=== PATIENT | female | born 1945 | race Caucasian/White ===

== ENCOUNTER 2019-05-14 15:07 | Emergency (ER) | payer MEDICARE ==
[~2019-05-14] VITALS: Ht 163 cm; Wt 80.0 kg
[~2019-05-14 15:07] MED LIST: AC325T PO; ALB0.5V INH; BENZ100C18 PO; FLUT1DIS26 IH; HYOS0.1217 PO; PHEN200T27 PO; PRD10T PO; TIOT18CA IH; TRAM50TA2 PO
[2019-05-14] MEDS ORDERED: methylPREDNISolone 125 MG (Solu-MEDROL) VIAL IV STA (15:12)
[2019-05-14] MEDS ORDERED: RT-ALBUTEROL/IPRATROPIUM 3 ML (DUONEB) VIAL INH ONE (15:15)
--- NOTE | 2019-05-14 15:19 | ED Dyspnea ---
General Stated Complaint: SOA Source of Information: Patient, Family Exam Limitations: No Limitations History of Present Illness Date Seen by Provider: May 14, 2019 Time Seen by Provider: 15:10 Initial Comments 74-year-old female presents with some shortness of breath and wheezing. Patient has a history of COPD and is on 4 L home oxygen. Patient presented to her primary care physician and when they checked her pulse oximeter was around 68 and 70%. Patient presented here today due to increasing shortness of breath. The patient initially came in her pulse ox was 68-70 but was a poor waveform. After adjusting the pulse ox, her reading was in the mid 90s. Patient denies any chest pain, fever or chills. She does have some increased coughing change in her sputum. She has what she describes as a "fullness" on her left side. Patient reports that she has been short of breath for at least 2 weeks. Allergies and Home Medications Allergies Coded Allergies: Codeine (Verified Allergy, Unknown, 12/04/05) Home Medications Acetaminophen 325 Mg Tablet, 650 MG PO Q4H PRN, (Reported) Albuterol 2.5 Mg/0.5 Ml Nebu, 2.5 MG INH Q6H, (Reported) Benzonatate 100 Mg Capsule, 200 MG PO TID, (Reported) Fluticasone/Salmeterol 1 Disk Inhp, 1 PUFF IH BID, (Reported) 1 PUFF Hyoscyamine Sulfate 0.125 Mg/Tab Tab.rapdis, 1 EACH PO Q4H PRN, (Reported) Phenazopyridine Hcl 200 Mg Tablet, 1 EACH PO TID, (Reported) Prednisone 10 Mg Tab, 10 MG PO DAILY, (Reported) Tiotropium [place] 1 Inh Aerp, 0 IH DAILY, (Reported) 1 INHALATION Tramadol Hcl 50 Mg Tablet, 50 MG PO Q6H, (Reported) Patient Home Medication List Home Medication List Reviewed: Yes Review of Systems Review of Systems Constitutional: No chills, No fever Respiratory: cough, short of breath Cardiovascular: No chest pain, No palpitations Gastrointestinal: No abdominal pain, No nausea, No vomiting Skin: no symptoms reported Psychiatric/Neurological: No Symptoms Reported Past Xemexcz-Nbguqi-Hrhonp Hx Past Med/Social Hx: Reviewed Nursing Past Med/Soc Hx Past Medical History Reproductive Disorders: No Physical Exam Vital Signs Vital Signs - First Documented 05/14/19 05/14/19 15:10 15:18 Temp 35.0 Pulse 78 Resp 22 B/P (MAP) 142/85 (104) Pulse Ox 97 O2 Delivery Nasal Cannula O2 Flow Rate 4.00 Capillary Refill : Height, Weight, BMI Height: '" Weight: lbs. oz. kg; BMI Method: General Appearance: No Apparent Distress, WD/WN HEENT: PERRL/EOMI Respiratory: No Accessory Muscle Use, Wheezing (diffuse) Cardiovascular: Regular Rate, Rhythm, No Edema Extremity: Normal Capillary Refill, Normal Inspection Neurologic/Psychiatric: Oriented x3, No Motor/Sensory Deficits, Normal Mood/Affect, liability claims adjuster II-XII Norm as Tested Progress/Results/Core Measures Results/Orders Lab Results Laboratory Tests Test 05/14/19 15:15 Range/Units White Blood Count 7.7 4.3-11.0 10^3/uL Red Blood Count 3.70 L 4.35-5.85 10^6/uL Hemoglobin 11.0 L 11.5-16.0 G/DL Hematocrit 38 35-52 % Mean Corpuscular Volume 103 H 80-99 FL Mean Corpuscular Hemoglobin 30 25-34 PG Mean Corpuscular Hemoglobin Concent 29 L 32-36 G/DL Red Cell Distribution Width 12.9 10.0-14.5 % Platelet Count 184 130-400 10^3/uL Mean Platelet Volume 10.2 7.4-10.4 FL Neutrophils (%) (Auto) 74 42-75 % Lymphocytes (%) (Auto) 17 12-44 % Monocytes (%) (Auto) 9 0-12 % Eosinophils (%) (Auto) 0 0-10 % Basophils (%) (Auto) 0 0-10 % Neutrophils # (Auto) 5.7 1.8-7.8 X 10^3 Lymphocytes # (Auto) 1.3 1.0-4.0 X 10^3 Monocytes # (Auto) 0.7 0.0-1.0 X 10^3 Eosinophils # (Auto) 0.0 0.0-0.3 10^3/uL Basophils # (Auto) 0.0 0.0-0.1 10^3/uL Sodium Level 141 135-145 MMOL/L Potassium Level 4.5 3.6-5.0 MMOL/L Chloride Level 85 L 98-107 MMOL/L Carbon Dioxide Level 44 H 21-32 MMOL/L Anion Gap 12 5-14 MMOL/L Blood Urea Nitrogen 11 7-18 MG/DL Creatinine 0.62 0.60-1.30 MG/DL Estimat Glomerular Filtration Rate > 60 BUN/Creatinine Ratio 18 Glucose Level 142 H 70-105 MG/DL Calcium Level 10.2 H 8.5-10.1 MG/DL Corrected Calcium 10.1 8.5-10.1 MG/DL Magnesium Level 1.9 1.6-2.4 MG/DL Total Bilirubin 0.3 0.1-1.0 MG/DL Aspartate Amino Transf (AST/SGOT) 38 H 5-34 U/L Alanine Aminotransferase (ALT/SGPT) 42 0-55 U/L Alkaline Phosphatase 172 H 40-136 U/L B-Type Natriuretic Peptide 12.8 <100.0 PG/ML Total Protein 7.5 6.4-8.2 GM/DL Albumin 4.1 3.2-4.5 GM/DL My Orders Orders - IRWIN,BELKIS L DO Cbc With Automated Diff (05/14/19 15:12) Comprehensive Metabolic Panel (05/14/19 15:12) BNP (05/14/19 15:12) Magnesium (05/14/19 15:12) Ekg Tracing (05/14/19 15:12) O2 (05/14/19 15:12) Ed Iv/Invasive Line Start (05/14/19 15:12) Monitor-Rhythm Ecg Trace Only (05/14/19 15:12) Albuterol/Ipra Inhalation Soln (Duoneb I (05/14/19 15:15) Methylprednisolone Sod Succ (Solu-Medrol (05/14/19 15:12) Svn Small Volume Nebulizer (05/14/19 15:12) Chest Pa/Lat (2 View) (05/14/19 15:12) Medications Given in ED Current Medications Medications Dose Ordered Sig/Ottoniel Route Start Time Stop Time Status Last Admin Dose Admin Albuterol/ Ipratropium 3 ml ONCE ONCE INH 05/14/19 15:15 05/14/19 15:16 DC 05/14/19 15:53 3 ML Vital Signs/I&O 05/14/19 05/14/19 15:10 15:18 Temp 35.0 Pulse 78 Resp 22 B/P (MAP) 142/85 (104) Pulse Ox 97 97 O2 Delivery Nasal Cannula Nasal Cannula O2 Flow Rate 4.00 Progress Progress Note : Time: 16:20 Progress Note Patient reports she feeling seemingly better following the breathing treatment. Her oxygen has been and the upper 90s throughout her stay. Patient likely with COPD exacerbation. We will start her on doxycycline and some prednisone. She should follow-up with her primary care physician in a couple days for continuation of care and recheck if symptoms Initial ECG Impression Date: May 14, 2019 Initial ECG Impression Time: 15:19 Initial ECG Rhythm: Normal Sinus Initial ECG Intervals: Normal Initial ECG Impression: Normal Departure Impression Primary Impression: COPD (chronic obstructive pulmonary disease) with acute bronchitis Disposition: 01 HOME, SELF-CARE Condition: Stable Departure-Patient Inst. Referrals: ADOLFO ORTIZ DO (PCP/Family) Primary Care Physician Patient Instructions: COPD Including Emphysema (DC), Exacerbation of COPD (DC) Scripts Prednisone (Prednisone) 20 Mg Tab 40 MG PO DAILY, #6 TAB 0 Refills Prov: BELKIS IRWIN DO 05/14/19 Doxycycline Hyclate (Doxycycline Hyclate) 100 Mg Tablet 100 MG PO BID, #20 TAB 0 Refills Prov: BELKIS IRWIN DO 05/14/19 BELKIS IRWIN DO May 14, 2019 15:19 POS
[2019-05-14 15:23] LABS: BASOPHILS % (AUTO) 0 % (0-10); EOSINOPHILS % (AUTO) 0 % (0-10); HEMATOCRIT 38 % (35-52); LYMPHOCYTES # (AUTO) 1.3 X 10^3 (1.0-4.0); LYMPHOCYTES % (AUTO) 17 % (12-44); MEAN CORPUSCULAR HEMOGLOBIN 30 PG (25-34); MEAN CORPUSCULAR HGB CONC 29 G/DL (32-36); MEAN CORPUSCULAR VOLUME 103 FL (80-99); MEAN PLATELET VOLUME 10.2 FL (7.4-10.4); MONOCYTES # (AUTO) 0.7 X 10^3 (0.0-1.0); MONOCYTES % (AUTO) 9 % (0-12); NEUTROPHILS # (AUTO) 5.7 X 10^3 (1.8-7.8); NEUTROPHILS % (AUTO) 74 % (42-75); PLATELET COUNT 184 10^3/uL (130-400); RED CELL DISTRIBUTION WIDTH 12.9 % (10.0-14.5); WHITE BLOOD COUNT 7.7 10^3/uL (4.3-11.0)
[2019-05-14 15:47] LABS: ALANINE AMINOTRANSFERASE 42 U/L (0-55); ALBUMIN 4.1 GM/DL (3.2-4.5); ALKALINE PHOSPHATASE 172 U/L (40-136); BILIRUBIN,TOTAL 0.3 MG/DL (0.1-1.0); BUN/CREATININE RATIO 18; CALCIUM 10.2 MG/DL (8.5-10.1); CARBON DIOXIDE 44 MMOL/L (21-32); CHLORIDE 85 MMOL/L (98-107); CREATININE SERUM 0.62 MG/DL (0.60-1.30); GFR ESTIMATED > 60; GLUCOSE 142 MG/DL (70-105); MAGNESIUM 1.9 MG/DL (1.6-2.4); POTASSIUM 4.5 MMOL/L (3.6-5.0); SODIUM 141 MMOL/L (135-145); TOTAL PROTEIN 7.5 GM/DL (6.4-8.2)
--- NOTE | 2019-05-14 16:04 | Diagnostic Imaging Report ---
PATIENT HISTORY: Shortness of breath for two weeks. TECHNIQUE: Two views of the chest COMPARISON: Chest radiograph on 11/06/2010. FINDINGS: Postsurgical changes are visualized in the right hilum with convex prominence of the right hilum. This is similar to prior exams. Volume loss in the right hemithorax is noted. Bibasilar opacities are seen. A small right pleural effusion is present. No large pneumothorax. Stable cardiac silhouette. No acute osseous abnormalities. IMPRESSION: 1. Bibasilar opacities with small right pleural effusion. This may represent infection or atelectasis. 2. Stable postoperative changes in the right hilum with stable convex prominence of the right hilum. Dictated by: Dictated on workstation # [id number]
[2019-05-14] MEDS ORDERED: DOXY100T2 PO (16:24)
[2019-05-14] MEDS ORDERED: PRD20T PO (16:24)
[2019-05-14 16:32] VITALS: BP 115/78
== END 2019-05-14 16:32 | disposition home or self-care (01) ==
LOC: EDUNIT# 15:07 → ER 15:09
DX: J44.0 Chronic obstructive pulmonary disease with (acute) lower respiratory infection (principal); J20.9 Acute bronchitis, unspecified; Z99.81 Dependence on supplemental oxygen; Z88.5 Allergy status to narcotic agent
CPT/HCPCS: 36415; 71046; 80053; 83735; 83880; 85025; 93005; 93041; 94640; 94760

== ENCOUNTER 2019-05-28 21:02 | Inpatient (IN) | payer MEDICARE ==
[~2019-05-28] VITALS: Ht 165 cm; Wt 85.5 kg
[~2019-05-28 21:02] MED LIST changes: +DOXY100T2 PO; +PRD20T PO
[2019-05-28] MEDS ORDERED: methylPREDNISolone 125 MG (Solu-MEDROL) VIAL IV STA (21:04)
[2019-05-28] MEDS ORDERED: RT-ALBUTEROL SULF 2.5 MG/3 ML PRE-MIX VIAL INH STA (21:04)
[2019-05-28] MEDS ORDERED: RT-ALBUTEROL/IPRATROPIUM 3 ML (DUONEB) VIAL ONE ×2 (21:06→21:08)
[2019-05-28] MEDS ORDERED: DEXAMETHASONE 4 MG/ML SDV (DECADRON) ONE (21:07)
[2019-05-28] MEDS ORDERED: RT-ALBUTEROL SULF 2.5 MG/3 ML PRE-MIX VIAL ONE (21:07)
[2019-05-28] MEDS ORDERED: DEXAMETHASONE 4 MG/ML SDV (DECADRON) IH ONE (21:15)
[2019-05-28] MEDS ORDERED: RT-ALBUTEROL/IPRATROPIUM 3 ML (DUONEB) VIAL INH ONE (21:15)
[2019-05-28 21:19] LABS: BILIRUBIN,URINE NEGATIVE (NEGATIVE); CLARITY,URINE CLOUDY; COLOR,URINE DARK YELLOW; GLUCOSE, URINE (UA) NEGATIVE (NEGATIVE); KETONES,URINE NEGATIVE (NEGATIVE); LEUKOCYTE ESTERASE ,URINE NEGATIVE (NEGATIVE); NITRITE,URINE NEGATIVE (NEGATIVE); PROTEIN,URINE 3+ (NEGATIVE)
[2019-05-28 21:22] LABS: BASOPHILS % (AUTO) 0 % (0-10); EOSINOPHILS % (AUTO) 1 % (0-10); HEMATOCRIT 37 % (35-52); HEMOGLOBIN 10.3 G/DL (11.5-16.0); LYMPHOCYTES # (AUTO) 0.8 X 10^3 (1.0-4.0); LYMPHOCYTES % (AUTO) 11 % (12-44); MEAN CORPUSCULAR HEMOGLOBIN 30 PG (25-34); MEAN CORPUSCULAR HGB CONC 28 G/DL (32-36); MEAN CORPUSCULAR VOLUME 109 FL (80-99); MEAN PLATELET VOLUME 10.1 FL (7.4-10.4); MONOCYTES # (AUTO) 0.7 X 10^3 (0.0-1.0); MONOCYTES % (AUTO) 10 % (0-12); NEUTROPHILS # (AUTO) 5.5 X 10^3 (1.8-7.8); NEUTROPHILS % (AUTO) 78 % (42-75); PLATELET COUNT 162 10^3/uL (130-400)
[2019-05-28 21:28] LABS: INR 0.9 (0.8-1.4); PROTHROMBIN TIME PATIENT 12.1 SEC (12.2-14.7)
[2019-05-28 21:39] LABS: ALANINE AMINOTRANSFERASE 41 U/L (0-55); ALBUMIN 3.7 GM/DL (3.2-4.5); ALKALINE PHOSPHATASE 147 U/L (40-136); BILIRUBIN,TOTAL 0.1 MG/DL (0.1-1.0); BUN/CREATININE RATIO 25; CALCIUM 10.5 MG/DL (8.5-10.1); CHLORIDE 87 MMOL/L (98-107); CREATINE KINASE 19 U/L (29-168); CREATININE SERUM 0.61 MG/DL (0.60-1.30); GFR ESTIMATED > 60; GLUCOSE 141 MG/DL (70-105); MAGNESIUM 2.1 MG/DL (1.6-2.4); POTASSIUM 4.8 MMOL/L (3.6-5.0); SODIUM 147 MMOL/L (135-145); TOTAL PROTEIN 6.9 GM/DL (6.4-8.2)
[2019-05-28 21:40] LABS: ABG OXYGEN SATURATION 99 % (94-100); ABG PO2 159 MMHG (79-93)
[2019-05-28 21:45] LABS: AMORPHOUS SEDIMENT,UR LARGE AMOR URATES /LPF; BACTERIA,URINE FEW /HPF; HYALINE CASTS, URINE 0-2 /LPF; RBC,URINE 25-50 /HPF; SQUAMOUS EPITHELIAL CELL,UR 0-2 /HPF
[2019-05-28 21:45] LABS: ABG PH 7.17 (7.37-7.43); ALLENS TEST POSITIVE; INSPIRED O2 3.5L; PATIENT TEMP 36.3; VENTILATOR NO
[2019-05-28 21:46] LABS: CREATINE KINASE MB 1.7 NG/ML (<6.6)
[2019-05-28 21:58] LABS: CARBON DIOXIDE 48 MMOL/L (21-32)
[2019-05-28] MEDS ORDERED: AZITHROMYCIN INJECTION 500 MG in NS (IVPB) 250 ML IV ONE (22:00)
[2019-05-28] MEDS ORDERED: cefTRIAXone FOR IV USE 1,000 MG in WATER (STERILE) FOR INJECTION 10 ML IV ONE (22:00)
[2019-05-28 22:24] VITALS: BP 148/75
--- NOTE | 2019-05-28 22:28 | Diagnostic Imaging Report ---
INDICATION: Shortness of breath, respiratory difficulty. TECHNIQUE: Single view chest 9:45 PM. CORRELATION STUDY: 05/14/2019 FINDINGS: Surgical changes at the area of fullness in the right hilum appears generally stable. There is what appears to be increasing effusion at the right lung base with some progressive right lung volume loss. Left lung relatively stable. Heart size unchanged. IMPRESSION: 1. Postsurgical changes of the right hilum with right lung volume loss. There appears to be increasing opacity at the right lung base and right pleural effusion with progressive right lung volume loss. Dictated by: Dictated on workstation # [id number]
[2019-05-28 23:38] LABS: ABG BASE EXCESS 23.9 MMOL/L (-2.5-2.5); ABG OXYGEN SATURATION 98 % (94-100); ABG PO2 79 MMHG (79-93); ABG TCO2 57.1 MMOL/L (21.0-31.0); ALLENS TEST POSITIVE; INSPIRED O2 50%
[2019-05-28 23:39] LABS: PATIENT TEMP 35; VENTILATOR NO
[2019-05-28 23:40] LABS: ABG PCO2 130 MMHG (35-45); ABG PH 7.22 (7.37-7.43)
[2019-05-29] VITALS (36 sets, daily range): BP systolic 90–146; BP diastolic 48–91
[2019-05-29] MEDS ORDERED: methylPREDNISolone 125 MG (Solu-MEDROL) VIAL IV SCH ×2 (00:55→06:00)
[2019-05-29] MEDS ORDERED: D5 1/2 NS W/KCL 20 MEQ/L 1,000 ML IV SCH (01:00)
[2019-05-29] MEDS ORDERED: CATHETER FLUSH 10 ML SYR IV PRN (01:00)
--- NOTE | 2019-05-29 01:46 | ED Respiratory ---
General Chief Complaint: Respiratory Problems Stated Complaint: ACUTE RESP FAILURE;PNEUMONIA;PLURAL EFFUSIA; Source: EMS, spouse Exam Limitations: clinical condition (PT VERY LETHARGIC, AND NOT REALLY TALKING/ANSWERING QUESTIONS--OCCASIONALLY NODS/SHAKES HEAD YES/NO. ) History of Present Illness Date Seen by Provider: May 28, 2019 Time Seen by Provider: 21:03 Initial Comments PT ARRIVES VIA [facility] FROM HOME CALLED EMS FOR SHORTNESS OF BREATH-CHRONIC PROBLEM, PROGRESSIVELY WORSE OVER THE LAST SEVERAL DAYS PT HAS COPD AND LAST USED ALBUTEROL NEBULIZER 4 HOURS AGO. EMS GAVE DUO NEB TREATMENT EN ROUTE. PT HAS ALSO HAD DECREASED MENTATION FOR SEVERAL DAYS. "WANTS TO SLEEP ALL THE TIME" PER . NO REPORTED FEVER NO SIGNIFICANT COUGH PT DENIES CHEST PAIN OR PAIN ANYWHERE. PT NORMALLY WEARS HOME O2 AT 4L/NC NO OTHER RELEVANT INFORMATION OBTAINABLE AT THIS TIME ABOUT CURRENT PROBLEM PT WAS HERE IN ER 05/14/19 FOR C/O ONGOING SHORTNESS OF BREATH FOR THE LAST 2 WEEKS. GIVEN DUO NEB TREATMENT AND HAD SOME IMPROVEMENT. PT WAS DISMISSED WITH RX'S FOR DOXYCYCLINE AND PREDNISONE. PT WAS ADMITTED IN 2010 FOR SIMILAR COMPLAINTS, AND EVENTUALLY REQUIRED INTUBATION STATES THAT PT HAS NEVER FOLLOWED UP WITH A [facility]ORM GROWER, BUT STATES THAT PT IS VERY NON-COMPLIANT ABOUT ANY KIND OF FOLLOW UP APPOINTMENTS. PCP: DR. ORTIZ Allergies and Home Medications Allergies Coded Allergies: codeine (Verified Allergy, Unknown, 12/04/05) Home Medications Acetaminophen 325 Mg Tablet, 650 MG PO Q4H PRN, (Reported) Albuterol 2.5 Mg/0.5 Ml Nebu, 2.5 MG INH Q6H, (Reported) Benzonatate 100 Mg Capsule, 200 MG PO TID, (Reported) Doxycycline Hyclate 100 Mg Tablet, 100 MG PO BID Prescribed by: BELKIS IRWIN on 05/14/19 1624 Fluticasone/Salmeterol 1 Disk Inhp, 1 PUFF IH BID, (Reported) 1 PUFF Hyoscyamine Sulfate 0.125 Mg/Tab Tab.rapdis, 1 EACH PO Q4H PRN, (Reported) Phenazopyridine Hcl 200 Mg Tablet, 1 EACH PO TID, (Reported) Prednisone 10 Mg Tab, 10 MG PO DAILY, (Reported) Prednisone 20 Mg Tab, 40 MG PO DAILY Prescribed by: BELKIS IRWIN on 05/14/19 1624 Tiotropium [place] 1 Inh Aerp, 0 IH DAILY, (Reported) 1 INHALATION Tramadol Hcl 50 Mg Tablet, 50 MG PO Q6H, (Reported) Patient Home Medication List Home Medication List Reviewed: Yes Review of Systems Review of Systems Constitutional: see HPI; No fever; malaise, weakness Respiratory: see HPI Psychiatric/Neurological: See HPI Past Wufytlp-Beggox-Iourbj Hx Patient Social History Alcohol Use: Denies Use Recreational Drug Use: No Smoking Status: Former Smoker (2 PPD --QUIT APPROXIMATELY 5 YEARS AGO, PER ) Type Used: Cigarettes Recent Foreign Travel: No Contact w/Someone Who Travel: No Recent Hopitalizations: No Seasonal Allergies Seasonal Allergies: Yes Past Medical History Surgeries: Yes (RT UPPER LOBECTOMY--FOR BENIGN MASS; "CYST REMOVED FROM ABDOME N" ) Abdominal, Breast, Gallbladder, Hysterectomy, Lobectomy Respiratory: Yes (O2 DEPENDENT AT 4L/NC; INTUBATED IN 2010) Asthma, COPD Cardiac: No Neurological: No Reproductive Disorders: No PR INTERN History: Hysterectomy, Menopausal Genitourinary: No Gastrointestinal: No Musculoskeletal: No Endocrine: Yes (OBESITY) Cancer: No Psychosocial: No Integumentary: No Blood Disorders: No Physical Exam Vital Signs - First Documented Capillary Refill : Height: '" Weight: lbs. oz. kg; 30.00 BMI Method: General Appearance: moderate distress, obese, other (VERY LETHARGIC, RESPIRATIONS MILDLY LABORED, BUT AUDIBLE WHEEZING FROM BEDSIDE) Respiratory: other (DIFFUSE WHEEZING AUDIBLE FROM BEDSIDE. RESPIRATIONS SLIGHTLY LABORED, PT IS HYPOVENTILATING. ) Cardiovascular: regular rate, rhythm, no edema, no JVD, no murmur Gastrointestinal: non tender, soft Extremities: normal inspection, no pedal edema, normal capillary refill Neurologic/Psychiatric: no motor/sensory deficits (GROSSLY INTACT), other (VERY LETHARGIC, NODS HEAD YES/SHAKES HEAD NO ON FEW QUESTIONS, NOT REALLY TALKING. MOVES ALL EXTREMITIES, BUT NOT FOLLOWING COMMANDS WELL) Skin: normal color, warm/dry Focused Exam Lactate Level 05/28/19 21:05: Lactic Acid Level 0.49L Lactic Acid Level Laboratory Tests Test 05/28/19 21:05 Lactic Acid Level 0.49 MMOL/L (0.50-2.00) L Progress/Results/Core Measures Suspected Sepsis SIRS Temperature: Pulse: 80 Respiratory Rate: 23 Laboratory Tests 05/28/19 21:05: White Blood Count 7.0 Blood Pressure 148 /75 Mean: 05/28/19 21:05: Lactic Acid Level 0.49L Laboratory Tests 05/28/19 21:05: Creatinine 0.61, INR Comment 0.9, Platelet Count 162, Total Bilirubin 0.1 Results/Orders Lab Results Laboratory Tests Test 05/28/19 21:05 05/28/19 21:15 05/28/19 21:23 Range/Units White Blood Count 7.0 4.3-11.0 10^3/uL Red Blood Count 3.43 L 4.35-5.85 10^6/uL Hemoglobin 10.3 L 11.5-16.0 G/DL Hematocrit 37 35-52 % Mean Corpuscular Volume 109 H 80-99 FL Mean Corpuscular Hemoglobin 30 25-34 PG Mean Corpuscular Hemoglobin Concent 28 L 32-36 G/DL Red Cell Distribution Width 13.0 10.0-14.5 % Platelet Count 162 130-400 10^3/uL Mean Platelet Volume 10.1 7.4-10.4 FL Neutrophils (%) (Auto) 78 H 42-75 % Lymphocytes (%) (Auto) 11 L 12-44 % Monocytes (%) (Auto) 10 0-12 % Eosinophils (%) (Auto) 1 0-10 % Basophils (%) (Auto) 0 0-10 % Neutrophils # (Auto) 5.5 1.8-7.8 X 10^3 Lymphocytes # (Auto) 0.8 L 1.0-4.0 X 10^3 Monocytes # (Auto) 0.7 0.0-1.0 X 10^3 Eosinophils # (Auto) 0.0 0.0-0.3 10^3/uL Basophils # (Auto) 0.0 0.0-0.1 10^3/uL Prothrombin Time 12.1 L 12.2-14.7 SEC INR Comment 0.9 0.8-1.4 Activated Partial Thromboplast Time 32 24-35 SEC Sodium Level 147 H 135-145 MMOL/L Potassium Level 4.8 3.6-5.0 MMOL/L Chloride Level 87 L 98-107 MMOL/L Carbon Dioxide Level 48 *H 21-32 MMOL/L Anion Gap 12 5-14 MMOL/L Blood Urea Nitrogen 15 7-18 MG/DL Creatinine 0.61 0.60-1.30 MG/DL Estimat Glomerular Filtration Rate > 60 BUN/Creatinine Ratio 25 Glucose Level 141 H 70-105 MG/DL Lactic Acid Level 0.49 L 0.50-2.00 MMOL/L Calcium Level 10.5 H 8.5-10.1 MG/DL Corrected Calcium 10.7 H 8.5-10.1 MG/DL Magnesium Level 2.1 1.6-2.4 MG/DL Total Bilirubin 0.1 0.1-1.0 MG/DL Aspartate Amino Transf (AST/SGOT) 24 5-34 U/L Alanine Aminotransferase (ALT/SGPT) 41 0-55 U/L Alkaline Phosphatase 147 H 40-136 U/L Total Creatine Kinase 19 L 29-168 U/L Creatine Kinase MB 1.7 <6.6 NG/ML Myoglobin 23.2 10.0-92.0 NG/ML Troponin I < 0.028 <0.028 NG/ML B-Type Natriuretic Peptide 39.8 <100.0 PG/ML Total Protein 6.9 6.4-8.2 GM/DL Albumin 3.7 3.2-4.5 GM/DL Urine Color DARK YELLOW Urine Clarity CLOUDY Urine pH 6.0 5-9 Urine Specific [place] >=1.030 1.016-1.022 Urine Protein 3+ H NEGATIVE Urine Glucose (UA) NEGATIVE NEGATIVE Urine Ketones NEGATIVE NEGATIVE Urine Nitrite NEGATIVE NEGATIVE Urine Bilirubin NEGATIVE NEGATIVE Urine Urobilinogen 0.2 < = 1.0 MG/DL Urine Leukocyte Esterase NEGATIVE NEGATIVE Urine RBC (Auto) 3+ H NEGATIVE Urine RBC 25-50 H /HPF Urine WBC NONE /HPF Urine Squamous Epithelial Cells 0-2 /HPF Urine Crystals PRESENT H /LPF Urine Amorphous Sediment LARGE JOSE URATES H /LPF Urine Bacteria FEW H /HPF Urine Casts PRESENT /LPF Urine Hyaline Casts 0-2 H /LPF Urine Mucus NEGATIVE /LPF Urine Culture Indicated NO Blood Gas Puncture Site RIGH RADIAL Blood Gas Patient Temperature 36.3 Arterial Blood pH 7.17 *L 7.37-7.43 Arterial Blood Partial Pressure CO2 35-45 MMHG Arterial Blood Partial Pressure O2 159 H 79-93 MMHG Arterial Blood HCO3 23-27 MMOL/L Arterial Blood Total CO2 21.0-31.0 MMOL/L Arterial Blood Oxygen Saturation 99 94-100 % Arterial Blood Base Excess -2.5-2.5 MMOL/L Rik Test POSITIVE Blood Gas Ventilator Setting NO Blood Gas Inspired Oxygen 3.5L Micro Results Microbiology 05/28/19 Influenza Types A,B Antigen (NIK) - Final, Complete My Orders Orders - MILENA YOUNG DO Albuterol/Ipra Inhalation Soln (Duoneb I (05/28/19 21:06) Dexamethasone Injection (Decadron Inject (05/28/19 21:07) Albuterol Pre-Mix Nebs (Rt) (Proventil (05/28/19 21:07) Albuterol/Ipra Inhalation Soln (Duoneb I (05/28/19 21:08) Ed Iv/Invasive Line Start (05/28/19 21:04) Ekg Tracing (05/28/19 21:04) O2 (05/28/19 21:04) Monitor-Rhythm Ecg Trace Only (05/28/19 21:04) Chest 1 View, Ap/Pa Only (05/28/19 21:04) BNP (05/28/19 21:04) Cbc With Automated Diff (05/28/19 21:04) Comprehensive Metabolic Panel (05/28/19 21:04) Creatine Kinase (05/28/19 21:04) Creatine Kinase Mb (05/28/19 21:04) Lactic Acid Analyzer (05/28/19 21:04) Magnesium (05/28/19 21:04) Protime With Inr (05/28/19 21:04) Partial Thromboplastin Time (05/28/19 21:04) Ua Culture If Indicated (05/28/19 21:04) Blood Culture (05/28/19 21:04) Influenza A And B Antigens (05/28/19 21:04) Myoglobin Serum (05/28/19 21:04) Troponin I (05/28/19 21:04) Albuterol Pre-Mix Nebs (Rt) (Proventil (05/28/19 21:04) Albuterol/Ipra Inhalation Soln (Duoneb I (05/28/19 21:15) Dexamethasone Injection (Decadron Inject (05/28/19 21:15) Rt Request For Service (05/28/19 21:04) Methylprednisolone Sod Succ (Solu-Medrol (05/28/19 21:04) Svn Small Volume Nebulizer (05/28/19 21:04) Svn Small Volume Nebulizer (05/28/19 21:04) Catheter(Urinary) Insert & Ass 03,15 (05/28/19 21:04) Arterial Blood Gas (05/28/19 21:23) Medications Given in ED Current Medications Medications Dose Ordered Sig/Ottoniel Route Start Time Stop Time Status Last Admin Dose Admin Albuterol/ Ipratropium 3 ml ONCE ONCE INH 05/28/19 21:15 05/28/19 21:16 DC 05/28/19 21:16 3 ML Azithromycin 500 mg/Sodium Chloride 250 ml @ 250 mls/hr ONCE ONCE IV 05/28/19 22:00 05/28/19 22:59 DC 05/28/19 22:22 250 MLS/HR Ceftriaxone Sodium 1000 mg/ Sterile Water 10 ml @ 200 mls/hr ONCE ONCE IV 05/28/19 22:00 05/28/19 22:02 DC 05/28/19 22:22 200 MLS/HR Dexamethasone Sodium Phosphate 20 mg ONCE ONCE IH 05/28/19 21:15 05/28/19 21:16 DC 05/28/19 21:16 20 MG Vital Signs/I&O 05/28/19 05/28/19 05/28/19 21:02 21:02 22:00 Temp 36.8 36.8 Pulse 116 105 Resp 20 20 B/P (MAP) 151/90 (110) 164/69 Pulse Ox 99 O2 Delivery Nasal Cannula Nasal Cannula O2 Flow Rate 5.00 5.00 Capillary Refill : Progress Note : Progress Note O2 SATS IN UPPER 90'S ON ARRIVAL AT 3.5 L/NC INITIAL ABG'S REVEALED CO2 --"TOO HIGH TO READ" PER LAB STAFF PT PLACED ON BIPAP, WITH SOME IMPROVEMENT IN ABG'S, -PH IS UP, NOW HAS A "READABLE" PCO2, AND O2 SAT IN NORMAL RANGE. PT SLIGHTLY MORE ALERT. GIVEN HOUR LONG NEB TREATMENT WITH DECREASED WHEEZING AND INCREASED AERATION RESPIRATIONS EVEN AND UNLABORED. NO DETERIORATION IN PT'S CONDITION DURING ER STAY DISCUSSED WITH , AND PT, THAT IF HER SYMPTOMS DO NOT SIGNIFICANTLY IMPROVE ON BIPAP, SHE WOULD NEED TO BE ON VENTILATOR, AND IS AGREEABLE TO THIS. ECG Initial ECG Impression Date: May 28, 2019 Initial ECG Impression Time: 21:18 Initial ECG Rate: 87 Initial ECG Rhythm: Normal Sinus Diagnostic Imaging Comments CXR--INCREASED INFILTRATE AND PLEURAL EFFUSION IN RIGHT BASE, WITH DECREASED VOLUME --WORSENING FROM PREVIOUS CXR 05/14/19--PER RADIOLOGIST REPORT AT 2231 Reviewed: Reviewed by Me Departure Communication (Admissions) 2154--SPOKE WITH DR. ORTIZ, ACCEPTS PT FOR ADMIT. WILL CONSULT DR. WINKLER 2199--ATTEMPTING TO CONTACT DR. WINKLER,NO ANSWER. UNABLE TO LEAVE MESSAGE. WILL CONTINUE TO ATTEMPT TO CONTACT HIM AFTER PT IS TRANSFERRED TO ICU Impression Primary Impression: Acute on chronic respiratory failure Additional Impressions: CO2 narcosis Respiratory acidosis RLL pneumonia Pleural effusion on right Disposition: ADMITTED INPATIENT Condition: Improved Admissions Decision to Admit Reason: Admit from ER (General) Decision to Admit/Date: May 28, 2019 Time/Decision to Admit Time: 22:00 Departure-Patient Inst. Referrals: ADOLFO ORTIZ DO (PCP) Primary Care Physician MILENA YOUNG DO May 29, 2019 01:46 POS
[2019-05-29 01:48] LABS: ABG BASE EXCESS 25.2 MMOL/L (-2.5-2.5); ABG OXYGEN SATURATION 97 % (94-100); ABG PO2 85 MMHG (79-93); ABG TCO2 57.6 MMOL/L (21.0-31.0)
[2019-05-29 01:51] LABS: ABG PCO2 128 MMHG (35-45); ABG PH 7.24 (7.37-7.43); ALLENS TEST POSITIVE; INSPIRED O2 50%; PATIENT TEMP 36.2; VENTILATOR NO
[2019-05-29] MEDS ORDERED: RT-ALBUTEROL/IPRATROPIUM 3 ML (DUONEB) VIAL INH PRN (02:00)
[2019-05-29 02:50] LABS: ABG OXYGEN SATURATION 96 % (94-100); ABG PO2 79 MMHG (79-93); ABG TCO2 58.1 MMOL/L (21.0-31.0)
[2019-05-29] MEDS: RT-ALBUTEROL/IPRATROPIUM 3 ML (DUONEB) VIAL INH SCH ×6 (02:50→22:24)
[2019-05-29 02:57] LABS: ABG PCO2 124 MMHG (35-45); ABG PH 7.26 (7.37-7.43); PATIENT TEMP 36.2
[2019-05-29 02:58] LABS: ALLENS TEST positive; INSPIRED O2 50%; VENTILATOR NO
[2019-05-29 04:07] LABS: ABG BASE EXCESS 25.5 MMOL/L (-2.5-2.5); ABG OXYGEN SATURATION 98 % (94-100); ABG PO2 85 MMHG (79-93)
[2019-05-29 04:15] LABS: ALLENS TEST POSITIVE; INSPIRED O2 50% BIPAP; PATIENT TEMP 36.5; VENTILATOR NO
[2019-05-29 04:16] LABS: ABG PCO2 100 MMHG (35-45); ABG PH 7.34 (7.37-7.43)
[2019-05-29] MEDS ORDERED: PROPOFOL DRIP (ICU) 100 ML IV ONE (04:29)
[2019-05-29] MEDS ORDERED: LACTATED RINGERS 1,000 ML IV ONE ×2 (04:30→05:15)
--- NOTE | 2019-05-29 04:38 | Pulmonary Consultation ---
History of Present Illness History of Present Illness Time Seen by Provider: 04:32 Date of Admission History of Present Illness 74yo with hx of severe oxygen dependent COPD uses 4liters of oxygen at home presented to ED secondary to acute worsening SOB and lethargy. Pt is currently on BiPAP with IP of 25 and RR of 20 her Pc02 is still 100 with repeat ABG. Family at bedside will proceed with intubation. Pt is also hypotensive with SBP 80's will also place central line. Pt was recently in ED secondary to worsening SOB. Pt does have a hx of COPDAE requiring mechanical ventilation about 9yrs ago. Allergies and Home Medications Allergies Coded Allergies: codeine (Verified Allergy, Unknown, 12/04/05) Home Medications Acetaminophen 325 Mg Tablet, 650 MG PO Q4H PRN, (Reported) Albuterol 2.5 Mg/0.5 Ml Nebu, 2.5 MG INH Q6H, (Reported) Benzonatate 100 Mg Capsule, 200 MG PO TID, (Reported) Doxycycline Hyclate 100 Mg Tablet, 100 MG PO BID Prescribed by: EBLKIS IRWIN on 05/14/19 1624 Fluticasone/Salmeterol 1 Disk Inhp, 1 PUFF IH BID, (Reported) 1 PUFF Hyoscyamine Sulfate 0.125 Mg/Tab Tab.rapdis, 1 EACH PO Q4H PRN, (Reported) Phenazopyridine Hcl 200 Mg Tablet, 1 EACH PO TID, (Reported) Prednisone 10 Mg Tab, 10 MG PO DAILY, (Reported) Prednisone 20 Mg Tab, 40 MG PO DAILY Prescribed by: BELKIS IRWIN on 05/14/19 1624 Tiotropium [place] 1 Inh Aerp, 0 IH DAILY, (Reported) 1 INHALATION Tramadol Hcl 50 Mg Tablet, 50 MG PO Q6H, (Reported) Past Etfojpy-Urwzhc-Zmiqzc Hx Patient Social History Alcohol Use: Denies Use Recreational Drug Use: No Smoking Status: Former Smoker (2 PPD --QUIT APPROXIMATELY 5 YEARS AGO, PER ) Type Used: Cigarettes Recent Foreign Travel: No Contact w/Someone Who Travel: No Recent Infectious Disease Expo: No Recent Hopitalizations: No Physical Abuse: No Sexual Abuse: No Mistreated: No Fear: No Immunizations Up To Date Date of Pneumonia Vaccine: May 29, 2019 Date of Influenza Vaccine: May 20, 2019 Seasonal Allergies Seasonal Allergies: Yes Past Medical History Surgeries: Yes (RT UPPER LOBECTOMY--FOR BENIGN MASS; "CYST REMOVED FROM ABDOMEN" ) Abdominal, Breast, Gallbladder, Hysterectomy, Lobectomy Respiratory: Yes (O2 DEPENDENT AT 4L/NC; INTUBATED IN 2010) Asthma, COPD Cardiac: No Neurological: No Reproductive Disorders: No 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 oz. kg; 29.00 BMI Method: Exam Exam Vital Signs Date Time Temp Pulse Resp B/P (MAP) Pulse Ox O2 Delivery O2 Flow Rate FiO2 05/29/19 02:50 69 20 98 50.00 05/29/19 02:30 76 18 131/79 (96) 97 NIV Bilevel 50.00 05/29/19 02:15 70 20 134/87 (103) 96 NIV Bilevel 50.00 05/29/19 02:00 98 15 129/79 (96) 98 NIV Bilevel 50.00 05/29/19 01:46 80 98 05/29/19 01:45 69 25 127/71 (89) 97 NIV Bilevel 50.00 05/29/19 01:30 67 19 130/77 (94) 98 NIV Bilevel 50.00 05/29/19 01:15 71 28 111/73 (86) 97 NIV Bilevel 50.00 05/29/19 01:00 83 05/29/19 01:00 83 14 135/74 (94) 97 NIV Bilevel 50.00 05/29/19 00:50 80 133/87 (102) 95 NIV Bilevel 50.00 05/29/19 00:34 36.8 71 18 105/49 (100) 92 NIV Bilevel 05/28/19 22:24 80 23 97 50.00 05/28/19 22:00 36.8 105 20 164/69 05/28/19 21:02 Nasal Cannula 5.00 05/28/19 21:02 36.8 116 20 151/90 (110) 99 Nasal Cannula 5.00 I & O 05/29/19 07:00 Intake Total 260 ml Balance 260 ml Height & Weight Height: '" Weight: lbs. oz. kg; 29.00 BMI Method: General Appearance: Chronically ill, Moderate Distress, Obese HEENT: PERRL/EOMI, TMs Normal Neck: Normal Inspection, Non Tender, Supple Respiratory: Chest Non Tender, Accessory Muscle Use, Decreased Breath Sounds, Respiratory Distress Capillary Refill: Less Than 3 Seconds Gastrointestinal: non tender, soft Extremity: Normal Capillary Refill, Normal Inspection, No Pedal Edema Neurologic/Psychiatric: Alert, Oriented x3 Skin: Normal Color, Warm/Dry Lymphatic: No Adenopathy Results Lab Laboratory Tests 05/28/19 21:05 Assessment/Plan Assessment/Plan Acute on chronic respiratory failure -Will proceed with intubation -Currently on BiPAP Severe oxygen dependent COPD uses 4liers at home COPDAE -Solumedrol -SVNS -Oxygen Morbid obesity BYRON WINKLER DO May 29, 2019 04:37 POS
--- NOTE | 2019-05-29 05:04 | Pulmonary Procedures ---
Pulmonary Procedures Date of Procedure Date of Service: May 29, 2019 Reason for Intubation: Acute respiratory failure Time of Intubation: 05:02 Intubation Method: orotracheal Tube Size: 8 Medications: Propofol, Versed Positive End Tide CO2: Yes Breath Sounds after Intubation: bilateral-equal Intubation Complications: no complications Post Intubation Xray: Yes BYRON WINKLER DO May 29, 2019 05:04 POS
[2019-05-29] MEDS ORDERED: LACTATED RINGERS 1,000 ML IV SCH (05:15)
[2019-05-29] MEDS ORDERED: morphine INJ 4 MG/ML 1 ML (VIAL/SYRINGE) IVP PRN (05:15)
[2019-05-29] MEDS: PROPOFOL DRIP (ICU) 100 ML IV SCH ×4 (05:45→23:35)
[2019-05-29] MEDS: LACTATED RINGERS 1,000 ML IV SCH ×4 (06:04→19:55)
--- NOTE | 2019-05-29 06:36 | Pulmonary Procedures ---
Pulmonary Procedures Date of Procedure Date of Service: May 29, 2019 Lumen: triple Central Line Procedure: betadine prep, sterile drapes applied, sterile dressing applied Position: internal jugular (R) Anesthesia: Lidocaine Volume Anesthetic (ccs): 8 Complications: none Post Position: sutured, good blood return, position confirmed w/ CXR BYRON WINKLER DO May 29, 2019 06:36 POS
[2019-05-29] MEDS: CATHETER FLUSH 10 ML SYR IV SCH ×3 (06:49→22:20)
--- NOTE | 2019-05-29 07:04 | Diagnostic Imaging Report ---
INDICATION: Respiratory failure. Portable chest 2:54 AM. There are postoperative changes from partial right pneumonectomy. There is some blunting of the right costophrenic angle which is probably pleural scarring but effusion cannot be excluded. Left lung is clear. IMPRESSION: Postsurgical changes of the right hemithorax with some right pleural scarring and/or effusion. No change compared to the previous day. Dictated by: Dictated on workstation # [id number]
--- NOTE | 2019-05-29 07:05 | Diagnostic Imaging Report ---
INDICATION: Respiratory failure Portable chest 6:52 AM There is an ET tube projecting over the trachea. NG tube enters the stomach. Right IJ central line tip projects over the SVC. There is some blunting of the right costophrenic angle that appears to be due to scarring and/or effusion. Lungs are clear. IMPRESSION: Right costophrenic angle blunting could be due to effusion or pleural scarring. No change from prior study. Dictated by: Dictated on workstation # [id number]
[2019-05-29 07:51] LABS: ABG BASE EXCESS 22.6 MMOL/L (-2.5-2.5); ABG OXYGEN SATURATION 100 % (94-100); ABG PCO2 45 MMHG (35-45); ABG PO2 457 MMHG (79-93); ABG TCO2 48.7 MMOL/L (21.0-31.0)
--- NOTE | 2019-05-29 07:51 | History & Physical ---
History of Present Illness History of Present Illness Reason for visit/HPI history by since patient on ventilator. Patient came to the emergency room by ambulance. states I was getting weaker and weaker. is getting confused and incoherent improving talk. is having trouble walking. At hospital arterial blood gas showed PCO2 of 130 area Patient has history of COPD. Patient had surgery of her lung. And ovarian cyst. Date of Admission May 28, 2019 at 22:00 Time Seen by a Provider: 07:50 I consulted on this patient on 05/29/19 07:45 Attending Physician Dion Ortiz DO Admitting Physician Dion Ortiz DO Consult Allergies and Home Medications Allergies Coded Allergies: codeine (Verified Allergy, Unknown, 12/04/05) Home Medications Acetaminophen 325 Mg Tablet, 650 MG PO Q4H PRN, (Reported) Albuterol 2.5 Mg/0.5 Ml Nebu, 2.5 MG INH Q6H, (Reported) Benzonatate 100 Mg Capsule, 200 MG PO TID, (Reported) Doxycycline Hyclate 100 Mg Tablet, 100 MG PO BID Prescribed by: BELKIS IRWIN on 05/14/19 1624 Fluticasone/Salmeterol 1 Disk Inhp, 1 PUFF IH BID, (Reported) 1 PUFF Hyoscyamine Sulfate 0.125 Mg/Tab Tab.rapdis, 1 EACH PO Q4H PRN, (Reported) Phenazopyridine Hcl 200 Mg Tablet, 1 EACH PO TID, (Reported) Prednisone 10 Mg Tab, 10 MG PO DAILY, (Reported) Prednisone 20 Mg Tab, 40 MG PO DAILY Prescribed by: BELKIS IRWIN on 05/14/19 1624 Tiotropium [place] 1 Inh Aerp, 0 IH DAILY, (Reported) 1 INHALATION Tramadol Hcl 50 Mg Tablet, 50 MG PO Q6H, (Reported) Patient Home Medication List Home Medication List Reviewed: No Past Uqypkfo-Aqjmlc-Yhjvqk Hx Past Med/Social Hx: Reviewed Nursing Past Med/Soc Hx Patient Social History Marrital Status: Employed/Student: retired Alcohol Use: Denies Use Recreational Drug Use: No Smoking Status: Former Smoker (2 PPD --QUIT APPROXIMATELY 5 YEARS AGO, PER ) Type Used: Cigarettes Recent Foreign Travel: No Contact w/other who traveled: No Recent Hopitalizations: No Recent Infectious Disease Expo: No Immunizations Up To Date Date of Pneumonia Vaccine: May 29, 2019 Date of Influenza Vaccine: May 20, 2019 Seasonal Allergies Seasonal Allergies: Yes Past Medical History Surgeries: Abdominal, Breast, Gallbladder, Hysterectomy, Lobectomy Reproductive: No Hysterectomy, Menopausal History of Blood Disorders: No Family History Cardiovascular disease 19 MOTHER FH: COPD (chronic obstructive pulmonary disease) 19 FATHER Review of Systems Constitutional: malaise, weakness, other (Infusion) EENTM: no symptoms reported Respiratory: dyspnea on exertion, short of breath, other (COPD with acute exacerbation history) Cardiovascular: no symptoms reported Gastrointestinal: no symptoms reported Genitourinary: no symptoms reported : No Physical Exam Vital Signs Vital Signs - First Documented 05/29/19 05:30 FiO2 40 Capillary Refill : Less Than 3 Seconds Height, Weight, BMI Height: '" Weight: lbs. oz. kg; 29.00 BMI Method: General Appearance: No Apparent Distress, WD/WN, Other (Patient on ventilator) HEENT: Normal ENT Inspection Respiratory: No Accessory Muscle Use, No Respiratory Distress, Decreased Breath Sounds Cardiovascular: Regular Rate, Rhythm, No Murmur Gastrointestinal: Non Tender, Soft Assessment/Plan Assessment and Plan Acute and chronic respiratory failure. COPD with acute exacerbation. CO2 narcosis. Confusion. Right lower lobe pneumonia. Left pleural effusion Admission Diagnosis Admission Status: Inpatient Order (span 2 midnights) Reason for Inpatient Admission: CO2 narcosis. On ventilator. COPD with acute exacerbation Clinical Quality Measures DVT/VTE Risk/Contraindication: Risk Factor Score Per Nursin RFS Level Per Nursing on Admit: 4+=Very High DION ORTIZ DO May 29, 2019 07:50 POS
[2019-05-29 07:57] LABS: ABG PH 7.62 (7.37-7.43); ALLENS TEST POSITIVE
[2019-05-29 07:58] LABS: INSPIRED O2 24; PATIENT TEMP 36.2; VENTILATOR YES
[2019-05-29] MEDS ORDERED: SUCCINYLCHOLINE INJ 100 MG/5 ML SYR INJ ONE (08:02)
[2019-05-29] MEDS ORDERED: ROCURONIUM 10 MG/ML 5 ML SYRINGE IV ONE (08:02)
[2019-05-29] MEDS ORDERED: MIDAZOLAM 5 MG/5 ML (VERSED) VIAL IJ ONE (08:02)
[2019-05-29] MEDS ORDERED: fentaNYL INJECTION 100 MCG/2 ML AMP INJ ONE (08:02)
--- NOTE | 2019-05-29 08:53 | NUR ---
0434 LR BOLUS STARTED AT 999ML/HR 0443 VERSED 4MG 0448 PROPOFOL 5[address] O[address] - 24@LIP, COLOR CHANGE PRESENT, BILATERAL CHEST RISE, BREATH SOUNDS BILATERALLY 0545 50 MCG FENTANYL 0610 50MCG FENTANYL 0635 50MCG FENTANYL PROPOFOL DRIP STARTED AT 0545
[2019-05-29] MEDS ORDERED: ACET-168 PO (08:58)
[2019-05-29] MEDS ORDERED: ALBU18HF2 INH (08:59)
[2019-05-29] MEDS ORDERED: TRAM50TA2 PO (08:59)
[2019-05-29] MEDS ORDERED: ALBU2.5V4 NEB (08:59)
[2019-05-29] MEDS ORDERED: UMEC1BLS INH (08:59)
--- NOTE | 2019-05-29 09:00 | NUR ---
SPOKE WITH THE PATIENTS ABOUT MEDICATIONS. HE HAD A LIST AND WE WENT OVER THE EXT MED HX. SHE FILLED PREDNISONE 20MG #6 FOR 3 DAY SUPPLY AND DOXYCYCLINE HYCLATE 100MG #20 FOR 10 DAYS 05-14-19 - HE STATES SHE FINISHED THESE THERAPIES. SHE ALSO FILLED LIPITOR 10MG #90 05-05-19 BUT HE STATES IT CAUSED HER GREAT LEG PAIN SO SHE DISCONTINUED TAKING IT. SHE HAS TRAMADOL ON HAND AT HOME NEEDED BUT RARELY TAKES IT. SHE DOES TAKE TYLENOL OTC NEEDED.
--- NOTE | 2019-05-29 09:37 | History & Physical ---
History of Present Illness History of Present Illness Reason for visit/HPI CC: Confusion HPI: History received from . 74 yo female presented to the ER with increasing confusion and difficulty walking that has progressively gotten worse for 1 week. Patient was not in any pain. Symptoms did get better with breathing treatments and nothing seem to make it worse. Patient did not complain of any headache, nausea, or vomiting. stated that patient did experience similar symptoms 8 years ago. Date of Admission May 28, 2019 at 22:00 Date Seen by a Provider: May 29, 2019 Time Seen by a Provider: 08:35 I consulted on this patient on 05/29/19 09:30 Attending Physician Dion Pool DO Admitting Physician Dion Pool DO Consult Allergies and Home Medications Allergies Coded Allergies: codeine (Verified Allergy, Unknown, 12/04/05) Home Medications Acetaminophen 500 Mg Tablet, 500-1,000 MG PO Q6H PRN for PAIN-MILD (1-4), (Reported) Albuterol Sulfate 2.5 Mg/3 Ml Vial.neb, 2.5 MG NEB QID, (Reported) Albuterol Sulfate 18 Gm Hfa.aer.ad, 2 PUFF INH Q4H PRN for SHORTNESS OF BREATH, (Reported) Tramadol HCl 50 Mg Tablet, 50 MG PO DAILY PRN for PAIN-MODERATE (5-7), (Reported) Umeclidinium Brm/Vilanterol Tr 1 Each Blst.w.dev, 1 PUFF INH DAILY, (Reported) Patient Home Medication List Home Medication List Reviewed: Yes Past Rapliyb-Fjjjzs-Apjugq Hx Patient Social History Marrital Status: Employed/Student: retired Alcohol Use: Denies Use Recreational Drug Use: No Smoking Status: Former Smoker (2 PPD --QUIT APPROXIMATELY 5 YEARS AGO, PER ) Type Used: Cigarettes Recent Foreign Travel: No Contact w/other who traveled: No Recent Hopitalizations: No Recent Infectious Disease Expo: No Immunizations Up To Date Date of Pneumonia Vaccine: May 29, 2019 Date of Influenza Vaccine: May 20, 2019 Seasonal Allergies Seasonal Allergies: Yes Surgeries Yes (RT UPPER LOBECTOMY--FOR BENIGN MASS; "CYST REMOVED FROM ABDOMEN" ) Abdominal, Breast, Gallbladder, Hysterectomy, Lobectomy Respiratory Yes (O2 DEPENDENT AT 4L/NC; INTUBATED IN 2010) COPD Cardiovascular No Neurological No Reproductive System : No Hx Reproductive Disorders: No 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, Menopausal Genitourinary No Gastrointestinal No Musculoskeletal No Endocrine History of Endocrine Disorders: Yes (OBESITY) Cancer No Psychosocial History of Psychiatric Problem: No Integumentary History of Skin or Integumenta: No Blood Transfusions History of Blood Disorders: No Family Medical History Significant Family History: Cancer (MOther Breast cancer) Family Hx: Cardiovascular disease 19 MOTHER FH: COPD (chronic obstructive pulmonary disease) 19 FATHER Review of Systems Constitutional: see HPI; No chills, No fever EENTM: No blurred vision, No double vision Respiratory: cough (chronic), short of breath Cardiovascular: No chest pain, No palpitations Gastrointestinal: No abdominal pain, No nausea, No vomiting Genitourinary: no symptoms reported Musculoskeletal: no symptoms reported Psychiatric/Neurological: Denies Headache Physical Exam Vital Signs Vital Signs - First Documented 05/29/19 04:00 FiO2 90 Capillary Refill : Less Than 3 Seconds Height, Weight, BMI Height: '" Weight: lbs. oz. kg; 29.00 BMI Method: General Appearance: WD/WN, Other (Patient on Ventilator. ) Respiratory: No Accessory Muscle Use, Other (Patient on ventilatory) Cardiovascular: Normal Peripheral Pulses (radial 2/4 bilaterally), Tachycardia (Regular rhythm), Other (1+ LE edema) Assessment/Plan Assessment and Plan CO2 narcosis acute respiratory failure pneumonia COPD Confusion Mechanical ventilation Antibiotics for CAP Admission Diagnosis Admission Status: Inpatient Order (span 2 midnights) Reason for Inpatient Admission: CO2 narcosis Acute respiratory failure Pneumonia Clinical Quality Measures DVT/VTE Risk/Contraindication: Risk Factor Score Per Nursin RFS Level Per Nursing on Admit: 4+=Very High Supervisory-Addendum Brief Verification & Attestation Participated in pt care: other (VIJAY Jacobsen with Dr. Pool) Personally performed: other (VIJAY Jacobsen with Dr. Pool) Care discussed with: other (VIJAY Jacobsen with Dr. Pool) Procedures: n/a VIJAY Jacobsen with ROYCE Lundy [facility] May 29, 2019 09:37 POS
[2019-05-29] MEDS: ENOXAPARIN 40 MG/0.4 ML (LOVENOX) SYR SC SCH (09:39)
[2019-05-29 10:10] LABS: BASOPHILS % (AUTO) 0 % (0-10); EOSINOPHILS % (AUTO) 0 % (0-10); HEMATOCRIT 32 % (35-52); LYMPHOCYTES # (AUTO) 0.3 X 10^3 (1.0-4.0); LYMPHOCYTES % (AUTO) 5 % (12-44); MEAN CORPUSCULAR HEMOGLOBIN 30 PG (25-34); MEAN CORPUSCULAR HGB CONC 28 G/DL (32-36); MEAN CORPUSCULAR VOLUME 107 FL (80-99); MEAN PLATELET VOLUME 10.6 FL (7.4-10.4); MONOCYTES # (AUTO) 0.3 X 10^3 (0.0-1.0); MONOCYTES % (AUTO) 5 % (0-12); NEUTROPHILS # (AUTO) 5.5 X 10^3 (1.8-7.8); NEUTROPHILS % (AUTO) 90 % (42-75); PLATELET COUNT 162 10^3/uL (130-400); RED CELL DISTRIBUTION WIDTH 12.6 % (10.0-14.5); WHITE BLOOD COUNT 6.1 10^3/uL (4.3-11.0)
[2019-05-29] MEDS ORDERED: DEXMEDETOMIDINE INJECTION 1,000 MCG in NS (IVPB) 250 ML IV PRN (10:15)
[2019-05-29] MEDS ORDERED: PROPOFOL DRIP (ICU) 100 ML IV SCH (10:15)
[2019-05-29] MEDS ORDERED: HALOPERIDOL 5 MG/ML (HALDOL) AMP IV PRN (10:15)
[2019-05-29 10:34] LABS: ALANINE AMINOTRANSFERASE 38 U/L (0-55); ALBUMIN 3.3 GM/DL (3.2-4.5); ALKALINE PHOSPHATASE 127 U/L (40-136); BILIRUBIN,TOTAL 0.3 MG/DL (0.1-1.0); BUN/CREATININE RATIO 34; CARBON DIOXIDE 44 MMOL/L (21-32); CHLORIDE 88 MMOL/L (98-107); CREATININE SERUM 0.64 MG/DL (0.60-1.30); GFR ESTIMATED > 60; GLUCOSE 228 MG/DL (70-105); SODIUM 140 MMOL/L (135-145)
[2019-05-29 10:41] LABS: BAND NEUTROPHILS 1 %; BASOPHILS % (MANUAL) 0 %; EOSINOPHILS % (MANUAL) 0 %; LYMPHOCYTES % (MANUAL) 5 %; MONOCYTES % (MANUAL) 5 %; NEUTROPHILS % (MANUAL) 89 %
--- NOTE | 2019-05-29 10:52 | Physical Therapy Progress Note ---
Therapy Progress Note Patient is currently sedated and on mechanical ventilator. PT will continue to monitor patient status and assess when medically stable and able to actively participate with skilled therapy. MORIS LAO PT May 29, 2019 10:52 POS
--- NOTE | 2019-05-29 11:26 | Anesthesia-Procedure Note ---
Procedures/Interventions Procedure Start/Stop/Diagnosis Date of Procedure: May 29, 2019 Start Time: 11:00 Referring Physician: Lianne Preprocedural Diagnosis: Resp Failure, Pneumonia Brief History Called for anesthesia consult for A-line placement on recently intubated pt for Dr. Abdalla. SRNA attempted x2 without success. SILVER BRAZER x1 Left radial under sterile technique. Good blood flow and waveform on monitor. Secured with sterile opsite and tape. report to RN, restraints re-applied. ASA 4. Stop Time: 11:15 Postprocedural Diagnosis: Resp Failure, Pneumonia Arterial Line Arterial Line Catheter: 20G Type: Radial Procedure: prepped, draped in sterile fashion, good wave-form was obtained, patient tolerated procedure well, no immediate complications, post procedure area cleaned, post procedure dressing applied ROYCE DODGE CRNA May 29, 2019 11:25 POS
--- NOTE | 2019-05-29 11:30 | NUR ---
Pastoral care visit, had prayer at bedside with pts son and pts cousin.
[2019-05-29] MEDS: methylPREDNISolone 40 MG/ML (Solu-MEDROL) VIAL IV SCH ×3 (13:32→23:40)
--- NOTE | 2019-05-29 14:02 | NUR ---
Received dietary consult regarding pt's vent status. Spoke with RN about plan of care for pt's vent status. RN stated it would be Saturday before they attempted to wean pt off vent. Would recommend the following TF: Jevity 1.5 at goal rate of 45 ml/hr. Begin at 10 ml/hr and increase by 10 ml q6h as tolerated. At goal rate, provides 1620 kcal (20 kcal/kg); 69 g Pro (0.8 g Pro/kg); and 820 ml free water Flush with 125 ml H2O q4h. With flushes, provides 1570 ml free water. Will continue to follow and reassess as pt needs and status change. Blank Arnold MS, RD, LD [phone]
[2019-05-29] MEDS: inSUlin ASPART (NovoLOG) 1 UNIT/0.01 ML (CHARGE PER UNIT) SC SCH ×2 (17:03→22:22)
[2019-05-29] MEDS: cefTRIAXone 1,000 MG/SWFI 10 ML IV PUSH IV SCH ×2 (20:12)
[2019-05-29] MEDS: AZITHROMYCIN 250 MG TAB (ZITHROMAX) PO SCH (20:13)
[2019-05-30] VITALS (29 sets, daily range): BP systolic 92–172; BP diastolic 50–89
[2019-05-30] MEDS: RT-ALBUTEROL/IPRATROPIUM 3 ML (DUONEB) VIAL INH SCH ×6 (02:29→21:32)
[2019-05-30] MEDS: LACTATED RINGERS 1,000 ML IV SCH ×4 (02:35→21:59)
--- NOTE | 2019-05-30 02:38 | NUR ---
patient's O2 was decreased from 30% to 21%; both RN and facility technician was notified of this change
[2019-05-30 03:24] LABS: ABG BASE EXCESS 18.1 MMOL/L (-2.5-2.5); ABG OXYGEN SATURATION 95 % (94-100); ABG PCO2 56 MMHG (35-45); ABG PO2 59 MMHG (79-93); ABG TCO2 44.8 MMOL/L (21.0-31.0)
[2019-05-30 03:26] LABS: ALLENS TEST POSITIVE; INSPIRED O2 30%; VENTILATOR YES
[2019-05-30 03:41] LABS: MAGNESIUM 1.7 MG/DL (1.6-2.4); PHOSPHORUS 2.1 MG/DL (2.3-4.7)
--- NOTE | 2019-05-30 04:42 | Pulmonary Progress Note ---
Subjective Time Seen by a Provider: 04:39 Subjective/Events-last exam Pt is sedated on vent. Sepsis Event Evaluation Height, Weight, BMI Height: '" Weight: lbs. oz. kg; 29.00 BMI Method: Focused Exam Lactate Level 05/28/19 21:05: Lactic Acid Level 0.49L Exam Exam Vital Signs Date Time Temp Pulse Resp B/P (MAP) Pulse Ox O2 Delivery O2 Flow Rate FiO2 05/30/19 04:00 94 18 109/55 (73) 96 Mechanical Ventilator 30.00 05/30/19 04:00 97 Mechanical Ventilator 30 05/30/19 03:07 Mechanical Ventilator 30.00 05/30/19 03:00 90 15 105/50 (68) 91 Mechanical Ventilator 21.00 05/30/19 02:41 Mechanical Ventilator 21.00 05/30/19 02:29 86 16 96 30 05/30/19 02:00 87 16 105/54 (71) 95 Mechanical Ventilator 30.00 05/30/19 01:00 106 26 103/55 (71) 95 Mechanical Ventilator 30.00 05/30/19 01:00 106 05/30/19 00:22 109 12 92/50 (64) 94 Mechanical Ventilator 30.00 05/30/19 00:00 97 Mechanical Ventilator 30 05/29/19 23:59 37.2 05/29/19 23:35 [id number] 105/50 05/29/19 23:00 108 15 90/48 (62) 95 Mechanical Ventilator 30.00 05/29/19 22:25 100 16 97 30 05/29/19 22:00 107 12 105/54 (71) 96 Mechanical Ventilator 30.00 05/29/19 21:00 110 16 112/55 (74) 95 Mechanical Ventilator 30.00 05/29/19 20:00 37.7 05/29/19 20:00 115 15 101/53 (69) 94 Mechanical Ventilator 30.00 05/29/19 20:00 97 Mechanical Ventilator 30 05/29/19 19:00 110 05/29/19 19:00 115 17 114/58 (76) 93 Mechanical Ventilator 30.00 05/29/19 18:39 106 16 97 30 05/29/19 18:00 111 114/58 (76) 97 Mechanical Ventilator 30.00 05/29/19 17:00 108 116/57 (76) 97 Mechanical Ventilator 30.00 11/22/19 16:00 97 Mechanical Ventilator 30 05/29/19 16:00 100 121/57 (78) 97 Mechanical Ventilator 30.00 05/29/19 16:00 37.7 05/29/19 15:17 37.01941 109 16 134/60 Mechanical Ventilator 30.00 05/29/19 15:00 109 142/61 (88) 97 Mechanical Ventilator 30.00 05/29/19 14:23 Mechanical Ventilator 30.00 05/29/19 14:18 105 16 99 40 05/29/19 14:00 105 16 121/61 (81) 99 Mechanical Ventilator 40.00 05/29/19 13:00 104 16 119/58 (78) 98 Mechanical Ventilator 40.00 05/29/19 12:44 109 05/29/19 12:00 109 31 93/50 (64) 97 Mechanical Ventilator 40.00 05/29/19 12:00 98 Mechanical Ventilator 40 05/29/19 11:11 108 32 117/79 (92) 99 Mechanical Ventilator 40.00 05/29/19 10:56 Mechanical Ventilator 40.00 05/29/19 10:46 108 16 100 50 05/29/19 10:03 110 145/91 05/29/19 10:00 107 46 145/91 (109) 100 Mechanical Ventilator 100.00 05/29/19 09:00 102 14 109/90 (96) 100 Mechanical Ventilator 100.00 05/29/19 08:00 101 24 119/84 (96) 100 Mechanical Ventilator 100.00 05/29/19 08:00 100 Mechanical Ventilator 90 05/29/19 07:48 101 24 100 75 05/29/19 07:00 105 23 105/76 (86) 100 Mechanical Ventilator 100.00 05/29/19 07:00 105 05/29/19 06:00 120 23 115/82 (93) 97 Mechanical Ventilator 100.00 05/29/19 05:45 36.79409 112 23 Mechanical Ventilator 05/29/19 05:33 105 24 113/83 (93) 100 Mechanical Ventilator 100.00 05/29/19 05:30 98 24 100 40 05/29/19 04:45 92 14 115/78 (90) 100 Mechanical Ventilator 100.00 I & O 05/30/19 07:00 Intake Total 2100 ml Output Total 1575 ml Balance 525 ml Height & Weight Height: '" Weight: lbs. oz. kg; 29.00 BMI Method: General Appearance: WD/WN, Other (Patient on Ventilator. ) HEENT: Normal ENT Inspection Neck: Normal Inspection, Non Tender, Supple Respiratory: No Accessory Muscle Use, Other (Patient on ventilatory) Cardiovascular: Normal Peripheral Pulses (radial 2/4 bilaterally), Tachycardia (Regular rhythm), Other (1+ LE edema) Capillary Refill: Less Than 3 Seconds Gastrointestinal: non tender, soft Extremity: Normal Capillary Refill, Normal Inspection, No Pedal Edema Neurologic/Psychiatric: Alert, Oriented x3 Skin: Normal Color, Warm/Dry Lymphatic: No Adenopathy Results Lab Laboratory Tests 05/28/19 21:05 05/29/19 09:45 Assessment/Plan Assessment/Plan Acute on chronic respiratory failure -Continue MV -Labs and CXR are pending -Currently on BiPAP -Check CT of chest today Severe oxygen dependent COPD uses 4liers at home COPDAE -Solumedrol -SVNS -Oxygen Hx of lobectomy elevated right diaphram Morbid obesity BYRON WINKLER DO May 30, 2019 04:42 POS
[2019-05-30 05:00] LABS: BUN/CREATININE RATIO 38; CALCIUM 9.5 MG/DL (8.5-10.1); CARBON DIOXIDE 39 MMOL/L (21-32); CHLORIDE 93 MMOL/L (98-107); GFR ESTIMATED > 60; GLUCOSE 159 MG/DL (70-105); POTASSIUM 3.6 MMOL/L (3.6-5.0); SODIUM 142 MMOL/L (135-145)
[2019-05-30 05:16] LABS: BASOPHILS % (AUTO) 0 % (0-10); EOSINOPHILS % (AUTO) 0 % (0-10); HEMATOCRIT 30 % (35-52); HEMOGLOBIN 8.8 G/DL (11.5-16.0); LYMPHOCYTES # (AUTO) 0.4 X 10^3 (1.0-4.0); LYMPHOCYTES % (AUTO) 5 % (12-44); MEAN CORPUSCULAR HEMOGLOBIN 30 PG (25-34); MEAN CORPUSCULAR HGB CONC 30 G/DL (32-36); MEAN CORPUSCULAR VOLUME 102 FL (80-99); MEAN PLATELET VOLUME 10.5 FL (7.4-10.4); MONOCYTES # (AUTO) 0.5 X 10^3 (0.0-1.0); MONOCYTES % (AUTO) 7 % (0-12); NEUTROPHILS # (AUTO) 6.4 X 10^3 (1.8-7.8); NEUTROPHILS % (AUTO) 88 % (42-75); PLATELET COUNT 157 10^3/uL (130-400); RED CELL DISTRIBUTION WIDTH 13.1 % (10.0-14.5); WHITE BLOOD COUNT 7.3 10^3/uL (4.3-11.0)
[2019-05-30] MEDS: inSUlin ASPART (NovoLOG) 1 UNIT/0.01 ML (CHARGE PER UNIT) SC SCH ×4 (05:16→22:48)
[2019-05-30] MEDS: methylPREDNISolone 40 MG/ML (Solu-MEDROL) VIAL IV SCH ×4 (05:29→23:44)
[2019-05-30] MEDS: CATHETER FLUSH 10 ML SYR IV SCH ×3 (05:29→21:36)
[2019-05-30 06:29] LABS: ABG OXYGEN SATURATION 92 % (94-100); ABG PCO2 59 MMHG (35-45); ABG PH 7.46 (7.37-7.43); ABG PO2 57 MMHG (79-93); ABG TCO2 43.9 MMOL/L (21.0-31.0)
[2019-05-30 06:30] LABS: ALLENS TEST POSITIVE
[2019-05-30 06:31] LABS: INSPIRED O2 30%; PATIENT TEMP 37.1; VENTILATOR YES
[2019-05-30] MEDS: PROPOFOL DRIP (ICU) 100 ML IV SCH ×3 (07:03→20:33)
[2019-05-30] MEDS: PANTOPRAZOLE 40 MG (PROTONIX) VIAL IV SCH (08:22)
[2019-05-30] MEDS: ENOXAPARIN 40 MG/0.4 ML (LOVENOX) SYR SC SCH (08:22)
--- NOTE | 2019-05-30 08:24 | Progress Note - Hospitalist ---
Subjective HPI/CC On Admission Date Seen by Provider: May 30, 2019 Time Seen by Provider: 08:20 Subjective/Events-last exam Pt is sedated and intubated. Family at bedside. No ROS possible. Family reports they were told attempt to wean tomorrow. Focused Exam Lactate Level 05/28/19 21:05: Lactic Acid Level 0.49L Objective Exam Vital Signs Vital Signs Date Time Temp Pulse Resp B/P (MAP) Pulse Ox O2 Delivery O2 Flow Rate FiO2 05/30/19 07:03 116/56 05/30/19 06:26 92 19 92 25 05/30/19 06:00 Mechanical Ventilator 30.00 05/29/19 23:59 37.2 Capillary Refill : Less Than 3 Seconds General Appearance: Chronically ill, Other (intubated and sedated) Respiratory: Rhonci, Other (on vent) Cardiovascular: Regular Rate, Rhythm, No Murmur Gastrointestinal: Normal Bowel Sounds, Non Tender, Soft Genital/Rectal: Other (pastrana in place) Extremity: No Pedal Edema Neurologic/Psychiatric: Other (sedated, appears comfortable) Results/Procedures Lab Laboratory Tests 05/29/19 09:45 05/30/19 03:00 05/30/19 04:45 Patient resulted labs reviewed. Assessment/Plan Assessment and Plan Assess & Plan/Chief Complaint Acute on chronic Respiratory Failure COPD with acute exacerbation and lower respiratory tract infection Pneumonia On vent Management per primary Continue CAP coverage with Rocephin and Azithro SoluMedrol Await cultures Macrocytic anemia Relatively Stable this admission given dilution Down significantly over the course of a few years Trend Hyperglycemia Not on DM meds at home Likely stress response and iatrogenic SSI Clinical Quality Measures DVT/VTE Risk/Contraindication: Risk Factor Score Per Nursin RFS Level Per Nursing on Admit: 4+=Very High ALICJA HARPER MD May 30, 2019 08:24 POS
--- NOTE | 2019-05-30 08:40 | Diagnostic Imaging Report ---
INDICATION: Respiratory failure COMPARISON: 05/29 FINDINGS: ET tube mid trachea. Right IJ at the SVC. OG catheter extends into the upper stomach. There is elevated right diaphragm with some pleural thickening or small amount of pleural fluid. Blunting the right costophrenic angle unchanged. Cardiomegaly and vascular congestion redemonstrated. There is postoperative changes and parenchymal distortion at the right pulmonary hilum unchanged. No new abnormality. IMPRESSION: No interval change. Dictated by: Dictated on workstation # [id number]
--- NOTE | 2019-05-30 09:09 | Occ Therapy Progress Note ---
Therapy Progress Note OT orders received. Pt sedated and on vent. Will follow and assess when able to participate. IRVIN MARSHALL OT May 30, 2019 09:09 POS
[2019-05-30] MEDS: DEXMEDETOMIDINE INJECTION 1,000 MCG in NS (IVPB) 240 ML IV PRN (11:34)
[2019-05-30] MEDS ORDERED: IOHEXOL 350 MG/ML 100 ML (OMNIPAQUE 350) VIAL IV ONE (14:00)
[2019-05-30] MEDS ORDERED: HOLD METFORMIN - RECEIVED CONTRAST 20 ML VIAL IV SCH (14:00)
[2019-05-30] MEDS ORDERED: NS 100 ML (IVPB) BAG IV ONE (14:00)
--- NOTE | 2019-05-30 15:15 | Diagnostic Imaging Report ---
PROCEDURE: CT chest with contrast only. TECHNIQUE: Multiple contiguous axial images were obtained through the chest after administration of intravenous contrast. Auto Exposure Controls were utilized during the CT exam to meet ALARA standards for radiation dose reduction. INDICATION: Respiratory failure, right lobectomy. COMPARISON: Comparison limited to images obtained during metabolic PET/CT performed in 2009. FINDINGS: ET tube terminates just above the ambar with an OG catheter extending into the stomach. There is a small right pleural effusion nonloculated and a minute amount of left pleural fluid. There is a small pericardial effusion predominantly at the superior pericardial recess. Heart size is upper limits. There are postoperative changes of lobectomy on the right. There is background centrilobular emphysema showing progression from the prior. Some mild subcentimeter subpleural airspace like density in the left lower lobe likely atelectatic or inflammatory. No suspicious soft tissue density or lung mass. No hilar, mediastinal or axillary lymph nodes. No destructive or suspicious bony abnormality. The aorta is patent. The visualized upper abdomen reveals small amount of perihepatic free fluid in the right upper quadrant. IMPRESSION: Surgical changes of a right-sided lobectomy. Small nonloculated right pleural effusion. Progressive COPD with no suspicious mass or adenopathy. Nonspecific free fluid partially visualized in the perihepatic right upper quadrant. Mild zones of atelectasis. No findings felt suggestive of lamin pneumonia. Dictated by: Dictated on workstation # [id number]
[2019-05-30] MEDS: AZITHROMYCIN 250 MG TAB (ZITHROMAX) PO SCH (20:28)
[2019-05-30] MEDS: cefTRIAXone 1,000 MG/SWFI 10 ML IV PUSH IV SCH ×2 (20:29)
[2019-05-31] VITALS (33 sets, daily range): BP systolic 120–165; BP diastolic 53–94
[2019-05-31] MEDS: RT-ALBUTEROL/IPRATROPIUM 3 ML (DUONEB) VIAL INH SCH ×6 (01:36→22:50)
[2019-05-31] MEDS: PROPOFOL DRIP (ICU) 100 ML IV SCH ×3 (03:42→17:31)
[2019-05-31 03:55] LABS: BASOPHILS % (AUTO) 0 % (0-10); EOSINOPHILS % (AUTO) 0 % (0-10); HEMATOCRIT 29 % (35-52); HEMOGLOBIN 9.1 G/DL (11.5-16.0); LYMPHOCYTES # (AUTO) 0.3 X 10^3 (1.0-4.0); LYMPHOCYTES % (AUTO) 3 % (12-44); MEAN CORPUSCULAR HEMOGLOBIN 30 PG (25-34); MEAN CORPUSCULAR HGB CONC 31 G/DL (32-36); MEAN CORPUSCULAR VOLUME 96 FL (80-99); MEAN PLATELET VOLUME 10.2 FL (7.4-10.4); MONOCYTES # (AUTO) 0.4 X 10^3 (0.0-1.0); MONOCYTES % (AUTO) 5 % (0-12); NEUTROPHILS # (AUTO) 7.6 X 10^3 (1.8-7.8); NEUTROPHILS % (AUTO) 92 % (42-75); PLATELET COUNT 178 10^3/uL (130-400); WHITE BLOOD COUNT 8.3 10^3/uL (4.3-11.0)
[2019-05-31 03:57] LABS: ABG BASE EXCESS 14.2 MMOL/L (-2.5-2.5); ABG OXYGEN SATURATION 93 % (94-100); ABG PCO2 60 MMHG (35-45); ABG PH 7.44 (7.37-7.43); ABG PO2 64 MMHG (79-93); ABG TCO2 41.1 MMOL/L (21.0-31.0)
[2019-05-31 03:58] LABS: ALLENS TEST POSITIVE; INSPIRED O2 30%; PATIENT TEMP 37.1; VENTILATOR YES
[2019-05-31 04:13] LABS: BUN/CREATININE RATIO 38; CALCIUM 9.1 MG/DL (8.5-10.1); CARBON DIOXIDE 35 MMOL/L (21-32); CHLORIDE 97 MMOL/L (98-107); GFR ESTIMATED > 60; GLUCOSE 145 MG/DL (70-105); MAGNESIUM 1.6 MG/DL (1.6-2.4); POTASSIUM 3.7 MMOL/L (3.6-5.0); SODIUM 141 MMOL/L (135-145)
[2019-05-31] MEDS: DEXMEDETOMIDINE INJECTION 1,000 MCG in NS (IVPB) 240 ML IV PRN ×3 (04:38→21:36)
--- NOTE | 2019-05-31 04:47 | Pulmonary Progress Note ---
Subjective Time Seen by a Provider: 05:03 Subjective/Events-last exam Sedated on vent Sepsis Event Evaluation Height, Weight, BMI Height: '" Weight: lbs. oz. kg; 29.00 BMI Method: Focused Exam Lactate Level 05/28/19 21:05: Lactic Acid Level 0.49L Exam Exam Vital Signs Date Time Temp Pulse Resp B/P (MAP) Pulse Ox O2 Delivery O2 Flow Rate FiO2 05/31/19 04:00 78 15 139/60 (86) 95 Mechanical Ventilator 30.00 05/31/19 03:42 142/68 05/31/19 03:00 85 21 136/58 (84) 95 Mechanical Ventilator 30.00 05/31/19 01:36 99 16 96 30 05/31/19 01:00 79 05/31/19 00:00 84 16 137/59 (85) 96 Mechanical Ventilator 30.00 05/31/19 00:00 97 Mechanical Ventilator 30 05/30/19 23:59 37.1 98 05/30/19 23:00 82 18 139/57 (84) 95 Mechanical Ventilator 30.00 05/30/19 22:00 88 17 131/56 (81) 94 Mechanical Ventilator 30.00 05/30/19 21:32 80 15 92 30 05/30/19 21:00 78 16 157/71 (99) 97 Mechanical Ventilator 30.00 05/30/19 20:33 159/80 05/30/19 20:00 97 Mechanical Ventilator 30 05/30/19 20:00 81 17 160/71 (100) 97 Mechanical Ventilator 30.00 05/30/19 20:00 37.0 05/30/19 19:00 83 16 159/70 (99) 96 Mechanical Ventilator 30.00 05/30/19 19:00 83 05/30/19 18:16 75 16 97 30 05/30/19 18:00 79 17 164/74 (104) 97 Mechanical Ventilator 30.00 05/30/19 17:00 81 16 166/74 (104) 95 Mechanical Ventilator 30.00 05/30/19 16:15 97 Mechanical Ventilator 30 05/30/19 16:00 90 17 168/80 (109) 97 Mechanical Ventilator 30.00 05/30/19 16:00 36.8 05/30/19 15:00 84 15 170/82 (111) 96 Mechanical Ventilator 30.00 05/30/19 15:00 83 15 96 30 05/30/19 14:12 37.51339 80 17 138/70 98 Mechanical Ventilator 5.00 05/30/19 14:00 85 28 158/73 (101) 97 Mechanical Ventilator 30.00 05/30/19 13:00 101 15 149/71 (97) 97 Mechanical Ventilator 30.00 05/30/19 13:00 80 05/30/19 12:20 98 Mechanical Ventilator 30 05/30/19 12:00 85 16 142/66 (91) 97 Mechanical Ventilator 30.00 05/30/19 12:00 37.4 05/30/19 11:00 90 17 138/70 (92) 98 Mechanical Ventilator 30.00 05/30/19 10:00 93 18 128/62 (84) 93 Mechanical Ventilator 30.00 05/30/19 09:05 105 17 92 25 05/30/19 09:00 87 19 122/58 (79) 91 Mechanical Ventilator 30.00 05/30/19 08:35 97 Mechanical Ventilator 30 05/30/19 08:00 86 17 126/58 (80) 92 Mechanical Ventilator 30.00 05/30/19 07:03 116/56 05/30/19 07:00 90 05/30/19 07:00 90 17 114/56 (75) 94 Mechanical Ventilator 30.00 05/30/19 06:26 92 19 92 25 05/30/19 06:00 89 17 108/55 (72) 93 Mechanical Ventilator 30.00 05/30/19 05:00 88 26 125/60 (81) 91 Mechanical Ventilator 30.00 I & O 05/31/19 07:00 Intake Total 2340 ml Output Total 1475 ml Balance 865 ml Height & Weight Height: '" Weight: lbs. oz. kg; 29.00 BMI Method: General Appearance: Chronically ill, Other (intubated and sedated) HEENT: Normal ENT Inspection Neck: Normal Inspection, Non Tender, Supple Respiratory: Rhonci, Other (on vent) Cardiovascular: Regular Rate, Rhythm, No Murmur Capillary Refill: Less Than 3 Seconds Gastrointestinal: non tender, soft Extremity: No Pedal Edema Neurologic/Psychiatric: Other (sedated, appears comfortable) Skin: Normal Color, Warm/Dry Lymphatic: No Adenopathy Results Lab Laboratory Tests 05/29/19 09:45 05/30/19 03:00 05/30/19 04:45 05/31/19 03:30 Assessment/Plan Assessment/Plan Acute on chronic respiratory failure -Continue MV -Will start weaning vent -Labs and CXR are pending -Currently on BiPAP -CT of chest reviewed Severe oxygen dependent COPD uses 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
[2019-05-31] MEDS ORDERED: FUROSEMIDE 40 MG/4 ML INJ (LASIX) IVP ONE (05:00)
[2019-05-31] MEDS: methylPREDNISolone 40 MG/ML (Solu-MEDROL) VIAL IV SCH ×4 (05:32→23:52)
[2019-05-31] MEDS: CATHETER FLUSH 10 ML SYR IV SCH ×3 (05:33→20:32)
[2019-05-31] MEDS: inSUlin ASPART (NovoLOG) 1 UNIT/0.01 ML (CHARGE PER UNIT) SC SCH ×4 (05:35→22:38)
[2019-05-31] MEDS ORDERED: FUROSEMIDE 40 MG/4 ML INJ (LASIX) ONE (05:50)
[2019-05-31] MEDS ORDERED: POTASSIUM CL 10MEQ/50ML IVPB 50 ML IV ONE (05:51)
[2019-05-31] MEDS: POTASSIUM CL 10MEQ/50ML IVPB 50 ML IV SCH ×4 (05:56→09:44)
[2019-05-31 06:42] LABS: ABG BASE EXCESS 15.4 MMOL/L (-2.5-2.5); ABG OXYGEN SATURATION 89 % (94-100); ABG PH 7.36 (7.37-7.43); ABG PO2 61 MMHG (79-93); ABG TCO2 43.9 MMOL/L (21.0-31.0); ALLENS TEST POSITIVE; INSPIRED O2 30y; PATIENT TEMP 37.1; VENTILATOR YES
[2019-05-31 06:43] LABS: ABG PCO2 76 MMHG (35-45)
[2019-05-31] MEDS: ENOXAPARIN 40 MG/0.4 ML (LOVENOX) SYR SC SCH (07:44)
[2019-05-31] MEDS: PANTOPRAZOLE 40 MG (PROTONIX) VIAL IV SCH (07:46)
--- NOTE | 2019-05-31 09:16 | NUR ---
0845 BED BATH COMPLETED, PT AWAKENS AND OPENS EYES TO VERBAL STIMULI, PT ABLE TO SQUEEZE FINGERS AND NOD HEAD APPROPRIATELY WHEN ASKED QUESTIONS. AT BEDSIDE. IV SEDATION CONTINUES AT DOCUMENTED RATES. NO NEEDS NOTED AT THIS TIME, WILL CONTINUE TO MONITOR.
--- NOTE | 2019-05-31 10:20 | Progress Note - Hospitalist ---
Subjective HPI/CC On Admission Date Seen by Provider: May 31, 2019 Time Seen by Provider: 10:18 Subjective/Events-last exam Pt remains intubated and sedated. Family at bed side. Failed weaning trial this AM. Focused Exam Lactate Level 05/28/19 21:05: Lactic Acid Level 0.49L Objective Exam Vital Signs Vital Signs Date Time Temp Pulse Resp B/P (MAP) Pulse Ox O2 Delivery O2 Flow Rate FiO2 05/31/19 10:00 87 27 122/53 (76) 95 Mechanical Ventilator 30.00 05/31/19 08:07 36.24036 05/31/19 07:55 30 Capillary Refill : Less Than 3 Seconds General Appearance: Chronically ill, Obese, Other (on vent) Respiratory: Wheezing, Other (on vent) Cardiovascular: Regular Rate, Rhythm, No Murmur Gastrointestinal: Normal Bowel Sounds, Soft Genital/Rectal: Other (pastrana in place) Extremity: Pedal Edema (trace) Neurologic/Psychiatric: Other (sedated, appears comfortable) Results/Procedures Lab Laboratory Tests 05/31/19 03:30 Patient resulted labs reviewed. Assessment/Plan Assessment and Plan Assess & Plan/Chief Complaint Acute on chronic Respiratory Failure COPD with acute exacerbation and lower respiratory tract infection Pneumonia On vent Management per primary- failed weaninh trial this AM Continue CAP coverage with Rocephin and Azithro SoluMedrol Sputum growing H Flu Macrocytic anemia Down significantly over the course of a few years- will need outpatient workup if not already done Trend, stable Hyperglycemia Not on DM meds at home Likely stress response and iatrogenic SSI- within goal Clinical Quality Measures DVT/VTE Risk/Contraindication: Risk Factor Score Per Nursin RFS Level Per Nursing on Admit: 4+=Very High ALICJA HARPER MD May 31, 2019 10:20 POS
--- NOTE | 2019-05-31 10:47 | Diagnostic Imaging Report ---
INDICATION: Respiratory failure COMPARISON: 05/30/2019 FINDINGS: Single view of the chest demonstrates stable support lines. There is continued opacification in the right lung base with volume loss. Postoperative changes are seen in the right hilum. The left lung is clear. The heart is prominent without overt pulmonary edema. There is no pneumothorax. IMPRESSION: Unchanged aeration of the lungs. Dictated by: Dictated on workstation # [id number]
[2019-05-31 19:39] LABS: ABG BASE EXCESS 14.8 MMOL/L (-2.5-2.5); ABG OXYGEN SATURATION 89 % (94-100); ABG PCO2 67 MMHG (35-45); ABG PO2 63 MMHG (79-93); ABG TCO2 42.5 MMOL/L (21.0-31.0)
[2019-05-31 19:41] LABS: ALLENS TEST ARTLINE; INSPIRED O2 30%; PATIENT TEMP 37.1; VENTILATOR YES
--- NOTE | 2019-05-31 19:58 | NUR ---
[address] Abdalla. Order to continue SIMV mode at this time. RT Kelly notified.
[2019-05-31] MEDS: AZITHROMYCIN 250 MG TAB (ZITHROMAX) PO SCH (20:32)
[2019-05-31] MEDS: cefTRIAXone 1,000 MG/SWFI 10 ML IV PUSH IV SCH ×2 (20:32)
[2019-05-31] MEDS: LACTATED RINGERS 1,000 ML IV SCH (20:41)
--- NOTE | 2019-05-31 22:51 | NUR ---
Patient restless at this time. Communicating that she wants to sleep. Will decrease the Precedex and increase Propofol at this time. (see IV spreadsheet) Family agrees with treatment. Will begin titration with Propofol in the am for weaning.
[2019-06-01] VITALS (27 sets, daily range): BP systolic 107–207; BP diastolic 57–195
[2019-06-01] MEDS: PROPOFOL DRIP (ICU) 100 ML IV SCH (00:49)
[2019-06-01] MEDS: RT-ALBUTEROL/IPRATROPIUM 3 ML (DUONEB) VIAL INH SCH ×6 (02:24→21:15)
[2019-06-01 03:40] LABS: ABG OXYGEN SATURATION 92 % (94-100); ABG PCO2 64 MMHG (35-45); ABG PH 7.42 (7.37-7.43); ABG PO2 68 MMHG (79-93); ABG TCO2 42.5 MMOL/L (21.0-31.0)
[2019-06-01 03:42] LABS: BASOPHILS % (AUTO) 0 % (0-10); EOSINOPHILS % (AUTO) 0 % (0-10); HEMATOCRIT 31 % (35-52); HEMOGLOBIN 9.6 G/DL (11.5-16.0); LYMPHOCYTES # (AUTO) 0.3 X 10^3 (1.0-4.0); LYMPHOCYTES % (AUTO) 3 % (12-44); MEAN CORPUSCULAR HEMOGLOBIN 30 PG (25-34); MEAN CORPUSCULAR HGB CONC 31 G/DL (32-36); MEAN CORPUSCULAR VOLUME 96 FL (80-99); MEAN PLATELET VOLUME 9.9 FL (7.4-10.4); MONOCYTES # (AUTO) 0.6 X 10^3 (0.0-1.0); MONOCYTES % (AUTO) 7 % (0-12); NEUTROPHILS # (AUTO) 8.8 X 10^3 (1.8-7.8); NEUTROPHILS % (AUTO) 91 % (42-75); PLATELET COUNT 182 10^3/uL (130-400); WHITE BLOOD COUNT 9.6 10^3/uL (4.3-11.0)
[2019-06-01 03:43] LABS: ALLENS TEST ARTLINE; INSPIRED O2 30%; PATIENT TEMP 36.8; VENTILATOR YES
[2019-06-01 04:03] LABS: BUN/CREATININE RATIO 51; CALCIUM 8.9 MG/DL (8.5-10.1); CARBON DIOXIDE 36 MMOL/L (21-32); CHLORIDE 97 MMOL/L (98-107); CREATININE SERUM 0.55 MG/DL (0.60-1.30); GFR ESTIMATED > 60; GLUCOSE 127 MG/DL (70-105); MAGNESIUM 1.7 MG/DL (1.6-2.4); POTASSIUM 3.9 MMOL/L (3.6-5.0); SODIUM 142 MMOL/L (135-145)
[2019-06-01] MEDS: inSUlin ASPART (NovoLOG) 1 UNIT/0.01 ML (CHARGE PER UNIT) SC SCH ×4 (04:08→20:28)
[2019-06-01] MEDS: MAGNESIUM 1 GM/100 ML IVPB 100 ML IV SCH ×2 (04:08→04:19)
[2019-06-01] MEDS: KCL 20 MEQ TAB (K-DUR) PO SCH (04:08)
[2019-06-01] MEDS: POTASSIUM CL 10MEQ/50ML IVPB 50 ML IV SCH (04:08)
--- NOTE | 2019-06-01 04:32 | Pulmonary Progress Note ---
Subjective Time Seen by a Provider: 04:29 Subjective/Events-last exam Pt failed weaning yesterday. Repeat weaning today. Sepsis Event Evaluation Height, Weight, BMI Height: '" Weight: lbs. oz. kg; 29.00 BMI Method: Exam Exam Vital Signs Date Time Temp Pulse Resp B/P (MAP) Pulse Ox O2 Delivery O2 Flow Rate FiO2 06/01/19 03:45 95 Mechanical Ventilator 30 06/01/19 03:25 36.8 Mechanical Ventilator 30.00 06/01/19 02:24 74 19 96 30 06/01/19 01:00 78 13 140/67 (91) 96 Mechanical Ventilator 30.00 06/01/19 01:00 80 06/01/19 00:49 81 14 151/63 94 Mechanical Ventilator 30.00 06/01/19 00:00 76 17 143/60 (87) 94 Mechanical Ventilator 30.00 05/31/19 23:10 94 Mechanical Ventilator 30 05/31/19 23:00 78 22 145/64 (91) 95 Mechanical Ventilator 30.00 05/31/19 23:00 37.4 Mechanical Ventilator 30.00 05/31/19 22:50 87 23 94 30 05/31/19 22:00 81 27 165/75 (105) 95 Mechanical Ventilator 30.00 05/31/19 21:00 80 27 148/62 (90) 95 Mechanical Ventilator 30.00 05/31/19 20:00 37.0 05/31/19 20:00 86 26 142/63 (89) 93 Mechanical Ventilator 30.00 05/31/19 20:00 Mechanical Ventilator 30 05/31/19 19:35 37.1 83 23 143/63 (89) 93 Mechanical Ventilator 30.00 05/31/19 19:00 90 05/31/19 19:00 90 22 147/65 (92) 92 Mechanical Ventilator 30.00 05/31/19 18:19 79 15 96 30 05/31/19 18:00 71 18 156/67 (96) 96 Mechanical Ventilator 30.00 05/31/19 17:31 36.28488 72 23 157/68 96 Mechanical Ventilator 30.00 05/31/19 17:00 72 23 157/68 (97) 96 Mechanical Ventilator 30.00 05/31/19 16:34 97 Mechanical Ventilator 30 05/31/19 16:00 36.8 05/31/19 16:00 75 17 156/68 (97) 96 Mechanical Ventilator 30.00 05/31/19 15:00 72 18 158/69 (98) 96 Mechanical Ventilator 30.00 05/31/19 14:48 72 14 97 30 05/31/19 14:00 73 17 156/68 (97) 97 Mechanical Ventilator 30.00 05/31/19 13:00 80 19 138/62 (87) 95 Mechanical Ventilator 30.00 05/31/19 13:00 81 05/31/19 12:24 97 Mechanical Ventilator 30 05/31/19 12:00 37.0 05/31/19 12:00 80 19 140/61 (87) 96 Mechanical Ventilator 30.00 05/31/19 11:17 36.84613 93 30 133/58 96 Mechanical Ventilator 30.00 05/31/19 11:00 86 20 135/59 (84) 96 Mechanical Ventilator 30.00 05/31/19 10:20 93 30 96 30 05/31/19 10:00 87 27 122/53 (76) 95 Mechanical Ventilator 30.00 05/31/19 09:00 96 37 121/57 (78) 94 Mechanical Ventilator 30.00 05/31/19 08:07 36.04113 94 34 157/68 97 Mechanical Ventilator 30.00 05/31/19 08:00 27 139/66 (90) 95 Mechanical Ventilator 30.00 05/31/19 08:00 36.9 05/31/19 07:55 97 Mechanical Ventilator 30 05/31/19 07:00 33 148/59 (88) 97 Mechanical Ventilator 30.00 05/31/19 06:52 94 34 96 30 05/31/19 06:15 94 34 92 30 05/31/19 06:00 92 21 147/63 (91) 94 Mechanical Ventilator 30.00 05/31/19 05:47 86 32 92 30 05/31/19 05:00 83 19 143/60 (87) 95 Mechanical Ventilator 30.00 I & O 06/01/19 07:00 Intake Total 629 ml Output Total 2265 ml Balance -1636 ml Height & Weight Height: '" Weight: lbs. oz. kg; 29.00 BMI Method: General Appearance: Chronically ill, Obese, Other (on vent) HEENT: Normal ENT Inspection Neck: Normal Inspection, Non Tender, Supple Respiratory: Wheezing, Other (on vent) Cardiovascular: Regular Rate, Rhythm, No Murmur Capillary Refill: Less Than 3 Seconds Gastrointestinal: non tender, soft Extremity: Pedal Edema (trace) Neurologic/Psychiatric: Other (sedated, appears comfortable) Skin: Normal Color, Warm/Dry Lymphatic: No Adenopathy Results Lab Laboratory Tests 05/30/19 04:45 05/31/19 03:30 06/01/19 03:29 Assessment/Plan Assessment/Plan Acute on chronic respiratory failure -Continue MV -Failed weaning yesterday. -Repeat weaning today. -Labs and CXR are pending -Currently on BiPAP -CT of chest reviewed Severe oxygen dependent COPD uses 4liers at home COPDAE -Solumedrol -SVNS -Oxygen Hx of lobectomy elevated right diaphram Morbid obesity BYRON WINKLER DO Jun 01, 2019 04:32 POS
[2019-06-01 05:52] LABS: ABG BASE EXCESS 14.6 MMOL/L (-2.5-2.5); ABG OXYGEN SATURATION 94 % (94-100); ABG PCO2 64 MMHG (35-45); ABG PH 7.41 (7.37-7.43); ABG PO2 72 MMHG (79-93); ABG TCO2 42.1 MMOL/L (21.0-31.0)
[2019-06-01 05:54] LABS: ALLENS TEST ARLTINE; INSPIRED O2 30%; PATIENT TEMP 36.8; VENTILATOR YES
[2019-06-01] MEDS: CATHETER FLUSH 10 ML SYR IV SCH ×3 (06:09→20:17)
[2019-06-01] MEDS: methylPREDNISolone 40 MG/ML (Solu-MEDROL) VIAL IV SCH ×4 (06:09→23:55)
--- NOTE | 2019-06-01 06:10 | NUR ---
Dr Abdalla notified of ABG results. Order to extubate and use Vapotherm @ 40% and titrate oxygen to maintain oxygen sat 90-92%. Call placed to RT Buckner to update.
--- NOTE | 2019-06-01 06:25 | NUR ---
Patient extubated at this time. Patient tolerated without difficulty. Patient tolerating Vapotherm at this time.
--- NOTE | 2019-06-01 07:39 | Progress Note ---
Subjective Time Seen by a Provider: 07:34 Subjective/Events-last exam Patient extubated this morning. Patient breathing okay. To members of family at bedside Objective Exam Vital Signs Date Time Temp Pulse Resp B/P (MAP) Pulse Ox O2 Delivery O2 Flow Rate FiO2 06/01/19 06:50 98 Vapotherm 25.00 35 06/01/19 06:25 Vapotherm 35.00 40.00 06/01/19 06:00 75 18 145/65 (91) 95 Mechanical Ventilator 30.00 06/01/19 05:17 81 21 94 30 06/01/19 05:00 75 17 138/63 (88) 96 Mechanical Ventilator 30.00 06/01/19 04:00 72 15 131/57 (81) 96 Mechanical Ventilator 30.00 06/01/19 03:45 95 Mechanical Ventilator 30 06/01/19 03:25 36.8 Mechanical Ventilator 30.00 06/01/19 03:00 75 17 131/57 (81) 96 Mechanical Ventilator 30.00 06/01/19 02:24 74 19 96 30 06/01/19 02:00 77 14 156/67 (96) 96 Mechanical Ventilator 30.00 06/01/19 01:00 78 13 140/67 (91) 96 Mechanical Ventilator 30.00 06/01/19 01:00 80 06/01/19 00:49 81 14 151/63 94 Mechanical Ventilator 30.00 06/01/19 00:00 76 17 143/60 (87) 94 Mechanical Ventilator 30.00 05/31/19 23:10 94 Mechanical Ventilator 30 05/31/19 23:00 78 22 145/64 (91) 95 Mechanical Ventilator 30.00 05/31/19 23:00 37.4 Mechanical Ventilator 30.00 05/31/19 22:50 87 23 94 30 05/31/19 22:00 81 27 165/75 (105) 95 Mechanical Ventilator 30.00 05/31/19 21:00 80 27 148/62 (90) 95 Mechanical Ventilator 30.00 05/31/19 20:00 37.0 05/31/19 20:00 86 26 142/63 (89) 93 Mechanical Ventilator 30.00 05/31/19 20:00 Mechanical Ventilator 30 05/31/19 19:35 37.1 83 23 143/63 (89) 93 Mechanical Ventilator 30.00 05/31/19 19:00 90 1124/19 19:00 90 22 147/65 (92) 92 Mechanical Ventilator 30.00 05/31/19 18:19 79 15 96 30 05/31/19 18:00 71 18 156/67 (96) 96 Mechanical Ventilator 30.00 05/31/19 17:31 36.59603 72 23 157/68 96 Mechanical Ventilator 30.00 05/31/19 17:00 72 23 157/68 (97) 96 Mechanical Ventilator 30.00 05/31/19 16:34 97 Mechanical Ventilator 30 05/31/19 16:00 36.8 05/31/19 16:00 75 17 156/68 (97) 96 Mechanical Ventilator 30.00 05/31/19 15:00 72 18 158/69 (98) 96 Mechanical Ventilator 30.00 05/31/19 14:48 72 14 97 30 05/31/19 14:00 73 17 156/68 (97) 97 Mechanical Ventilator 30.00 05/31/19 13:00 80 19 138/62 (87) 95 Mechanical Ventilator 30.00 05/31/19 13:00 81 05/31/19 12:24 97 Mechanical Ventilator 30 05/31/19 12:00 37.0 05/31/19 12:00 80 19 140/61 (87) 96 Mechanical Ventilator 30.00 05/31/19 11:17 36.20025 93 30 133/58 96 Mechanical Ventilator 30.00 05/31/19 11:00 86 20 135/59 (84) 96 Mechanical Ventilator 30.00 05/31/19 10:20 93 30 96 30 05/31/19 10:00 87 27 122/53 (76) 95 Mechanical Ventilator 30.00 05/31/19 09:00 96 37 121/57 (78) 94 Mechanical Ventilator 30.00 05/31/19 08:07 36.78805 94 34 157/68 97 Mechanical Ventilator 30.00 05/31/19 08:00 27 139/66 (90) 95 Mechanical Ventilator 30.00 05/31/19 08:00 36.9 05/31/19 07:55 97 Mechanical Ventilator 30 I & O 06/01/19 07:00 Intake Total 629 ml Output Total 2465 ml Balance -1836 ml Capillary Refill : Less Than 3 Seconds General Appearance: No Apparent Distress, WD/WN HEENT: Normal ENT Inspection Neck: Full Range of Motion Respiratory: No Accessory Muscle Use, No Respiratory Distress, Decreased Breath Sounds Cardiovascular: Regular Rate, Rhythm, No Murmur Gastrointestinal: non tender, soft Results Lab Laboratory Tests 06/01/19 03:29 Laboratory Tests 05/31/19 09:30: Triglycerides Level 104 05/31/19 11:07: Glucometer 144H 05/31/19 17:30: Glucometer 131H 05/31/19 19:36: Blood Gas Puncture Site LEFT ARTLINE, Blood Gas Patient Temperature 37.1, Arterial Blood pH 7.40, Arterial Blood Partial Pressure CO2 67H, Arterial Blood Partial Pressure O2 63L, Arterial Blood HCO3 40H, Arterial Blood Total CO2 42.5H , Arterial Blood Oxygen Saturation 89L, Arterial Blood Base Excess 14.8H, Rik Test ARTLINE, Blood Gas Ventilator Setting YES, Blood Gas Inspired Oxygen 30% 05/31/19 22:36: Glucometer 146H 06/01/19 03:29: White Blood Count 9.6, Red Blood Count 3.21L, Hemoglobin 9.6L, Hematocrit 31L, Mean Corpuscular Volume 96, Mean Corpuscular Hemoglobin 30, Mean Corpuscular Hemoglobin Concent 31L, Red Cell Distribution Width 14.0, Platelet Count 182, Mean Platelet Volume 9.9, Neutrophils (%) (Auto) 91H, Lymphocytes (%) (Auto) 3L, Monocytes (%) (Auto) 7, Eosinophils (%) (Auto) 0, Basophils (%) (Auto) 0, Neutrophils # (Auto) 8.8H, Lymphocytes # (Auto) 0.3L, Monocytes # (Auto) 0.6, Eosinophils # (Auto) 0.0, Basophils # (Auto) 0.0, Blood Gas Puncture Site LEFT RADIAL ARTLINE, Blood Gas Patient Temperature 36.8, Arterial Blood pH 7.42, Arterial Blood Partial Pressure CO2 64H, Arterial Blood Partial Pressure O2 68L, Arterial Blood HCO3 41*H, Arterial Blood Total CO2 42.5H, Arterial Blood Oxygen Saturation 92L, Arterial Blood Base Excess 15.0H, Rik Test ARTLINE, Blood Gas Ventilator Setting YES, Blood Gas Inspired Oxygen 30%, Sodium Level 142, Potassium Level 3.9, Chloride Level 97L, Carbon Dioxide Level 36H, Anion Gap 9, Blood Urea Nitrogen 28H, Creatinine 0.55L, Estimat Glomerular Filtration Rate > 60, BUN/Creatinine Ratio 51, Glucose Level 127H, Calcium Level 8.9, Phosphorus Level 4.0, Magnesium Level 1.7 06/01/19 05:45: Blood Gas Puncture Site LEFT RADIAL ARTLINE, Blood Gas Patient Temperature 36.8, Arterial Blood pH 7.41, Arterial Blood Partial Pressure CO2 64H, Arterial Blood Partial Pressure O2 72L, Arterial Blood HCO3 40H, Arterial Blood Total CO2 42.1H , Arterial Blood Oxygen Saturation 94, Arterial Blood Base Excess 14.6H, Rik Test ARLTINE, Blood Gas Ventilator Setting YES, Blood Gas Inspired Oxygen 30% Microbiology 05/28/19 Blood Culture - Preliminary, Resulted No growth 05/29/19 Gram Stain - Final, Complete 05/29/19 Sputum Culture - Final, Complete Usual upper respiratory shanta Haemophilus influenza See Comments Assessment/Plan Assessment/Plan Assess & Plan/Chief Complaint Acute and chronic respiratory failure. COPD. COPD with acute exacerbation. Ami. Patient extubated within an hour ago Clinical Quality Measures Admission Status Admission Dx Acute and chronic respiratory failure. COPD with acute exacerbation. CO2 narcosis. Confusion. Right lower lobe pneumonia. Left pleural effusion DVT/VTE Risk/Contraindication: Risk Factor Score Per Nursin RFS Level Per Nursing on Admit: 4+=Very High ADOLFO ORTIZ DO Jun 01, 2019 07:39 POS
--- NOTE | 2019-06-01 07:44 | Diagnostic Imaging Report ---
CHEST 1 VIEW, AP/PA ONLY INDICATION: Acute respiratory failure. COMPARISON: 05/31/2019. FINDINGS: Stable ET and enteric tubes. The tip of the ET tube is near the GE junction and could be advanced. Stable asymmetric elevation of the right hemidiaphragm. Right basilar pleural thickening and/or effusion is unchanged. No new airspace opacities. Stable cardiomediastinal silhouette. IMPRESSION: 1. Stable support devices. Please note, the tip of the enteric tube is at the GE junction and could be advanced. 2. No adverse development. Dictated by: Dictated on workstation # [id number]
[2019-06-01] MEDS: PANTOPRAZOLE 40 MG (PROTONIX) VIAL IV SCH (07:53)
[2019-06-01] MEDS: ENOXAPARIN 40 MG/0.4 ML (LOVENOX) SYR SC SCH (07:54)
--- NOTE | 2019-06-01 08:29 | ST Dysphagia Evaluation ---
Speech Evaluation-General Medical Diagnosis COPD acute respiratory with exacerbation Onset Date: Jun 01, 2019 Therapy Diagnosis Therapy Diagnosis: Oropharyngeal Dysphagia Precautions Precautions: Aspiration Referral Referring Physician: Dr. Abdalla Reason for Referral: Evaluation/Treatment Medical History Pertinent Medical History: COPD Reviewed History: Yes Social History Current Living Status: Spouse Speech PLF/Current-Dysphagia Prior Level of Function Patient lived at home with her where she was independent for most of her daily needs. Subjective Patient was pleasant and cooperative with the Bedside Dysphagia Evaluation. Cognitive Status Patient Orientation: Person, Place, Eyes Open, Situation Minimal speech output due to being extubated this morning. Oral Motor Skills Denture Type: Full- Upper & Lower Ability to Follow Directions: Good Patient was NPO pending BDE. Oral Expression Ability: Mild Impairment Minimal speech output due to being extubated this morning. Voice Voice Phonatory-Based Quality: Breathy, Weak Voice Pitch: Normal Voice Loudness: Moderately Soft/Quiet Face Facial Symmetry: Symmetrical Oral-Facial Assessment Oral-Facial Dentition: Normal Labial Seal Description: Normal Smile: Normal Puff Cheeks: Reduced Strength Lingual Protrusion: Normal Lingual ROM: Normal Lingual Strength: Normal Pharynx Velopharyngeal Move.: Normal Volitional Dry Swallow: Yes Voluntary Cough: Yes Can Clear Throat Volitionally: Yes Productive Cough: No Productive Throat Clear: No Dysphagia Evaluation Consistencies Presented: Regular, Thin Liquid, Mechanical Soft, Pureed Oral phase within normal limits for all consistencies. Pharyngeal phase within normal limits for all consistencies. Dietary Recommendations: Regular Liquid Recommendations: Thin Swallowing Precautions: Alternate Liquids/Solids, Decreased Bolus 1/2 Tsp, Liquids from Straw, Small Bites and Sips, Sitting Upright 90 Degrees, Sitting 90 Degrees 30 Post Intake Dysphagia Evaluation Summary Patient is a 74 year old female who was admitted to ICU via ED due to respiratory failure. Patient was intubated with onset and extubated this morning. Bedside Dysphagia Evaluation was completed at bedside with thin liquids at 1/2 tsp x2 and small sips via straw x2, all without difficulty. Patient was presented 1/2 tsp of puree, mechanical soft and regular without difficulty no khoi. Patient did not exhibit any s/s of aspiration. Diet recommendations of regular with thin liquids. Patient's nurse notified and diet level written on the white board in patient's room. Family educated as to safety of oral intake as well as diet level with voiced understanding. Barriers to Learning Patient was confused upon admission, however today during the BDE she did not exhibit confusion. Speech-Plan Patient/Family Goals Patient/Family Goals: Patient plans on returning home upon hospital discharge. Treatment Plan Speech Therapy Treatment Plan: Discontinue ST Patient does not require further ST services at this time. Treatment Duration: Jun 01, 2019 Frequency: 1 time per week Estimated Hrs Per Day: .25 hour per day Rehab Potential: Good Barriers to Learning: Patient was confused upon admission, however today during the BDE she did not exhibit confusion. Safety Risks/Education Teaching Recipient: Patient, Family, Significant Other Teaching Methods: Demonstration, Discussion Response to Teaching: Verbalize Understanding, Return Demonstration Education Topics Provided: Safety of oral intake and diet level. Time Speech Therapy Time In: 08:00 Speech Therapy Time Out: 08:15 Total Billed Time: 15 Billed Treatment Time 1, KALEB Dyson Jun 01, 2019 08:29 POS
--- NOTE | 2019-06-01 08:44 | Occupational Therapy Eval ---
OT Evaluation-General/PLF Medical Diagnosis Admission Date May 28, 2019 at 22:00 Medical Diagnosis: COPD acute respiratory with exacerbation Onset Date: Jun 01, 2019 Therapy Diagnosis Therapy Diagnosis: impaired ADLs and functional mobility Precautions Precautions/Isolations: Standard Precautions Safety Interventions: Reorient-PRN Referral Physician: Lianne Galvin Reason: Activity Tolerance, Self Care, Evaluation/Treatment, Strengthening/ROM Medical History Pertinent Medical History: COPD Current History Per H&P: Pt admitted 05/28/19 with confusion and difficulty walking, pt intubated upon admission. Pt extubated 06/01/19. Reviewed History: Yes Social History Current Living Status: Spouse Pt's family indicated pt lived at home with her . Pt unable to verbalize info about home set up due to difficulty speaking after being extubated. ADL-Prior Level of Function SCALE: Activities may be completed with or without assistive devices. 7-Nihgjutkvh-erypbke completes the activity by him/herself with no assistance from a helper. 5-Set-up or Clean-up Assistance-helper sets up or cleans up; patient completes activity. [place] assists only prior to or following the activity. 4-Supervision or Touching Assistance-helper provides verbal cues and/or touching/steadying and/or contact guard assistance as patient completes activity. Assistance may be provided throughout the activity or intermittently. 3-Partial/Moderate Assistance-helper does LESS THAN HALF the effort. [place] lifts, holds or supports trunk or limbs, but provides less than half the effort. 2-Substantial/Maximal Assistance-helper does MORE THAN HALF the effort. [place] lifts or holds trunk or limbs and provides more than half the effort. 5-Vlsnzqbzo-rtaggl does ALL the effort. Patient does none of the effort to complete the activity. Or, the assistance of 2 or more helpers is required for the patient to complete the activity. If activity was not attempted, code reason: 7-Patient Refused. 9-Not Applicable-not attempted and the patient did not perform the activity before the current illness, exacerbation or injury. 10-Not Attempted due to Environmental Limitations-(lack of equipment, weather restraints, etc.). 88-Not Attempted due to Medical Conditions or Safety Concerns. ADL PLOF Comments Per family reprot: Pt needed assistance with all aspects of ADLs prior to hospitalization. She was taking sponge baths due to difficulty walking to the bathroom to shower. She can only walk ~15 feet before having to take a break and brace herself against the wall or refrigerator. Pt was able to assist with parts of dressing, but over the last couple of weeks she required increased help. She has home oxygen, on 4L(per pulmonary consult). Self Care: Needed Some Help Functional Cognition: Needed Some Help DME/Equipment Comments none OT Current Status Subjective Nursing stated OK for OT to see pt. Pt laying in bed, daughter and present throughout session. Pt had difficulty speaking due to being extubated this AM, communicated by nodding/shaking head and she attempted to speak but unable to produce much sound. Pt's family assisted pt with communication. Mental Status/Objective Patient Orientation: Person, Place, Time, Situation Attachments: IV, Oxygen Current Glasses/Contacts: Yes Hearing Aids: No Dentures/Partials: Yes Hand Dominance: Right Upper Extremity ROM BUE shoulder flexion to ~90 degrees Upper Extremity Coordination no deficits noted on this date, Upper Extremity Sensation pt did not report any changes in sensation Upper Extremity Strength grossly 3/5 MMT BUE ADL-Treatment Eating (QC): 3 (Based on clinical judgement, pt would require partial assistance with feeding due to UE fatigue with task, and decreased UE strength.) Oral Hygiene (QC): 7 Shower/Bathe Self (QC): 7 Upper Body Dressing (QC): 7 Lower Body Dressing (QC): 7 On/Off Footwear (QC): 7 Toileting Hygiene (QC): 7 Toilet Transfer (QC): 7 Other Treatments Pt laying in bed throughout session, pt and family provided information about PLOF. Pt denied washing her face and hands stating "I have already done it". Pt agreeable to brushing her hair. She was able to brush the right side of her hair with her right hand, unable to reach the left side and the back of her hair. Pt able to lift head off of pillow for OT to complete hair brushing that pt unable to reach. Post OT session, pt laying in bed, call light in reach, all needs met and family present. Education OT Patient Education: Correct positioning, Energy conservation, Modified ADL techniques, Progress toward Goal/Update tx plan, Purpose of tx/functional activities Teaching Recipient: Patient, Family Teaching Methods: Discussion Response to Teaching: Verbalize Understanding OT Auto Cleaner Goals Auto Cleaner Goals Time Frame: Jun 12, 2019 Eating (QC): 6 Oral Hygiene (QC): 6 Toileting Hygiene (QC): 3 Shower/Bathe Self (QC): 3 Upper Body Dressing (QC): 3 Lower Body Dressing (QC): 4 On/Off Footwear (QC): 4 Additional Goals: 1-Demonstrate ADL Tasks, 2-Verbalize Understanding, 3- ImproveStrength/Brianne 1=Demonstrate adherence to instructed precautions during ADL tasks. 2=Patient will verbalize/demonstrate understanding of assistive devices/modifications for ADL. 3=Patient will improve strength/tolerance for activity to enable patient to perform ADL's. OT Education/Plan Problem List/Assessment Assessment: Decreased Activ Tolerance, Decreased UE Strength, Dependent Transfers, Impaired Funct Balance, Impaired I ADL's, Impaired Self-Care Skills, Restricted Funct UE ROM Discharge Recommendations Plan/Recommendations: Continue POC Treatment Plan/Plan of Care Treatment,Training & Education: Yes Patient would benefit from OT for education, treatment and training to promote independence in ADL's, mobility, safety and/or upper extremity function for ADL's. Plan of Care: ADL Retraining, Caregiver Training, Functional Mobility, UE Funct Exercise/Act Treatment Duration: Jun 12, 2019 Frequency: 5 times per week Estimated Hrs Per Day: .25 hour per day Agreement: Yes Rehab Potential: Fair Time/GCodes Start Time: 08:25 Stop Time: 08:35 Total Time Billed (hr/min): 10 Billed Treatment Time 1, JG LEWIS OT Jun 01, 2019 08:44 POS
--- NOTE | 2019-06-01 10:03 | Physical Therapy Evaluation ---
PT Evaluation-General Medical Diagnosis Admission Date May 28, 2019 at 22:00 Medical Diagnosis: COPD acute respiratory with exacerbation Onset Date: Jun 01, 2019 Therapy Diagnosis Therapy Diagnosis: debility, weakness Precautions Precautions/Isolations: Standard Precautions Referral Physician: Lianne Reason for Referral: Evaluation/Treatment Medical History Pertinent Medical History: COPD Current History EMS from home secondary to SOB Reviewed History: Yes Social History Home: Single Level Current Living Status: Spouse Entry Into Home: Stairs With Railing PT Steps Into Home: 1 PT Steps Inside Home: 1 Prior Prior Level of Function SCALE: Activities may be completed with or without assistive devices. 5-Nifjgtlwbo-lowvakm completes the activity by him/herself with no assistance from a helper. 5-Set-up or Clean-up Assistance-helper sets up or cleans up; patient completes activity. [place] assists only prior to or following the activity. 4-Supervision or Touching Assistance-helper provides verbal cues and/or touching/steadying and/or contact guard assistance as patient completes activity. Assistance may be provided throughout the activity or intermittently. 3-Partial/Moderate Assistance-helper does LESS THAN HALF the effort. [place] lifts, holds or supports trunk or limbs, but provides less than half the effort. 2-Substantial/Maximal Assistance-helper does MORE THAN HALF the effort. [place] lifts or holds trunk or limbs and provides more than half the effort. 5-Ztbyxrqxx-bxwiqb does ALL the effort. Patient does none of the effort to complete the activity. Or, the assistance of 2 or more helpers is required for the patient to complete the activity. If activity was not attempted, code reason: 7-Patient Refused. 9-Not Applicable-not attempted and the patient did not perform the activity before the current illness, exacerbation or injury. 10-Not Attempted due to Environmental Limitations-(lack of equipment, weather restraints, etc.). 88-Not Attempted due to Medical Conditions or Safety Concerns. Bed Mobility: 6 Transfers (B,C,W/C): 6 Gait: 6 Stairs: 6 Indoor Mobility (Ambulation): Independent Stairs: Independent Prior Devices Use: None PT Evaluation-Current Subjective Patient and family agree to PT at this time. Nursing states patient should remain in bed during tx today d/t recurrent oxygen desaturation with activity. Patient reports generalized body aches. Objective Patient Orientation: Normal For Age Attachments: Oxygen, Johnson Catheter, IV ROM/Strength ROM Lower Extremities WFL Strength Lower Extremities Grossly 3-/5; assess w/ supine ex Integumentary/Posture Integumentary See nursing notes Bladder Incontinence: Johnson Cath Posture Unable to assess Neuromuscular (Tone, Coordination, Reflexes) Grossly intact Sensory Vision: Functional Hearing: Functional Hand Dominance: Right Transfers Roll Left to Right (QC): 88 Sit to Lying (QC): 88 Lying to Sitting/Side of Bed(Q: 88 Sit to Stand (QC): 88 Chair/Tph-zi-Rkahn Xfer(QC): 88 Car Transfer (QC): 88 Gait Walk 10 feet (QC): 88 Walk 50 ft with 2 Turns(QC): 88 Walk 150 ft (QC): 88 Walking 10ft/uneven surface-QC: 88 Wheelchair Training Does the Pt Use a Wheelchair?: No Wheel 50 ft with 2 turns (QC): 9 Wheel 150 ft (QC): 9 Type of Wheelchair: Manual Stairs 1 Step (curb) (QC): 88 4 Steps (QC): 9 12 Steps (QC): 9 Balance Picking up an Object (QC): 88 Assessment/Needs Patient limited to only supine bed level exercises during evaluation d/t nursing concern about recurrent oxygen desaturation. During exercise, O2 sats fell to 87% and patient given rest period to increase back to at least 90%. Patient performed all supine exercises well with minimal assistance and some general body aches, demonstrating fair strength at this time. PT unable to fully assess patient strength, mobility, balance, and posture d/t limitations at this time. Patient instructed to perform exercises and bed mobility as tolerated throughout the day. Rehab Potential: Fair PT Cutter Helper Goals Intermediate Goals PT Intermediate Goals Time Frame: Jun 27, 2019 Roll Left & Right (QC): 6 Sit to Lying (QC): 6 Lying-Sitting on Side/Bed(QC): 6 Sit to Stand (QC): 6 Chair/Quo-oj-Fockf Xfer(QC): 6 Toilet Transfer (QC): 6 Car Transfer (QC): 6 Does the Patient Walk: Yes Walk 10 feet (QC): 6 Walk 50ft with 2 Turns (QC): 6 Walk 150 ft (QC): 6 Walking 10ft on Uneven Surface: 6 1 Step (curb) (QC): 6 4 Steps (QC): 9 12 Steps (QC): 9 Picking up an Object (QC): 6 Does the Pt use WC or Scooter?: No Type: N/A Type: N/A PT Plan Problem List Problem List: Activity Tolerance, Functional Strength, Safety, Balance, Gait, Transfer, Bed Mobility Treatment/Plan Treatment Plan: Continue Plan of Care Treatment Plan: Bed Mobility, Education, Functional Activity Brianne, Functional Strength, Gait, Safety, Therapeutic Exercise, Transfers Treatment Duration: Jun 27, 2019 Frequency: 6 times per week Estimated Hrs Per Day: .25 hour per day Patient and/or Family Agrees t: Yes Time/GCodes Time In: 931 Time Out: 940 Total Billed Treatment Time: 9 Total Billed Treatment 1 visit EVLowC 9min MORIS LAO PT Jun 01, 2019 10:03 POS
[2019-06-01] MEDS: ACETAMINOPHEN 325 MG TABLET PO PRN ×2 (10:25→17:38)
[2019-06-01] MEDS ORDERED: SIMETHICONE 80 MG (MYLICON) CHEW ONE (14:30)
[2019-06-01] MEDS ORDERED: SIMETHICONE 80 MG (MYLICON) CHEW PO PRN (14:30)
[2019-06-01] MEDS: LACTATED RINGERS 1,000 ML IV SCH (17:29)
[2019-06-01] MEDS ORDERED: meTOprolol TARTRATE 25 MG (LOPRESSOR) TABLET ONE (19:22)
[2019-06-01] MEDS ORDERED: hydrALAZINE (APESOLINE) 20 MG/ML VIAL IV PRN (19:30)
[2019-06-01] MEDS: meTOprolol TARTRATE 25 MG (LOPRESSOR) TABLET PO SCH (20:16)
[2019-06-01] MEDS: cefTRIAXone 1,000 MG/SWFI 10 ML IV PUSH IV SCH ×2 (20:16)
[2019-06-01] MEDS: AZITHROMYCIN 250 MG TAB (ZITHROMAX) PO SCH (20:16)
[2019-06-02] VITALS (27 sets, daily range): BP systolic 126–177; BP diastolic 70–97
[2019-06-02] MEDS: RT-ALBUTEROL/IPRATROPIUM 3 ML (DUONEB) VIAL INH SCH ×6 (01:32→21:49)
[2019-06-02 02:51] LABS: BASOPHILS % (AUTO) 0 % (0-10); EOSINOPHILS % (AUTO) 0 % (0-10); HEMATOCRIT 35 % (35-52); HEMOGLOBIN 10.7 G/DL (11.5-16.0); LYMPHOCYTES # (AUTO) 0.3 X 10^3 (1.0-4.0); LYMPHOCYTES % (AUTO) 2 % (12-44); MEAN CORPUSCULAR HEMOGLOBIN 30 PG (25-34); MEAN CORPUSCULAR HGB CONC 30 G/DL (32-36); MEAN CORPUSCULAR VOLUME 98 FL (80-99); MEAN PLATELET VOLUME 9.8 FL (7.4-10.4); MONOCYTES # (AUTO) 0.8 X 10^3 (0.0-1.0); MONOCYTES % (AUTO) 6 % (0-12); NEUTROPHILS # (AUTO) 12.6 X 10^3 (1.8-7.8); NEUTROPHILS % (AUTO) 92 % (42-75); PLATELET COUNT 221 10^3/uL (130-400); RED CELL DISTRIBUTION WIDTH 14.4 % (10.0-14.5); WHITE BLOOD COUNT 13.7 10^3/uL (4.3-11.0)
[2019-06-02 03:11] LABS: BUN/CREATININE RATIO 41; CALCIUM 9.1 MG/DL (8.5-10.1); CARBON DIOXIDE 37 MMOL/L (21-32); CHLORIDE 99 MMOL/L (98-107); CREATININE SERUM 0.58 MG/DL (0.60-1.30); GFR ESTIMATED > 60; GLUCOSE 132 MG/DL (70-105); PHOSPHORUS 3.3 MG/DL (2.3-4.7); POTASSIUM 3.9 MMOL/L (3.6-5.0); SODIUM 145 MMOL/L (135-145)
[2019-06-02] MEDS: POTASSIUM CL 10MEQ/50ML IVPB 50 ML IV SCH (04:46)
[2019-06-02] MEDS: inSUlin ASPART (NovoLOG) 1 UNIT/0.01 ML (CHARGE PER UNIT) SC SCH ×4 (04:46→21:23)
[2019-06-02] MEDS: MAGNESIUM 1 GM/100 ML IVPB 100 ML IV SCH (04:46)
[2019-06-02] MEDS: KCL 20 MEQ TAB (K-DUR) PO SCH (04:46)
--- NOTE | 2019-06-02 05:12 | Pulmonary Progress Note ---
Sepsis Event Evaluation Height, Weight, BMI Height: '" Weight: lbs. oz. kg; 29.00 BMI Method: Exam Exam Vital Signs Date Time Temp Pulse Resp B/P (MAP) Pulse Ox O2 Delivery O2 Flow Rate FiO2 06/02/19 04:00 37.1 06/02/19 03:20 99 NIV Bilevel 50 06/02/19 02:00 94 26 154/81 (105) 100 NIV Bilevel 50.00 06/02/19 01:49 74 25 100 60.00 06/02/19 01:46 NIV Bilevel 50.00 06/02/19 01:32 93 Vapotherm 25.00 40 06/02/19 01:00 87 06/02/19 01:00 87 24 177/92 (120) 97 Vapotherm 25.00 40.00 06/02/19 00:00 81 24 168/86 (113) 98 Vapotherm 25.00 40.00 06/01/19 23:15 37.3 Vapotherm 25.00 40.00 06/01/19 23:10 96 Vapotherm 25.00 40 06/01/19 23:00 87 149/78 (101) 97 Vapotherm 25.00 40.00 06/01/19 22:04 90 26 159/79 (105) 97 Vapotherm 25.00 40.00 06/01/19 21:15 98 Vapotherm 25.00 40 06/01/19 21:00 106 24 132/74 (93) Vapotherm 25.00 40.00 06/01/19 20:00 80 27 154/94 (114) 96 Vapotherm 25.00 40.00 06/01/19 19:25 37.4 06/01/19 19:11 87 27 163/87 (112) 97 Vapotherm 25.00 40.00 06/01/19 19:10 97 Vapotherm 25.00 40 06/01/19 19:00 Vapotherm 25.00 40.00 06/01/19 19:00 98 06/01/19 19:00 98 16 174/91 (118) 92 Vapotherm 25.00 40.00 06/01/19 18:33 95 Vapotherm 25.00 40 06/01/19 18:00 92 19 160/86 (110) 96 Vapotherm 40.00 25.00 06/01/19 17:00 97 22 142/73 (96) 94 Vapotherm 40.00 25.00 06/01/19 16:00 94 Mechanical Ventilator 40 06/01/19 16:00 108 29 132/117 (122) 95 Vapotherm 40.00 25.00 06/01/19 15:36 38.0 06/01/19 15:00 85 30 143/107 (119) 96 Vapotherm 40.00 25.00 06/01/19 14:29 94 Vapotherm 25.00 40 06/01/19 14:00 106 32 148/84 (105) 97 Vapotherm 40.00 25.00 06/01/19 13:30 Vapotherm 40.00 25.00 06/01/19 13:00 103 34 134/104 (114) 93 Vapotherm 25.00 35.00 06/01/19 13:00 106 06/01/19 12:29 95 Mechanical Ventilator 30 06/01/19 12:00 101 30 153/83 (106) 93 Vapotherm 25.00 35.00 06/01/19 11:23 37.6 06/01/19 11:00 102 35 148/77 (100) 95 Vapotherm 25.00 35.00 06/01/19 10:55 Vapotherm 25.00 35.00 06/01/19 10:46 Vapotherm 22.00 30.00 06/01/19 10:28 Vapotherm 20.00 30.00 06/01/19 10:23 96 Vapotherm 25.00 35 06/01/19 10:00 106 27 126/107 (113) 93 Vapotherm 35.00 40.00 06/01/19 09:00 42 207/195 (199) 95 Vapotherm 35.00 40.00 06/01/19 08:39 37.0 06/01/19 08:00 95 Mechanical Ventilator 30 06/01/19 08:00 80 31 107/97 (100) 94 Vapotherm 35.00 40.00 06/01/19 07:00 37.0 06/01/19 07:00 78 23 144/66 (92) 97 Vapotherm 35.00 40.00 06/01/19 07:00 92 06/01/19 06:50 98 Vapotherm 25.00 35 06/01/19 06:25 Vapotherm 35.00 40.00 06/01/19 06:00 75 18 145/65 (91) 95 Mechanical Ventilator 30.00 06/01/19 05:17 81 21 94 30 I & O 06/02/19 07:00 Intake Total 1860 ml Output Total 2400 ml Balance -540 ml Height & Weight Height: '" Weight: lbs. oz. kg; 29.00 BMI Method: General Appearance: Chronically ill, Obese, Other (on vent) HEENT: Normal ENT Inspection Neck: Normal Inspection, Non Tender, Supple Respiratory: Wheezing, Other (on vent) Cardiovascular: Regular Rate, Rhythm, No Murmur Capillary Refill: Less Than 3 Seconds Gastrointestinal: non tender, soft Extremity: Pedal Edema (trace) Neurologic/Psychiatric: Other (sedated, appears comfortable) Skin: Normal Color, Warm/Dry Lymphatic: No Adenopathy Results Lab Laboratory Tests 06/01/19 03:29 06/02/19 02:45 Assessment/Plan Assessment/Plan Acute on chronic respiratory failure -D -Labs and CXR are pending -Currently on BiPAP -CT of chest reviewed Severe oxygen dependent COPD uses 4liers at home COPDAE -Solumedrol -SVNS -Oxygen Hx of lobectomy elevated right diaphram Morbid obesity BYRON WINKLER DO Jun 02, 2019 05:12 POS
[2019-06-02] MEDS: CATHETER FLUSH 10 ML SYR IV SCH ×3 (06:21→22:19)
[2019-06-02] MEDS: methylPREDNISolone 40 MG/ML (Solu-MEDROL) VIAL IV SCH ×3 (06:21→17:28)
[2019-06-02] MEDS ORDERED: BUMETANIDE 1 MG/4 ML (BUMEX) VIAL IV ONE (06:45)
[2019-06-02] MEDS ORDERED: KCL 20 MEQ TAB (K-DUR) PO ONE (06:45)
[2019-06-02] MEDS ORDERED: BUMETANIDE 1 MG/4 ML (BUMEX) VIAL ONE (06:47)
--- NOTE | 2019-06-02 06:47 | Pulmonary Progress Note ---
Subjective Time Seen by a Provider: 06:54 Sepsis Event Evaluation Height, Weight, BMI Height: '" Weight: lbs. oz. kg; 29.00 BMI Method: Exam Exam Vital Signs Date Time Temp Pulse Resp B/P (MAP) Pulse Ox O2 Delivery O2 Flow Rate FiO2 06/02/19 06:36 96 Vapotherm 25.00 40 06/02/19 06:05 Vapotherm 25.00 40.00 06/02/19 06:00 90 17 132/76 (94) 100 NIV Bilevel 50.00 06/02/19 05:00 81 19 131/72 (91) 100 NIV Bilevel 50.00 06/02/19 04:00 37.1 06/02/19 04:00 89 22 138/77 (97) 100 NIV Bilevel 50.00 06/02/19 03:20 99 NIV Bilevel 50 06/02/19 03:00 83 20 142/78 (99) 100 NIV Bilevel 50.00 06/02/19 02:00 94 26 154/81 (105) 100 NIV Bilevel 50.00 06/02/19 01:49 74 25 100 60.00 06/02/19 01:46 NIV Bilevel 50.00 06/02/19 01:32 93 Vapotherm 25.00 40 06/02/19 01:00 87 06/02/19 01:00 87 24 177/92 (120) 97 Vapotherm 25.00 40.00 06/02/19 00:00 81 24 168/86 (113) 98 Vapotherm 25.00 40.00 06/01/19 23:15 37.3 Vapotherm 25.00 40.00 06/01/19 23:10 96 Vapotherm 25.00 40 06/01/19 23:00 87 149/78 (101) 97 Vapotherm 25.00 40.00 06/01/19 22:04 90 26 159/79 (105) 97 Vapotherm 25.00 40.00 06/01/19 21:15 98 Vapotherm 25.00 40 06/01/19 21:00 106 24 132/74 (93) Vapotherm 25.00 40.00 06/01/19 20:00 80 27 154/94 (114) 96 Vapotherm 25.00 40.00 06/01/19 19:25 37.4 06/01/19 19:11 87 27 163/87 (112) 97 Vapotherm 25.00 40.00 06/01/19 19:10 97 Vapotherm 25.00 40 06/01/19 19:00 Vapotherm 25.00 40.00 06/01/19 19:00 98 06/01/19 19:00 98 16 174/91 (118) 92 Vapotherm 25.00 40.00 06/01/19 18:33 95 Vapotherm 25.00 40 06/01/19 18:00 92 19 160/86 (110) 96 Vapotherm 40.00 25.00 06/01/19 17:00 97 22 142/73 (96) 94 Vapotherm 40.00 25.00 06/01/19 16:00 94 Mechanical Ventilator 40 06/01/19 16:00 108 29 132/117 (122) 95 Vapotherm 40.00 25.00 06/01/19 15:36 38.0 06/01/19 15:00 85 30 143/107 (119) 96 Vapotherm 40.00 25.00 06/01/19 14:29 94 Vapotherm 25.00 40 06/01/19 14:00 106 32 148/84 (105) 97 Vapotherm 40.00 25.00 06/01/19 13:30 Vapotherm 40.00 25.00 06/01/19 13:00 103 34 134/104 (114) 93 Vapotherm 25.00 35.00 06/01/19 13:00 106 06/01/19 12:29 95 Mechanical Ventilator 30 06/01/19 12:00 101 30 153/83 (106) 93 Vapotherm 25.00 35.00 06/01/19 11:23 37.6 06/01/19 11:00 102 35 148/77 (100) 95 Vapotherm 25.00 35.00 06/01/19 10:55 Vapotherm 25.00 35.00 06/01/19 10:46 Vapotherm 22.00 30.00 06/01/19 10:28 Vapotherm 20.00 30.00 06/01/19 10:23 96 Vapotherm 25.00 35 06/01/19 10:00 106 27 126/107 (113) 93 Vapotherm 35.00 40.00 06/01/19 09:00 42 207/195 (199) 95 Vapotherm 35.00 40.00 06/01/19 08:39 37.0 06/01/19 08:00 95 Mechanical Ventilator 30 06/01/19 08:00 80 31 107/97 (100) 94 Vapotherm 35.00 40.00 06/01/19 07:00 37.0 06/01/19 07:00 78 23 144/66 (92) 97 Vapotherm 35.00 40.00 06/01/19 07:00 92 06/01/19 06:50 98 Vapotherm 25.00 35 I & O 06/02/19 07:00 Intake Total 2010 ml Output Total 2750 ml Balance -740 ml Height & Weight Height: '" Weight: lbs. oz. kg; 29.00 BMI Method: General Appearance: No Apparent Distress, Anxious, Chronically ill, Obese HEENT: Normal ENT Inspection Neck: Normal Inspection, Non Tender, Supple Respiratory: Wheezing Cardiovascular: Regular Rate, Rhythm, No Murmur Capillary Refill: Less Than 3 Seconds Gastrointestinal: non tender, soft Extremity: Pedal Edema (trace) Neurologic/Psychiatric: Other (sedated, appears comfortable) Skin: Normal Color, Warm/Dry Lymphatic: No Adenopathy Results Lab Laboratory Tests 06/01/19 03:29 06/02/19 02:45 Assessment/Plan Assessment/Plan Acute on chronic respiratory failure -Currently on Vapotherm -Titrate to regular NC -CT of chest reviewed Right pleural effusion -SL IVF -Give 2mg of IV Bumex Severe oxygen dependent COPD uses 4liers at home COPDAE -Solumedrol -SVNS -Oxygen Debility -PT/OT -Up to chair BID Hx of lobectomy elevated right diaphram Morbid obesity BYRON WINKLER DO Jun 02, 2019 06:47 POS
--- NOTE | 2019-06-02 07:36 | Progress Note ---
Subjective Time Seen by a Provider: 07:31 Subjective/Events-last exam Patient doing better. Patient on Vapotherm. Patient talking today. Swallow study yesterday good. Patient work in progress Objective Exam Vital Signs Date Time Temp Pulse Resp B/P (MAP) Pulse Ox O2 Delivery O2 Flow Rate FiO2 06/02/19 06:50 20.00 35.00 06/02/19 06:50 Vapotherm 20.00 37.00 06/02/19 06:47 Vapotherm 20.00 25.00 06/02/19 06:36 96 Vapotherm 25.00 40 06/02/19 06:05 Vapotherm 25.00 40.00 06/02/19 06:00 90 17 132/76 (94) 100 NIV Bilevel 50.00 06/02/19 05:00 81 19 131/72 (91) 100 NIV Bilevel 50.00 06/02/19 04:00 37.1 06/02/19 04:00 89 22 138/77 (97) 100 NIV Bilevel 50.00 06/02/19 03:20 99 NIV Bilevel 50 06/02/19 03:00 83 20 142/78 (99) 100 NIV Bilevel 50.00 06/02/19 02:00 94 26 154/81 (105) 100 NIV Bilevel 50.00 06/02/19 01:49 74 25 100 60.00 06/02/19 01:46 NIV Bilevel 50.00 06/02/19 01:32 93 Vapotherm 25.00 40 06/02/19 01:00 87 06/02/19 01:00 87 24 177/92 (120) 97 Vapotherm 25.00 40.00 06/02/19 00:00 81 24 168/86 (113) 98 Vapotherm 25.00 40.00 06/01/19 23:15 37.3 Vapotherm 25.00 40.00 06/01/19 23:10 96 Vapotherm 25.00 40 06/01/19 23:00 87 149/78 (101) 97 Vapotherm 25.00 40.00 06/01/19 22:04 90 26 159/79 (105) 97 Vapotherm 25.00 40.00 06/01/19 21:15 98 Vapotherm 25.00 40 06/01/19 21:00 106 24 132/74 (93) Vapotherm 25.00 40.00 06/01/19 20:00 80 27 154/94 (114) 96 Vapotherm 25.00 40.00 06/01/19 19:25 37.4 06/01/19 19:11 87 27 163/87 (112) 97 Vapotherm 25.00 40.00 06/01/19 19:10 97 Vapotherm 25.00 40 06/01/19 19:00 Vapotherm 25.00 40.00 06/01/19 19:00 98 06/01/19 19:00 98 16 174/91 (118) 92 Vapotherm 25.00 40.00 06/01/19 18:33 95 Vapotherm 25.00 40 06/01/19 18:00 92 19 160/86 (110) 96 Vapotherm 40.00 25.00 06/01/19 17:00 97 22 142/73 (96) 94 Vapotherm 40.00 25.00 06/01/19 16:00 94 Mechanical Ventilator 40 06/01/19 16:00 108 29 132/117 (122) 95 Vapotherm 40.00 25.00 06/01/19 15:36 38.0 06/01/19 15:00 85 30 143/107 (119) 96 Vapotherm 40.00 25.00 06/01/19 14:29 94 Vapotherm 25.00 40 06/01/19 14:00 106 32 148/84 (105) 97 Vapotherm 40.00 25.00 06/01/19 13:30 Vapotherm 40.00 25.00 06/01/19 13:00 103 34 134/104 (114) 93 Vapotherm 25.00 35.00 06/01/19 13:00 106 06/01/19 12:29 95 Mechanical Ventilator 30 06/01/19 12:00 101 30 153/83 (106) 93 Vapotherm 25.00 35.00 06/01/19 11:23 37.6 06/01/19 11:00 102 35 148/77 (100) 95 Vapotherm 25.00 35.00 06/01/19 10:55 Vapotherm 25.00 35.00 06/01/19 10:46 Vapotherm 22.00 30.00 06/01/19 10:28 Vapotherm 20.00 30.00 06/01/19 10:23 96 Vapotherm 25.00 35 06/01/19 10:00 106 27 126/107 (113) 93 Vapotherm 35.00 40.00 06/01/19 09:00 42 207/195 (199) 95 Vapotherm 35.00 40.00 06/01/19 08:39 37.0 06/01/19 08:00 95 Mechanical Ventilator 30 06/01/19 08:00 80 31 107/97 (100) 94 Vapotherm 35.00 40.00 I & O 06/02/19 07:00 Intake Total 2020 ml Output Total 2750 ml Balance -730 ml Capillary Refill : Less Than 3 Seconds General Appearance: No Apparent Distress, WD/WN HEENT: Normal ENT Inspection Neck: Full Range of Motion, Normal Inspection Respiratory: No Accessory Muscle Use, No Respiratory Distress, Decreased Breath Sounds Cardiovascular: Regular Rate, Rhythm, No Murmur Gastrointestinal: non tender, soft Results Lab Laboratory Tests 06/02/19 02:45 Laboratory Tests 06/01/19 11:27: Glucometer 103 06/01/19 16:41: Glucometer 127H 06/01/19 20:22: Glucometer 113H 06/02/19 02:45: White Blood Count 13.7H, Red Blood Count 3.58L, Hemoglobin 10.7L, Hematocrit 35, Mean Corpuscular Volume 98, Mean Corpuscular Hemoglobin 30, Mean Corpuscular Hemoglobin Concent 30L, Red Cell Distribution Width 14.4, Platelet Count 221, Mean Platelet Volume 9.8, Neutrophils (%) (Auto) 92H, Lymphocytes (%) (Auto) 2L, Monocytes (%) (Auto) 6, Eosinophils (%) (Auto) 0, Basophils (%) (Auto) 0, Neutrophils # (Auto) 12.6H, Lymphocytes # (Auto) 0.3L, Monocytes # (Auto) 0.8, Eosinophils # (Auto) 0.0, Basophils # (Auto) 0.0, Sodium Level 145, Potassium Level 3.9, Chloride Level 99, Carbon Dioxide Level 37H, Anion Gap 9, Blood Urea Nitrogen 24H, Creatinine 0.58L, Estimat Glomerular Filtration Rate > 60, BUN/Creatinine Ratio 41, Glucose Level 132H, Calcium Level 9.1, Phosphorus Level 3.3, Magnesium Level 2.0, Triglycerides Level 113 Microbiology 05/28/19 Blood Culture - Preliminary, Resulted No growth 05/29/19 Gram Stain - Final, Complete 05/29/19 Sputum Culture - Final, Complete Usual upper respiratory shanta Haemophilus influenza See Comments Radiology Laboratory Tests 06/02/19 02:45 Assessment/Plan Assessment/Plan Assess & Plan/Chief Complaint Acute and chronic respiratory failure. COPD. COPD with acute exacerbation. Ami. Patient extubated within an hour ago. . 06/02/19. Acute and chronic respiratory failure. COPD with acute exacerbation. COPD. Patient doing better this morning Clinical Quality Measures Admission Status Admission Dx Acute and chronic respiratory failure. COPD with acute exacerbation. CO2 narcosis. Confusion. Right lower lobe pneumonia. Left pleural effusion DVT/VTE Risk/Contraindication: Risk Factor Score Per Nursin RFS Level Per Nursing on Admit: 4+=Very High ADOLFO ORTIZ DO Jun 02, 2019 07:36 POS
--- NOTE | 2019-06-02 07:52 | NUR ---
9018 DR ORTIZ IN ROOM TO SEE PT NEW VERBAL ORDERS RECEIVED FOR OBTAIN A BNP. ORDERS ENTERED.
[2019-06-02] MEDS: PANTOPRAZOLE 40 MG (PROTONIX) VIAL IV SCH (08:13)
[2019-06-02] MEDS: ENOXAPARIN 40 MG/0.4 ML (LOVENOX) SYR SC SCH (08:14)
[2019-06-02] MEDS: meTOprolol TARTRATE 25 MG (LOPRESSOR) TABLET PO SCH ×2 (08:14→21:16)
--- NOTE | 2019-06-02 08:43 | Occupational Ther Daily Note ---
OT Current Status-Daily Note Subjective Nursing told OT pt OK to be seen this AM. Pt laying in bed with granddaughters present, granddaughters left the room during bathing. Pt agreeable to OT tx with focus on sponge bath. Pt able to communicate verbally this tx, stating she was glad her voice was coming back. Pain Numeric Pain Scale: 0-No Pain Mental Status/Objective Attachments: IV, Oxygen, Telemetry ADL-Treatment Therapy Code Descriptions/Definitions Functional [place] Measure: 0=Not Assessed/NA 4=Minimal Assistance 1=Total Assistance 5=Supervision or Setup 2=Maximal Assistance 6=Modified [place] 3=Moderate Assistance 7=Complete IndependenceSCALE: Activities may be completed with or without assistive devices. 6-Cmjavqdstj-bajklef completes the activity by him/herself with no assistance from a helper. 5-Set-up or Clean-up Assistance-helper sets up or cleans up; patient completes activity. [place] assists only prior to or following the activity. 4-Supervision or Touching Assistance-helper provides verbal cues and/or touchi ng/steadying and/or contact guard assistance as patient completes activity. Assistance may be provided throughout the activity or intermittently. 3-Partial/Moderate Assistance-helper does LESS THAN HALF the effort. [place] lifts, holds or supports trunk or limbs, but provides less than half the effort. 2-Substantial/Maximal Assistance-helper does MORE THAN HALF the effort. [place] lifts or holds trunk or limbs and provides more than half the effort. 4-Vukbqgbgl-dabnlr does ALL the effort. Patient does none of the effort to complete the activity. Or, the assistance of 2 or more helpers is required for the patient to complete the activity. If activity was not attempted, code reason: 7-Patient Refused. 9-Not Applicable-not attempted and the patient did not perform the activity before the current illness, exacerbation or injury. 10-Not Attempted due to Environmental Limitations-(lack of equipment, weather restraints, etc.). 88-Not Attempted due to Medical Conditions or Safety Concerns. Bathing Location: L Arm, R Arm, R Upper Leg Shower/Bathe Self (QC): 2 (SPONGE BATH: Pt able to wash BUEs, and right upper leg. Pt fatigued with task, OT assisted with other parts of sponge bath. ) FOOTWEAR 1 (Dependent for doffing/donning BLE Socks) Other Treatment Pt laying in bed throughout session. Nursing present to give pt meds as OT set up for ADL session. Pt then participated in sponge bath, denied need to brush hair stating she has already completed task earlier this morning. Post OT session, pt laying in bed, call light in reach and all needs met. Education OT Patient Education: Correct positioning, Energy conservation, Modified ADL techniques, Progress toward Goal/Update tx plan, Purpose of tx/functional activities Teaching Recipient: Patient Teaching Methods: Discussion Response to Teaching: Verbalize Understanding OT Animal Control Specialist Goals Animal Control Specialist Goals Time Frame: Jun 12, 2019 Eating (QC): 6 Oral Hygiene (QC): 6 Toileting Hygiene (QC): 3 Shower/Bathe Self (QC): 3 Upper Body Dressing (QC): 3 Lower Body Dressing (QC): 4 On/Off Footwear (QC): 4 Additional Goals: 1-Demonstrate ADL Tasks, 2-Verbalize Understanding, 3- ImproveStrength/Brianne 1=Demonstrate adherence to instructed precautions during ADL tasks. 2=Patient will verbalize/demonstrate understanding of assistive d evices/modifications for ADL. 3=Patient will improve strength/tolerance for activity to enable patient to perform ADL's. OT Education/Plan Problem List/Assessment Assessment: Decreased Activ Tolerance, Decreased UE Strength, Impaired Bed Mobility, Impaired Funct Balance, Impaired I ADL's, Impaired Self-Care Skills Discharge Recommendations Plan/Recommendations: Continue POC Treatment Plan/Plan of Care Treatment,Training & Education: Yes Patient would benefit from OT for education, treatment and training to promote independence in ADL's, mobility, safety and/or upper extremity function for ADL's. Plan of Care: ADL Retraining, Caregiver Training, Functional Mobility, UE Funct Exercise/Act Treatment Duration: Jun 12, 2019 Frequency: 5 times per week Estimated Hrs Per Day: .25 hour per day Agreement: Yes Rehab Potential: Fair Time/GCodes Start Time: 08:10 Stop Time: 08:30 Total Time Billed (hr/min): 20 Billed Treatment Time 1, ADL JG IGLESIAS OT Jun 02, 2019 08:43 POS
--- NOTE | 2019-06-02 09:36 | Diagnostic Imaging Report ---
Portable erect AP chest at 3:26. INDICATION: Respiratory distress. In the interval since the prior exam of 06/01/2019, the patient has been extubated and the NG line has been removed. Central venous catheter on the right seen previously is essentially no different. As on the prior exam there is atelectasis/infiltrate and fluid involving the right lung base. The right upper lung is generally clear as is the left lung. The heart is stable. The mediastinum is somewhat prominent but not abnormally widened. The osseous structures are intact. IMPRESSION: Stable postextubation chest. A followup exam would be recommended for continued evaluation. Dictated by: Dictated on workstation # [id number]
--- NOTE | 2019-06-02 12:44 | NUR ---
"RD ASSESSMENT PMHx: COPD PT INTERACTION: Pt was awake and pleasant during nutrition assessment. Note family present at bedside. Pt states current appetite is poor and has been for the past 2 weeks. Note pt avg PO intake is 42% x1d, per chart review. Pt states following a regular diet at home, and currently has no issues chewing/swallowing food. Pt states no recent issues with n/v/c/d at this time. Note no BM has been recorded, and pt not currently on bowel regimen per chart review. Pt states some recent wt loss, but could not give an amount or timeframe. Note unable to determine recent wt hx, per chart review. ABNORMAL NUTRITION-RELATED LAB VALUES LOW: cr 0.58 HIGH: BUN 24; glu 132 Est. kcal needs: 5004-6645 kcal | 15-20 kcal/kg Est. Pro needs: 74-93 g Pro | 0.8-1.0 g Pro/kg PES STATEMENT: Inadequate oral intake (NI-2.1) related to loss of appetite as evidenced by pt interview INTERVENTION: Continue with current diet order of Regular diet. Pt may benefit from nutrition supplementation if PO intake declines. Will continue to follow and reassess as pt needs and status change. MONITOR/EVALUATE: PO Intake; Plan of Care; Hydration Status; Weight Status; Lab Values Blank Arnold, MS, RD, LD"
--- NOTE | 2019-06-02 13:54 | Physical Therapy Daily Note ---
PT Daily Note-Current Subjective Patient and daughters agree to PT. Nursing states patient has been up in chair previously today and has recently gone back to bed. Agree to bed level exercises at this time. Pain Numeric Pain Scale: 0-No Pain Location: No Pain Reported Mental Status Patient Orientation: Normal For Age Attachments: SCD's, Oxygen, Johnson Catheter, IV Transfers SCALE: Activities may be completed with or without assistive devices. 3-Ugcccqxlnf-othwxpp completes the activity by him/herself with no assistance from a helper. 5-Set-up or Clean-up Assistance-helper sets up or cleans up; patient completes activity. [place] assists only prior to or following the activity. 4-Supervision or Touching Assistance-helper provides verbal cues and/or touching/steadying and/or contact guard assistance as patient completes activity. Assistance may be provided throughout the activity or intermittently. 3-Partial/Moderate Assistance-helper does LESS THAN HALF the effort. [place] lifts, holds or supports trunk or limbs, but provides less than half the effort. 2-Substantial/Maximal Assistance-helper does MORE THAN HALF the effort. [place] lifts or holds trunk or limbs and provides more than half the effort. 0-Lvvspvure-ivundl does ALL the effort. Patient does none of the effort to complete the activity. Or, the assistance of 2 or more helpers is required for the patient to complete the activity. If activity was not attempted, code reason: 7-Patient Refused. 9-Not Applicable-not attempted and the patient did not perform the activity before the current illness, exacerbation or injury. 10-Not Attempted due to Environmental Limitations-(lack of equipment, weather restraints, etc.). 88-Not Attempted due to Medical Conditions or Safety Concerns. Exercises Supine Ex: Ankle pumps, Quad Set, Glut sets, Heel Slides, Straight leg raise, Hip abd/add Supine Reps: 15 Assessment Patient able to demonstrate fair LE strength in supine exercises. Required assistance with heel slides to complete emerson knee flexion ROM d/t stiffness. Some assistance required for hip abd/add and SLR to initiate movement but able to perform tasks primarily independently. Patient repositioned in bed at conclusion of treatment. PT Food Service Employee Goals Food Service Employee Goals PT Care Home Goals Time Frame: Jun 27, 2019 Roll Left & Right (QC): 6 Sit to Lying (QC): 6 Lying-Sitting on Side/Bed(QC): 6 Sit to Stand (QC): 6 Chair/Nte-rs-Vcimn Xfer(QC): 6 Toilet Transfer (QC): 6 Car Transfer (QC): 6 Does the Patient Walk: Yes Walk 10 feet (QC): 6 Walk 50ft with 2 Turns (QC): 6 Walk 150 ft (QC): 6 Walking 10ft on Uneven Surface: 6 1 Step (curb) (QC): 6 4 Steps (QC): 9 12 Steps (QC): 9 Picking up an Object (QC): 6 Does the Pt use WC or Scooter?: No Type: N/A Type: N/A PT Plan Treatment/Plan Treatment Plan: Continue Plan of Care Treatment Plan: Bed Mobility, Education, Functional Activity Brianne, Functional Strength, Gait, Safety, Therapeutic Exercise, Transfers Treatment Duration: Jun 27, 2019 Frequency: 6 times per week Estimated Hrs Per Day: .25 hour per day Patient and/or Family Agrees t: Yes Time/GCodes Time In: 1305 Time Out: 1318 Total Billed Treatment Time: 13 Total Billed Treatment 1 visit EX 13min MORIS LAO PT Jun 02, 2019 13:54 POS
[2019-06-02] MEDS: ACETAMINOPHEN 325 MG TABLET PO PRN ×2 (15:12→21:16)
--- NOTE | 2019-06-02 15:20 | NUR ---
DISCHARGE PLANNING: Spoke to patient, and daughter about discharge POC and need for strength building. They are agreeable to being evaluated by IRF. I spoke with Dr. Pool and to Dr. Abdalla and they both are ok with an IRF evaluation being placed. Patient is currently on her home level of O2 by PA.
--- NOTE | 2019-06-02 15:53 | NUR ---
IRF Evaluation Order received to evaluate patient for the ARU. Chart review complete and it does appear patient meets criteria, in regards to diagnosis. Will continue to follow patient's progress as it relates to assessment for admission to ARU. Thank you for this referral.
[2019-06-02] MEDS: cefTRIAXone 1,000 MG/SWFI 10 ML IV PUSH IV SCH ×2 (21:20)
[2019-06-03] VITALS (12 sets, daily range): BP systolic 120–162; BP diastolic 67–91
[2019-06-03] MEDS: methylPREDNISolone 40 MG/ML (Solu-MEDROL) VIAL IV SCH (00:31)
[2019-06-03] MEDS: RT-ALBUTEROL/IPRATROPIUM 3 ML (DUONEB) VIAL INH SCH ×6 (01:45→22:15)
[2019-06-03 03:11] LABS: BASOPHILS % (AUTO) 0 % (0-10); EOSINOPHILS % (AUTO) 0 % (0-10); HEMATOCRIT 35 % (35-52); HEMOGLOBIN 10.3 G/DL (11.5-16.0); LYMPHOCYTES # (AUTO) 0.4 X 10^3 (1.0-4.0); LYMPHOCYTES % (AUTO) 4 % (12-44); MEAN CORPUSCULAR HEMOGLOBIN 30 PG (25-34); MEAN CORPUSCULAR HGB CONC 30 G/DL (32-36); MEAN CORPUSCULAR VOLUME 101 FL (80-99); MEAN PLATELET VOLUME 10.1 FL (7.4-10.4); MONOCYTES # (AUTO) 0.8 X 10^3 (0.0-1.0); MONOCYTES % (AUTO) 9 % (0-12); NEUTROPHILS # (AUTO) 7.6 X 10^3 (1.8-7.8); NEUTROPHILS % (AUTO) 87 % (42-75); PLATELET COUNT 222 10^3/uL (130-400); RED CELL DISTRIBUTION WIDTH 13.9 % (10.0-14.5); WHITE BLOOD COUNT 8.7 10^3/uL (4.3-11.0)
[2019-06-03 03:35] LABS: BUN/CREATININE RATIO 45; CALCIUM 9.1 MG/DL (8.5-10.1); CARBON DIOXIDE 42 MMOL/L (21-32); CHLORIDE 93 MMOL/L (98-107); CREATININE SERUM 0.55 MG/DL (0.60-1.30); GFR ESTIMATED > 60; GLUCOSE 125 MG/DL (70-105); MAGNESIUM 1.9 MG/DL (1.6-2.4); PHOSPHORUS 2.9 MG/DL (2.3-4.7); POTASSIUM 4.4 MMOL/L (3.6-5.0); SODIUM 144 MMOL/L (135-145)
--- NOTE | 2019-06-03 04:25 | Pulmonary Progress Note ---
Sepsis Event Evaluation Height, Weight, BMI Height: '" Weight: lbs. oz. kg; 29.00 BMI Method: Exam Exam Vital Signs Date Time Temp Pulse Resp B/P (MAP) Pulse Ox O2 Delivery O2 Flow Rate FiO2 06/03/19 04:00 97 Nasal Cannula 3.00 06/03/19 01:45 97 Nasal Cannula 3.00 06/03/19 01:00 80 06/03/19 00:00 73 25 122/67 (85) 96 Nasal Cannula 3.00 06/03/19 00:00 99 Nasal Cannula 3.00 06/02/19 23:00 67 14 134/73 (93) 95 Nasal Cannula 3.00 06/02/19 22:00 75 23 134/83 (100) 95 Nasal Cannula 3.00 06/02/19 21:49 94 Nasal Cannula 3.00 06/02/19 21:00 95 25 156/88 (110) 95 Nasal Cannula 3.00 06/02/19 20:00 88 18 151/80 (103) 93 Nasal Cannula 3.00 06/02/19 20:00 99 Nasal Cannula 3.00 06/02/19 19:30 36.8 06/02/19 19:00 86 06/02/19 19:00 86 35 141/85 (103) 97 Nasal Cannula 3.00 06/02/19 18:10 97 Nasal Cannula 3.00 06/02/19 18:00 93 22 143/76 (98) 97 Nasal Cannula 3.00 06/02/19 17:00 94 25 144/80 (101) 96 Nasal Cannula 3.00 06/02/19 16:15 100 Nasal Cannula 3.00 06/02/19 16:00 90 17 145/78 (100) 98 Nasal Cannula 4.00 06/02/19 15:42 37.6 06/02/19 15:00 89 27 126/79 (95) 100 Nasal Cannula 4.00 06/02/19 14:00 87 134/70 (91) 99 Nasal Cannula 4.00 06/02/19 13:52 Nasal Cannula 4.00 06/02/19 13:46 100 Nasal Cannula 6.00 06/02/19 13:00 125 33 136/72 (93) 98 High Flow N/C 6.00 06/02/19 12:35 100 Nasal Cannula 6.00 06/02/19 12:19 107 06/02/19 12:00 126 22 136/82 (100) 96 High Flow N/C 6.00 06/02/19 11:38 36.5 06/02/19 11:00 86 10 155/86 (109) 100 High Flow N/C 6.00 06/02/19 10:59 High Flow N/C 6.00 06/02/19 10:56 100 High Flow N/C 8.00 06/02/19 10:54 100 High Flow N/C 10.00 06/02/19 10:21 37.1 90 97 40 06/02/19 10:00 89 20 155/89 (111) 97 Vapotherm 15.00 40.00 06/02/19 09:31 95 Vapotherm 15.00 40 06/02/19 09:00 91 21 149/88 (108) 98 Vapotherm 15.00 40.00 06/02/19 08:11 Vapotherm 15.00 40.00 06/02/19 08:10 Vapotherm 15.00 40 06/02/19 08:00 95 20 160/97 (118) 94 Vapotherm 20.00 37.00 06/02/19 08:00 94 Vapotherm 15.00 40 06/02/19 07:00 91 20 156/78 (104) 93 Vapotherm 20.00 37.00 06/02/19 07:00 96 06/02/19 06:50 20.00 35.00 06/02/19 06:50 Vapotherm 20.00 37.00 06/02/19 06:47 Vapotherm 20.00 25.00 06/02/19 06:36 96 Vapotherm 25.00 40 06/02/19 06:36 Vapotherm 20.00 40.00 06/02/19 06:05 Vapotherm 25.00 40.00 06/02/19 06:00 90 17 132/76 (94) 100 NIV Bilevel 50.00 06/02/19 05:00 81 19 131/72 (91) 100 NIV Bilevel 50.00 I & O 06/03/19 07:00 Intake Total 1160 ml Output Total 3250 ml Balance -2090 ml Height & Weight Height: '" Weight: lbs. oz. kg; 29.00 BMI Method: General Appearance: No Apparent Distress, WD/WN HEENT: Normal ENT Inspection Neck: Full Range of Motion, Normal Inspection Respiratory: No Accessory Muscle Use, No Respiratory Distress, Decreased Breath Sounds Cardiovascular: Regular Rate, Rhythm, No Murmur Capillary Refill: Less Than 3 Seconds Gastrointestinal: non tender, soft Extremity: Pedal Edema (trace) Neurologic/Psychiatric: Other (sedated, appears comfortable) Skin: Normal Color, Warm/Dry Lymphatic: No Adenopathy Results Lab Laboratory Tests 06/02/19 02:45 06/03/19 03:00 Assessment/Plan Assessment/Plan Acute on chronic respiratory failure -Currently on Vapotherm -Titrate to regular NC -CT of chest reviewed Right pleural effusion -Monitor -Daily lasix Severe oxygen dependent COPD uses 4liers at home COPDAE -Solumedrol -SVNS -Oxygen Debility -PT/OT -Up to chair BID Hx of lobectomy elevated right diaphram Morbid obesity BYRON WINKLER DO Jun 03, 2019 04:25 POS
[2019-06-03] MEDS: POTASSIUM CL 10MEQ/50ML IVPB 50 ML IV SCH (04:27)
[2019-06-03] MEDS: MAGNESIUM 1 GM/100 ML IVPB 100 ML IV SCH (04:28)
[2019-06-03] MEDS: KCL 20 MEQ TAB (K-DUR) PO SCH (04:28)
[2019-06-03] MEDS: inSUlin ASPART (NovoLOG) 1 UNIT/0.01 ML (CHARGE PER UNIT) SC SCH (04:28)
[2019-06-03] MEDS: CATHETER FLUSH 10 ML SYR IV SCH ×3 (04:28→22:05)
--- NOTE | 2019-06-03 07:00 | Diagnostic Imaging Report ---
Clinical indication: Patient with acute respiratory failure, pneumonia, right pleural effusion. CO2 narcosis. Exam: Portable chest x-ray upright view. Comparisons: Portable chest x-ray dated 06/02/2019 at 0326 hours. Findings: There is stable consolidation involving the right lung base. Stable mild atelectasis versus infiltrate in the left lung base. Right pleural effusion is suspected and appears stable. There is no pneumothorax. There is slight rotated position of the chest with mediastinal structures shifted toward the right. Cardiomegaly is seen. Pulmonary vasculature is within normal limits. There is dextroscoliosis of the lumbar spine. Again seen right IJ central line. There are surgical clips overlying the right hemithorax region. Impression: 1: Stable chest x-ray exam with right lung base consolidation and right pleural effusion. 2: Stable cardiomegaly with no significant pulmonary vascular congestion. 3: Stable mild left lung base atelectasis versus infiltrate. Dictated by: Dictated on workstation # [id number]
--- NOTE | 2019-06-03 07:39 | Progress Note ---
Subjective Time Seen by a Provider: 07:37 Subjective/Events-last exam doing better today. Patient to go to medical floor today. Patient on nasal oxygen. Patient being evaluated for rehabilitation Patient not sleeping at night probably due to Solu-Medrol Objective Exam Vital Signs Date Time Temp Pulse Resp B/P (MAP) Pulse Ox O2 Delivery O2 Flow Rate FiO2 06/03/19 06:39 97 Nasal Cannula 3.00 06/03/19 06:00 79 29 144/75 (98) 97 Nasal Cannula 3.00 06/03/19 05:00 100 18 144/78 (100) 96 Nasal Cannula 3.00 06/03/19 04:00 97 Nasal Cannula 3.00 06/03/19 04:00 84 16 155/87 (109) 98 Nasal Cannula 3.00 06/03/19 03:00 82 16 149/90 (109) 97 Nasal Cannula 3.00 06/03/19 02:00 87 26 147/78 (101) 94 Nasal Cannula 3.00 06/03/19 01:45 97 Nasal Cannula 3.00 06/03/19 01:00 75 25 156/77 (103) 96 Nasal Cannula 3.00 06/03/19 01:00 80 06/03/19 00:00 73 25 122/67 (85) 96 Nasal Cannula 3.00 06/03/19 00:00 99 Nasal Cannula 3.00 06/02/19 23:00 67 14 134/73 (93) 95 Nasal Cannula 3.00 06/02/19 22:00 75 23 134/83 (100) 95 Nasal Cannula 3.00 06/02/19 21:49 94 Nasal Cannula 3.00 06/02/19 21:00 95 25 156/88 (110) 95 Nasal Cannula 3.00 06/02/19 20:00 88 18 151/80 (103) 93 Nasal Cannula 3.00 06/02/19 20:00 99 Nasal Cannula 3.00 06/02/19 19:30 36.8 06/02/19 19:00 86 06/02/19 19:00 86 35 141/85 (103) 97 Nasal Cannula 3.00 06/02/19 18:10 97 Nasal Cannula 3.00 06/02/19 18:00 93 22 143/76 (98) 97 Nasal Cannula 3.00 06/02/19 17:00 94 25 144/80 (101) 96 Nasal Cannula 3.00 06/02/19 16:15 100 Nasal Cannula 3.00 06/02/19 16:00 90 17 145/78 (100) 98 Nasal Cannula 4.00 06/02/19 15:42 37.6 06/02/19 15:00 89 27 126/79 (95) 100 Nasal Cannula 4.00 06/02/19 14:00 87 134/70 (91) 99 Nasal Cannula 4.00 06/02/19 13:52 Nasal Cannula 4.00 06/02/19 13:46 100 Nasal Cannula 6.00 06/02/19 13:00 125 33 136/72 (93) 98 High Flow N/C 6.00 06/02/19 12:35 100 Nasal Cannula 6.00 06/02/19 12:19 107 06/02/19 12:00 126 22 136/82 (100) 96 High Flow N/C 6.00 06/02/19 11:38 36.5 06/02/19 11:00 86 10 155/86 (109) 100 High Flow N/C 6.00 06/02/19 10:59 High Flow N/C 6.00 06/02/19 10:56 100 High Flow N/C 8.00 06/02/19 10:54 100 High Flow N/C 10.00 06/02/19 10:21 37.1 90 97 40 06/02/19 10:00 89 20 155/89 (111) 97 Vapotherm 15.00 40.00 06/02/19 09:31 95 Vapotherm 15.00 40 06/02/19 09:00 91 21 149/88 (108) 98 Vapotherm 15.00 40.00 06/02/19 08:11 Vapotherm 15.00 40.00 06/02/19 08:10 Vapotherm 15.00 40 06/02/19 08:00 95 20 160/97 (118) 94 Vapotherm 20.00 37.00 06/02/19 08:00 94 Vapotherm 15.00 40 I & O 06/03/19 07:00 Intake Total 1160 ml Output Total 3250 ml Balance -2090 ml Capillary Refill : Less Than 3 Seconds General Appearance: No Apparent Distress, WD/WN HEENT: Normal ENT Inspection Neck: Full Range of Motion, Normal Inspection Respiratory: No Accessory Muscle Use, No Respiratory Distress, Decreased Breath Sounds Cardiovascular: Regular Rate, Rhythm, No Murmur Gastrointestinal: non tender, soft Results Lab Laboratory Tests 06/03/19 03:00 Laboratory Tests 06/02/19 11:39: Glucometer 164H 06/02/19 16:44: Glucometer 108 06/02/19 21:15: Glucometer 149H 06/03/19 03:00: White Blood Count 8.7, Red Blood Count 3.45L, Hemoglobin 10.3L, Hematocrit 35, Mean Corpuscular Volume 101H, Mean Corpuscular Hemoglobin 30, Mean Corpuscular Hemoglobin Concent 30L, Red Cell Distribution Width 13.9, Platelet Count 222, Mean Platelet Volume 10.1, Neutrophils (%) (Auto) 87H, Lymphocytes (%) (Auto) 4L , Monocytes (%) (Auto) 9, Eosinophils (%) (Auto) 0, Basophils (%) (Auto) 0, Neutrophils # (Auto) 7.6, Lymphocytes # (Auto) 0.4L, Monocytes # (Auto) 0.8, Eosinophils # (Auto) 0.0, Basophils # (Auto) 0.0, Sodium Level 144, Potassium Level 4.4, Chloride Level 93L, Carbon Dioxide Level 42H, Anion Gap 9, Blood Urea Nitrogen 25H, Creatinine 0.55L, Estimat Glomerular Filtration Rate > 60, BUN/Creatinine Ratio 45, Glucose Level 125H, Calcium Level 9.1, Phosphorus Level 2.9, Magnesium Level 1.9 Microbiology 05/28/19 Blood Culture - Preliminary, Resulted No growth 05/29/19 Gram Stain - Final, Complete 05/29/19 Sputum Culture - Final, Complete Usual upper respiratory shanta Haemophilus influenza See Comments Assessment/Plan Assessment/Plan Assess & Plan/Chief Complaint Acute and chronic respiratory failure. COPD. COPD with acute exacerbation. Ami. Patient extubated within an hour ago. . 06/02/19. Acute and chronic respiratory failure. COPD with acute exacerbation. COPD. Patient doing better this morning. . 06/03/19. Acute and chronic respiratory failure. COPD with acute exacerbation. Patient transferred to medical floor today Clinical Quality Measures Admission Status Admission Dx Acute and chronic respiratory failure. COPD with acute exacerbation. CO2 narcosis. Confusion. Right lower lobe pneumonia. Left pleural effusion DVT/VTE Risk/Contraindication: Risk Factor Score Per Nursin RFS Level Per Nursing on Admit: 4+=Very High ADOLFO ORTIZ DO Jun 03, 2019 07:39 POS
[2019-06-03] MEDS: PANTOPRAZOLE 40 MG (PROTONIX) VIAL IV SCH (08:10)
[2019-06-03] MEDS: ENOXAPARIN 40 MG/0.4 ML (LOVENOX) SYR SC SCH (08:10)
[2019-06-03] MEDS: predniSONE 10 MG TAB PO SCH (08:11)
[2019-06-03] MEDS: meTOprolol TARTRATE 25 MG (LOPRESSOR) TABLET PO SCH ×2 (08:11→21:05)
--- NOTE | 2019-06-03 08:34 | Occupational Ther Daily Note ---
OT Current Status-Daily Note Subjective Nurse stated pt OK to be seen this AM. Pt seated EOB at start of session about to eat breakfast at start of session. Pt agreeable to OT tx, her present throughout session. Mental Status/Objective Patient Orientation: Person, Place, Time, Situation Attachments: Central Line, IV, Oxygen ADL-Treatment Therapy Code Descriptions/Definitions Functional [place] Measure: 0=Not Assessed/NA 4=Minimal Assistance 1=Total Assistance 5=Supervision or Setup 2=Maximal Assistance 6=Modified [place] 3=Moderate Assistance 7=Complete IndependenceSCALE: Activities may be completed with or without assistive devices. 8-Exfawobrrt-glzyegl completes the activity by him/herself with no assistance from a helper. 5-Set-up or Clean-up Assistance-helper sets up or cleans up; patient completes activity. [place] assists only prior to or following the activity. 4-Supervision or Touching Assistance-helper provides verbal cues and/or touching/steadying and/or contact guard assistance as patient completes activity. Assistance may be provided throughout the activity or intermittently. 3-Partial/Moderate Assistance-helper does LESS THAN HALF the effort. [place] lifts, holds or supports trunk or limbs, but provides less than half the effort. 2-Substantial/Maximal Assistance-helper does MORE THAN HALF the effort. [place] lifts or holds trunk or limbs and provides more than half the effort. 6-Eytyzghca-toarmj does ALL the effort. Patient does none of the effort to complete the activity. Or, the assistance of 2 or more helpers is required for the patient to complete the activity. If activity was not attempted, code reason: 7-Patient Refused. 9-Not Applicable-not attempted and the patient did not perform the activity before the current illness, exacerbation or injury. 10-Not Attempted due to Environmental Limitations-(lack of equipment, weather restraints, etc.). 88-Not Attempted due to Medical Conditions or Safety Concerns. Eating (QC): 3 (Pt required assistance opening containers, spreading butter, and cutting food. Pt was able to get food onto fork and bring fork to her mouth without assistance. Pt able to bring glass of juice to her mouth and take a drink, noted slight tremors in left hand with task. When taking her meds, pt required assistance bringing glass to mouth to take a drink.) Other Treatment Pt ate breakfast sitting EOB (see eating QC above). Pt then attempted to brush her hair at EOB but required assistance due to fatigue. No LOB noted while seated EOB. Pt then transferred sit to supine, requiring assistance bringing BLE into the bed, and assist scooting shoulder to the left towards a more midline position. Post OT session, pt laying in bed, call light in reach and all needs met with her present. Education OT Patient Education: Correct positioning, Energy conservation, Modified ADL techniques, Progress toward Goal/Update tx plan, Purpose of tx/functional activities, Transfer techniques Teaching Recipient: Patient, Family Teaching Methods: Demonstration, Discussion Response to Teaching: Verbalize Understanding, Return Demonstration OT Mason Apprentice Goals Mason Apprentice Goals Time Frame: Jun 12, 2019 Eating (QC): 6 Oral Hygiene (QC): 6 Toileting Hygiene (QC): 3 Shower/Bathe Self (QC): 3 Upper Body Dressing (QC): 3 Lower Body Dressing (QC): 4 On/Off Footwear (QC): 4 Additional Goals: 1-Demonstrate ADL Tasks, 2-Verbalize Understanding, 3- ImproveStrength/Brianne 1=Demonstrate adherence to instructed precautions during ADL tasks. 2=Patient will verbalize/demonstrate understanding of assistive devices/modifications for ADL. 3=Patient will improve strength/tolerance for activity to enable patient to perform ADL's. OT Education/Plan Problem List/Assessment Assessment: Decreased Activ Tolerance, Decreased UE Strength, Impaired Bed Mobility, Impaired I ADL's, Impaired Self-Care Skills Discharge Recommendations Plan/Recommendations: Continue POC Treatment Plan/Plan of Care Treatment,Training & Education: Yes Patient would benefit from OT for education, treatment and training to promote independence in ADL's, mobility, safety and/or upper extremity function for ADL's. Plan of Care: ADL Retraining, Caregiver Training, Functional Mobility, UE Funct Exercise/Act Treatment Duration: Jun 12, 2019 Frequency: 5 times per week Estimated Hrs Per Day: .25 hour per day Agreement: Yes Rehab Potential: Fair Time/GCodes Start Time: 08:05 Stop Time: 08:28 Total Time Billed (hr/min): 23 Billed Treatment Time 1, ADL 2 JG IGLESIAS OT Jun 03, 2019 08:34 POS
[2019-06-03] MEDS ORDERED: FUROSEMIDE 40 MG/4 ML INJ (LASIX) IVP SCH (09:00)
--- NOTE | 2019-06-03 09:15 | Physical Therapy Daily Note ---
PT Daily Note-Current Subjective Patient on bedside commode pre tx, agrees to PT, has no complaints of pain at rest. Appearance Patient in recliner post tx with nurse call, phone, tray, in room. Mental Status Patient Orientation: Person, Place, Situation Attachments: Oxygen, Johnson Catheter, IV Transfers SCALE: Activities may be completed with or without assistive devices. 2-Fecjybziqs-trcpxzl completes the activity by him/herself with no assistance from a helper. 5-Set-up or Clean-up Assistance-helper sets up or cleans up; patient completes activity. [place] assists only prior to or following the activity. 4-Supervision or Touching Assistance-helper provides verbal cues and/or touching/steadying and/or contact guard assistance as patient completes activity. Assistance may be provided throughout the activity or intermittently. 3-Partial/Moderate Assistance-helper does LESS THAN HALF the effort. [place] lifts, holds or supports trunk or limbs, but provides less than half the effort. 2-Substantial/Maximal Assistance-helper does MORE THAN HALF the effort. [place] lifts or holds trunk or limbs and provides more than half the effort. 1-Eltibejjl-iigccd does ALL the effort. Patient does none of the effort to complete the activity. Or, the assistance of 2 or more helpers is required for the patient to complete the activity. If activity was not attempted, code reason: 7-Patient Refused. 9-Not Applicable-not attempted and the patient did not perform the activity before the current illness, exacerbation or injury. 10-Not Attempted due to Environmental Limitations-(lack of equipment, weather restraints, etc.). 88-Not Attempted due to Medical Conditions or Safety Concerns. Sit to Stand (QC): 2 Mod assist for sit to stand, nurse is in room and cleans patient after standing, patient attempts to take sidesteps to get the the chair but she is not able to lift her feet from the floor, nurse has to move commode and place chair behind patient and she sits with cues for hand placement. Exercises Seated Therapy Exercises: Ankle pumps, Long arc quads Seated Reps: 15 Treatments standing, transfer, LE exercise Assessment Current Status: Fair Progress Patient able to stand but not take any steps at this time. PT Church Communications Administrator Goals Church Communications Administrator Goals PT Church Communications Administrator Goals Time Frame: Jun 27, 2019 Roll Left & Right (QC): 6 Sit to Lying (QC): 6 Lying-Sitting on Side/Bed(QC): 6 Sit to Stand (QC): 6 Chair/Mei-ql-Lrqun Xfer(QC): 6 Toilet Transfer (QC): 6 Car Transfer (QC): 6 Does the Patient Walk: Yes Walk 10 feet (QC): 6 Walk 50ft with 2 Turns (QC): 6 Walk 150 ft (QC): 6 Walking 10ft on Uneven Surface: 6 1 Step (curb) (QC): 6 4 Steps (QC): 9 12 Steps (QC): 9 Picking up an Object (QC): 6 Does the Pt use WC or Scooter?: No Type: N/A Type: N/A PT Plan Problem List Problem List: Activity Tolerance, Functional Strength, Safety, Balance, Gait, Transfer, Bed Mobility, ROM Treatment/Plan Treatment Plan: Continue Plan of Care Treatment Plan: Bed Mobility, Education, Functional Activity Brianne, Functional Strength, Gait, Safety, Therapeutic Exercise, Transfers Treatment Duration: Jun 27, 2019 Frequency: 6 times per week Estimated Hrs Per Day: .25 hour per day Patient and/or Family Agrees t: Yes Safety Risks/Education Patient Education: Gait Training, Transfer Techniques, Correct Positioning, Safety Issues Teaching Recipient: Patient Teaching Methods: Demonstration, Discussion Response to Teaching: Reinforcement Needed Time/GCodes Time In: 900 Time Out: 911 Total Billed Treatment Time: 11 Total Billed Treatment 1 visit FA ROSA VIRK PT Jun 03, 2019 09:15 POS
--- NOTE | 2019-06-03 09:45 | NUR ---
PT WAS PLACED IN ROOM 417 AT 0945. REPORT GIVEN BY [facility] VOLUNTEER SPECIALIST. I HAVE REASSESSED PT AND [facility].
[2019-06-03] MEDS: ACETAMINOPHEN 325 MG TABLET PO PRN (10:25)
--- NOTE | 2019-06-03 11:00 | NUR ---
0949 PT TRANSFERRED TO ROOM 417 VIA W/C ACCOMPANIED BY THIS RN, PT ON 3 LITERS NC, REPORT GIVEN PRIOR TO TRANSFER TO IRVIN MENDES. ALL PERSONAL BELONGINGS SENT DOWN WITH PT.
--- NOTE | 2019-06-03 14:45 | NUR ---
ASSUMED CARE OF PT AT THIS TIME. REPORT RECEIVED FROM VAUGHN BRYAN
--- NOTE | 2019-06-03 14:57 | NUR ---
REPORT GIVEN TO PALAK MENDES
[2019-06-03] MEDS ORDERED: CALCIUM CARBONATE 500 MG (TUMS) TAB.CHEW PO PRN (16:00)
--- NOTE | 2019-06-03 16:31 | NUR ---
Inpatient rehab evaluation Medical records reviewed and case discussed with therapy team and Dr. Bettencourt. Patient appears to be appropriate for admission to the inpatient rehab unit for continued medical management and intensive therapies in order to safely discharge home. Patient has been accepted for admission to the inpatient rehab unit on 06/05/19. Thank you for the referral.
[2019-06-03] MEDS ORDERED: WATER (STERILE) FOR INJECTION 10 ML ONE (20:37)
[2019-06-03] MEDS ORDERED: cefTRIAXone 1,000 MG IV (ROCEPHIN) VIAL ONE (20:37)
[2019-06-03] MEDS: cefTRIAXone 1,000 MG/SWFI 10 ML IV PUSH IV SCH ×2 (21:09)
[2019-06-04] VITALS (9 sets, daily range): BP systolic 94–129; BP diastolic 51–83
--- NOTE | 2019-06-04 02:30 | NUR ---
0156 - received call from ICU that pt has been running sinus tachycardia up to 170 0200 - took patient vital signs BP = 125/80; HR = 76; 02 Sat = 93%; Temperature = 36.4 0205 - Ordered EKG per protocol. Reason: Abnormal Rhythm change 222 - EKG Done. Atrial Fibrillation with Rapid V-Rate 227 - Notified Dr. Pool. Received order to consult Cardiology.
[2019-06-04] MEDS: RT-ALBUTEROL/IPRATROPIUM 3 ML (DUONEB) VIAL INH SCH ×6 (02:43→21:40)
[2019-06-04] MEDS ORDERED: DILTIAZEM 300 MG (CARDIZEM CD) CAP PO SCH (02:50)
[2019-06-04] MEDS ORDERED: APIXABAN 5 MG (ELIQUIS) TABLET PO ONE (02:55)
--- NOTE | 2019-06-04 03:00 | NUR ---
0236 - Called Dr. Cody and informed him of the situation. Received the following orders: - Cardizem CD 300 mg once now - Cardizem CD 240 mg daily at 1200 - Eliquis 5mg once now - Eliquis 5mg BID starting at 1000 - Discontinue Lovenox - Monitor patient and call him in 2 hours if HR is greater than 130 Will input orders and monitor patient
[2019-06-04] MEDS ORDERED: APIXABAN 5 MG (ELIQUIS) TABLET ONE (03:02)
[2019-06-04] MEDS ORDERED: DILTIAZEM 300 MG (CARDIZEM CD) CAP PO ONE (03:04)
--- NOTE | 2019-06-04 04:27 | Pulmonary Progress Note ---
Sepsis Event Evaluation Height, Weight, BMI Height: '" Weight: lbs. oz. kg; 29.00 BMI Method: Exam Exam Vital Signs Date Time Temp Pulse Resp B/P (MAP) Pulse Ox O2 Delivery O2 Flow Rate FiO2 06/04/19 02:44 90 Nasal Cannula 3.00 06/04/19 01:00 80 06/04/19 00:00 36.6 77 20 117/67 (84) 95 High Flow N/C 3.00 06/03/19 22:15 95 Nasal Cannula 3.00 06/03/19 21:00 Nasal Cannula 3.00 06/03/19 19:51 36.8 101 20 120/74 (89) 96 High Flow N/C 3.00 06/03/19 19:00 87 06/03/19 18:22 97 Nasal Cannula 3.00 06/03/19 16:51 36.8 83 20 162/88 (112) 96 High Flow N/C 3.00 06/03/19 16:50 148/83 (104) 06/03/19 14:27 95 Nasal Cannula 3.00 06/03/19 13:00 83 06/03/19 12:00 37.0 82 20 159/91 (113) 97 Nasal Cannula 2.00 06/03/19 08:00 97 Nasal Cannula 3.00 06/03/19 08:00 37.1 06/03/19 07:00 82 06/03/19 07:00 144 19 144/82 (102) 97 Nasal Cannula 3.00 06/03/19 06:39 97 Nasal Cannula 3.00 06/03/19 06:00 79 29 144/75 (98) 97 Nasal Cannula 3.00 06/03/19 05:00 100 18 144/78 (100) 96 Nasal Cannula 3.00 I & O 06/04/19 07:00 Intake Total 1492 ml Output Total 1625 ml Balance -133 ml Height & Weight Height: '" Weight: lbs. oz. kg; 29.00 BMI Method: General Appearance: No Apparent Distress, WD/WN HEENT: Normal ENT Inspection Neck: Full Range of Motion, Normal Inspection Respiratory: No Accessory Muscle Use, No Respiratory Distress, Decreased Breath Sounds Cardiovascular: Regular Rate, Rhythm, No Murmur Capillary Refill: Less Than 3 Seconds Gastrointestinal: non tender, soft Extremity: Pedal Edema (trace) Neurologic/Psychiatric: Other (sedated, appears comfortable) Skin: Normal Color, Warm/Dry Lymphatic: No Adenopathy Results Lab Laboratory Tests 06/03/19 03:00 Assessment/Plan Assessment/Plan Acute on chronic respiratory failure -Currently on Vapotherm -Titrate to regular NC -CT of chest reviewed Right pleural effusion -Monitor -Daily lasix Severe oxygen dependent COPD uses 4liers at home COPDAE -Solumedrol -SVNS -Oxygen Debility -PT/OT -Up to chair BID Hx of lobectomy elevated right diaphram Morbid obesity BYRON WINKLER DO Jun 04, 2019 04:27 POS
[2019-06-04 05:04] LABS: BASOPHILS % (AUTO) 0 % (0-10); EOSINOPHILS # (AUTO) 0.1 10^3/uL (0.0-0.3); EOSINOPHILS % (AUTO) 1 % (0-10); HEMATOCRIT 37 % (35-52); LYMPHOCYTES # (AUTO) 0.9 X 10^3 (1.0-4.0); LYMPHOCYTES % (AUTO) 9 % (12-44); MEAN CORPUSCULAR HEMOGLOBIN 30 PG (25-34); MEAN CORPUSCULAR HGB CONC 30 G/DL (32-36); MEAN CORPUSCULAR VOLUME 103 FL (80-99); MEAN PLATELET VOLUME 9.6 FL (7.4-10.4); MONOCYTES % (AUTO) 11 % (0-12); NEUTROPHILS # (AUTO) 7.9 X 10^3 (1.8-7.8); NEUTROPHILS % (AUTO) 80 % (42-75); PLATELET COUNT 244 10^3/uL (130-400); RED CELL DISTRIBUTION WIDTH 13.5 % (10.0-14.5); WHITE BLOOD COUNT 9.9 10^3/uL (4.3-11.0)
[2019-06-04 06:07] LABS: BUN/CREATININE RATIO 39; CALCIUM 9.3 MG/DL (8.5-10.1); CHLORIDE 87 MMOL/L (98-107); CREATININE SERUM 0.54 MG/DL (0.60-1.30); GFR ESTIMATED > 60; GLUCOSE 104 MG/DL (70-105); MAGNESIUM 1.8 MG/DL (1.6-2.4); PHOSPHORUS 2.8 MG/DL (2.3-4.7); POTASSIUM 3.4 MMOL/L (3.6-5.0); SODIUM 145 MMOL/L (135-145)
[2019-06-04 06:15] LABS: CARBON DIOXIDE 49 MMOL/L (21-32)
[2019-06-04] MEDS: predniSONE 10 MG TAB PO SCH (06:28)
[2019-06-04] MEDS: CATHETER FLUSH 10 ML SYR IV SCH ×3 (06:28→22:00)
[2019-06-04 06:55] LABS: ABG BASE EXCESS 26.5 MMOL/L (-2.5-2.5); ABG OXYGEN SATURATION 89 % (94-100); ABG PH 7.37 (7.37-7.43); ABG PO2 56 MMHG (79-93); ABG TCO2 56.6 MMOL/L (21.0-31.0)
[2019-06-04 06:59] LABS: ABG PCO2 94 MMHG (35-45)
[2019-06-04 07:00] LABS: ALLENS TEST YES-POS; INSPIRED O2 3L; PATIENT TEMP 36.6; VENTILATOR NO
[2019-06-04] MEDS ORDERED: KCL 20 MEQ TAB (K-DUR) PO NR (07:00)
--- NOTE | 2019-06-04 07:30 | NUR ---
0615 - Received critical value notification from Lab. Carbon Dioxide = 49 0620 - Notified Dr. Pool. Received orders for ABG and notify Dr. Abdalla for results. 0659 - Received critical value for ABG result: PCO2 = 94; HCO3 = 54. 0704 - Notified Dr. Abdalla. No new orders given. 0711 - Dr. Pool called. Gave him ABG results and informed him that Dr. Abdalla has been notified.
--- NOTE | 2019-06-04 07:40 | Diagnostic Imaging Report ---
EXAM: CHEST 1 VIEW, AP/PA ONLY INDICATION: Respiratory failure. Pneumonia. Pleural effusion. COMPARISON: 06/03/2019. FINDINGS: Persistent consolidation in the right lung base and right pleural effusion. Right perihilar consolidation has progressed since the prior exam. Heart size is obscured. Right IJ CVC tip upper SVC. No pneumothorax. IMPRESSION: Persistent right basilar consolidation with increasing right perihilar consolidation. Stable right pleural effusion. Dictated by: Dictated on workstation # [id number]
[2019-06-04] MEDS: PANTOPRAZOLE 40 MG (PROTONIX) VIAL IV SCH (08:32)
[2019-06-04] MEDS: meTOprolol TARTRATE 25 MG (LOPRESSOR) TABLET PO SCH ×2 (08:32→21:30)
[2019-06-04] MEDS: APIXABAN 5 MG (ELIQUIS) TABLET PO SCH ×2 (08:33→21:26)
--- NOTE | 2019-06-04 09:05 | Physical Therapy Daily Note ---
PT Daily Note-Current Subjective Patient reluctantly agrees to PT. Spouse present. Mental Status Patient Orientation: Normal For Age Attachments: Oxygen, Johnson Catheter Transfers SCALE: Activities may be completed with or without assistive devices. 9-Vuseshfnhi-mtjovdt completes the activity by him/herself with no assistance from a helper. 5-Set-up or Clean-up Assistance-helper sets up or cleans up; patient completes activity. [place] assists only prior to or following the activity. 4-Supervision or Touching Assistance-helper provides verbal cues and/or touching/steadying and/or contact guard assistance as patient completes activit y. Assistance may be provided throughout the activity or intermittently. 3-Partial/Moderate Assistance-helper does LESS THAN HALF the effort. [place] lifts, holds or supports trunk or limbs, but provides less than half the effort. 2-Substantial/Maximal Assistance-helper does MORE THAN HALF the effort. [place] lifts or holds trunk or limbs and provides more than half the effort. 3-Ebitdwqbr-pqltkl does ALL the effort. Patient does none of the effort to complete the activity. Or, the assistance of 2 or more helpers is required for the patient to complete the activity. If activity was not attempted, code reason: 7-Patient Refused. 9-Not Applicable-not attempted and the patient did not perform the activity before the current illness, exacerbation or injury. 10-Not Attempted due to Environmental Limitations-(lack of equipment, weather restraints, etc.). 88-Not Attempted due to Medical Conditions or Safety Concerns. Roll Left & Right (QC): 2 Sit to Lying (QC): 2 Lying to Sitting/Side of Bed(Q: 2 Sit to Stand (QC): 2 Chair/Axm-id-Nztse Xfer(QC): 2 Patient requires time to complete all functional tasks and recovery with pulmonary function Exercises Supine Ex: Ankle pumps, Heel Slides Supine Reps: 10 (AAROM ) Seated Therapy Exercises: Long arc quads Seated Reps: 10 Assessment Patient is up in recliner with breakfast in situ. Patient progressing slowly with gross motor skills. PT [facility] Goals Fci Goals PT [facility] Goals Time Frame: Jun 27, 2019 Roll Left & Right (QC): 6 Sit to Lying (QC): 6 Lying-Sitting on Side/Bed(QC): 6 Sit to Stand (QC): 6 Chair/Nfg-nl-Lhcsa Xfer(QC): 6 Toilet Transfer (QC): 6 Car Transfer (QC): 6 Does the Patient Walk: Yes Walk 10 feet (QC): 6 Walk 50ft with 2 Turns (QC): 6 Walk 150 ft (QC): 6 Walking 10ft on Uneven Surface: 6 1 Step (curb) (QC): 6 4 Steps (QC): 9 12 Steps (QC): 9 Picking up an Object (QC): 6 Does the Pt use WC or Scooter?: No Type: N/A Type: N/A PT Plan Treatment/Plan Treatment Plan: Continue Plan of Care Treatment Plan: Bed Mobility, Education, Functional Activity Brianne, Functional Strength, Gait, Safety, Therapeutic Exercise, Transfers Treatment Duration: Jun 27, 2019 Frequency: 6 times per week Estimated Hrs Per Day: .25 hour per day Patient and/or Family Agrees t: Yes Time/GCodes Time In: 811 Time Out: 823 Total Billed Treatment Time: 12 Total Billed Treatment 1 visit FA 12 min MORIS LAO PT Jun 04, 2019 09:05 POS
--- NOTE | 2019-06-04 10:05 | Occupational Ther Daily Note ---
OT Current Status-Daily Note Subjective Pt seen in room, up in recliner, agreeable to OT. No pain mentioned. Appearance Alert, cooperative ADL-Treatment Therapy Code Descriptions/Definitions Functional [place] Measure: 0=Not Assessed/NA 4=Minimal Assistance 1=Total Assistance 5=Supervision or Setup 2=Maximal Assistance 6=Modified [place] 3=Moderate Assistance 7=Complete IndependenceSCALE: Activities may be completed with or without assistive devices. 0-Okkvukyrdq-bfoptdt completes the activity by him/herself with no assistance from a helper. 5-Set-up or Clean-up Assistance-helper sets up or cleans up; patient completes activity. [place] assists only prior to or following the activity. 4-Supervision or Touching Assistance-helper provides verbal cues and/or touching/steadying and/or contact guard assistance as patient completes acti vity. Assistance may be provided throughout the activity or intermittently. 3-Partial/Moderate Assistance-helper does LESS THAN HALF the effort. [place] lifts, holds or supports trunk or limbs, but provides less than half the effort. 2-Substantial/Maximal Assistance-helper does MORE THAN HALF the effort. [place] lifts or holds trunk or limbs and provides more than half the effort. 8-Evitesqav-kkepos does ALL the effort. Patient does none of the effort to complete the activity. Or, the assistance of 2 or more helpers is required for the patient to complete the activity. If activity was not attempted, code reason: 7-Patient Refused. 9-Not Applicable-not attempted and the patient did not perform the activity before the current illness, exacerbation or injury. 10-Not Attempted due to Environmental Limitations-(lack of equipment, weather restraints, etc.). 88-Not Attempted due to Medical Conditions or Safety Concerns. Other Treatment Pt declined ADLs. Pt completed 5-10 reps several different bilat UE exercise with yellow theraband (gentle resistance), taking recovery breaks between exercises. Pt education on different exercises and energy conservation/pacing herself while doing exercises and other activities. Exercises to strengthen arms to help with ADLs and help increase activity tolerance. Pt left up in recliner, all needs met, family in room. Education OT Patient Education: Energy conservation, Exercise program, Purpose of tx/functional activities Teaching Recipient: Patient Teaching Methods: Demonstration, Discussion Response to Teaching: Verbalize Understanding, Return Demonstration, Reinforcement Needed OT Dry Color Tester Goals Group Home Goals Time Frame: Jun 12, 2019 Eating (QC): 6 Oral Hygiene (QC): 6 Toileting Hygiene (QC): 3 Shower/Bathe Self (QC): 3 Upper Body Dressing (QC): 3 Lower Body Dressing (QC): 4 On/Off Footwear (QC): 4 Additional Goals: 1-Demonstrate ADL Tasks, 2-Verbalize Understanding, 3-ImproveStrength/Brianne 1=Demonstrate adherence to instructed precautions during ADL tasks. 2=Patient will verbalize/demonstrate understanding of assistive devices/modifications for ADL. 3=Patient will improve strength/tolerance for activity to enable patient to perform ADL's. OT Education/Plan Discharge Recommendations Plan/Recommendations: Continue POC Treatment Plan/Plan of Care Patient would benefit from OT for education, treatment and training to promote independence in ADL's, mobility, safety and/or upper extremity function for ADL's. Plan of Care: ADL Retraining, Caregiver Training, Functional Mobility, UE Funct Exercise/Act Treatment Duration: Jun 12, 2019 Frequency: 5 times per week Estimated Hrs Per Day: .25 hour per day Agreement: Yes Rehab Potential: Fair Time/GCodes Start Time: 09:25 Stop Time: 09:38 Total Time Billed (hr/min): 13 Billed Treatment Time visit, 13 minutes exercise IRVIN MARSHALL OT Jun 04, 2019 10:05 POS
--- NOTE | 2019-06-04 10:46 | Progress Note - Hospitalist ---
Subjective HPI/CC On Admission Date Seen by Provider: Jun 04, 2019 Time Seen by Provider: 09:40 confusion and weakness Subjective/Events-last exam She did not sleep well last night. She feels tired this morning. She is awake, alert, and oriented. She denies dyspnea. She denies fevers and chills. She denies chest pain, abdominal pain, nausea, and vomiting. Objective Exam Vital Signs Vital Signs Date Time Temp Pulse Resp B/P (MAP) Pulse Ox O2 Delivery O2 Flow Rate FiO2 06/04/19 09:00 Nasal Cannula 3.00 06/04/19 08:51 36.4 77 20 111/71 (84) 90 06/02/19 10:21 40 Capillary Refill : Less Than 3 Seconds General Appearance: No Apparent Distress, Obese HEENT: PERRL/EOMI, Pharynx Normal Neck: Normal Inspection, Supple Respiratory: Lungs Clear, Normal Breath Sounds, No Respiratory Distress, Other (wearing nasal cannula) Cardiovascular: Regular Rate, Rhythm, No Murmur Gastrointestinal: Normal Bowel Sounds, Non Tender, Soft Extremity: Normal Inspection, Non Tender, Pedal Edema Neurologic/Psychiatric: Alert, Oriented x3, No Motor/Sensory Deficits, Normal Mood/Affect Skin: Normal Color, Warm/Dry Lymphatic: No Adenopathy Results/Procedures Lab Laboratory Tests 06/04/19 04:50 Patient resulted labs reviewed. Assessment/Plan Assessment and Plan Assess & Plan/Chief Complaint Acute respiratory failure with hypoxia and hypercapnia Pleural effusion COPD with acute exacerbation -Required intubation this admission -Significantly elevated CO2 on arrival -Pulmonology following -Receiving prednisone taper -Bicarb trending upward on BMP -Consider repeat ABG tomorrow morning Paroxysmal atrial fibrillation -Continue diltiazem and Eliquis Debility -IRF evaluated -Possible transition to IRF tomorrow morning DVT Prophylaxis: already receiving therapeutic anticoagulation Diagnosis/Problems Diagnosis/Problems (1) Acute respiratory failure with hypoxia and hypercapnia Status: Acute (2) COPD with acute exacerbation Status: Acute (3) Paroxysmal A-fib Status: Chronic (4) Pleural effusion Status: Acute Clinical Quality Measures DVT/VTE Risk/Contraindication: Risk Factor Score Per Nursin RFS Level Per Nursing on Admit: 4+=Very High AMAURY LAURENT MD Jun 04, 2019 10:46 POS
[2019-06-04] MEDS: DILTIAZEM 240 MG (CARDIZEM CD) CAP PO SCH (12:01)
--- NOTE | 2019-06-04 15:27 | Consultation-Cardiology ---
HPI-Cardiology Cardiology Consultation: Date of Consultation 06/04/19 Time Seen by a Provider: 14:30 Date of Admission Attending Physician Dion Pool DO Admitting Physician Dion Pool DO Consulting Physician NATHEN OSUNA MD, MA, FACP, FACC, FSCAI, CCDS HPI: Chief Complaint: Reason for consultation: PAF with RVR HPI 74 yo woman admitted to Dr Pool several days ago with shortness of breath a nd ac resp failure. She developed A Fib with RVR last night. Was treated with oral dilt and apixaban. Denies palp or syncope or shortness of breath or leg swelling Review of Systems-Cardiology Review of Systems Constitutional: malaise, tiredness; No weight loss, No weight gain Eyes: No vision change Ears/Nose/Throat: No ear discharge, No nasal drainage, No recent hearing loss Respiratory: As described under HPI Cardiovascular: As described under HPI Gastrointestinal: No constipation, No diarrhea, No nausea, No vomiting Genitourinary: No dysuria, No hematuria, No urine frequency changes : No Musculoskeletal: back pain (chronic); No joint pain Skin: No rash, No ulcerations Psychiatric/Neurological: No seizure, No focal weakness, No syncope Hematologic: No bleeding abnormalities ONI-Amzhgb-Uasrtu Hx Patient Social History Marrital Status: Employed/Student: retired Alcohol Use: Denies Use Recreational Drug Use: No Smoking Status: Former Smoker (2 PPD --QUIT APPROXIMATELY 5 YEARS AGO, PER ) Type Used: Cigarettes Recent Foreign Travel: No Recent Infectious Disease Expo: No Hospitalization with Isolation: Denies Immunizations Up To Date Date of Pneumonia Vaccine: May 29, 2019 Date of Influenza Vaccine: May 20, 2019 Past Medical History PMH As described under Assessment. Family Medical History Family History: Cardiovascular disease 19 MOTHER FH: COPD (chronic obstructive pulmonary disease) 19 FATHER Allergies and Home Medications Allergies Coded Allergies: codeine (Verified Allergy, Unknown, 12/04/05) Home Medications Acetaminophen 500 Mg Tablet, 500-1,000 MG PO Q6H PRN for PAIN-MILD (1-4), (Reported) Albuterol Sulfate 2.5 Mg/3 Ml Vial.neb, 2.5 MG NEB QID, (Reported) Albuterol Sulfate 18 Gm Hfa.aer.ad, 2 PUFF INH Q4H PRN for SHORTNESS OF BREATH, (Reported) Tramadol HCl 50 Mg Tablet, 50 MG PO DAILY PRN for PAIN-MODERATE (5-7), (Repor khoi) Umeclidinium Brm/Vilanterol Tr 1 Each Blst.w.dev, 1 PUFF INH DAILY, (Reported) Patient Home Medication List Home Medication List Reviewed: Yes Physical Exam-Cardiology Physical Exam Vital Signs/I&O 06/04/19 06/04/19 06/04/19 06/04/19 04:00 06:46 07:02 08:51 Temp 36.6 36.4 Pulse 101 157 77 Resp 20 20 B/P (MAP) 111/73 (86) 111/71 (84) Pulse Ox 92 90 90 O2 Delivery High Flow N/C Nasal Cannula High Flow N/C O2 Flow Rate 3.00 3.00 3.50 06/04/19 06/04/19 06/04/19 06/04/19 09:00 10:44 12:00 12:42 Temp 36.8 Pulse 81 93 Resp 20 B/P (MAP) 129/83 (98) Pulse Ox 94 92 O2 Delivery Nasal Cannula Nasal Cannula High Flow N/C O2 Flow Rate 3.00 4.00 3.50 06/04/19 14:56 Pulse Ox 90 O2 Delivery Nasal Cannula O2 Flow Rate 4.00 06/04/19 00:00 Intake Total 1492 ml Output Total 1625 ml Balance -133 ml Capillary Refill : Less Than 3 Seconds Constitutional: AAO x 3, well-developed, well-nourished HEENT: EOMI, oral hygience is good; No xanthelasmas are seen Neck: carotid pulses are 2 + bilaterally, with good upstrokes Respiratory: No accessory muscle use; other (generally diminshed air entry and prolonged exp over all lung blue) Cardiovascular: regular rate-rhythm, S1 and S2, systolic murmur (2/6 HERMILA at card base) Gastrointestinal: No tender; soft; No guarding, No rebound, No audible bowel sounds Extremities: No clubbing, No cyanosis, No significant edema Neurologic/Psychiatric: oriented x 3, other (moves all limbs equally) Skin: No rash, No ulcerations Data Review Labs Laboratory Tests 06/03/19 16:11: Glucometer 167H 06/03/19 20:38: Glucometer 121H 06/04/19 04:50: White Blood Count 9.9, Red Blood Count 3.63L, Hemoglobin 11.0L, Hematocrit 37, Mean Corpuscular Volume 103H, Mean Corpuscular Hemoglobin 30, Mean Corpuscular Hemoglobin Concent 30L, Red Cell Distribution Width 13.5, Platelet Count 244, Mean Platelet Volume 9.6, Neutrophils (%) (Auto) 80H, Lymphocytes (%) (Auto) 9L, Monocytes (%) (Auto) 11, Eosinophils (%) (Auto) 1, Basophils (%) (Auto) 0, Neutrophils # (Auto) 7.9H, Lymphocytes # (Auto) 0.9L, Monocytes # (Auto) 1.0, Eosinophils # (Auto) 0.1, Basophils # (Auto) 0.0, Sodium Level 145, Potassium Level 3.4L, Chloride Level 87L, Carbon Dioxide Level 49*H, Anion Gap 9, Blood Urea Nitrogen 21H, Creatinine 0.54L, Estimat Glomerular Filtration Rate > 60, BUN/Creatinine Ratio 39, Glucose Level 104, Calcium Level 9.3, Phosphorus Level 2.8, Magnesium Level 1.8 06/04/19 06:40: Blood Gas Puncture Site LR, Blood Gas Patient Temperature 36.6, Arterial Blood pH 7.37, Arterial Blood Partial Pressure CO2 94*H, Arterial Blood Partial Pressure O2 56L, Arterial Blood HCO3 54*H, Arterial Blood Total CO2 56.6H, Art erial Blood Oxygen Saturation 89L, Arterial Blood Base Excess 26.5H, Rik Test YES-POS, Blood Gas Ventilator Setting NO, Blood Gas Inspired Oxygen 3L 06/04/19 11:06: Glucometer 178H Microbiology 05/28/19 Blood Culture - Final, Complete No growth 05/29/19 Gram Stain - Final, Complete 05/29/19 Sputum Culture - Final, Complete Usual upper respiratory shanta Haemophilus influenza See Comments Laboratory Tests 06/03/19 03:00 06/04/19 04:50 A/P-Cardiology Assessment/Admission Diagnosis PAF with RVR Ac resp failure due to ac exac of severe COPD due to pneumonia 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 I answered questions in detail. Clinical Quality Measures DVT/VTE Risk/Contraindication: Risk Factor Score Per Nursin RFS Level Per Nursing on Admit: 4+=Very High NATHEN OSUNA MD FACP FAC CCDS Jun 04, 2019 15:27 POS
--- NOTE | 2019-06-04 20:06 | NUR ---
PT DROWSY, HARD TO AROUSE. PT DAUGHTER REPORTS PT HAS BECOME INCREASINGLY DROWSY. PCT FOR PT ALSO STATES THE SAME. DR WINKLER CALLED AT 1999, DID NOT ANSWER, A MESSAGE WAS LEFT. DR. ORTIZ CALLED AT 2005, ORDERED TO OBTAIN ABGS.
[2019-06-04 20:39] LABS: ABG OXYGEN SATURATION 97 % (94-100); ABG PO2 90 MMHG (79-93); ABG TCO2 54.7 MMOL/L (21.0-31.0)
[2019-06-04 20:43] LABS: ABG PH 7.32 (7.37-7.43)
[2019-06-04 20:44] LABS: ABG PCO2 103 MMHG (35-45); ALLENS TEST YES-POS; INSPIRED O2 4L; VENTILATOR NO
[2019-06-04 20:45] LABS: PATIENT TEMP 36.5
--- NOTE | 2019-06-04 20:55 | NUR ---
CRITICAL ABG PH 7.32, PCO2 103, PHCO3 52. DR LAURENT CALLED. THIS NURSE ALSO NOTIFIED DR STEVENS DROWSINESS. DR ORDERED PT TO WEAR BIPAP AT NIGHT. RT CALLED REGARDING BIPAP SETUP
--- NOTE | 2019-06-04 21:30 | NUR ---
PT LOPRESSOR HELD AT THIS TIME DUE TO DECREASED B/P PF Addendum: 06/04/19 at 2347 by JOSLYN VARGAS RN
[2019-06-04 23:08] LABS: ABG BASE EXCESS 24.9 MMOL/L (-2.5-2.5); ABG OXYGEN SATURATION 94 % (94-100); ABG PH 7.37 (7.37-7.43); ABG PO2 67 MMHG (79-93)
[2019-06-04 23:10] LABS: ABG PCO2 92 MMHG (35-45)
[2019-06-04 23:11] LABS: ALLENS TEST YES-POS; INSPIRED O2 45%; PATIENT TEMP 36.1; VENTILATOR NO
--- NOTE | 2019-06-04 23:30 | NUR ---
CRITICAL ABG PCO2 92, PHCO3 52. RT NOTIFIED DR LAURENT. PT B/P DECREASED FROM 102/51 AT 2130 TO 94/[address] NOTIFIED AT THIS TIME. NO NEW ORDERS
[2019-06-05] MEDS: RT-ALBUTEROL/IPRATROPIUM 3 ML (DUONEB) VIAL INH SCH ×6 (03:33→22:39)
[2019-06-05 04:10] VITALS: BP 118/74
[2019-06-05 05:28] LABS: BASOPHILS % (AUTO) 0 % (0-10); EOSINOPHILS # (AUTO) 0.2 10^3/uL (0.0-0.3); EOSINOPHILS % (AUTO) 2 % (0-10); HEMATOCRIT 34 % (35-52); HEMOGLOBIN 9.8 G/DL (11.5-16.0); LYMPHOCYTES # (AUTO) 0.7 X 10^3 (1.0-4.0); LYMPHOCYTES % (AUTO) 9 % (12-44); MEAN CORPUSCULAR HEMOGLOBIN 30 PG (25-34); MEAN CORPUSCULAR HGB CONC 29 G/DL (32-36); MEAN CORPUSCULAR VOLUME 103 FL (80-99); MEAN PLATELET VOLUME 10.4 FL (7.4-10.4); MONOCYTES # (AUTO) 0.8 X 10^3 (0.0-1.0); MONOCYTES % (AUTO) 10 % (0-12); NEUTROPHILS % (AUTO) 79 % (42-75); PLATELET COUNT 243 10^3/uL (130-400); RED CELL DISTRIBUTION WIDTH 13.3 % (10.0-14.5); WHITE BLOOD COUNT 7.6 10^3/uL (4.3-11.0)
[2019-06-05 05:49] LABS: BUN/CREATININE RATIO 47; CALCIUM 8.9 MG/DL (8.5-10.1); CARBON DIOXIDE 45 MMOL/L (21-32); CHLORIDE 89 MMOL/L (98-107); CREATININE SERUM 0.49 MG/DL (0.60-1.30); GFR ESTIMATED > 60; GLUCOSE 107 MG/DL (70-105); MAGNESIUM 1.9 MG/DL (1.6-2.4); PHOSPHORUS 2.4 MG/DL (2.3-4.7); POTASSIUM 3.9 MMOL/L (3.6-5.0); SODIUM 143 MMOL/L (135-145)
[2019-06-05] MEDS: CATHETER FLUSH 10 ML SYR IV SCH ×3 (06:11→22:00)
--- NOTE | 2019-06-05 06:37 | Pulmonary Progress Note ---
Subjective Time Seen by a Provider: 06:34 Subjective/Events-last exam PT had worsening respiratory failure last night. Currently on BiPAP. Sepsis Event Evaluation Height, Weight, BMI Height: '" Weight: lbs. oz. kg; 29.00 BMI Method: Exam Exam Vital Signs Date Time Temp Pulse Resp B/P (MAP) Pulse Ox O2 Delivery O2 Flow Rate FiO2 06/05/19 06:22 76 20 90 45.00 06/05/19 04:10 36.6 74 20 118/74 (89) 96 NIV Bilevel 06/05/19 03:26 74 24 100 45.00 06/05/19 01:00 85 06/04/19 23:40 36.6 80 20 110/55 (73) 94 NIV Bilevel 06/04/19 23:00 76 94/52 (66) 06/04/19 22:24 82 20 100 45.00 06/04/19 21:40 82 26 100 45.00 06/04/19 21:23 77 102/51 (68) 06/04/19 20:20 Nasal Cannula 3.00 06/04/19 20:00 36.6 75 20 120/58 (78) 98 High Flow N/C 4.00 06/04/19 19:38 91 Nasal Cannula 4.00 06/04/19 19:00 76 06/04/19 16:00 36.7 80 22 110/55 (73) 92 High Flow N/C 4.00 06/04/19 14:56 90 Nasal Cannula 4.00 06/04/19 12:42 93 06/04/19 12:00 36.8 81 20 129/83 (98) 92 High Flow N/C 3.50 06/04/19 10:44 94 Nasal Cannula 4.00 06/04/19 09:00 Nasal Cannula 3.00 06/04/19 08:51 36.4 77 20 111/71 (84) 90 High Flow N/C 3.50 06/04/19 07:02 90 Nasal Cannula 3.00 06/04/19 06:46 157 I & O 06/05/19 07:00 Intake Total 1300 ml Output Total 850 ml Balance 450 ml Height & Weight Height: '" Weight: lbs. oz. kg; 29.00 BMI Method: General Appearance: Chronically ill, Mild Distress, Obese HEENT: PERRL/EOMI, Pharynx Normal Neck: Normal Inspection, Supple Respiratory: Lungs Clear, Normal Breath Sounds, No Respiratory Distress, Other (wearing nasal cannula) Cardiovascular: Regular Rate, Rhythm, No Murmur Capillary Refill: Less Than 3 Seconds Gastrointestinal: non tender, soft Extremity: Normal Inspection, Non Tender, Pedal Edema Neurologic/Psychiatric: Alert, Oriented x3, No Motor/Sensory Deficits, Normal Mood/Affect Skin: Normal Color, Warm/Dry Lymphatic: No Adenopathy Results Lab Laboratory Tests 06/04/19 04:50 06/05/19 05:01 06/05/19 05:05 Assessment/Plan Assessment/Plan Acute on chronic respiratory failure -Pt developed worsening C02 narcosis last night and is now on Vent to mask -PT needs home vent to mask -Keep Fi02 titrated down for Sp02 90-92% -Currently on Vapotherm -Titrate to regular NC -CT of chest reviewed Right pleural effusion -Monitor -Daily lasix Severe oxygen dependent COPD uses 4liers at home COPDAE -Solumedrol -SVNS -Oxygen Debility -PT/OT -Up to chair BID Hx of lobectomy elevated right diaphram Morbid obesity BYRON WINKLER DO Jun 05, 2019 06:37 POS
[2019-06-05] MEDS: predniSONE 10 MG TAB PO SCH (06:47)
--- NOTE | 2019-06-05 07:08 | Diagnostic Imaging Report ---
REASON FOR EXAMINATION: Respiratory failure. Frontal view of the chest was obtained and compared to yesterday. FINDINGS: Heart size is stable. Right IJ central line is stable. Postop changes in the right hilum with volume loss to the right lung. Patchy infiltrates in the right lower lobe are not significantly changed. Left lung remains clear. No effusion or cavitation. IMPRESSION: 1. Right lung and right perihilar postop changes with volume loss to the right lung and hemithorax. Patchy infiltrate in the right hilum and lower lobe are about the same. No significant changes. Dictated by: Dictated on workstation # [id number]
[2019-06-05 07:58] VITALS: BP 126/67
[2019-06-05] MEDS: meTOprolol TARTRATE 25 MG (LOPRESSOR) TABLET PO SCH ×2 (09:11→20:56)
[2019-06-05] MEDS: PANTOPRAZOLE 40 MG (PROTONIX) VIAL IV SCH (09:11)
[2019-06-05] MEDS: DILTIAZEM 240 MG (CARDIZEM CD) CAP PO SCH (09:11)
[2019-06-05] MEDS: APIXABAN 5 MG (ELIQUIS) TABLET PO SCH ×2 (09:11→20:56)
--- NOTE | 2019-06-05 10:02 | Occupational Ther Daily Note ---
OT Current Status-Daily Note Subjective Pt laying in bed stating she is pretty tired today, agreeable to OT tx with focus on ADLs. Pt did not report any pain during tx. Mental Status/Objective Patient Orientation: Person, Place, Time, Situation Attachments: IV, Oxygen, SCD's, Telemetry ADL-Treatment Therapy Code Descriptions/Definitions Functional [place] Measure: 0=Not Assessed/NA 4=Minimal Assistance 1=Total Assistance 5=Supervision or Setup 2=Maximal Assistance 6=Modified [place] 3=Moderate Assistance 7=Complete IndependenceSCALE: Activities may be completed with or without assistive devices. 4-Avshreebit-dyxdyai completes the activity by him/herself with no assistance from a helper. 5-Set-up or Clean-up Assistance-helper sets up or cleans up; patient completes activity. [place] assists only prior to or following the activity. 4-Supervision or Touching Assistance-helper provides verbal cues and/or touching/steadying and/or contact guard assistance as patient completes activity. Assistance may be provided throughout the activity or intermittently. 3-Partial/Moderate Assistance-helper does LESS THAN HALF the effort. [place] lifts, holds or supports trunk or limbs, but provides less than half the effort. 2-Substantial/Maximal Assistance-helper does MORE THAN HALF the effort. [place] lifts or holds trunk or limbs and provides more than half the effort. 2-Aaqyvhtyz-tzfuqq does ALL the effort. Patient does none of the effort to complete the activity. Or, the assistance of 2 or more helpers is required for the patient to complete the activity. If activity was not attempted, code reason: 7-Patient Refused. 9-Not Applicable-not attempted and the patient did not perform the activity before the current illness, exacerbation or injury. 10-Not Attempted due to Environmental Limitations-(lack of equipment, weather restraints, etc.). 88-Not Attempted due to Medical Conditions or Safety Concerns. Shower/Bathe Self (QC): 2 (Pt attempted to assist with sponge bath, she was able to wash her face and neck and part of her hands but required assist with all other parts due to fatigue.) Other Treatment Pt completed sponge bath at bed level (see note above). OT assisted pt with washing hair using shower cap, requiring total assist with task. OT assisted pt with brushing her hair, pt attempted task but required assist completing task. Post OT session, pt laying in bed, call light in reach and all needs met with respiratory therapist present. Education OT Patient Education: Correct positioning, Energy conservation, Modified ADL techniques, Progress toward Goal/Update tx plan, Purpose of tx/functional activities Teaching Recipient: Patient Teaching Methods: Demonstration, Discussion Response to Teaching: Verbalize Understanding, Return Demonstration OT Penitentiary Goals Penitentiary Goals Time Frame: Jun 12, 2019 Eating (QC): 6 Oral Hygiene (QC): 6 Toileting Hygiene (QC): 3 Shower/Bathe Self (QC): 3 Upper Body Dressing (QC): 3 Lower Body Dressing (QC): 4 On/Off Footwear (QC): 4 Additional Goals: 1-Demonstrate ADL Tasks, 2-Verbalize Understanding, 3- ImproveStrength/Brianne 1=Demonstrate adherence to instructed precautions during ADL tasks. 2=Patient will verbalize/demonstrate understanding of assistive devices/modifications for ADL. 3=Patient will improve strength/tolerance for activity to enable patient to perform ADL's. OT Education/Plan Problem List/Assessment Assessment: Decreased Activ Tolerance, Decreased UE Strength, Impaired I ADL's, Impaired Self-Care Skills Discharge Recommendations Plan/Recommendations: Continue POC Treatment Plan/Plan of Care Treatment,Training & Education: Yes Patient would benefit from OT for education, treatment and training to promote independence in ADL's, mobility, safety and/or upper extremity function for ADL's. Plan of Care: ADL Retraining, Caregiver Training, Functional Mobility, UE Funct Exercise/Act Treatment Duration: Jun 12, 2019 Frequency: 5 times per week Estimated Hrs Per Day: .25 hour per day Agreement: Yes Rehab Potential: Fair Time/GCodes Start Time: 09:25 Stop Time: 09:40 Total Time Billed (hr/min): 15 Billed Treatment Time 1, ADL JG IGLESIAS OT Jun 05, 2019 10:02 POS
[2019-06-05 11:56] VITALS: BP 125/67
--- NOTE | 2019-06-05 12:31 | Physical Therapy Daily Note ---
PT Daily Note-Current Subjective Pt is up in the chair and agreeable to treatment. Mental Status Patient Orientation: Person, Place, Time, Situation Attachments: Oxygen Transfers SCALE: Activities may be completed with or without assistive devices. 7-Hxsfzmqnit-lmicoub completes the activity by him/herself with no assistance from a helper. 5-Set-up or Clean-up Assistance-helper sets up or cleans up; patient completes activity. [place] assists only prior to or following the activity. 4-Supervision or Touching Assistance-helper provides verbal cues and/or touching/steadying and/or contact guard assistance as patient completes activity . Assistance may be provided throughout the activity or intermittently. 3-Partial/Moderate Assistance-helper does LESS THAN HALF the effort. [place] lifts, holds or supports trunk or limbs, but provides less than half the effort. 2-Substantial/Maximal Assistance-helper does MORE THAN HALF the effort. [place] lifts or holds trunk or limbs and provides more than half the effort. 3-Ljxqgshuh-radgln does ALL the effort. Patient does none of the effort to complete the activity. Or, the assistance of 2 or more helpers is required for the patient to complete the activity. If activity was not attempted, code reason: 7-Patient Refused. 9-Not Applicable-not attempted and the patient did not perform the activity before the current illness, exacerbation or injury. 10-Not Attempted due to Environmental Limitations-(lack of equipment, weather restraints, etc.). 88-Not Attempted due to Medical Conditions or Safety Concerns. Gait Training Does the Patient Walk?: Yes Distance: 0ft Gait Assistive Device: FWW Exercises Seated Therapy Exercises: LE Protocol Seated Reps: 20 Treatments Performed standing march and static standing with the FWW. Pt was able to stand for 5 minutes, took a seated rest and stood again for 3min. Assessment Current Status: Good Progress Pt was able to stand and perform standing tasks with good stability and no issues with dyspnea. PT Substation Engineer Goals Custodial Goals PT Custodial Goals Time Frame: Jun 27, 2019 Roll Left & Right (QC): 6 Sit to Lying (QC): 6 Lying-Sitting on Side/Bed(QC): 6 Sit to Stand (QC): 6 Chair/Xjq-lr-Dxnwx Xfer(QC): 6 Toilet Transfer (QC): 6 Car Transfer (QC): 6 Does the Patient Walk: Yes Walk 10 feet (QC): 6 Walk 50ft with 2 Turns (QC): 6 Walk 150 ft (QC): 6 Walking 10ft on Uneven Surface: 6 1 Step (curb) (QC): 6 4 Steps (QC): 9 12 Steps (QC): 9 Picking up an Object (QC): 6 Does the Pt use WC or Scooter?: No Type: N/A Type: N/A PT Plan Treatment/Plan Treatment Plan: Continue Plan of Care Treatment Plan: Bed Mobility, Education, Functional Activity Brianne, Functional Strength, Gait, Safety, Therapeutic Exercise, Transfers Treatment Duration: Jun 27, 2019 Frequency: 6 times per week Estimated Hrs Per Day: .25 hour per day Patient and/or Family Agrees t: Yes Time/GCodes Time In: 1157 Time Out: 1222 Total Billed Treatment Time: 25 Total Billed Treatment 1, fa 15, ex 10 GIDEON DUQUE PT Jun 05, 2019 12:31 POS
--- NOTE | 2019-06-05 14:00 | Progress Note - Hospitalist ---
Subjective HPI/CC On Admission Date Seen by Provider: Jun 05, 2019 Time Seen by Provider: 09:50 confusion and weakness Subjective/Events-last exam She developed worsening confusion and lethargy last night. Her symptoms have resolved this morning after wearing BiPAP overnight. She denies fevers, chills, chest pain, dyspnea, abdominal pain, nausea, vomiting, diarrhea, and constipation. Objective Exam Vital Signs Vital Signs Date Time Temp Pulse Resp B/P (MAP) Pulse Ox O2 Delivery O2 Flow Rate FiO2 06/05/19 13:46 89 Nasal Cannula 3.00 06/05/19 12:29 104 06/05/19 11:56 37.0 20 125/67 (86) 06/02/19 10:21 40 Capillary Refill : Less Than 3 SecondsLess Than 3 Seconds General Appearance: No Apparent Distress, Obese HEENT: PERRL/EOMI, Pharynx Normal Neck: Normal Inspection, Supple Respiratory: Lungs Clear, Normal Breath Sounds, No Respiratory Distress Cardiovascular: Regular Rate, Rhythm, No Edema, No Murmur Gastrointestinal: Normal Bowel Sounds, Non Tender, Soft Extremity: Normal Inspection, Non Tender, No Pedal Edema Neurologic/Psychiatric: Alert, Oriented x3, No Motor/Sensory Deficits, Normal Mood/Affect Skin: Normal Color, Warm/Dry Lymphatic: No Adenopathy Results/Procedures Lab Laboratory Tests 06/05/19 05:01 06/05/19 05:05 Patient resulted labs reviewed. Assessment/Plan Assessment and Plan Assess & Plan/Chief Complaint Acute respiratory failure with hypoxia and hypercapnia Pleural effusion COPD with acute exacerbation -Required intubation this admission -Significantly elevated CO2 on arrival -Pulmonology following -Receiving prednisone taper -Worsening lethargy last night -Repeat ABG with acute hypercapnia -Restarted on BiPAP overnight, will require long-term Paroxysmal atrial fibrillation -Continue diltiazem and Eliquis Debility -IRF evaluated -Possible transition to IRF tomorrow morning DVT Prophylaxis: already receiving therapeutic anticoagulation Diagnosis/Problems Diagnosis/Problems (1) Acute respiratory failure with hypoxia and hypercapnia Status: Acute (2) COPD with acute exacerbation Status: Acute (3) Paroxysmal A-fib Status: Chronic (4) Pleural effusion Status: Acute Clinical Quality Measures DVT/VTE Risk/Contraindication: Risk Factor Score Per Nursin RFS Level Per Nursing on Admit: 4+=Very High AMAURY LAURENT MD Jun 05, 2019 14:00 POS
[2019-06-05] MEDS: ACETAMINOPHEN 325 MG TABLET PO PRN ×2 (14:26→22:26)
--- NOTE | 2019-06-05 14:44 | NUR ---
Dr. Ross gave orders for to dc urinary catheter. pt would like to keep it till she is stronger. Dr. Ross ok with that till tomorrow
[2019-06-05 16:07] VITALS: BP 105/59
--- NOTE | 2019-06-05 17:29 | Progress Note - Cardiology ---
Cardiology SOAP Progress Note Subjective: Notes gen weakness and malaise. Finds it hard to walk to the bathroom because of that No cp or palp or syncope or shortness of breath at rest No new leg swelling Objective: I&O/Vital Signs 06/05/19 06/05/19 06/05/19 06/05/19 06:22 07:00 07:58 09:00 Temp 36.6 Pulse 76 84 87 Resp 20 18 B/P (MAP) 126/67 (86) Pulse Ox 90 90 89 O2 Delivery High Flow N/C Nasal Cannula O2 Flow Rate 45.00 3.50 3.00 06/05/19 06/05/19 06/05/19 06/05/19 09:39 11:56 12:29 13:46 Temp 37.0 Pulse 87 104 Resp 20 B/P (MAP) 125/67 (86) Pulse Ox 89 90 89 O2 Delivery Nasal Cannula High Flow N/C Nasal Cannula O2 Flow Rate 3.00 3.00 3.00 06/05/19 06/05/19 15:15 16:07 Temp 37.0 Pulse 90 88 Resp 20 18 B/P (MAP) 105/59 (74) Pulse Ox 89 93 O2 Delivery High Flow N/C O2 Flow Rate 45.00 3.00 06/05/19 00:00 Intake Total 900 ml Output Total 725 ml Balance 175 ml Constitutional: AAO x 3, well-developed, well-nourished Respiratory: No accessory muscle use; other (generally diminshed air entry and prolonged exp over all lung blue) Cardiovascular: regular rate-rhythm, S1 and S2, systolic murmur (2/6 HERMILA at card base) Gastrointestional: No tender; soft; No guarding, No rebound, No audible bowel sounds Extremities: No clubbing, No cyanosis, No significant edema Neurologic/Psychiatric: oriented x 3, other (moves all limbs equally) Skin: No rash, No ulcerations Results/Procedures: Labs Laboratory Tests 06/04/19 19:51: Glucometer 103 06/04/19 20:30: Blood Gas Puncture Site RIGHT RADIAL, Blood Gas Patient Temperature 36.5, Arterial Blood pH 7.32*L, Arterial Blood Partial Pressure CO2 103*H, Arterial Blood Partial Pressure O2 90, Arterial Blood HCO3 52*H, Arterial Blood Total CO2 54.7H, Arterial Blood Oxygen Saturation 97, Arterial Blood Base Excess 24.0H, Rik Test YES-POS, Blood Gas Ventilator Setting NO, Blood Gas Inspired Oxygen 4L 06/04/19 22:56: Blood Gas Puncture Site LEFT RADIAL, Blood Gas Patient Temperature 36.1, Arterial Blood pH 7.37, Arterial Blood Partial Pressure CO2 92*H, Arterial Blood Partial Pressure O2 67L, Arterial Blood HCO3 52*H, Arterial Blood Total CO2 55.0H, Arterial Blood Oxygen Saturation 94, Arterial Blood Base Excess 24.9H, Rik Test YES-POS, Blood Gas Ventilator Setting NO, Blood Gas Inspired Oxygen 45% 06/05/19 05:01: Sodium Level 143, Potassium Level 3.9, Chloride Level 89L, Carbon Dioxide Level 45H, Anion Gap 9, Blood Urea Nitrogen 23H, Creatinine 0.49L, Estimat Glomerular Filtration Rate > 60, BUN/Creatinine Ratio 47, Glucose Level 107H, Calcium Level 8.9, Phosphorus Level 2.4, Magnesium Level 1.9 06/05/19 05:05: White Blood Count 7.6, Red Blood Count 3.29L, Hemoglobin 9.8L, Hematocrit 34L, Mean Corpuscular Volume 103H, Mean Corpuscular Hemoglobin 30, Mean Corpuscular Hemoglobin Concent 29L, Red Cell Distribution Width 13.3, Platelet Count 243, M aleta Platelet Volume 10.4, Neutrophils (%) (Auto) 79H, Lymphocytes (%) (Auto) 9L, Monocytes (%) (Auto) 10, Eosinophils (%) (Auto) 2, Basophils (%) (Auto) 0, Neutrophils # (Auto) 6.0, Lymphocytes # (Auto) 0.7L, Monocytes # (Auto) 0.8, Eosinophils # (Auto) 0.2, Basophils # (Auto) 0.0 06/05/19 11:31: Glucometer 171H 06/05/19 15:44: Glucometer 172H Microbiology 05/28/19 Blood Culture - Final, Complete No growth 05/29/19 Gram Stain - Final, Complete 05/29/19 Sputum Culture - Final, Complete Usual upper respiratory shanta Haemophilus influenza See Comments A/P: Assessment: PAF with RVR Ac resp failure due to ac exac of severe COPD due to pneumonia Echo of 06/05/19: LVEF 55-60%, mild LA enlargement, grade 1 diastolic dysfunction, RVSP 18 mmHg 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 Will reduce NATHEN Daily MD [facility] CCDS Jun 05, 2019 17:29 POS
[2019-06-05 20:02] VITALS: BP 118/63
[2019-06-06 00:02] VITALS: BP 120/73
[2019-06-06] MEDS: RT-ALBUTEROL/IPRATROPIUM 3 ML (DUONEB) VIAL INH SCH ×6 (02:17→23:02)
[2019-06-06 04:00] VITALS: BP 114/71
[2019-06-06 05:38] LABS: BASOPHILS % (AUTO) 0 % (0-10); EOSINOPHILS # (AUTO) 0.2 10^3/uL (0.0-0.3); EOSINOPHILS % (AUTO) 3 % (0-10); HEMATOCRIT 33 % (35-52); HEMOGLOBIN 9.7 G/DL (11.5-16.0); LYMPHOCYTES # (AUTO) 0.7 X 10^3 (1.0-4.0); LYMPHOCYTES % (AUTO) 11 % (12-44); MEAN CORPUSCULAR HEMOGLOBIN 30 PG (25-34); MEAN CORPUSCULAR HGB CONC 29 G/DL (32-36); MEAN CORPUSCULAR VOLUME 102 FL (80-99); MEAN PLATELET VOLUME 9.6 FL (7.4-10.4); MONOCYTES # (AUTO) 0.7 X 10^3 (0.0-1.0); MONOCYTES % (AUTO) 11 % (0-12); NEUTROPHILS # (AUTO) 4.9 X 10^3 (1.8-7.8); NEUTROPHILS % (AUTO) 76 % (42-75); PLATELET COUNT 240 10^3/uL (130-400); RED CELL DISTRIBUTION WIDTH 13.6 % (10.0-14.5); WHITE BLOOD COUNT 6.5 10^3/uL (4.3-11.0)
[2019-06-06 06:01] LABS: BUN/CREATININE RATIO 34; CALCIUM 8.7 MG/DL (8.5-10.1); CARBON DIOXIDE 43 MMOL/L (21-32); CHLORIDE 92 MMOL/L (98-107); CREATININE SERUM 0.53 MG/DL (0.60-1.30); GFR ESTIMATED > 60; GLUCOSE 111 MG/DL (70-105); MAGNESIUM 1.9 MG/DL (1.6-2.4); PHOSPHORUS 2.7 MG/DL (2.3-4.7); POTASSIUM 3.7 MMOL/L (3.6-5.0); SODIUM 142 MMOL/L (135-145)
[2019-06-06] MEDS: predniSONE 10 MG TAB PO SCH (06:51)
[2019-06-06] MEDS: CATHETER FLUSH 10 ML SYR IV SCH ×3 (06:59→20:59)
--- NOTE | 2019-06-06 07:21 | Pulmonary Progress Note ---
Sepsis Event Evaluation Height, Weight, BMI Height: '" Weight: lbs. oz. kg; 29.00 BMI Method: Exam Exam Vital Signs Date Time Temp Pulse Resp B/P (MAP) Pulse Ox O2 Delivery O2 Flow Rate FiO2 06/06/19 06:42 84 27 94 45.00 06/06/19 04:00 36.7 76 24 114/71 (85) 98 NIV Bilevel 06/06/19 02:18 64 23 89 45.00 06/06/19 00:35 82 06/06/19 00:02 36.8 79 20 120/73 (89) 93 NIV Bilevel 06/05/19 22:37 90 20 89 45.00 06/05/19 20:50 Nasal Cannula 3.00 06/05/19 20:02 37.2 91 20 118/63 (81) 90 High Flow N/C 3.00 06/05/19 19:13 89 Nasal Cannula 3.00 06/05/19 18:45 86 06/05/19 16:07 37.0 88 18 105/59 (74) 93 High Flow N/C 3.00 06/05/19 15:15 90 20 89 45.00 06/05/19 13:46 89 Nasal Cannula 3.00 06/05/19 12:29 104 06/05/19 11:56 37.0 87 20 125/67 (86) 90 High Flow N/C 3.00 06/05/19 09:39 89 Nasal Cannula 3.00 06/05/19 09:00 89 Nasal Cannula 3.00 06/05/19 07:58 36.6 87 18 126/67 (86) 90 High Flow N/C 3.50 I & O 06/06/19 07:00 Intake Total 1960 ml Output Total 1800 ml Balance 160 ml Height & Weight Height: '" Weight: lbs. oz. kg; 29.00 BMI Method: General Appearance: No Apparent Distress, Obese HEENT: PERRL/EOMI, Pharynx Normal Neck: Normal Inspection, Supple Respiratory: Lungs Clear, Normal Breath Sounds, No Respiratory Distress Cardiovascular: Regular Rate, Rhythm, No Edema, No Murmur Capillary Refill: Less Than 3 Seconds Gastrointestinal: non tender, soft Extremity: Normal Inspection, Non Tender, No Pedal Edema Neurologic/Psychiatric: Alert, Oriented x3, No Motor/Sensory Deficits, Normal Mood/Affect Skin: Normal Color, Warm/Dry Lymphatic: No Adenopathy Results Lab Laboratory Tests 06/05/19 05:01 06/05/19 05:05 06/06/19 05:20 Assessment/Plan Assessment/Plan Acute on chronic respiratory failure -Vent to mask QHS and PRN -PT needs home vent to mask -Keep Fi02 titrated down for Sp02 90-92% -Currently on Vapotherm -Titrate to regular NC -CT of chest reviewed Right pleural effusion -Monitor -Daily lasix Severe oxygen dependent COPD uses 4liers at home COPDAE -Solumedrol -SVNS -Oxygen Debility -PT/OT -Up to chair BID Hx of lobectomy elevated right diaphram Morbid obesity BYRON WINKLER DO Jun 06, 2019 07:21 POS
[2019-06-06] MEDS: PANTOPRAZOLE 40 MG (PROTONIX) VIAL IV SCH (07:25)
[2019-06-06] MEDS: meTOprolol TARTRATE 25 MG (LOPRESSOR) TABLET PO SCH ×2 (07:26→19:55)
[2019-06-06] MEDS: DILTIAZEM 240 MG (CARDIZEM CD) CAP PO SCH ×2 (07:26→10:03)
--- NOTE | 2019-06-06 07:35 | Diagnostic Imaging Report ---
Indication: Pneumonia. Comparison: 06/05/2019 Findings: Single view the chest demonstrates continued low lung volume on the right. There is a stable opacification of the right hilum with postoperative changes. There is dependent atelectasis with likely effusion in the right base. Central vascular congestion is seen. The left lung remains well-expanded. The heart is prominent. There is no pneumothorax. A right IJ catheter is stable. Impression: Unchanged aeration of lungs. Dictated by: Dictated on workstation # [id number]
[2019-06-06 08:00] VITALS: BP 109/74
--- NOTE | 2019-06-06 08:36 | Discharge Summary ---
Discharge Summary Hospital Course Was the Problem List Reviewed?: Yes Problems/Dx: (1) Acute respiratory failure with hypoxia and hypercapnia Status: Acute (2) COPD with acute exacerbation Status: Acute (3) Paroxysmal A-fib Status: Chronic (4) Pleural effusion Status: Acute Hospital Course Date of Admission: May 28, 2019 at 22:00 Admission Diagnosis : Acute respiratory failure with hypoxia and hypercapnia Family Physician/Provider: Adolfo Ortiz DO Date of Discharge: 06/06/19 Discharge Diagnosis: Acute respiratory failure with hypoxia and hypercapnia Hospital Course: Tiffany Bond is a 74yoF with COPD who was admitted with acute hypoxic and hypercapnic respiratory failure. She was intubated and admitted to the ICU due to severe hypercapnia. She was treated for a COPD exacerbation with steroids. She received a course of antibiotics for pneumonia. She developed worsening hypercapnia following extubation and was started on nocturnal BiPAP which will n eed to be continued on discharge. She should follow up with Dr. Abdalla for her COPD. She should follow up with her primary care physician, Dr. Ortiz. She was discharged to the inpatient rehabilitation facility. Labs and Pending Lab Test: Laboratory Tests 06/05/19 11:31: Glucometer 171H 06/05/19 15:44: Glucometer 172H 06/05/19 20:20: Glucometer 107 06/06/19 05:20: White Blood Count 6.5, Red Blood Count 3.27L, Hemoglobin 9.7L, Hematocrit 33L, Mean Corpuscular Volume 102H, Mean Corpuscular Hemoglobin 30, Mean Corpuscular Hemoglobin Concent 29L, Red Cell Distribution Width 13.6, Platelet Count 240, Mean Platelet Volume 9.6, Neutrophils (%) (Auto) 76H, Lymphocytes (%) (Auto) 11L , Monocytes (%) (Auto) 11, Eosinophils (%) (Auto) 3, Basophils (%) (Auto) 0, Neutrophils # (Auto) 4.9, Lymphocytes # (Auto) 0.7L, Monocytes # (Auto) 0.7, Eosinophils # (Auto) 0.2, Basophils # (Auto) 0.0, Sodium Level 142, Potassium Level 3.7, Chloride Level 92L, Carbon Dioxide Level 43H, Anion Gap 7, Blood Urea Nitrogen 18, Creatinine 0.53L, Estimat Glomerular Filtration Rate > 60, BUN/Creatinine Ratio 34, Glucose Level 111H, Calcium Level 8.7, Phosphorus Level 2.7, Magnesium Level 1.9 Microbiology 05/28/19 Blood Culture - Final, Complete No growth 05/29/19 Gram Stain - Final, Complete 05/29/19 Sputum Culture - Final, Complete Usual upper respiratory shanta Haemophilus influenza See Comments Home Meds Active Reported Tramadol HCl 50 Mg Tablet 50 Mg PO DAILY PRN Anoro Ellipta 62.5-25 Mcg INH (Umeclidinium Brm/Vilanterol Tr) 1 Each Blst.w.dev 1 Puff INH DAILY Ventolin Hfa (Albuterol Sulfate) 18 Gm Hfa.aer.ad 2 Puff INH Q4H PRN Albuterol Sulfate 2.5 Mg/3 Ml Vial.neb 2.5 Mg NEB QID Acetaminophen Extra Strength (Acetaminophen) 500 Mg Tablet 500-1,000 Mg PO Q6H PRN Assessment/Pt Instructions Participate in rehab. Wear BiPAP at night. Follow up with Dr. Abdalla for COPD. Follow up with Dr. Ortiz. Discharge Planning: <30 minutes discharge planning Discharge Instructions Discharge Diet: No Restrictions Activity as Tolerated: Yes Discharge Physical Examination Vital Signs Vital Signs Date Time Temp Pulse Resp B/P (MAP) Pulse Ox O2 Delivery O2 Flow Rate FiO2 06/06/19 07:00 81 06/06/19 06:42 27 94 45.00 06/06/19 04:00 36.7 114/71 (85) NIV Bilevel 06/02/19 10:21 40 General Appearance: No Apparent Distress, Obese HEENT: PERRL/EOMI, Pharynx Normal Respiratory: Lungs Clear, Normal Breath Sounds, No Respiratory Distress, Other (wearing nasal cannula) Cardiovascular: Regular Rate, Rhythm, No Edema, No Murmur Gastrointestinal: Normal Bowel Sounds, Non Tender, Soft Extremity: Normal Inspection, Non Tender, No Pedal Edema Skin: Normal Color, Warm/Dry Neurologic/Psychiatric: Alert, Oriented x3, No Motor/Sensory Deficits, Normal Mood/Affect Allergies: Coded Allergies: codeine (Verified Allergy, Unknown, 12/04/05) Copy Copies To 1: ADOLFO ORTIZ DO Discharge Summary Date of Admission May 28, 2019 at 22:00 Date of Discharge Discharge Date: Jun 06, 2019 Discharge Time: 08:26 Admission Diagnosis Acute respiratory failure with hypoxia and hypercapnia Consults/Procedures Consulations Pulmonology, Cardiology Discharge Diagnosis Acute respiratory failure with hypoxia and hypercapnia (1) Acute respiratory failure with hypoxia and hypercapnia Status: Acute (2) COPD with acute exacerbation Status: Acute (3) Paroxysmal A-fib Status: Chronic (4) Pleural effusion Status: Acute Clinical Quality Measures DVT/VTE Risk/Contraindication: Risk Factor Score Per Nursin RFS Level Per Nursing on Admit: 4+=Very High AMAURY LAURENT MD Jun 06, 2019 08:35 POS
[2019-06-06] MEDS: APIXABAN 5 MG (ELIQUIS) TABLET PO SCH ×2 (10:07→20:59)
--- NOTE | 2019-06-06 10:24 | Progress Note - Hospitalist ---
Subjective HPI/CC On Admission Date Seen by Provider: Jun 06, 2019 Time Seen by Provider: 08:00 confusion and weakness Subjective/Events-last exam She feels well. She has no complaints. She denies fevers, chills, chest pain, dyspnea, abdominal pain, nausea, vomiting, diarrhea. Objective Exam Vital Signs Vital Signs Date Time Temp Pulse Resp B/P (MAP) Pulse Ox O2 Delivery O2 Flow Rate FiO2 06/06/19 09:00 95 NIV Bilevel 3.00 06/06/19 08:00 36.0 85 22 109/74 (86) 06/02/19 10:21 40 Capillary Refill : Less Than 3 SecondsLess Than 3 Seconds General Appearance: No Apparent Distress, Obese Respiratory: Lungs Clear, Normal Breath Sounds, No Respiratory Distress Cardiovascular: Regular Rate, Rhythm, No Edema, No Murmur Gastrointestinal: Normal Bowel Sounds, Non Tender, Soft Extremity: Normal Inspection, Non Tender Neurologic/Psychiatric: Alert, Oriented x3, No Motor/Sensory Deficits, Normal Mood/Affect Skin: Normal Color, Warm/Dry Results/Procedures Lab Laboratory Tests 06/06/19 05:20 Patient resulted labs reviewed. Assessment/Plan Assessment and Plan Assess & Plan/Chief Complaint Acute respiratory failure with hypoxia and hypercapnia Pleural effusion COPD with acute exacerbation -Required intubation this admission -Significantly elevated CO2 on arrival -Pulmonology following -Receiving prednisone taper -Continue nocturnal BiPAP Paroxysmal atrial fibrillation -Continue diltiazem and Eliquis Debility -Planning for IRF -Awaiting availability for transfer DVT Prophylaxis: already receiving therapeutic anticoagulation Diagnosis/Problems Diagnosis/Problems (1) Acute respiratory failure with hypoxia and hypercapnia Status: Acute (2) COPD with acute exacerbation Status: Acute (3) Paroxysmal A-fib Status: Chronic (4) Pleural effusion Status: Acute Clinical Quality Measures DVT/VTE Risk/Contraindication: Risk Factor Score Per Nursin RFS Level Per Nursing on Admit: 4+=Very High AMAURY LAURENT MD Jun 06, 2019 10:24 POS
[2019-06-06] MEDS: ACETAMINOPHEN 325 MG TABLET PO PRN (10:44)
--- NOTE | 2019-06-06 11:30 | Physical Therapy Daily Note ---
PT Daily Note-Current Subjective Pt is alert and ready to get up. Pt denies pain. Mental Status Patient Orientation: Person, Place, Time, Situation Attachments: Oxygen, Johnson Catheter Transfers SCALE: Activities may be completed with or without assistive devices. 1-Mxujzmrpda-iunwrhy completes the activity by him/herself with no assistance from a helper. 5-Set-up or Clean-up Assistance-helper sets up or cleans up; patient completes activity. [place] assists only prior to or following the activity. 4-Supervision or Touching Assistance-helper provides verbal cues and/or touching/steadying and/or contact guard assistance as patient completes activity. Assistance may be provided throughout the activity or intermittently. 3-Partial/Moderate Assistance-helper does LESS THAN HALF the effort. [place] lifts, holds or supports trunk or limbs, but provides less than half the effort. 2-Substantial/Maximal Assistance-helper does MORE THAN HALF the effort. [place] lifts or holds trunk or limbs and provides more than half the effort. 1-Ptyvuaakx-daxdwt does ALL the effort. Patient does none of the effort to complete the activity. Or, the assistance of 2 or more helpers is required for the patient to complete the activity. If activity was not attempted, code reason: 7-Patient Refused. 9-Not Applicable-not attempted and the patient did not perform the activity before the current illness, exacerbation or injury. 10-Not Attempted due to Environmental Limitations-(lack of equipment, weather restraints, etc.). 88-Not Attempted due to Medical Conditions or Safety Concerns. Roll Left & Right (QC): 4 Sit to Lying (QC): 4 Lying to Sitting/Side of Bed(Q: 4 Sit to Stand (QC): 4 Chair/Bpo-cf-Minov Xfer(QC): 4 Gait Training Does the Patient Walk?: Yes Distance: 10ft Walk 10 feet (QC): 3 Gait Persons Needed: 1 Gait Assistive Device: FWW Wheelchair Training Does the Pt Use a Wheelchair?: No Exercises Supine Ex: LE Protocol Supine Reps: 20 Assessment Pt showed better stability during standing and ambulation. 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 Pastry Chef Goals Time Frame: Jun 27, 2019 Roll Left & Right (QC): 6 Sit to Lying (QC): 6 Lying-Sitting on Side/Bed(QC): 6 Sit to Stand (QC): 6 Chair/Xmz-ra-Cgefq Xfer(QC): 6 Toilet Transfer (QC): 6 Car Transfer (QC): 6 Does the Patient Walk: Yes Walk 10 feet (QC): 6 Walk 50ft with 2 Turns (QC): 6 Walk 150 ft (QC): 6 Walking 10ft on Uneven Surface: 6 1 Step (curb) (QC): 6 4 Steps (QC): 9 12 Steps (QC): 9 Picking up an Object (QC): 6 Does the Pt use WC or Scooter?: No Type: N/A Type: N/A PT Plan Treatment/Plan Treatment Plan: Continue Plan of Care Treatment Plan: Bed Mobility, Education, Functional Activity Brianne, Functional Strength, Gait, Safety, Therapeutic Exercise, Transfers Treatment Duration: Jun 27, 2019 Frequency: 6 times per week Estimated Hrs Per Day: .25 hour per day Patient and/or Family Agrees t: Yes Time/GCodes Time In: 1101 Time Out: 1128 Total Billed Treatment Time: 27 Total Billed Treatment 1, gt 10, ex 17 GIDEON DUQUE PT Jun 06, 2019 11:30 POS
[2019-06-06 12:00] VITALS: BP 118/72
--- NOTE | 2019-06-06 13:46 | Progress Note - Cardiology ---
Cardiology SOAP Progress Note Subjective: Reports improving appetite No cp or palp or syncope No shortness of breath at rest Gen weakness still present Objective: I&O/Vital Signs 06/06/19 06/06/19 06/06/19 06/06/19 02:18 04:00 06:42 07:00 Temp 36.7 Pulse 64 76 84 81 Resp 23 24 27 B/P (MAP) 114/71 (85) Pulse Ox 89 98 94 O2 Delivery NIV Bilevel O2 Flow Rate 45.00 45.00 06/06/19 06/06/19 06/06/19 06/06/19 08:00 09:00 10:51 12:00 Temp 36.0 36.0 Pulse 85 88 Resp 22 20 B/P (MAP) 109/74 (86) 118/72 (87) Pulse Ox 95 95 88 93 O2 Delivery NIV Bilevel NIV Bilevel Nasal Cannula High Flow N/C O2 Flow Rate 3.00 3.00 3.00 06/06/19 00:00 Intake Total 1660 ml Output Total 1350 ml Balance 310 ml Constitutional: AAO x 3, well-developed, well-nourished Respiratory: No accessory muscle use; other (generally diminshed air entry and prolonged exp over all lung blue) Cardiovascular: regular rate-rhythm, S1 and S2, systolic murmur (2/6 HERMILA at card base) Gastrointestional: No tender; soft; No guarding, No rebound, No audible bowel sounds Extremities: No clubbing, No cyanosis, No significant edema Neurologic/Psychiatric: oriented x 3, other (moves all limbs equally) Skin: No rash, No ulcerations Results/Procedures: Labs Laboratory Tests 06/05/19 15:44: Glucometer 172H 06/05/19 20:20: Glucometer 107 06/06/19 05:20: White Blood Count 6.5, Red Blood Count 3.27L, Hemoglobin 9.7L, Hematocrit 33L, Mean Corpuscular Volume 102H, Mean Corpuscular Hemoglobin 30, Mean Corpuscular Hemoglobin Concent 29L, Red Cell Distribution Width 13.6, Platelet Count 240, Mean Platelet Volume 9.6, Neutrophils (%) (Auto) 76H, Lymphocytes (%) (Auto) 11L , Monocytes (%) (Auto) 11, Eosinophils (%) (Auto) 3, Basophils (%) (Auto) 0, Neutrophils # (Auto) 4.9, Lymphocytes # (Auto) 0.7L, Monocytes # (Auto) 0.7, Eosinophils # (Auto) 0.2, Basophils # (Auto) 0.0, Sodium Level 142, Potassium Level 3.7, Chloride Level 92L, Carbon Dioxide Level 43H, Anion Gap 7, Blood Urea Nitrogen 18, Creatinine 0.53L, Estimat Glomerular Filtration Rate > 60, BUN/Creatinine Ratio 34, Glucose Level 111H, Calcium Level 8.7, Phosphorus Level 2.7, Magnesium Level 1.9 Microbiology 05/28/19 Blood Culture - Final, Complete No growth 05/29/19 Gram Stain - Final, Complete 05/29/19 Sputum Culture - Final, Complete Usual upper respiratory shanta Haemophilus influenza See Comments Laboratory Tests 06/05/19 05:01 06/05/19 05:05 06/06/19 05:20 A/P: Assessment: PAF with RVR, currently NSR Ac resp failure due to ac exac of severe COPD due to pneumonia Echo of 06/05/19: LVEF 55-60%, mild LA enlargement, grade 1 diastolic dysfunction, RVSP 18 mmHg 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 BP normal now * Monitor labs * I spoke with her and her and answered CV-related questions NATHEN OSUNA [facility] CCDS Jun 06, 2019 13:46 POS
[2019-06-06 16:00] VITALS: BP 125/73
[2019-06-06 19:51] VITALS: BP 118/72
[2019-06-07] VITALS: BP 104/65
[2019-06-07] MEDS: RT-ALBUTEROL/IPRATROPIUM 3 ML (DUONEB) VIAL INH SCH ×3 (01:44→11:23)
[2019-06-07 04:00] VITALS: BP 121/72
[2019-06-07] MEDS: predniSONE 10 MG TAB PO SCH (06:02)
[2019-06-07] MEDS: CATHETER FLUSH 10 ML SYR IV SCH (06:02)
[2019-06-07 06:19] LABS: BASOPHILS % (AUTO) 0 % (0-10); EOSINOPHILS # (AUTO) 0.1 10^3/uL (0.0-0.3); EOSINOPHILS % (AUTO) 3 % (0-10); HEMATOCRIT 33 % (35-52); HEMOGLOBIN 9.5 G/DL (11.5-16.0); LYMPHOCYTES # (AUTO) 0.8 X 10^3 (1.0-4.0); LYMPHOCYTES % (AUTO) 15 % (12-44); MEAN CORPUSCULAR HEMOGLOBIN 30 PG (25-34); MEAN CORPUSCULAR HGB CONC 29 G/DL (32-36); MEAN CORPUSCULAR VOLUME 103 FL (80-99); MEAN PLATELET VOLUME 9.8 FL (7.4-10.4); MONOCYTES # (AUTO) 0.7 X 10^3 (0.0-1.0); MONOCYTES % (AUTO) 13 % (0-12); NEUTROPHILS # (AUTO) 3.6 X 10^3 (1.8-7.8); NEUTROPHILS % (AUTO) 69 % (42-75); PLATELET COUNT 251 10^3/uL (130-400); RED CELL DISTRIBUTION WIDTH 13.6 % (10.0-14.5); WHITE BLOOD COUNT 5.3 10^3/uL (4.3-11.0)
[2019-06-07 06:49] LABS: BUN/CREATININE RATIO 40; CALCIUM 8.8 MG/DL (8.5-10.1); CARBON DIOXIDE 42 MMOL/L (21-32); CHLORIDE 94 MMOL/L (98-107); CREATININE SERUM 0.48 MG/DL (0.60-1.30); GFR ESTIMATED > 60; GLUCOSE 103 MG/DL (70-105); MAGNESIUM 1.8 MG/DL (1.6-2.4); PHOSPHORUS 3.2 MG/DL (2.3-4.7); POTASSIUM 3.7 MMOL/L (3.6-5.0); SODIUM 144 MMOL/L (135-145)
[2019-06-07 08:00] VITALS: BP 119/74
--- NOTE | 2019-06-07 09:02 | Pulmonary Progress Note ---
Sepsis Event Evaluation Height, Weight, BMI Height: '" Weight: lbs. oz. kg; 29.00 BMI Method: Exam Exam Vital Signs Date Time Temp Pulse Resp B/P (MAP) Pulse Ox O2 Delivery O2 Flow Rate FiO2 06/07/19 08:00 36.8 86 20 119/74 (89) 94 NIV Bilevel 06/07/19 07:41 94 High Flow N/C 3.00 06/07/19 07:00 87 06/07/19 04:00 36.0 75 20 121/72 (88) 97 NIV Bilevel 06/07/19 01:44 62 28 95 45.00 06/07/19 00:43 65 06/07/19 00:00 36.8 67 22 104/65 (78) 96 NIV Bilevel 06/06/19 23:02 73 29 92 45.00 06/06/19 20:00 Nasal Cannula 3.00 06/06/19 19:51 37.0 86 20 118/72 (87) 94 High Flow N/C 3.00 06/06/19 18:45 90 06/06/19 16:18 94 Nasal Cannula 3.00 06/06/19 16:00 37.0 89 20 125/73 (90) 94 High Flow N/C 3.00 06/06/19 13:00 91 06/06/19 12:00 36.0 88 20 118/72 (87) 93 High Flow N/C 3.00 06/06/19 10:51 88 Nasal Cannula 3.00 I & O 06/07/19 07:00 Intake Total 1410 ml Output Total 1875 ml Balance -465 ml Height & Weight Height: '" Weight: lbs. oz. kg; 29.00 BMI Method: General Appearance: No Apparent Distress, Obese HEENT: PERRL/EOMI, Pharynx Normal Neck: Normal Inspection, Supple Respiratory: Lungs Clear, Normal Breath Sounds, No Respiratory Distress Cardiovascular: Regular Rate, Rhythm, No Edema, No Murmur Capillary Refill: Less Than 3 Seconds Gastrointestinal: non tender, soft Extremity: Normal Inspection, Non Tender Neurologic/Psychiatric: Alert, Oriented x3, No Motor/Sensory Deficits, Normal Mood/Affect Skin: Normal Color, Warm/Dry Lymphatic: No Adenopathy Results Lab Laboratory Tests 06/06/19 05:20 06/07/19 06:00 Assessment/Plan Assessment/Plan Acute on chronic respiratory failure -Vent to mask QHS and PRN -PT needs home vent to mask -Keep Fi02 titrated down for Sp02 90-92% -Plan is for inpt rehab -Currently on Vapotherm -Titrate to regular NC -CT of chest reviewed Right pleural effusion -Monitor -Daily lasix Severe oxygen dependent COPD uses 4liers at home COPDAE -Solumedrol -SVNS -Oxygen Debility -PT/OT -Up to chair BID Hx of lobectomy elevated right diaphram Morbid obesity BYRON WINKLER DO Jun 07, 2019 09:02 POS
[2019-06-07] MEDS: meTOprolol TARTRATE 25 MG (LOPRESSOR) TABLET PO SCH (09:57)
[2019-06-07] MEDS: PANTOPRAZOLE 40 MG (PROTONIX) VIAL IV SCH (09:57)
[2019-06-07] MEDS: APIXABAN 5 MG (ELIQUIS) TABLET PO SCH (09:57)
--- NOTE | 2019-06-07 11:23 | Progress Note - Hospitalist ---
Subjective HPI/CC On Admission Date Seen by Provider: Jun 07, 2019 Time Seen by Provider: 11:20 confusion and weakness Subjective/Events-last exam Pt reports doing well. Ready for DC to IRU. Concerned about discontinuation of pastrana but other reaves no issues. Objective Exam Vital Signs Vital Signs Date Time Temp Pulse Resp B/P (MAP) Pulse Ox O2 Delivery O2 Flow Rate FiO2 06/07/19 09:00 94 NIV Bilevel 3.00 06/07/19 08:00 36.8 86 20 119/74 (89) 06/02/19 10:21 40 Capillary Refill : Less Than 3 SecondsLess Than 3 Seconds General Appearance: No Apparent Distress, WD/WN Respiratory: Lungs Clear, No Respiratory Distress, Other (on 4lpm) Cardiovascular: Regular Rate, Rhythm, No Murmur Gastrointestinal: Normal Bowel Sounds, Non Tender, Soft Results/Procedures Lab Laboratory Tests 06/07/19 06:00 Patient resulted labs reviewed. Assessment/Plan Assessment and Plan Assess & Plan/Chief Complaint Acute respiratory failure with hypoxia and hypercapnia Pleural effusion COPD with acute exacerbation -s/p intubation this admission -Pulmonology following -Continue nocturnal BiPAP - Prednisone taper Paroxysmal atrial fibrillation -Continue diltiazem and Eliquis - Cardiology consulted, appreciate recs Debility -Unable to DC yesterday due to staffing so DC today to IRU DVT Prophylaxis: already receiving therapeutic anticoagulation Clinical Quality Measures DVT/VTE Risk/Contraindication: Risk Factor Score Per Nursin RFS Level Per Nursing on Admit: 4+=Very High ALICJA HARPER MD Jun 07, 2019 11:23 POS
--- NOTE | 2019-06-07 14:46 | Progress Note - Cardiology ---
Cardiology SOAP Progress Note Subjective: No cp or palp or syncope Shortness of breath with mild exertion Marked gen weakness Objective: I&O/Vital Signs 06/07/19 06/07/19 06/07/19 06/07/19 04:00 07:00 07:41 08:00 Temp 36.0 36.8 Pulse 75 87 86 Resp 20 20 B/P (MAP) 121/72 (88) 119/74 (89) Pulse Ox 97 94 94 O2 Delivery NIV Bilevel High Flow N/C NIV Bilevel O2 Flow Rate 3.00 06/07/19 06/07/19 06/07/19 06/07/19 09:00 11:24 12:06 13:32 Pulse 89 B/P (MAP) Pulse Ox 94 93 O2 Delivery NIV Bilevel High Flow N/C O2 Flow Rate 3.00 3.00 06/07/19 00:00 Intake Total 1260 ml Output Total 1725 ml Balance -465 ml Constitutional: AAO x 3, well-developed, well-nourished Respiratory: No accessory muscle use; other (generally diminshed air entry and prolonged exp over all lung blue) Cardiovascular: regular rate-rhythm, S1 and S2, systolic murmur (2/6 HERMILA at card base) Gastrointestional: No tender; soft; No guarding, No rebound, No audible bowel sounds Extremities: No clubbing, No cyanosis, No significant edema Neurologic/Psychiatric: oriented x 3, other (moves all limbs equally) Skin: No rash, No ulcerations Results/Procedures: Labs Laboratory Tests 06/07/19 06:00: White Blood Count 5.3, Red Blood Count 3.18L, Hemoglobin 9.5L, Hematocrit 33L, Mean Corpuscular Volume 103H, Mean Corpuscular Hemoglobin 30, Mean Corpuscular Hemoglobin Concent 29L, Red Cell Distribution Width 13.6, Platelet Count 251, Mean Platelet Volume 9.8, Neutrophils (%) (Auto) 69, Lymphocytes (%) (Auto) 15, Monocytes (%) (Auto) 13H, Eosinophils (%) (Auto) 3, Basophils (%) (Auto) 0, Neutrophils # (Auto) 3.6, Lymphocytes # (Auto) 0.8L, Monocytes # (Auto) 0.7, Eosinophils # (Auto) 0.1, Basophils # (Auto) 0.0, Sodium Level 144, Potassium Level 3.7, Chloride Level 94L, Carbon Dioxide Level 42H, Anion Gap 8, Blood Urea Nitrogen 19H, Creatinine 0.48L, Estimat Glomerular Filtration Rate > 60, BUN/Creatinine Ratio 40, Glucose Level 103, Calcium Level 8.8, Phosphorus Level 3.2, Magnesium Level 1.8 06/07/19 11:29: Glucometer 133H Microbiology 05/28/19 Blood Culture - Final, Complete No growth 05/29/19 Gram Stain - Final, Complete 05/29/19 Sputum Culture - Final, Complete Usual upper respiratory shanta Haemophilus influenza See Comments Laboratory Tests 06/06/19 05:20 06/07/19 06:00 A/P: Assessment: PAF with RVR, currently NSR Ac resp failure due to ac exac of severe COPD due to pneumonia Echo of 06/05/19: LVEF 55-60%, mild LA enlargement, grade 1 diastolic dysfunction, RVSP 18 mmHg 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 I spoke with her and her and answered CV-related questions NATHEN OSUNA MD FACP [facility] CCDS Jun 07, 2019 14:46 POS
== END 2019-06-07 14:21 | DRG 208 ==
LOC: EDUNIT# 21:02 → ER 21:03 → ICU 22:00 → 4TH 06-03 10:21
PROVIDERS: ADMIT Family Medicine; ATTEND Family Medicine
PROC: 5A1945Z Respiratory Ventilation, 24-96 Consecutive Hours (ICD-10-PCS; principal; 2019-05-29)
PROC: 0BH17EZ Insertion of Endotracheal Airway into Trachea, Via Natural or Artificial Opening (ICD-10-PCS; 2019-05-29)
DX: J96.22 Acute and chronic respiratory failure with hypercapnia (principal); J96.21 Acute and chronic respiratory failure with hypoxia; J18.1 Lobar pneumonia, unspecified organism; J44.0 Chronic obstructive pulmonary disease with (acute) lower respiratory infection; J44.1 Chronic obstructive pulmonary disease with (acute) exacerbation; E87.2 Acidosis; J90 Pleural effusion, not elsewhere classified; I48.0 Paroxysmal atrial fibrillation; R41.0 Disorientation, unspecified; I95.9 Hypotension, unspecified; E66.01 Morbid (severe) obesity due to excess calories; Z68.34 Body mass index [BMI] 34.0-34.9, adult; Z87.891 Personal history of nicotine dependence; Z99.81 Dependence on supplemental oxygen; Z90.2 Acquired absence of lung [part of]; R73.9 Hyperglycemia, unspecified
CPT/HCPCS: 36415; 36600; 51702; 71045; 71260; 80048; 80053; 81000; 82550; 82553; 82805; 82962; 83605; 83735; 83874; 83880; 84100; 84145; 84478; 84484; 85007; 85025; 85027; 85610; 85730; 87040; 87070; 87077; 87081; 87185; 87205; 87804; 93005; 93041; 93306; 94002; 94003; 94640; 94660; 94664; 94760; 94799; 96365; 96375

== ENCOUNTER 2019-06-06 16:15 | Inpatient (IN) | payer MEDICARE ==
[~2019-06-06] VITALS: Ht 162.6 cm; Wt 83.8 kg
[~2019-06-06 16:15] MED LIST changes: +ACET-168 PO; +ACETAMINOPHEN 500 MG TAB (TYLENOL) PO PRN; +ALBU18HF2 INH; +ALBU2.5V4 NEB; +ALPRAZolam 0.25 MG (XANAX) TAB PO PRN; +BISACODYL 10 MG SUPP (DULCOLAX) PR PRN; +CALCIUM CARBONATE 500 MG (TUMS) TAB.CHEW PO PRN; +DOCUSATE SODIUM 100 MG (COLACE) CAP PO PRN; +ENOXAPARIN 40 MG/0.4 ML (LOVENOX) SYR SC SCH; +FLEET ENEMA ADULT 1 EA BTL PR PRN; +HYDROcodone/APAP 5 MG/325 MG (LORTAB) TAB PO PRN; +LACTULOSE SYRUP 10GM/15ML (ENULOSE) 30ML UDC PO PRN; +LOPERAMIDE 2 MG (IMODIUM) TABLET PO PRN; +ONDANSETRON 4 MG (ZOFRAN) ORAL DISSOLVE TAB PO PRN; +TRM50T PO; +UMEC1BLS INH; +diphenhydrAMINE 25 MG TAB (BENADRYL) PO PRN; +guaiFENesin/CODEINE (ROBITUSSIN AC) 10ML UDC PO PRN
--- NOTE | 2019-06-07 14:21 | NUR ---
SHIVAM MORRIS admitted to room 229, with an admitting diagnosis of COPD MYOPATHY, on 06/07/19 from [facility] via WHEELCHAIR, accompanied by STAFF AND SPOUSE. SHIVAM MORRIS introduced to surroundings, call light, bed controls, phone, TV, temperature control, lights, meal times, smoking policy, visitor policy, side rail policy, bathrooms and showers. Patient Rights given to patient in the handbook. SHIVAM MORRIS verbalizes understanding that [facility] is not responsible for the loss or damage to any personal effects or valuables that are kept in the patient's possession during their hospitalization. The following Patient Care Plans were discussed with the PATIENT: Discharge Planning, IMPAIRED GAS EXCHANGE, INEFFECTIVE BREATHING PATTERN, INEFFECTIVE AIRWAY CLEARANCE, RISK FOR INFECTION, ACTIVITY INTOLERANCE, ANXIETY, and KNOWLEDGE DEFICIT: COPD. SHIVAM MORRIS verbalizes understanding of Interdisciplinary Patient Education. Patient received Patient Rights Booklet, which includes Privacy Act Statement and Data Collection Information Summary.
[2019-06-07 14:45] VITALS: BP 123/74
[2019-06-07 15:06] VITALS: BP 123/74
--- NOTE | 2019-06-07 15:40 | NUR ---
DC TELEMETRY PER DR. STALLWORTH.
[2019-06-07] MEDS ORDERED: CALCIUM CARBONATE 500 MG (TUMS) TAB.CHEW PO PRN (15:45)
[2019-06-07] MEDS ORDERED: SIMETHICONE 80 MG (MYLICON) CHEW PO PRN (15:45)
--- NOTE | 2019-06-07 15:47 | PM&R Post Admission Assessment ---
PM&R HP Date of Visit: Jun 07, 2019 Time of Visit: 15:00 History of Present Illness CC: COPD myopathy HPI: per DR Ross hospital course: Tiffany Bond is a 74yoF with COPD who was admitted with acute hypoxic and hypercapnic respiratory failure on 05/28/19. She was intubated and admitted to the ICU due to severe hypercapnia. She was treated for a COPD exacerbation with steroids. She received a course of antibiotics for pneumonia. She developed worsening hypercapnia following extubation and was started on nocturnal BiPAP which will need to be continued on discharge. She should follow up with Dr. Abdalla for her COPD. She should follow up with her primary care physician, Dr. Pool. She was discharged to the inpatient rehabilitation facility 06/07/19. This is a 74-year-old white female clinic patient of Dr. Pool who presents to inpatient rehab with severe global weakness in need of strengthening in order to return home with her to live independently. Apparently she was admitted in respiratory failure required intubation on 05/28/2019 she was ultimately extubated placed on BiPAP and still remained hypercapnic which will be treated with BiPAP. Her regular pump servicer helper is Dr. Cody and she will remain seeing Dr. Abdalla on a regular basis. Bowels are not moving as good as she would like she is very concerned about once the Johnson catheter is discontinued since she has a weak bladder and what she tells me is incontinence. I have check meds and labs and restarted all meds maintained on the MedSurg floor. Past Yhrgsbw-Mxpbjz-Odvpbk Hx Past Med/Social Hx: Reviewed Nursing Past Med/Soc Hx, Reviewed and Corrections made Patient Social History Marrital Status: Employed/Student: retired Smoking Status: Former Smoker Type Used: Cigarettes Recent Foreign Travel: No Contact w/other who traveled: Yes (DAUGHTER) Recent Hopitalizations: Yes Recent Infectious Disease Expo: No Immunizations Up To Date Date of Pneumonia Vaccine: May 29, 2019 Date of Influenza Vaccine: May 20, 2019 Seasonal Allergies Seasonal Allergies: Yes Past Medical History Surgeries: Abdominal, Breast, Gallbladder, Hysterectomy, Lobectomy Respiratory: COPD Cardiac: Atrial Fibrillation, High Cholesterol, Hypertension Reproductive: No Hysterectomy, Menopausal incontinence Gastrointestinal: Chronic Constipation Musculoskeletal: Arthritis Psychosocial: Anxiety, Depression History of Blood Disorders: No Family History Cardiovascular disease 19 MOTHER FH: COPD (chronic obstructive pulmonary disease) 19 FATHER Cancer PM&R Allergy/Meds/Data Review Allergies Coded Allergies: codeine (Verified Allergy, Unknown, 12/04/05) Home Medications Scheduled Albuterol Sulfate (Albuterol Sulfate), 2.5 MG NEB QID, (Reported) Umeclidinium Brm/Vilanterol Tr (Anoro Ellipta 62.5-25 Mcg INH), 1 PUFF INH DAILY, (Reported) Scheduled PRN Acetaminophen (Acetaminophen Extra Strength), 500-1,000 MG PO Q6H PRN for PAIN- MILD (1-4), (Reported) Albuterol Sulfate (Ventolin Hfa), 2 PUFF INH Q4H PRN for SHORTNESS OF BREATH, (Reported) Tramadol HCl (Tramadol HCl), 50 MG PO DAILY PRN for PAIN-MODERATE (5-7), (Reported) Current Medications Current Medications Reviewed Review of Systems Constitutional: see HPI, malaise, weakness EENTM: no symptoms reported Respiratory: dyspnea on exertion, short of breath Cardiovascular: no symptoms reported Gastrointestinal: constipation Genitourinary: incontinence Skin: no symptoms reported Psychiatric/Neurological: Depressed All Other Systems Reviewed Negative Unless Noted: Yes Physical Exam Physical Exam Vital Signs Vital Signs - First Documented 06/07/19 14:45 Temp 37.2 Pulse 83 Resp 20 B/P (MAP) 123/74 (90) Pulse Ox 95 O2 Delivery Nasal Cannula O2 Flow Rate 3.00 Capillary Refill : Height, Weight, BMI Height: '" Weight: lbs. oz. kg; 31.96 BMI Method: General Appearance: No Apparent Distress, WD/WN, Chronically ill, Obese Eyes: Bilateral Eye Normal Inspection, Bilateral Eye PERRL HEENT: PERRL/EOMI, Normal ENT Inspection, Pharynx Normal Neck: Full Range of Motion, Normal Inspection, Non Tender, Supple, Carotid Bruit Respiratory: Chest Non Tender, Lungs Clear, Normal Breath Sounds, No Accessory Muscle Use, No Respiratory Distress Cardiovascular: Regular Rate, Rhythm, No Edema, No Gallop, No JVD, No Murmur, Normal Peripheral Pulses Gastrointestinal: Normal Bowel Sounds, No Organomegaly, No Pulsatile Mass, Non Tender, Soft Back: Normal Inspection, No CVA Tenderness, No Vertebral Tenderness Extremity: Normal Capillary Refill, Normal Inspection, Normal Range of Motion (severe weakness 3/5 all extremities), Non Tender, No Calf Tenderness, No Pedal Edema Neurologic/Psychiatric: Alert, Oriented x3, No Motor/Sensory Deficits, Normal Mood/Affect, 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 Norm as Tested Skin: Normal Color, Warm/Dry Lymphatic: No Adenopathy PM&R Medical Assessment & Plan REHAB/MEDICAL ASSESSMENT AND PLAN: REHAB IMPAIRMENT GROUP: COPD myopathy ETIOLOGIC DIAGNOSIS: Severe respiratory insufficiency The comorbidities that impact the patients function and/or functional outcome by: AF w/recent RVR, COPD O2 dependence, Hypercapnia REHAB PLAN: The patient is being admitted to our comprehensive inpatient rehabilitation facility and can tolerate the intensity of service consisting of at least: 180 minutes of therapy a day, 5 out of 7 days a week Rehab treatment will consist of: PT will focus on slowly regaining strength, OT will focus on regaining ADL independence The patient/family has a good understanding of our discharge process and will benefit from an interdisciplinary inpatient rehabilitation program. The patient has potential to make improvement and is in need of at least two of the following multidisciplinary therapies including but not limited to physical, occupational, speech, and prosthetics and orthotics. Additionally the patient will need services from respiratory, nutritional services, wound care, psychology, etc. (Customize this to each patient). Given the patients complex condition and risk of further medical complications, rehabilitation services cannot be safely or effectively provided at a lower level of care such as a alf facility. BARRIERS TO DISCHARGE: severe weakness precludes DC until able to anbulate and navigate at home ESTIMATED LOS: 14 days DISPOSITION: Home with RELEVANT CHANGES SINCE PREADMISSION SCREENING: I have compared the patients medical and functional status at the time of the preadmission screening and there are: no changes PROGNOSIS: Good REHABILITATION GOALS: 1. Help ambulate with assistive devices along with fall prevention 2. OT will help toileting and showering in order to remain independent at home at DC All the above goals were reviewed with the patient and he/she is in agreement. By signing this document, I acknowledge that I have personally performed a full physical examination on this patient within 24 hours of admission to this inpatient rehabilitation facility and have determined the patient to be able to tolerate the above course of treatment at an intensive level for a reasonable period of time. I will be completing a detailed individualized Plan of Care for this patient by day #4 of the patients stay based upon the Preadmission Screen, the Post-Admission Evaluation, and the therapy evaluations. Admission Dx/Comorbidities: (1) Myopathy ICD Codes: G72.9 - Myopathy, unspecified (2) Acute respiratory failure with hypoxia and hypercapnia Status: Acute ICD Codes: J96.01 - Acute respiratory failure with hypoxia; J96.02 - Acute respiratory failure with hypercapnia (3) Paroxysmal A-fib Status: Chronic ICD Codes: I48.0 - Paroxysmal atrial fibrillation (4) COPD with acute exacerbation Status: Acute ICD Codes: J44.1 - Chronic obstructive pulmonary disease with (acute) exacerbation (5) Pleural effusion Status: Acute ICD Codes: J90 - Pleural effusion, not elsewhere classified (6) Respiratory acidosis Status: Acute ICD Codes: E87.2 - Acidosis (7) CO2 narcosis Status: Acute ICD Codes: R06.89 - Other abnormalities of breathing (8) Anemia ICD Codes: D64.9 - Anemia, unspecified EB STALLWORTH DO Jun 07, 2019 15:47 POS
[2019-06-07 16:13] VITALS: BP 123/74
[2019-06-07] MEDS: RT-ALBUTEROL/IPRATROPIUM 3 ML (DUONEB) VIAL INH PRN (16:13)
[2019-06-07 18:13] VITALS: BP 112/70
[2019-06-07] MEDS: ACETAMINOPHEN 325 MG TABLET PO PRN (20:46)
[2019-06-07] MEDS: meTOprolol TARTRATE 25 MG (LOPRESSOR) TABLET PO SCH (20:47)
[2019-06-07] MEDS: APIXABAN 5 MG (ELIQUIS) TABLET PO SCH (20:48)
[2019-06-07] MEDS: POLYETHYLENE GLYCOL 17 GM (MIRALAX) PACK PO SCH (21:12)
[2019-06-07] MEDS: DOCUSATE SODIUM 100 MG (COLACE) CAP PO SCH (21:12)
[2019-06-07] MEDS: SENNA W/DOCUSATE (SENOKOT S) TABLET PO SCH (21:13)
[2019-06-08] MEDS: RT-ALBUTEROL/IPRATROPIUM 3 ML (DUONEB) VIAL INH SCH ×5 (01:24→20:33)
[2019-06-08] MEDS: ACETAMINOPHEN 325 MG TABLET PO PRN ×2 (02:49→15:55)
[2019-06-08 05:09] VITALS: BP 123/70
[2019-06-08] MEDS: predniSONE 10 MG TAB PO SCH (06:41)
[2019-06-08 07:06] LABS: BASOPHILS % (AUTO) 0 % (0-10); EOSINOPHILS # (AUTO) 0.2 10^3/uL (0.0-0.3); EOSINOPHILS % (AUTO) 4 % (0-10); HEMATOCRIT 33 % (35-52); HEMOGLOBIN 9.5 G/DL (11.5-16.0); LYMPHOCYTES # (AUTO) 0.8 X 10^3 (1.0-4.0); LYMPHOCYTES % (AUTO) 18 % (12-44); MEAN CORPUSCULAR HEMOGLOBIN 30 PG (25-34); MEAN CORPUSCULAR HGB CONC 29 G/DL (32-36); MEAN CORPUSCULAR VOLUME 102 FL (80-99); MEAN PLATELET VOLUME 9.3 FL (7.4-10.4); MONOCYTES # (AUTO) 0.6 X 10^3 (0.0-1.0); MONOCYTES % (AUTO) 13 % (0-12); NEUTROPHILS # (AUTO) 2.8 X 10^3 (1.8-7.8); NEUTROPHILS % (AUTO) 65 % (42-75); PLATELET COUNT 280 10^3/uL (130-400); RED CELL DISTRIBUTION WIDTH 13.5 % (10.0-14.5); WHITE BLOOD COUNT 4.3 10^3/uL (4.3-11.0)
[2019-06-08 07:23] LABS: ALANINE AMINOTRANSFERASE 79 U/L (0-55); ALKALINE PHOSPHATASE 103 U/L (40-136); BILIRUBIN,TOTAL 0.3 MG/DL (0.1-1.0); BUN/CREATININE RATIO 33; CALCIUM 8.7 MG/DL (8.5-10.1); CARBON DIOXIDE 44 MMOL/L (21-32); CHLORIDE 94 MMOL/L (98-107); CREATININE SERUM 0.51 MG/DL (0.60-1.30); GFR ESTIMATED > 60; GLUCOSE 96 MG/DL (70-105); SODIUM 142 MMOL/L (135-145); TOTAL PROTEIN 5.2 GM/DL (6.4-8.2)
[2019-06-08] MEDS: DILTIAZEM 240 MG (CARDIZEM CD) CAP PO SCH (08:14)
[2019-06-08] MEDS: PANTOPRAZOLE 40 MG (PROTONIX) TAB PO SCH (08:14)
[2019-06-08] MEDS: SENNA W/DOCUSATE (SENOKOT S) TABLET PO SCH ×2 (08:14→20:25)
[2019-06-08] MEDS: DOCUSATE SODIUM 100 MG (COLACE) CAP PO SCH ×2 (08:14→20:25)
[2019-06-08] MEDS: APIXABAN 5 MG (ELIQUIS) TABLET PO SCH ×2 (08:14→20:27)
[2019-06-08] MEDS: meTOprolol TARTRATE 25 MG (LOPRESSOR) TABLET PO SCH ×2 (08:14→20:26)
[2019-06-08] MEDS: POLYETHYLENE GLYCOL 17 GM (MIRALAX) PACK PO SCH ×2 (08:16→20:25)
--- NOTE | 2019-06-08 08:41 | NUR ---
REVIEWED MED REC IT WAS REPORTED UPON ADMISSION TO ICU. NO CHANGES WERE MADE WHEN THE PATIENT DISCHARGED TO REHAB.
--- NOTE | 2019-06-08 08:42 | Progress Note ---
Subjective Time Seen by a Provider: 08:40 Subjective/Events-last exam COPD. Myopathy. History of tobaccoism. Patient feeling better and doing better and positive. Objective Exam Vital Signs Date Time Temp Pulse Resp B/P (MAP) Pulse Ox O2 Delivery O2 Flow Rate FiO2 06/08/19 05:09 36.6 71 18 123/70 (87) 98 Nasal Cannula 3.00 06/08/19 02:31 74 19 45.00 06/07/19 21:19 78 21 45.00 06/07/19 21:19 Nasal Cannula 3.00 06/07/19 20:30 Nasal Cannula 3.00 06/07/19 18:13 37.4 80 18 112/70 (84) 97 Nasal Cannula 3.00 06/07/19 16:13 95 Nasal Cannula 3.00 06/07/19 16:13 37.2 87 95 06/07/19 15:06 Nasal Cannula 3.00 06/07/19 15:06 37.2 83 20 123/74 95 Nasal Cannula 3.00 06/07/19 14:45 37.2 83 20 123/74 (90) 95 Nasal Cannula 3.00 I & O 06/08/19 07:00 Intake Total 150 ml Balance 150 ml Capillary Refill : General Appearance: No Apparent Distress, WD/WN HEENT: Normal ENT Inspection Neck: Full Range of Motion, Normal Inspection Results Lab Laboratory Tests 06/08/19 06:55 Laboratory Tests 06/08/19 06:55: White Blood Count 4.3, Red Blood Count 3.18L, Hemoglobin 9.5L, Hematocrit 33L, Mean Corpuscular Volume 102H, Mean Corpuscular Hemoglobin 30, Mean Corpuscular Hemoglobin Concent 29L, Red Cell Distribution Width 13.5, Platelet Count 280, Mean Platelet Volume 9.3, Neutrophils (%) (Auto) 65, Lymphocytes (%) (Auto) 18, Monocytes (%) (Auto) 13H, Eosinophils (%) (Auto) 4, Basophils (%) (Auto) 0, Neutrophils # (Auto) 2.8, Lymphocytes # (Auto) 0.8L, Monocytes # (Auto) 0.6, Eosinophils # (Auto) 0.2, Basophils # (Auto) 0.0, Sodium Level 142, Potassium Level 4.0, Chloride Level 94L, Carbon Dioxide Level 44H, Anion Gap 4L, Blood Urea Nitrogen 17, Creatinine 0.51L, Estimat Glomerular Filtration Rate > 60, BUN/Creatinine Ratio 33, Glucose Level 96, Calcium Level 8.7, Corrected Calcium 9.5, Total Bilirubin 0.3, Aspartate Amino Transf (AST/SGOT) 25, Alanine Aminotransferase (ALT/SGPT) 79H, Alkaline Phosphatase 103, Total Protein 5.2L, Albumin 3.0L Assessment/Plan Assessment/Plan Assess & Plan/Chief Complaint COPD. Myopathy. Patient and feeling that patient is doing better. Patient positive Clinical Quality Measures DVT/VTE Risk/Contraindication: Risk Factor Score Per Nursin RFS Level Per Nursing on Admit: 4+=Very High ADOLFO ORTIZ DO Jun 08, 2019 08:42 POS
--- NOTE | 2019-06-08 09:46 | Occupational Therapy Eval ---
OT Evaluation-General/PLF Medical Diagnosis Admission Date Jun 07, 2019 at 14:30 Medical Diagnosis: COPD Myopathy Onset Date: May 28, 2019 Therapy Diagnosis Therapy Diagnosis: impaired ADLs and functional mobility Precautions Precautions/Isolations: Fall Prevention, Standard Precautions Safety Interventions: None Referral Physician: Rut Referral Reason: Activity Tolerance, Self Care, Evaluation/Treatment, Strengthening/ROM Medical History Pertinent Medical History: Atrial Fib, Arthritis, COPD, HTN Additional Medical History high cholesterol, anxiety/depression Current History Per H&P: "HPI: per DR Ross hospital course: Tiffany Bond is a 74yoF with COPD who was admitted with acute hypoxic and hypercapnic respiratory failure on 05/28/19. She was intubated and admitted to the ICU due to severe hypercapnia. She was treated for a COPD exacerbation with steroids. She received a course of antibiotics for pneumonia. She developed worsening hypercapnia following extubation and was started on nocturnal BiPAP which will need to be continued on discharge. She should follow up with Dr. Abdalla for her COPD. She should follow up with her primary care physician, Dr. Pool. She was discharged to the in patient rehabilitation facility 06/07/19. This is a 74-year-old white female clinic patient of Dr. Pool who presents to inpatient rehab with severe global weakness in need of strengthening in order to return home with her to live independently. Apparently she was admitted in respiratory failure required intubation on 05/28/2019 she was ultimately extubated placed on BiPAP and still remained hypercapnic which will be treated with BiPAP. Her regular pharmacy consultant is Dr. Cody and she will remain seeing Dr. Abdalla on a regular basis. Bowels are not moving as good as she would like she is very concerned about once the Johnson catheter is discontinued since she has a weak bladder and what she tells me is incontinence. I have check meds and labs and restarted all meds maintained on the MedSurg floor." Social History Home: Single Level Current Living Status: Spouse Entry Into Home: Stairs With Railing (rails on 2 steps within the house), Stairs Without Railing (no rail on steps into home) Steps Into Home: 2 Steps Inside Home: 2 ADL-Prior Level of Function SCALE: Activities may be completed with or without assistive devices. 1-Bovwvpjyax-rieazfs completes the activity by him/herself with no assistance from a helper. 5-Set-up or Clean-up Assistance-helper sets up or cleans up; patient completes activity. [place] assists only prior to or following the activity. 4-Supervision or Touching Assistance-helper provides verbal cues and/or touching/steadying and/or contact guard assistance as patient completes activity. Assistance may be provided throughout the activity or intermittently. 3-Partial/Moderate Assistance-helper does LESS THAN HALF the effort. [place] lifts, holds or supports trunk or limbs, but provides less than half the effort. 2-Substantial/Maximal Assistance-helper does MORE THAN HALF the effort. [place] lifts or holds trunk or limbs and provides more than half the effort. 7-Wsorpuzwb-rkxjxz does ALL the effort. Patient does none of the effort to complete the activity. Or, the assistance of 2 or more helpers is required for the patient to complete the activity. If activity was not attempted, code reason: 7-Patient Refused. 9-Not Applicable-not attempted and the patient did not perform the activity before the current illness, exacerbation or injury. 10-Not Attempted due to Environmental Limitations-(lack of equipment, weather restraints, etc.). 88-Not Attempted due to Medical Conditions or Safety Concerns. ADL PLOF Comments Pt reports prior to hospitalization that she was independent with ADLs, her provides SBA while pt is in the shower, occasionally she would require assistance with the shower due to fatigue. Self Care: Needed Some Help Functional Cognition: Independent DME/Equipment: Grab Bars, Shower, Tub/Shower DME/Equipment Comments Pt denies use of AD prior to hospitalization Pt has both a walk in shower and a tub/shower, she primarily uses the tub/shower where grab bars are installed. She denies having a shower chair/bench at either location. Occupation: retired OT Current Status Subjective Pt laying in bed at start of session, agreeable to OT evaluation/tx with focus on ADLs. Pt did not report any pain during tx. Mental Status/Objective Patient Orientation: Person, Place, Time, Situation Attachments: Central Line, IV, Oxygen Current Glasses/Contacts: Yes Hearing Aids: No Dentures/Partials: Yes Hand Dominance: Right Upper Extremity ROM WFL, pt able to reach up to put shirt on and reach back of her head. Upper Extremity Coordination WFL Upper Extremity Sensation no changes in sensation reported Upper Extremity Strength MMT BUE 3+/5 ADL-Treatment Eating (QC): 5 (Per pt report, pt required set up assist for opening containers this AM) Oral Hygiene (QC): 5 (set up assist at EOB) Shower/Bathe Self (QC): 3 (SPONGE BATH: Pt required assistance with buttocks. Pt able to complete all other parts of sponge bath, with CGA during stand for washing periarea.) Upper Body Dressing (QC): 4 (Set up for task and 1 verbal cue duirng task for orientation of night gown.) Lower Body Dressing (QC): 3 (Pt able to don/doff briefs, but required Min A to stand from EOB and CGA during stand.) On/Off Footwear (QC): 2 (Pt able to doff socks, but required assistance donning BLE socks.) Toileting Hygiene (QC): 3 (Pt able to complete clothing management but required assistance for hygiene. ) Toilet Transfer (QC): 3 (Pt required min A to stand to/from EOB & BSC.) Other Treatments Pt laying in bed at start of session. Pt provided information on PLOF and home set up. Nursing then gave pt her meds and breathing tx as OT set up room for ADL session. Pt then transferred supine to sit with SBA, before transferring to BSC to complete toileting, then transferred back to EOB. Pt completed sponge bath, dressing, and oral hygiene at EOB. Pt transferred sit to supine with assistance aligning legs at midline after pt brought BLE into bed. Post OT session, pt laying in bed, call light in reach, and all needs met. Education OT Patient Education: Correct positioning, Energy conservation, Modified ADL techniques, Progress toward Goal/Update tx plan, Purpose of tx/functional activities, Transfer techniques Teaching Recipient: Patient Teaching Methods: Demonstration, Discussion Response to Teaching: Verbalize Understanding, Return Demonstration OT Short Term Goals Short Term Goals Time Frame: Jun 17, 2019 Toileting hygiene: 4 Shower/bathe self: 4 Upper body dressin Lower body dressin Putting on/taking off footwear: 3 OT Hacksaw Inspector Goals Intermediate Goals Time Frame: Jun 26, 2019 Eating (QC): 6 Oral Hygiene (QC): 6 Toileting Hygiene (QC): 6 Shower/Bathe Self (QC): 6 Upper Body Dressing (QC): 6 Lower Body Dressing (QC): 6 On/Off Footwear (QC): 6 Additional Goals: 1-Demonstrate ADL Tasks, 2-Verbalize Understanding, 3- ImproveStrength/Brianne 1=Demonstrate adherence to instructed precautions during ADL tasks. 2=Patient will verbalize/demonstrate understanding of assistive devices/modifications for ADL. 3=Patient will improve strength/tolerance for activity to enable patient to perform ADL's. OT Education/Plan Problem List/Assessment Assessment: Decreased Activ Tolerance, Decreased UE Strength, Impaired Funct Balance, Impaired I ADL's, Impaired Self-Care Skills Discharge Recommendations Plan/Recommendations: Continue POC Equpiment Recommendations-D/C: Extended Bath Bench Treatment Plan/Plan of Care Treatment,Training & Education: Yes Patient would benefit from OT for education, treatment and training to promote independence in ADL's, mobility, safety and/or upper extremity function for ADL's. Plan of Care: ADL Retraining, Caregiver Training, Functional Mobility, Group Exercise/Act as Ind, UE Funct Exercise/Act Treatment Duration: Jun 26, 2019 Frequency: At least 5 of 7 days/Wk (IRF) Estimated Hrs Per Day: 1.5 hours per day Agreement: Yes Rehab Potential: Good Time/GCodes Start Time: 08:00 Stop Time: 09:30 Total Time Billed (hr/min): 90 Billed Treatment Time 1, EVL (10mins), ADL 5 (80mins) JG IGLESIAS OT Jun 08, 2019 09:45 POS
--- NOTE | 2019-06-08 09:49 | PM&R Progress Note ---
Subjective HPI/CC On Admission Date Seen by Provider: Jun 08, 2019 Time Seen by Provider: 08:30 Subjective/Events-last exam Will DC central line in her right IJ Bowel movement was large this morning Hgb 9.5 Bicarb 44 for compensation of respiratory acidosis Johnson was discontinued and now she is having some incontinence She has a weak bladder she reported already Will DC accu checks since all have been within normal limits Checked meds and labs Reviewed therapy notes Conferred with cardiograph operator of Systems General: Fatigue Pulmonary: Dyspnea Gastrointestinal: Constipation Objective Exam Vital Signs Vital Signs Date Time Temp Pulse Resp B/P (MAP) Pulse Ox O2 Delivery O2 Flow Rate FiO2 06/08/19 21:19 70 25 45.00 06/08/19 21:00 Nasal Cannula 06/08/19 20:33 95 06/08/19 17:35 37.0 111/75 (87) Capillary Refill : General Appearance: No Apparent Distress, WD/WN, Chronically ill HEENT: PERRL/EOMI, Normal ENT Inspection, Pharynx Normal Neck: Full Range of Motion, Normal Inspection, Non Tender, Supple Respiratory: Chest Non Tender, Lungs Clear, No Accessory Muscle Use, No Respiratory Distress, Decreased Breath Sounds Cardiovascular: Regular Rate, Rhythm, No Edema, No Gallop, No JVD, No Murmur, Normal Peripheral Pulses Gastrointestinal: Normal Bowel Sounds, No Organomegaly, No Pulsatile Mass, Non Tender, Soft Back: Normal Inspection, No CVA Tenderness, No Vertebral Tenderness Extremity: Normal Capillary Refill, Normal Inspection, Normal Range of Motion ( severe weakness 3/5 all extremities), Non Tender, No Calf Tenderness, No Pedal Edema Neurologic/Psychiatric: Alert, Oriented x3, No Motor/Sensory Deficits, Normal Mood/Affect, director institution II-XII Norm as Tested Skin: Normal Color, Warm/Dry Lymphatic: No Adenopathy Results/Procedures Lab Laboratory Tests 06/08/19 06:55 Patient resulted labs reviewed. FIM Transfers Therapy Code Descriptions/Definitions Functional Angelina Measure: 0=Not Assessed/NA 4=Minimal Assistance 1=Total Assistance 5=Supervision or Setup 2=Maximal Assistance 6=Modified Angelina 3=Moderate Assistance 7=Complete IndependenceSCALE: Activities may be completed with or without assistive devices. 5-Jiljbvtypi-lvwqkxv completes the activity by him/herself with no assistance from a helper. 5-Set-up or Clean-up Assistance-helper sets up or cleans up; patient completes activity. [place] assists only prior to or following the activity. 4-Supervision or Touching Assistance-helper provides verbal cues and/or touching/steadying and/or contact guard assistance as patient completes activity. Assistance may be provided throughout the activity or intermittently. 3-Partial/Moderate Assistance-helper does LESS THAN HALF the effort. [place] lifts, holds or supports trunk or limbs, but provides less than half the effort. 2-Substantial/Maximal Assistance-helper does MORE THAN HALF the effort. [place] lifts or holds trunk or limbs and provides more than half the effort. 5-Bitqlqvma-jzrfju does ALL the effort. Patient does none of the effort to complete the activity. Or, the assistance of 2 or more helpers is required for the patient to complete the activity. If activity was not attempted, code reason: 7-Patient Refused. 9-Not Applicable-not attempted and the patient did not perform the activity before the current illness, exacerbation or injury. 10-Not Attempted due to Environmental Limitations-(lack of equipment, weather restraints, etc.). 88-Not Attempted due to Medical Conditions or Safety Concerns. Assessment/Plan Assessment and Plan Assess & Plan/Chief Complaint Assessment: Acute on chronic respiratory failure s/p extubation Severe debility Constipation s/p resolution today Metabolic alkalosis compensating for respiratory acidosis 44 Urinary incontinence Anemia Plan: IRF protocol Monitor closely BM regimen Incontinence care biPAP (1) Myopathy (2) Acute respiratory failure with hypoxia and hypercapnia Status: Acute (3) Paroxysmal A-fib Status: Chronic (4) COPD with acute exacerbation Status: Acute (5) Pleural effusion Status: Acute (6) Respiratory acidosis Status: Acute (7) CO2 narcosis Status: Acute (8) Anemia EB STALLWORTH DO Jun 08, 2019 09:49 POS
--- NOTE | 2019-06-08 11:09 | Physical Therapy Evaluation ---
PT Evaluation-General Medical Diagnosis Admission Date Jun 07, 2019 at 14:30 Medical Diagnosis: COPD Myopathy Onset Date: May 28, 2019 Therapy Diagnosis Therapy Diagnosis: impaired mobility, strength, endurance Precautions Precautions/Isolations: Fall Prevention, Standard Precautions Referral Physician: Rut Reason for Referral: Evaluation/Treatment Medical History Pertinent Medical History: Atrial Fib, Arthritis, COPD, HTN Social History Home: Single Level Current Living Status: Spouse Entry Into Home: Stairs With Railing (rails on 2 steps within the house), Stair s Without Railing (no rail on steps into home) PT Steps Into Home: 2 PT Steps Inside Home: 2 Prior Prior Level of Function SCALE: Activities may be completed with or without assistive devices. 3-Whqwvwreop-zoqkiww completes the activity by him/herself with no assistance from a helper. 5-Set-up or Clean-up Assistance-helper sets up or cleans up; patient completes activity. [place] assists only prior to or following the activity. 4-Supervision or Touching Assistance-helper provides verbal cues and/or touching/steadying and/or contact guard assistance as patient completes activity. Assistance may be provided throughout the activity or intermittently. 3-Partial/Moderate Assistance-helper does LESS THAN HALF the effort. [place] lifts, holds or supports trunk or limbs, but provides less than half the effort. 2-Substantial/Maximal Assistance-helper does MORE THAN HALF the effort. [place] lifts or holds trunk or limbs and provides more than half the effort. 7-Olleaxfvb-xaoftm does ALL the effort. Patient does none of the effort to complete the activity. Or, the assistance of 2 or more helpers is required for the patient to complete the activity. If activity was not attempted, code reason: 7-Patient Refused. 9-Not Applicable-not attempted and the patient did not perform the activity before the current illness, exacerbation or injury. 10-Not Attempted due to Environmental Limitations-(lack of equipment, weather restraints, etc.). 88-Not Attempted due to Medical Conditions or Safety Concerns. Bed Mobility: 6 Transfers (B,C,W/C): 6 Gait: 6 Stairs: 6 Indoor Mobility (Ambulation): Independent Stairs: Independent Patient states she needed no assist with steps before she started getting weak. PT Evaluation-Current Subjective Patient in bed pre tx, agrees to PT, has no complaints of pain at rest. Pt/Family Goals Patient states she wants to get stronger and be able to breathe better. Objective Patient Orientation: Person, Place, Situation Attachments: Oxygen ROM/Strength ROM Lower Extremities WNL Strength Lower Extremities LLE (hip flexion 3-/5, knee flexion 4/5, knee extension 4/5, dorsiflexion 3+/5), RLE (hip flexion 3-/5, knee flexion 4/5, knee extension 4/5, dorsiflexion 4/5) Sensory Hearing: Functional Hand Dominance: Right Sensation Right Lower Extremit: Intact Sensation Left Lower Extremity: Intact Transfers Roll Left to Right (QC): 6 Sit to Lying (QC): 3 Lying to Sitting/Side of Bed(Q: 4 Sit to Stand (QC): 3 Chair/Aew-vn-Tgsxt Xfer(QC): 4 Car Transfer (QC): 4 Patient performs bed mobility with SBA, supine to sit with SBA, sit to supine with mod assist, sit <-> stand with min assist, transfers with CGA, car transfer SBA. Patient needs cues for safety and hand placement and will often sit without turning completely. Gait Does the Patient Walk?: Yes Mode of Locomotion: Both Anticipated Mode of Locomotion: Walk Walk 10 feet (QC): 4 Walk 50 ft with 2 Turns(QC): 88 Walk 150 ft (QC): 88 Walking 10ft/uneven surface-QC: 4 Distance: 20', 10' Gait Assistive Device: FWW Comments/Gait Description Patient can ambulate 20' with a rolling walker with CGA (including 10' over an uneven surface). She ambulates slowly, needs occasional standing rest breaks with cues for purse lip breathing. Unsteady but no LOB. Wheelchair Training Does the Pt Use a Wheelchair?: Yes Distance: 50' Wheel 50 ft with 2 turns (QC): 4 Wheel 150 ft (QC): 88 Type of Wheelchair: Manual Stairs 1 Step (curb) (QC): 88 4 Steps (QC): 88 12 Steps (QC): 88 Attempted one step but patient could not step up safely without knee buckling. Balance Sitting Static: Normal Sitting Dynamic: Normal Standing Static: Fair Standing Dynamic: Fair Picking up an Object (QC): 88 Treatment Patient was dressed with max assist lowers, she was able to dress upper herself, patient was toileted with CGA. Assessment/Needs Patient has impaired mobility, strength, endurance. She has weakness in BLE and needs assist standing from low surfaces. Rehab Potential: Fair PT Short Term Goals Short Term Goals Time Frame: Jun 15, 2019 Roll Left & Right: 6 Sit to lyin Lying to sitting on side of be: 6 Sit to stand: 4 Chair/mxy-ix-incgz transfer: 4 Walk 10 feet: 4 Walk 50 feet with two turns: 4 PT Skilled Nursing Goals Skilled Nursing Goals PT Milling Machine Operator Goals Time Frame: Jun 29, 2019 Roll Left & Right (QC): 6 Sit to Lying (QC): 4 (SBA) Lying-Sitting on Side/Bed(QC): 6 Sit to Stand (QC): 4 (SBA) Chair/Vhp-bi-Rjlbv Xfer(QC): 4 (SBA) Toilet Transfer (QC): 4 (SBA) Car Transfer (QC): 4 (SBA) Does the Patient Walk: Yes Walk 10 feet (QC): 4 (SBA) Walk 50ft with 2 Turns (QC): 4 (SBA) Walk 150 ft (QC): 4 (SBA) Walking 10ft on Uneven Surface: 4 (SBA) 1 Step (curb) (QC): 4 (CGA) 4 Steps (QC): 4 (CGA) 12 Steps (QC): 88 Picking up an Object (QC): 88 Does the Pt use WC or Scooter?: No Type: N/A Type: N/A PT Plan Problem List Problem List: Activity Tolerance, Functional Strength, Safety, Balance, Gait, Transfer, Bed Mobility Treatment/Plan Treatment Plan: Continue Plan of Care Treatment Plan: Bed Mobility, Concurrent Therapy, Education, Functional Activity Brianne, Functional Strength, Group Therapy, Gait, Safety, Therapeutic Exercise, Transfers Treatment Duration: Jun 29, 2019 Frequency: At least 5 of 7 days/Wk (IRF) Estimated Hrs Per Day: 1.5 hours per day Patient and/or Family Agrees t: Yes Safety Risks/Education Patient Education: Gait Training, Transfer Techniques, Steps, Correct Positioning, W/C Management, Safety Issues Teaching Recipient: Patient Teaching Methods: Demonstration, Discussion Response to Teaching: Reinforcement Needed Discharge Recommendations Plan Patient will perform bed mobility and transfer training, balance and endurance training, functional strengthening, stair training, gait training, and education, to improve functional mobility and independence at home. Therapy Discharge Recommendati: Other, See Comments (home with family) Time/GCodes Time In: 1000 Time Out: 1100 Total Billed Treatment Time: 60 Total Billed Treatment 1 visit NOYM 30' FA 30' ROSA HUSTON PT Jun 08, 2019 11:09 POS
--- NOTE | 2019-06-08 12:46 | Progress Note - Cardiology ---
Cardiology SOAP Progress Note Subjective: Sitting up in the side of the bed. No c/o CP, palpitations, dyspnea, syncope or near syncope. Objective: I&O/Vital Signs 06/08/19 06/08/19 06/08/19 06/08/19 20:33 21:00 21:19 22:49 Pulse 70 70 Resp 25 18 Pulse Ox 95 O2 Delivery Nasal Cannula Nasal Cannula O2 Flow Rate 3.00 3.00 45.00 45.00 06/09/19 06/09/19 03:29 06:00 Temp 36.6 Pulse 70 71 Resp 30 18 B/P (MAP) 116/67 (83) Pulse Ox 98 O2 Delivery Nasal Cannula O2 Flow Rate 45.00 3.00 06/09/19 00:00 Intake Total 660 ml Balance 660 ml Constitutional: AAO x 3 Respiratory: No accessory muscle use, No respiratory distress; chest expansion is symmetric, chest is bilaterally symmetric, lungs clear to auscultation Cardiovascular: regular rate-rhythm; No JVD; S1 and S2, systolic murmur (2/6 ) Gastrointestional: No tender; soft, round, audible bowel sounds Extremities: no lower extremity edema bilateral Neurologic/Psychiatric: grossly intact Skin: No rash on exposed areas, No ulcerations on exposed areas Results/Procedures: Labs A/P: Assessment: PAF with RVR, currently NSR Ac resp failure due to ac exac of severe COPD due to pneumonia Echo of 06/05/19: LVEF 55-60%, mild LA enlargement, grade 1 diastolic dysfunction, RVSP 18 mmHg 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
--- NOTE | 2019-06-08 14:09 | ST Cognitive Linguistic Eval ---
Speech Evaluation-General Medical Diagnosis COPD Myopathy Onset Date: May 28, 2019 Therapy Diagnosis Therapy Diagnosis: Cognitive-communication Referral Referring Physician: Dr. Bettencourt Medical History Pertinent Medical History: Atrial Fib, Arthritis, COPD, HTN Reviewed History: Yes Social History Current Living Status: Spouse Speech PLF-Current Status Prior Level of Function Patient lives with her in their home where she was independent for her daily needs. Subjective Patient was cooperative with the cognitive assessment. Language Eval: Auditory Comprehends Simple Yes/No Ques: Functional Indent/Objects Multiple M[place]: Functional Ident/Pics in Multiple M[place]on[place]: Functional Follows 1-Step Commands: Functional Follows Complex Directions: Functional Follows General Conversations: Functional Language Eval: Verbal Language Completes Spontaneous Greeting: Functional Produces Auto, Serial Info: Functional Imitates Simple Words/Phrases: Functional Word Finding: Functional Requests Basic Needs: Functional States Basic Personal Info: Functional Expresses Complex Ideas: Functional Objective Cognitive Domain Attention: WNL Memory: Mild Problem Solving: Functional Executive Functions: WNL Visuospatial Skills: WNL Composite Severity Rating: WNL Clock Drawing Severity Rating: WNL Objective Formal/Standardized Tests [facility] Mental Status ([facility]) Results 27/30, normal range of function Oral Motor/Speech Production Within Functional Limits Impression The patient is a pleasant 74 year old woman who was admitted to the ARU for strengthening. The patient was given the [facility] with a score of 27/30 obtained. The patient does not require further ST services at this time. Speech Patient Assess Expression of Ideas/Wants: Expression (4) Understanding Verbal Content: Understands (4) Brief Interview-Mental Status: Yes Repetition of Three Words: Three (3) Temporal Orientation: Year: Correct (3) Temporal Orientation: Month: Accurate within 5 days(2) Temporal Orientation: Day: Correct (1) Recall : Wear to say "Sock": Yes, no cue required (2) Recall : Color: Yes, no cue required (2) Recall : Bed: Yes, no cue required (2) Memory/Recall Ability: Current season, Location of own room, That he or she is in a hsp/hsp unit Speech-Plan Patient/Family Goals Patient/Family Goals: Patient plans on returning home with her upon rehab discharge. Treatment Plan Speech Therapy Treatment Plan: Discontinue ST Patient does not require further ST services. Treatment Duration: Jun 08, 2019 Frequency: 1 time per week Estimated Hrs Per Day: .25 hour per day Rehab Potential: Fair Barriers to Learning: None identified Pt/Family Agrees to Plan: Yes Safety Risks/Education Teaching Recipient: Patient Teaching Methods: Discussion Response to Teaching: Verbalize Understanding Education Topics Provided: Safety within her room and communication of wants/needs Time Speech Therapy Time In: 13:00 Speech Therapy Time Out: 13:15 Total Billed Time: 15 Billed Treatment Time 1, KALEB Mcrae Jun 08, 2019 14:09 POS
--- NOTE | 2019-06-08 14:13 | NUR ---
Initial assessment. Patient was admitted to ARU 06/07/19 for COPD myopathy from [facility] medical inpatient. She had been hospitalized for severe hypercapnia and intubation along with chronic multiple comorbidities. DME: Has home O2 with [facility] [employer] in [place]. She has FWW and cane. Anticipate new BiPAP for home use. HHC: No current in-home services or recent history with home health agencies. PCP: Dr. Dion Pool. Lianne Ribeiro, [place] providing care here. INSURANCE: Medicare and Blue Cross supplement. ADVANCED DIRECTIVE: Patient does not currently have a document completed, she has shared her wishes with her spouse in the past. Will discuss document further with her and encourage completion for confirmation of current wishes and legal protection. SUMMARY: Patient resides with her spouse, Tan Bond (Milt) in [place]. They had 5 children, one daughter at age 41 from a stroke. The 4 living children are not local, son in [place], one son and one daughter in [place], daughter in [place]. The children were coming for Thanksgiving so came earlier because of patient's illness. Most fly for their visits and Milt did not anticipate them returning anytime soon other than one son will be coming in a couple of weeks for another short visit. Visited with Milt, he indicates he does all the cooking, cleaning, laundry, except that does her own laundry. He shared that patient was both physically and mentally down but as her physical health declined she refused to seek care and mentioned hospice to him. It was only when her condition worsened to the point she was cognitively impaired that Milt called for EMS. He also noted that patient is greatly improved as far as communication and insight assumed relative to interventions thus far. Patient was able to ambulate about the house without DME. She has chosen to sleep on the couch for many years and seldom left home other than doctors visits. Spouse speculates this could be in part because of COPD and fluctuation in hypercapnia affecting her activity level and thought processes. Goal is home when safely able, Milt capable to assist as needed if patient is mobile. Updated about weekly rehab team meeting. Will continue intermittent review and partnership with patient/family about post hospital care.
--- NOTE | 2019-06-08 14:21 | Physical Therapy Daily Note ---
PT Daily Note-Current Subjective pt in bed pre-tx agrees to therapy and states she just got back to bed from the commode. Mental Status Patient Orientation: Person, Place, Time, Situation Attachments: Central Line, Oxygen (2L high flow N/C) Transfers SCALE: Activities may be completed with or without assistive devices. 1-Ztadzlaghq-whqwgxy completes the activity by him/herself with no assistance from a helper. 5-Set-up or Clean-up Assistance-helper sets up or cleans up; patient completes activity. [place] assists only prior to or following the activity. 4-Supervision or Touching Assistance-helper provides verbal cues and/or touching /steadying and/or contact guard assistance as patient completes activity. Assistance may be provided throughout the activity or intermittently. 3-Partial/Moderate Assistance-helper does LESS THAN HALF the effort. [place] lifts, holds or supports trunk or limbs, but provides less than half the effort. 2-Substantial/Maximal Assistance-helper does MORE THAN HALF the effort. [place] lifts or holds trunk or limbs and provides more than half the effort. 8-Nnqzgoode-qazibg does ALL the effort. Patient does none of the effort to complete the activity. Or, the assistance of 2 or more helpers is required for the patient to complete the activity. If activity was not attempted, code reason: 7-Patient Refused. 9-Not Applicable-not attempted and the patient did not perform the activity before the current illness, exacerbation or injury. 10-Not Attempted due to Environmental Limitations-(lack of equipment, weather restraints, etc.). 88-Not Attempted due to Medical Conditions or Safety Concerns. Sit to Stand (QC): 3 (Smooth to CGA) Chair/Ght-dc-Amsjg Xfer(QC): 4 (CG) pt has difficulty standing from lower surface such as the WC but is CGA standing from higher surfaces such as bed and NUstep Exercises NuStep Minutes: 12 (to promote LE strength and functional act tolerance for improved mobility) NuStep Workload: 4 Treatments pt performed transfer training, bed mobility training, functional LE strengt hening/endurance training, and education Assessment Current Status: Fair Progress pt continues to have difficulty transferring from lower surfaces for initial stand but is CGA to transfer. Pt abran Nustep time and resistance with noted LE fatigue. PT Short Term Goals Short Term Goals Time Frame: Jun 15, 2019 Roll Left & Right: 6 Sit to lyin Lying to sitting on side of be: 6 Sit to stand: 4 Chair/rgb-de-piiyy transfer: 4 Walk 10 feet: 4 Walk 50 feet with two turns: 4 PT Chcf Goals Chcf Goals PT Floor Surfacer Goals Time Frame: Jun 29, 2019 Roll Left & Right (QC): 6 Sit to Lying (QC): 4 (SBA) Lying-Sitting on Side/Bed(QC): 6 Sit to Stand (QC): 4 (SBA) Chair/Eim-bg-Eijhk Xfer(QC): 4 (SBA) Toilet Transfer (QC): 4 (SBA) Car Transfer (QC): 4 (SBA) Does the Patient Walk: Yes Walk 10 feet (QC): 4 (SBA) Walk 50ft with 2 Turns (QC): 4 (SBA) Walk 150 ft (QC): 4 (SBA) Walking 10ft on Uneven Surface: 4 (SBA) 1 Step (curb) (QC): 4 (CGA) 4 Steps (QC): 4 (CGA) 12 Steps (QC): 88 Picking up an Object (QC): 88 Does the Pt use WC or Scooter?: No Type: N/A Type: N/A PT Plan Problem List Problem List: Activity Tolerance, Functional Strength, Safety, Balance, Gait, Transfer, Bed Mobility, ROM Treatment/Plan Treatment Plan: Continue Plan of Care Treatment Plan: Bed Mobility, Concurrent Therapy, Education, Functional Activity Brianne, Functional Strength, Group Therapy, Gait, Safety, Therapeutic Exercise, Transfers Treatment Duration: Jun 29, 2019 Frequency: At least 5 of 7 days/Wk (IRF) Estimated Hrs Per Day: 1.5 hours per day Patient and/or Family Agrees t: Yes Safety Risks/Education Patient Education: Transfer Techniques, Correct Positioning, Safety Issues Teaching Recipient: Patient Teaching Methods: Demonstration, Discussion Response to Teaching: Return Demonstration, Reinforcement Needed Time/GCodes Time In: 1400 Time Out: 1430 Total Billed Treatment Time: 30 Total Billed Treatment 1 visit FA 30' LYNN WRAY PT Jun 08, 2019 14:21 POS
--- NOTE | 2019-06-08 16:12 | NUR ---
Initial visit: The pt is Catholic and expressed devotion to Bull as her Savior. She said she is already making more progress in her recovery than anticipated and takes this as God's mercy towards her. She welcomed prayer for healing and encouragement.
--- NOTE | 2019-06-08 17:23 | Pulmonary Progress Note ---
Subjective Time Seen by a Provider: 17:22 Subjective/Events-last exam Pt is doing better Sepsis Event Evaluation Height, Weight, BMI Height: '" Weight: lbs. oz. kg; 31.96 BMI Method: Exam Exam Vital Signs Date Time Temp Pulse Resp B/P (MAP) Pulse Ox O2 Delivery O2 Flow Rate FiO2 06/08/19 12:12 95 Nasal Cannula 3.00 06/08/19 08:10 Nasal Cannula 3.00 06/08/19 05:09 36.6 71 18 123/70 (87) 98 Nasal Cannula 3.00 06/08/19 02:31 74 19 45.00 06/07/19 21:19 78 21 45.00 06/07/19 21:19 Nasal Cannula 3.00 06/07/19 20:30 Nasal Cannula 3.00 06/07/19 18:13 37.4 80 18 112/70 (84) 97 Nasal Cannula 3.00 I & O 06/08/19 07:00 Intake Total 150 ml Balance 150 ml Height & Weight Height: '" Weight: lbs. oz. kg; 31.96 BMI Method: General Appearance: No Apparent Distress, WD/WN HEENT: Normal ENT Inspection Neck: Full Range of Motion, Normal Inspection Respiratory: Chest Non Tender, Lungs Clear, Normal Breath Sounds, No Accessory Muscle Use, No Respiratory Distress Cardiovascular: Regular Rate, Rhythm, No Edema, No Gallop, No JVD, No Murmur, Normal Peripheral Pulses Extremity: Normal Capillary Refill, Normal Inspection, Normal Range of Motion (severe weakness 3/5 all extremities), Non Tender, No Calf Tenderness, No Pedal Edema Neurologic/Psychiatric: Alert, Oriented x3, No Motor/Sensory Deficits, Normal Mood/Affect, event lighting specialist II-XII Norm as Tested Skin: Normal Color, Warm/Dry Lymphatic: No Adenopathy Results Lab Laboratory Tests 06/08/19 06:55 Assessment/Plan Assessment/Plan Acute on chronic respiratory failure -Vent to mask QHS and PRN -PT needs home vent to mask -Keep Fi02 titrated down for Sp02 90-92% -Currently on Vapotherm -Titrate to regular NC -CT of chest reviewed Right pleural effusion -Monitor -Daily lasix Severe oxygen dependent COPD uses 4liers at home COPDAE -Solumedrol -SVNS -Oxygen Debility -PT/OT Hx of lobectomy elevated right diaphram Morbid obesity BYRON WINKLER DO Jun 08, 2019 17:23 POS
[2019-06-08 17:35] VITALS: BP 111/75
--- NOTE | 2019-06-08 18:38 | Progress Note - Cardiology ---
Cardiology SOAP Progress Note Subjective: Gen weakness as before No cp or palp or syncope No leg swelling No shortness of breath at rest Objective: I&O/Vital Signs 06/08/19 06/08/19 06/08/19 08:10 12:12 17:35 Temp 37.0 Pulse 86 Resp 16 B/P (MAP) 111/75 (87) Pulse Ox 95 96 O2 Delivery Nasal Cannula Nasal Cannula Nasal Cannula O2 Flow Rate 3.00 3.00 3.00 Constitutional: AAO x 3 Respiratory: No accessory muscle use, No respiratory distress; chest expansion is symmetric, chest is bilaterally symmetric, lungs clear to auscultation Cardiovascular: regular rate-rhythm; No JVD; S1 and S2, systolic murmur (2/6 ) Gastrointestional: No tender; soft, round, audible bowel sounds Extremities: no lower extremity edema bilateral Neurologic/Psychiatric: grossly intact Skin: No rash on exposed areas, No ulcerations on exposed areas Results/Procedures: Labs Laboratory Tests 06/08/19 06:55: White Blood Count 4.3, Red Blood Count 3.18L, Hemoglobin 9.5L, Hematocrit 33L, Mean Corpuscular Volume 102H, Mean Corpuscular Hemoglobin 30, Mean Corpuscular Hemoglobin Concent 29L, Red Cell Distribution Width 13.5, Platelet Count 280, Mean Platelet Volume 9.3, Neutrophils (%) (Auto) 65, Lymphocytes (%) (Auto) 18, Monocytes (%) (Auto) 13H, Eosinophils (%) (Auto) 4, Basophils (%) (Auto) 0, Neutrophils # (Auto) 2.8, Lymphocytes # (Auto) 0.8L, Monocytes # (Auto) 0.6, Eosinophils # (Auto) 0.2, Basophils # (Auto) 0.0, Sodium Level 142, Potassium Level 4.0, Chloride Level 94L, Carbon Dioxide Level 44H, Anion Gap 4L, Blood Urea Nitrogen 17, Creatinine 0.51L, Estimat Glomerular Filtration Rate > 60, BU N/Creatinine Ratio 33, Glucose Level 96, Calcium Level 8.7, Corrected Calcium 9.5, Total Bilirubin 0.3, Aspartate Amino Transf (AST/SGOT) 25, Alanine Aminotransferase (ALT/SGPT) 79H, Alkaline Phosphatase 103, Total Protein 5.2L, Albumin 3.0L Laboratory Tests 06/08/19 06:55 A/P: Assessment: PAF with RVR, currently NSR Ac resp failure due to ac exac of severe COPD due to pneumonia Echo of 06/05/19: LVEF 55-60%, mild LA enlargement, grade 1 diastolic dysfunction, RVSP 18 mmHg 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
[2019-06-08] MEDS: MELATONIN 3 MG TABLET PO PRN (20:26)
--- NOTE | 2019-06-09 04:00 | NUR ---
Internal jugular central line removed per Dr. Bettencourt orders. Patient was positioned supine without pillows under the head. Utilizing clean gloves and alcohol pads external dressing and StatLock were removed. Then with sterile gloves 2 sutures were removed and area was cleaned with ChloraPrep applicator. The patient was instructed to take a deep breath and hold it. Intact triple lumen catheter was pulled and occlusive dressing applied immediately. Pt instructed to breath again. Pressure held for 3 minutes, clear OpSite dressing applied. No bleeding or hematoma noted. Patient was instructed to remain supine for 30 minutes. Patient tolerated procedure well.
--- NOTE | 2019-06-09 05:07 | Individualized Plan of Care ---
Individualized Plan of Care Rehab Nursing IPOC Order Admission Date Jun 07, 2019 at 14:30 Current Orders Orders Admission Order(Inpt,Obs,Sdc) (06/06/19 08:19) Vital Signs: Per Unit Policy ( 08,16,00 (06/06/19 08:19) Heron Doss 09,21 (06/06/19 08:19) Sequential Compression Device Q4H (06/06/19 08:19) Associate Embalmer/Funeral Director-Inpt Rehab Con (06/06/19 08:19) Rehab Nursing Orders-Ipoc (06/06/19 08:19) Physical Therapy Rehab Orders (06/06/19 08:19) Occupational Therapy Rehab Ord (06/06/19 08:19) Speech Therapy Rehab Orders (06/06/19 08:19) General/Regular (06/06/19 Lunch) Intake & Output 06,14,22 (06/06/19 08:19) Precautions (Aru) (06/06/19 08:19) Weekly Weight WEEK (06/06/19 08:19) Rehab-Intensity Of Therapy (06/06/19 08:19) Initiate Admission Nursing Pro .admission (06/06/19 08:19) Acetaminophen Tablet (Tylenol Tablet) (06/06/19 08:30) Alprazolam Tablet (Xanax Tablet) (06/06/19 08:30) Calcium Carbonate Chew Tablet (Antacid C (06/06/19 08:30) Diphenhydramine Tablet (Benadryl Tablet) (06/06/19 08:30) Docusate Sodium Capsule (Colace Capsule) (06/06/19 09:00) Docusate Sodium Capsule (Colace Capsule) (06/06/19 08:30) Bisacodyl Suppository (Dulcolax Supposit (06/06/19 08:30) Lactulose Oral Solution (Enulose Oral So (06/06/19 08:30) Na Phos/Na Biphos Enema (Fleet Enema Jean-Paul (06/06/19 08:30) Guaifenesin/Codeine Syrup (Robitussin Ac (06/06/19 08:30) Hydrocodone/Apap 5/325 Tablet (Lortab 5 (06/06/19 08:30) Loperamide Tablet (Imodium Tablet) (06/06/19 08:30) Enoxaparin Injection (Lovenox Injection) (06/06/19 08:30) Melatonin Tablet (Melatonin Tablet) (06/06/19 08:30) Polyethylene Glycol Powder Pkt (Miralax (06/06/19 09:00) Ondansetron Oral Dissolve Tab (Zofran (06/06/19 08:30) Senna S Tablet (Senokot S Tablet) (06/06/19 09:00) Tramadol Tablet (Ultram Tablet) (06/06/19 08:30) Initiate Admission Nursing Pro .admission (06/06/19 08:19) Admission Arrival Bed Request (06/07/19 14:30) Ambulate 08,12,20 (06/07/19 15:00) Sequential Compression Device Q4H (06/07/19 15:00) Dvt/Vte Risk - Notifiy Physici Q4H (06/07/19 15:00) Code/Resuscitation (06/07/19 15:43) Ambulate 08,12,20 (06/07/19 15:43) Catheter(Urinary) Discontinue (06/07/19 15:43) General/Regular (06/08/19 Breakfast) Acetaminophen Tablet/Caplet (Tylenol T (06/07/19 15:45) Albuterol/Ipra Inhalation Soln (Duoneb I (06/07/19 15:45) Apixaban Tablet (Eliquis Tablet) (06/07/19 21:00) Diltiazem Cd 24 Hr Capsule (Cardizem Cd (06/08/19 09:00) Simethicone Tablet (Mylicon Chewable Tab (06/07/19 15:45) Sodium Chloride Flush (Catheter Flush Sy (06/07/19 15:45) Metoprolol Tartrate (Ir) Tab (Lopressor (06/07/19 21:00) Prednisone Tablet (Deltasone Tablet) (06/08/19 07:00) Consult Cardiology (06/07/19 15:43) Consult Pulmonology (06/07/19 15:43) Pantoprazole Tablet (Protonix Tablet) (06/08/19 09:00) Mat Initiate Protocol (06/07/19 16:20) Bipap (Bilevel) Set Up (06/07/19 16:20) Albuterol/Ipra Inhalation Soln (Duoneb I (06/07/19 19:00) Cbc With Automated Diff (06/08/19 06:00) Comprehensive Metabolic Panel (06/08/19 06:00) Nursing Communication (Order) (06/08/19 13:37) Patient Visit (06/08/19 ) Speech Sound Lang Comp (06/08/19 ) Patient Visit (06/08/19 ) Pt Eval Moderate Complexity (06/08/19 ) Functional Activities, Ea 15 (06/08/19 ) Patient Visit (06/08/19 ) Functional Activities, Ea 15 (06/08/19 ) Patient Visit (06/09/19 ) Wheelchair Mgmt/Propulsn 15min (06/09/19 ) Gait Training, Ea 15 Min (06/09/19 ) Functional Activities, Ea 15 (06/09/19 ) Exercise Therap, Ea 15 Min (06/09/19 ) Albuterol/Ipra Inhalation Soln (Duoneb I (06/10/19 10:00) Rehab Nursing Orders: Ongoing Assess. of Cognitive Status, Ongoing Assess. of Function Status, Bladder Management, Bladder Training, Bowel Management, Disease Management & Educaiton, DVT Prophylaxis, Fall Prevention, Fluid/Electrolyte/Nutrition Mgmt, Infection Prevention, Medication Management & Education, Management of Risks & Complications, Management of Skin Intergrity, Nutrition Management, Pain Management, Patient/Family Support, Safety Management Intensity of Therapy to be met Patient to be seen: 15 hrs over 7 cons. days PT IPOC Problem List: Activity Tolerance, Functional Strength, Safety, Balance, Gait, Transfer, Bed Mobility, ROM Treatment Plan: Continue Plan of Care Bed Mobility, Concurrent Therapy, Education, Functional Activity Brianne, Functional Strength, Group Therapy, Gait, Safety, Therapeutic Exercise, T ransfers Treatment Duration: Jun 29, 2019 Frequency: At least 5 of 7 days/Wk (IRF) Estimated Hrs Per Day: 1.5 hours per day OT IPOC Problems: Decreased Activ Tolerance, Decreased UE Strength, Impaired Funct Balance, Impaired I ADL's, Impaired Self-Care Skills OT Treatment, Training and Edu: Yes Plan of Care: ADL Retraining, Caregiver Training, Functional Mobility, Group Exercise/Act as Ind, UE Funct Exercise/Act Treatment Duration: Jun 26, 2019 Frequency: At least 5 of 7 days/Wk (IRF) Estimated Hrs Per Day: 1.[address] IPOC Speech Therapy Treatment Plan: Discontinue ST Treatment Duration: Jun 08, 2019 Frequency: 1 time per week Estimated Hrs Per Day: .25 hour per day Associate Embalmer/Funeral Director/Case Mgmt Associate Embalmer/Funeral Director/Case Managemen: Discharge Planning Dietitian/Room Service Server Dietitian/Room Service Server to monitor nutritional status and make changes and/or recommendations as needed and work with speech pathology on dietary upgrades as the occur. Physician IPOC Medical Issues being managed closely and that require the 24 hour availability of a physician: Recent respiratory failure and chronic hypercapnia will require close supervision for respiratory failure decompensation. Medical Issues: Bowel/Bladder Function, DVT Prophylaxis, Falls Precautions, Fluid/Electrolyte/Nutrition Balance, Infection Protection, Pain Management Brief Synthesis of Preadmission Screen, Post-Admission Evaluation, and Therapy Evaluations: PT will focus on regaining strength in order to compensate for respiratory fail ure OT we will focus on regaining independent ADLs Medical Prognosis: Good Anticipated Length of Stay: 7 days EB STALLWORTH DO Jun 09, 2019 05:07 POS
[2019-06-09 06:00] VITALS: BP 116/67
[2019-06-09] MEDS: predniSONE 10 MG TAB PO SCH (06:23)
[2019-06-09] MEDS: RT-ALBUTEROL/IPRATROPIUM 3 ML (DUONEB) VIAL INH SCH ×4 (07:57→20:18)
--- NOTE | 2019-06-09 08:37 | Progress Note ---
Subjective Time Seen by a Provider: 08:34 Subjective/Events-last exam Patient continues to improve. Patient is positive. Patient breathing better. No heart problems Objective Exam Vital Signs Date Time Temp Pulse Resp B/P (MAP) Pulse Ox O2 Delivery O2 Flow Rate FiO2 06/09/19 07:57 95 Nasal Cannula 3.00 06/09/19 06:00 36.6 71 18 116/67 (83) 98 Nasal Cannula 3.00 06/09/19 03:29 70 30 45.00 06/08/19 22:49 70 18 45.00 06/08/19 21:19 70 25 45.00 06/08/19 21:00 Nasal Cannula 3.00 06/08/19 20:33 95 Nasal Cannula 3.00 06/08/19 17:35 37.0 86 16 111/75 (87) 96 Nasal Cannula 3.00 06/08/19 12:12 95 Nasal Cannula 3.00 I & O 06/09/19 07:00 Intake Total 1210 ml Output Total 300 ml Balance 910 ml Capillary Refill : General Appearance: No Apparent Distress, WD/WN HEENT: Normal ENT Inspection Neck: Full Range of Motion, Normal Inspection Respiratory: No Accessory Muscle Use, No Respiratory Distress, Decreased Breath Sounds Cardiovascular: Regular Rate, Rhythm, No Murmur Gastrointestinal: non tender, soft Assessment/Plan Assessment/Plan Assess & Plan/Chief Complaint COPD. Myopathy. Patient and feeling that patient is doing better. Patient positive. . 06/09/19. COPD with acute exacerbation. Myopathy. Debility. Paroxymal atrial fibrillation Clinical Quality Measures DVT/VTE Risk/Contraindication: Risk Factor Score Per Nursin RFS Level Per Nursing on Admit: 4+=Very High ADOLFO ORTIZ DO Jun 09, 2019 08:37 POS
--- NOTE | 2019-06-09 08:39 | PM&R Progress Note ---
Subjective HPI/CC On Admission Date Seen by Provider: Jun 09, 2019 Time Seen by Provider: 08:45 Subjective/Events-last exam IJ removed yesterday. No significant issues reported. No SOB. Lungs diminished but much improved. Eating and drinking well. No significant problems reported. Checked meds and labs Reviewed therapy notes Conferred with summer intern of Systems General: Fatigue Pulmonary: Dyspnea Objective Exam Vital Signs Vital Signs Date Time Temp Pulse Resp B/P (MAP) Pulse Ox O2 Delivery O2 Flow Rate FiO2 06/09/19 21:00 Nasal Cannula 3.00 06/09/19 17:48 37.2 68 18 124/73 (90) 95 Capillary Refill : General Appearance: No Apparent Distress, WD/WN, Chronically ill, Obese HEENT: PERRL/EOMI, Normal ENT Inspection, Pharynx Normal Neck: Full Range of Motion, Normal Inspection, Non Tender, Carotid Bruit Respiratory: Normal Breath Sounds, No Accessory Muscle Use, No Respiratory Distress, Decreased Breath Sounds Cardiovascular: Regular Rate, Rhythm, No Edema, No Gallop, No JVD, No Murmur Gastrointestinal: Normal Bowel Sounds, No Organomegaly, No Pulsatile Mass, Non Tender, Soft Back: Normal Inspection, No CVA Tenderness, No Vertebral Tenderness Extremity: Normal Capillary Refill, Normal Inspection, Normal Range of Motion (severe weakness 3/5 all extremities), Non Tender, No Calf Tenderness, No Pedal Edema Neurologic/Psychiatric: Alert, Oriented x3, No Motor/Sensory Deficits, Normal 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 FIM Transfers Therapy Code Descriptions/Definitions Functional [place] Measure: 0=Not Assessed/NA 4=Minimal Assistance 1=Total Assistance 5=Supervision or Setup 2=Maximal Assistance 6=Modified [place] 3=Moderate Assistance 7=Complete IndependenceSCALE: Activities may be completed with or without assistive devices. 5-Fghvegqwri-fyfinul completes the activity by him/herself with no assistance from a helper. 5-Set-up or Clean-up Assistance-helper sets up or cleans up; patient completes activity. [place] assists only prior to or following the activity. 4-Supervision or Touching Assistance-helper provides verbal cues and/or touchi ng/steadying and/or contact guard assistance as patient completes activity. Assistance may be provided throughout the activity or intermittently. 3-Partial/Moderate Assistance-helper does LESS THAN HALF the effort. [place] lifts, holds or supports trunk or limbs, but provides less than half the effort. 2-Substantial/Maximal Assistance-helper does MORE THAN HALF the effort. [place] lifts or holds trunk or limbs and provides more than half the effort. 4-Xpkvntksa-lyfccm does ALL the effort. Patient does none of the effort to complete the activity. Or, the assistance of 2 or more helpers is required for the patient to complete the activity. If activity was not attempted, code reason: 7-Patient Refused. 9-Not Applicable-not attempted and the patient did not perform the activity before the current illness, exacerbation or injury. 10-Not Attempted due to Environmental Limitations-(lack of equipment, weather restraints, etc.). 88-Not Attempted due to Medical Conditions or Safety Concerns. Roll Left to Right (QC): 6 Sit to Lying (QC): 3 Sit to Stand (QC): 3 (Smooth to CGA) Chair/Oqq-qo-Blctq Xfer(QC): 4 (CG) Car Transfer (QC): 4 Gait Training Does the Patient Walk?: Yes Walk 10 feet (QC): 4 Walk 50 ft with 2 Turns(QC): 88 Walk 150 ft (QC): 88 Walking 10ft/uneven surface-QC: 4 Gait Assistive Device: FWW Wheelchair Training Does the Pt Use a Wheelchair?: Yes Distance: 50' Wheel 50 ft with 2 turns (QC): 4 Wheel 150 ft (QC): 88 Type of Wheelchair: Manual Stair Training 1 Step (curb) (QC): 88 4 Steps (QC): 88 12 Steps (QC): 88 Balance Picking up an Object (QC): 88 ADL-Treatment Eating (QC): 5 (Per pt report, pt required set up assist for opening containers this AM) Oral Hygiene (QC): 5 (set up assist at EOB) Shower/Bathe Self (QC): 3 (SPONGE BATH: Pt required assistance with buttocks. Pt able to complete all other parts of sponge bath, with CGA during stand for washing periarea.) Upper Body Dressing (QC): 4 (Set up for task and 1 verbal cue duirng task for orientation of night gown.) Lower Body Dressing (QC): 3 (Pt able to don/doff briefs, but required Min A to stand from EOB and CGA during stand.) On/Off Footwear (QC): 2 (Pt able to doff socks, but required assistance donning BLE socks.) Toileting Hygiene (QC): 3 (Pt able to complete clothing management but required assistance for hygiene. ) Toilet Transfer (QC): 3 (Pt required min A to stand to/from EOB & BSC.) Assessment/Plan Assessment and Plan Assess & Plan/Chief Complaint Assessment: Acute on chronic respiratory failure s/p extubation Severe debility Constipation s/p resolution today Metabolic alkalosis compensating for respiratory acidosis 44 Urinary incontinence Anemia Plan: IRF protocol Monitor closely BM regimen Incontinence care biPAP (1) Myopathy (2) Acute respiratory failure with hypoxia and hypercapnia Status: Acute (3) Paroxysmal A-fib Status: Chronic (4) COPD with acute exacerbation Status: Acute (5) Pleural effusion Status: Acute (6) Respiratory acidosis Status: Acute (7) CO2 narcosis Status: Acute (8) Anemia EB STALLWORTH DO Jun 09, 2019 08:39 POS
[2019-06-09] MEDS: DOCUSATE SODIUM 100 MG (COLACE) CAP PO SCH ×2 (09:00→20:14)
[2019-06-09] MEDS: POLYETHYLENE GLYCOL 17 GM (MIRALAX) PACK PO SCH ×2 (09:00→20:15)
[2019-06-09] MEDS: SENNA W/DOCUSATE (SENOKOT S) TABLET PO SCH ×2 (09:07→20:15)
[2019-06-09] MEDS: PANTOPRAZOLE 40 MG (PROTONIX) TAB PO SCH (09:07)
[2019-06-09] MEDS: APIXABAN 5 MG (ELIQUIS) TABLET PO SCH ×2 (09:07→20:14)
[2019-06-09] MEDS: DILTIAZEM 240 MG (CARDIZEM CD) CAP PO SCH (09:07)
[2019-06-09] MEDS: meTOprolol TARTRATE 25 MG (LOPRESSOR) TABLET PO SCH ×2 (09:08→20:14)
--- NOTE | 2019-06-09 09:25 | Occupational Ther Daily Note ---
OT Current Status-Daily Note Subjective Pt laying in bed at start of session, agreeable to OT tx with focus on ADLs. Pt reported she was having stomach pain from gas this morning, and that she has it when she is at home too. She did not verbalize pain rating during session. Mental Status/Objective Attachments: IV, Oxygen (3L) ADL-Treatment Therapy Code Descriptions/Definitions Functional [place] Measure: 0=Not Assessed/NA 4=Minimal Assistance 1=Total Assistance 5=Supervision or Setup 2=Maximal Assistance 6=Modified [place] 3=Moderate Assistance 7=Complete IndependenceSCALE: Activities may be completed with or without assistive devices. 0-Yrqiqaikrf-amvifep completes the activity by him/herself with no assistance from a helper. 5-Set-up or Clean-up Assistance-helper sets up or cleans up; patient completes activity. [place] assists only prior to or following the activity. 4-Supervision or Touching Assistance-helper provides verbal cues and/or tiesha skip/steadying and/or contact guard assistance as patient completes activity. Assistance may be provided throughout the activity or intermittently. 3-Partial/Moderate Assistance-helper does LESS THAN HALF the effort. [place] lifts, holds or supports trunk or limbs, but provides less than half the effort. 2-Substantial/Maximal Assistance-helper does MORE THAN HALF the effort. [place] lifts or holds trunk or limbs and provides more than half the effort. 9-Rgmibwcur-onhhqd does ALL the effort. Patient does none of the effort to complete the activity. Or, the assistance of 2 or more helpers is required for the patient to complete the activity. If activity was not attempted, code reason: 7-Patient Refused. 9-Not Applicable-not attempted and the patient did not perform the activity before the current illness, exacerbation or injury. 10-Not Attempted due to Environmental Limitations-(lack of equipment, weather restraints, etc.). 88-Not Attempted due to Medical Conditions or Safety Concerns. Bathing Location: L Arm, R Arm, L Upper Leg, R Upper Leg, Chest, Abdomen, Perineal Area Shower/Bathe Self (QC): 3 (Pt required assistance washing BLE lower legs and feet, and buttocks) Upper Body Dressing (QC): 3 (Pt required assistance pulling shirt over her back, pt able to thread BUE and head into shirt. ) Lower Body Dressing (QC): 3 (Pt requried assistance managing pants due to them falling to her ankles as she stood up.) Toileting Hygiene (QC): 3 (Pt able to manage clothing up/down, required assist for hygiene) Toilet Transfer (QC): 4 (CGA during transfer on/off [facility] over toilet) FOOTWEAR QC: 1 (pt required assistance to don/doff BLE socks. Other Treatment Pt transferred supine to sit with SBA, then she transferred to the [facility] using FWW with CGA. Pt completed toileting, then walked to the shower with CGA. Pt completed shower, and dressing. After dressing, pt transferred to the w/c to brush her hair at the sink. Pt stated she would like to use the bathroom again, so she transferred to [facility] over the toilet. After completing toileting, pt ambulated to bed using FWW with CGA. She required assistance with managing her left leg into bed to lay down. Post OT session, pt laying in bed, call light in reach and all needs met. Education OT Patient Education: Correct positioning, Energy conservation, Modified ADL techniques, Progress toward Goal/Update tx plan, Purpose of tx/functional activities, Transfer techniques Teaching Recipient: Patient Teaching Methods: Demonstration, Discussion Response to Teaching: Verbalize Understanding, Return Demonstration OT Short Term Goals Short Term Goals Time Frame: Jun 17, 2019 Toileting hygiene: 4 Shower/bathe self: 4 Upper body dressin Lower body dressin Putting on/taking off footwear: 3 OT Photo Mask Pattern Generator Goals Photo Mask Pattern Generator Goals Time Frame: Jun 26, 2019 Eating (QC): 6 Oral Hygiene (QC): 6 Toileting Hygiene (QC): 6 Shower/Bathe Self (QC): 6 Upper Body Dressing (QC): 6 Lower Body Dressing (QC): 6 On/Off Footwear (QC): 6 Additional Goals: 1-Demonstrate ADL Tasks, 2-Verbalize Understanding, 3-ImproveStrength/Brianne 1=Demonstrate adherence to instructed precautions during ADL tasks. 2=Patient will verbalize/demonstrate understanding of assistive devices/modifications for ADL. 3=Patient will improve strength/tolerance for activity to enable patient to perform ADL's. OT Education/Plan Problem List/Assessment Assessment: Decreased Activ Tolerance, Decreased UE Strength, Impaired Bed Mobility, Impaired Funct Balance, Impaired I ADL's, Impaired Self-Care Skills Discharge Recommendations Plan/Recommendations: Continue POC Treatment Plan/Plan of Care Treatment,Training & Education: Yes Patient would benefit from OT for education, treatment and training to promote independence in ADL's, mobility, safety and/or upper extremity function for ADL's. Plan of Care: ADL Retraining, Caregiver Training, Functional Mobility, Group Exercise/Act as Ind, UE Funct Exercise/Act Treatment Duration: Jun 26, 2019 Frequency: At least 5 of 7 days/Wk (IRF) Estimated Hrs Per Day: 1.5 hours per day Agreement: Yes Rehab Potential: Fair Time/GCodes Start Time: 08:15 Stop Time: 09:38 Total Time Billed (hr/min): 83 Billed Treatment Time 1, ADL 6 JG IGLESIAS OT Jun 09, 2019 09:25 POS
--- NOTE | 2019-06-09 11:33 | Physical Therapy Daily Note ---
PT Daily Note-Current Subjective pt in bed pre-tx agrees to therapy and denies any pain at this time. Appearance pt in recliner post-tx with call light, phone, table in reach and all needs met with RT in the room for breathing treatment. Mental Status Patient Orientation: Person, Place, Time, Situation Attachments: Oxygen (3L HF N/C) Transfers SCALE: Activities may be completed with or without assistive devices. 1-Jwdmrodakz-pxgfiow completes the activity by him/herself with no assistance f rom a helper. 5-Set-up or Clean-up Assistance-helper sets up or cleans up; patient completes activity. [place] assists only prior to or following the activity. 4-Supervision or Touching Assistance-helper provides verbal cues and/or touching/steadying and/or contact guard assistance as patient completes activity. Assistance may be provided throughout the activity or intermittently. 3-Partial/Moderate Assistance-helper does LESS THAN HALF the effort. [place] lifts, holds or supports trunk or limbs, but provides less than half the effort. 2-Substantial/Maximal Assistance-helper does MORE THAN HALF the effort. [place] lifts or holds trunk or limbs and provides more than half the effort. 4-Tuywdrlzp-ppqfbf does ALL the effort. Patient does none of the effort to complete the activity. Or, the assistance of 2 or more helpers is required for the patient to complete the activity. If activity was not attempted, code reason: 7-Patient Refused. 9-Not Applicable-not attempted and the patient did not perform the activity before the current illness, exacerbation or injury. 10-Not Attempted due to Environmental Limitations-(lack of equipment, weather restraints, etc.). 88-Not Attempted due to Medical Conditions or Safety Concerns. Lying to Sitting/Side of Bed(Q: 4 (SBA) Sit to Stand (QC): 4 (SBA) Toilet Transfer (QC): 4 (SBA) foam pad placed in the WC to raise the patient allowed for the pt to be able to sit <->stand with SBA only. Gait Training Distance: 160'x2, 40'x2 Walk 10 feet (QC): 4 (CGA) Walk 50 ft with 2 Turns(QC): 4 (CGA) Walk 150 ft (QC): 4 (CGA) Gait Assistive Device: FWW pt c/o pain in the R anterior thigh during ambulation this session. pt requires multiple rest breaks with ambulation. Wheelchair Training Does the Pt Use a Wheelchair?: Yes Wheel 50 ft with 2 turns (QC): 6 Type of Wheelchair: Manual Exercises Seated Therapy Exercises: Ankle pumps, Long arc quads, Hip flexion Seated Reps: 45 (15reps 3 sets) NuStep Minutes: 15 NuStep Workload: 4 Treatments pt performed transfer training, bed mobility training, skilled ambulation training, functional LE strengthening training, and education. Assessment Current Status: Good Progress pt abran increased distance for ambulation this session. Pt able to complete all transfers with only SBA. Pt continues to fatigue quickly and require multiple standing breaks but is able to push through to make it to her target. pt states she needs to use the restroom during session while in the gym and was able to ambulate back to her room and transfer to the toilet SBA and stand to wipe herself with SBA. PT Short Term Goals Short Term Goals Time Frame: Jun 15, 2019 Roll Left & Right: 6 Sit to lyin Lying to sitting on side of be: 6 Sit to stand: 4 Chair/hdh-fa-wjdlo transfer: 4 Walk 10 feet: 4 Walk 50 feet with two turns: 4 PT Custodial Goals Education Director Goals PT Education Director Goals Time Frame: Jun 29, 2019 Roll Left & Right (QC): 6 Sit to Lying (QC): 4 (SBA) Lying-Sitting on Side/Bed(QC): 6 Sit to Stand (QC): 4 (SBA) Chair/Czo-qa-Acdus Xfer(QC): 4 (SBA) Toilet Transfer (QC): 4 (SBA) Car Transfer (QC): 4 (SBA) Does the Patient Walk: Yes Walk 10 feet (QC): 4 (SBA) Walk 50ft with 2 Turns (QC): 4 (SBA) Walk 150 ft (QC): 4 (SBA) Walking 10ft on Uneven Surface: 4 (SBA) 1 Step (curb) (QC): 4 (CGA) 4 Steps (QC): 4 (CGA) 12 Steps (QC): 88 Picking up an Object (QC): 88 Does the Pt use WC or Scooter?: No Type: N/A Type: N/A PT Plan Problem List Problem List: Activity Tolerance, Functional Strength, Safety, Balance, Gait, Transfer, Bed Mobility, ROM Treatment/Plan Treatment Plan: Continue Plan of Care Treatment Plan: Bed Mobility, Concurrent Therapy, Education, Functional Activity Brianne, Functional Strength, Group Therapy, Gait, Safety, Therapeutic Exercise, Transfers Treatment Duration: Jun 29, 2019 Frequency: At least 5 of 7 days/Wk (IRF) Estimated Hrs Per Day: 1.5 hours per day Patient and/or Family Agrees t: Yes Safety Risks/Education Patient Education: Gait Training, Transfer Techniques, Correct Positioning, W/C Management, Safety Issues Teaching Recipient: Patient Teaching Methods: Demonstration, Discussion Response to Teaching: Return Demonstration, Reinforcement Needed Time/GCodes Time In: 1030 Time Out: 1130 Total Billed Treatment Time: 60 Total Billed Treatment 1 visit [facility] 15' GT 20' FA 15' EX 10' ROSA HUSTON PT Jun 09, 2019 11:33 POS
--- NOTE | 2019-06-09 11:42 | Progress Note - Cardiology ---
Cardiology SOAP Progress Note Subjective: Sitting up in a recliner at the bedside with RT. No new c/o Objective: I&O/Vital Signs 06/11/19 06/11/19 06/11/19 06/11/19 01:55 02:00 05:55 08:22 Temp 37.0 Pulse 64 68 71 Resp 23 16 18 B/P (MAP) 105/63 (77) 133/72 (92) Pulse Ox 93 98 91 95 O2 Delivery Nasal Cannula Nasal Cannula Nasal Cannula O2 Flow Rate 2.00 45.00 3.00 2.00 06/11/19 06/11/19 09:00 09:07 Pulse Ox 95 O2 Delivery Nasal Cannula Nasal Cannula O2 Flow Rate 2.00 2.00 06/11/19 00:00 Intake Total 860 ml Balance 860 ml Constitutional: AAO x 3 Respiratory: No accessory muscle use, No respiratory distress; chest expansion is symmetric, chest is bilaterally symmetric, lungs clear to auscultation Cardiovascular: regular rate-rhythm; No JVD; S1 and S2, systolic murmur (2/6 ) Gastrointestional: No tender; soft, round, audible bowel sounds Extremities: no lower extremity edema bilateral Neurologic/Psychiatric: grossly intact Skin: No rash on exposed areas, No ulcerations on exposed areas A/P: Assessment: PAF with RVR, currently NSR Ac resp failure due to ac exac of severe COPD due to pneumonia Echo of 06/05/19: LVEF 55-60%, mild LA enlargement, grade 1 diastolic dysfunction, RVSP 18 mmHg 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
--- NOTE | 2019-06-09 14:27 | Therapy Group Daily Note ---
Therapy Daily Group Note Patient Education Topic Home Safety Exercises LE Seated Exercise, UE Exercise Session Ratio (pt:therapist): 4:1 Goal of Session: Home Safety Strategies, UE/LE Strengthing Goal Met for this Session: Yes Pt Benefit of Group: Contributions to Others, F/U Use of Strategies @Home, Increased Functional Safety, Increased Functional Strength, Improved Cognition, Recognition of Peers, Socialization Other/Notes Pt ambulated to therapy gym for OT group. Group consisted of introductions (name, place, Rock song triliama), socialization, UE/LE seated exercises and home safety education. Pt introduced self appropriately and actively listened to peers. Pt was able to complete UE/LE seated exercises with education of exercise benefits. Pt acknowledged understanding of educational topic by giving own strategies and modifications at their home. After therapy, pt lying in bed with call light/phone in reach. All needs met in room. Start Time: 13:00 Stop Time: 14:10 Total Billed Treatment Time: 70 Total Billed Treatment 1-LYNN HERNANDEZ Jun 09, 2019 14:27 POS
--- NOTE | 2019-06-09 16:08 | NUR ---
RD ASSESSMENT PMHx: COPD PT INTERACTION: Pt was awake and pleasant during nutrition assessment. Pt states current appetite is "getting stronger," as it had been poor prior to admit. Note pt avg PO intake of 50% x1d, per chart review. Pt states following a regular diet at home, and currently has no issues with chewing/swallowing food. Pt states no recent issues with n/v/c/d at this time. Note last BM was 06/08, and pt currently on bowel regimen of colace BID; miralax BID; senna BID; and bisacodyl PRN, per chart review. Pt states feeling some wt loss, but unsure of amount lost. Note unable to determine recent wt hx, per chart review. ABNORMAL NUTRITION-RELATED LAB VALUES LOW: Cl 94; cr 0.51; Pro 5.2 HIGH: AST 79 Est. kcal needs: 1453-5588 kcal | 15-20 kcal/kg Est. Pro needs: 68-85 g Pro | 0.8-1.0 g Pro/kg PES STATEMENT: Inadequate oral intake (NI-2.1) related to loss of appetite as evidenced by pt interview | avg PO intake of 50% x1d INTERVENTION: Continue with current diet order of Regular diet. Pt may benefit from nutrition supplementation if PO intake declines. Will continue to follow and reassess as pt needs and status change. MONITOR/EVALUATE: PO Intake; Plan of Care; Hydration Status; Weight Status; Lab Values Blank Arnold, MS, RD, LD
[2019-06-09] MEDS: ACETAMINOPHEN 325 MG TABLET PO PRN (16:35)
[2019-06-09] MEDS: RT-ALBUTEROL/IPRATROPIUM 3 ML (DUONEB) VIAL INH PRN (16:35)
--- NOTE | 2019-06-09 17:31 | Progress Note - Cardiology ---
Cardiology SOAP Progress Note Subjective: Weakness slowly improving No cp or palp or syncope No leg swelling Objective: I&O/Vital Signs 06/09/19 06/09/19 06/09/19 06/09/19 06:00 07:57 09:00 11:21 Temp 36.6 Pulse 71 Resp 18 B/P (MAP) 116/67 (83) Pulse Ox 98 95 94 O2 Delivery Nasal Cannula Nasal Cannula Nasal Cannula Nasal Cannula O2 Flow Rate 3.00 3.00 3.00 3.00 06/09/19 00:00 Intake Total 660 ml Balance 660 ml Constitutional: AAO x 3 Respiratory: No accessory muscle use, No respiratory distress; chest expansion is symmetric, chest is bilaterally symmetric, lungs clear to auscultation Cardiovascular: regular rate-rhythm; No JVD; S1 and S2, systolic murmur (2/6 ) Gastrointestional: No tender; soft, round, audible bowel sounds Extremities: no lower extremity edema bilateral Neurologic/Psychiatric: grossly intact Skin: No rash on exposed areas, No ulcerations on exposed areas Results/Procedures: Labs Laboratory Tests 06/08/19 06:55 A/P: Assessment: PAF with RVR, currently NSR Ac resp failure due to ac exac of severe COPD due to pneumonia, now resolved Echo of 06/05/19: LVEF 55-60%, mild LA enlargement, grade 1 diastolic dy sfunction, RVSP 18 mmHg 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
[2019-06-09 17:48] VITALS: BP 124/73
[2019-06-09] MEDS: MELATONIN 3 MG TABLET PO PRN (20:14)
[2019-06-10] MEDS: RT-ALBUTEROL/IPRATROPIUM 3 ML (DUONEB) VIAL INH PRN (01:24)
[2019-06-10 05:25] VITALS: BP 99/59
[2019-06-10] MEDS: predniSONE 10 MG TAB PO SCH (06:17)
[2019-06-10] MEDS: RT-ALBUTEROL/IPRATROPIUM 3 ML (DUONEB) VIAL INH SCH ×5 (07:29→21:39)
--- NOTE | 2019-06-10 07:32 | NUR ---
PTS 02 FOUND 02 6LPM @ 99% SP02, FIO2 DECREASED TO 3LPM TARGET SP02 RANGE IS 88-92%. DUE TO PATIENTS HYPOXIC DRIVE.
--- NOTE | 2019-06-10 08:23 | Progress Note ---
Subjective Time Seen by a Provider: 08:20 Subjective/Events-last exam Patient feeling better this morning. Patient feels she's getting stronger. Patient had shortness of breath episode this morning and received albuterol treatment and did better. Spoke to nurse about patient. Patient in the right direction Objective Exam Vital Signs Date Time Temp Pulse Resp B/P (MAP) Pulse Ox O2 Delivery O2 Flow Rate FiO2 06/10/19 08:00 36.8 72 94 06/10/19 07:29 99 Nasal Cannula 6.00 06/10/19 05:25 36.8 72 16 99/59 (72) 97 Nasal Cannula 3.00 06/09/19 23:44 64 19 45.00 06/09/19 21:00 Nasal Cannula 3.00 06/09/19 17:48 37.2 68 18 124/73 (90) 95 Nasal Cannula 3.00 06/09/19 11:21 94 Nasal Cannula 3.00 06/09/19 09:00 Nasal Cannula 3.00 I & O 06/10/19 07:00 Intake Total 740 ml Balance 740 ml Capillary Refill : General Appearance: No Apparent Distress, WD/WN HEENT: Normal ENT Inspection Neck: Full Range of Motion, Normal Inspection Respiratory: Lungs Clear, No Accessory Muscle Use, No Respiratory Distress, Decreased Breath Sounds Cardiovascular: Regular Rate, Rhythm, No Murmur Gastrointestinal: non tender, soft Assessment/Plan Assessment/Plan Assess & Plan/Chief Complaint COPD. Myopathy. Patient and feeling that patient is doing better. Patient positive. . 06/09/19. COPD with acute exacerbation. Myopathy. Debility. Paroxymal atrial fibrillation. . 06/10/19 COPD. Myopathy. Debility. atrial fibrillation Clinical Quality Measures DVT/VTE Risk/Contraindication: Risk Factor Score Per Nursin RFS Level Per Nursing on Admit: 4+=Very High ADOLFO ORTIZ DO Jun 10, 2019 08:23 POS
--- NOTE | 2019-06-10 08:47 | Occupational Ther Daily Note ---
OT Current Status-Daily Note Subjective Pt sitting EOB with nursing at start of session. Pt stated she had just used the bathroom. Pt agreeable to OT tx with focus on ADLs and UE exercises, pt did not report any pain during tx. Mental Status/Objective Attachments: Oxygen (3L) ADL-Treatment Therapy Code Descriptions/Definitions Functional [place] Measure: 0=Not Assessed/NA 4=Minimal Assistance 1=Total Assistance 5=Supervision or Setup 2=Maximal Assistance 6=Modified [place] 3=Moderate Assistance 7=Complete IndependenceSCALE: Activities may be completed with or without assistive devices. 6-Apcxvuqoqo-zmktbpm completes the activity by him/herself with no assistance from a helper. 5-Set-up or Clean-up Assistance-helper sets up or cleans up; patient completes activity. [place] assists only prior to or following the activity. 4-Supervision or Touching Assistance-helper provides verbal cues and/or touching/steadying and/or contact guard assistance as patient completes activity. Assistance may be provided throughout the activity or intermittently. 3-Partial/Moderate Assistance-helper does LESS THAN HALF the effort. [place] lifts, holds or supports trunk or limbs, but provides less than half the effort. 2-Substantial/Maximal Assistance-helper does MORE THAN HALF the effort. [place] lifts or holds trunk or limbs and provides more than half the effort. 9-Ziqmxvvcu-eerwrq does ALL the effort. Patient does none of the effort to complete the activity. Or, the assistance of 2 or more helpers is required for the patient to complete the activity. If activity was not attempted, code reason: 7-Patient Refused. 9-Not Applicable-not attempted and the patient did not perform the activity before the current illness, exacerbation or injury. 10-Not Attempted due to Environmental Limitations-(lack of equipment, weather restraints, etc.). 88-Not Attempted due to Medical Conditions or Safety Concerns. Upper Body Dressing (QC): 5 (Set up assistance) Lower Body Dressing (QC): 4 (Pt able to don BLE into pants, and manage pants up with CGA during stand.) Toileting Hygiene (QC): 4 (SBA during clothing management and hygiene) Toilet Transfer (QC): 4 (CGA) FOOTWEAR QC: 3 (OT educated pt on sock aide, demo'ing how to don sock onto sock aide. Pt was then able to don sock onto left foot, she then demo'd donning right sock without set up.) Other Treatment Pt completed dressing in her room, then performed functional mobility to the therapy gym using FWW with CGA. Pt required a couple of standing rest breaks on the way to the gym, denying the need to sit down. In order to increase BUE strength and functional endurance, pt completed the following activities: 1)arm bike, min resistance [id number]. 2) Pt then placed 1" pegs into foam pegboard, alternating hands,with BUE wrist cuffs on each arm. Pt performed task for 10 mins, no rest breaks required. Pt then performed functional mobility back to her room using FWW with CGA. Pt stated she would like to use the restroom before going back to bed. Toileting complete then pt performed functional mobility back to her bed. Post OT session, pt laying in bed, call light in reach, all needs met. Education OT Patient Education: Correct positioning, Energy conservation, Exercise progra m, Modified ADL techniques, Progress toward Goal/Update tx plan, Purpose of tx/functional activities Teaching Recipient: Patient Teaching Methods: Demonstration, Discussion Response to Teaching: Verbalize Understanding, Return Demonstration OT Short Term Goals Short Term Goals Time Frame: Jun 17, 2019 Toileting hygiene: 4 Shower/bathe self: 4 Upper body dressin Lower body dressin Putting on/taking off footwear: 3 OT [facility] Goals Jump Roll Operator Goals Time Frame: Jun 26, 2019 Eating (QC): 6 Oral Hygiene (QC): 6 Toileting Hygiene (QC): 6 Shower/Bathe Self (QC): 6 Upper Body Dressing (QC): 6 Lower Body Dressing (QC): 6 On/Off Footwear (QC): 6 Additional Goals: 1-Demonstrate ADL Tasks, 2-Verbalize Understanding, 3- ImproveStrength/Brianne 1=Demonstrate adherence to instructed precautions during ADL tasks. 2=Patient will verbalize/demonstrate understanding of assistive devices/modifications for ADL. 3=Patient will improve strength/tolerance for activity to enable patient to perform ADL's. OT Education/Plan Problem List/Assessment Assessment: Decreased Activ Tolerance, Decreased UE Strength, Impaired Funct Balance, Impaired I ADL's, Impaired Self-Care Skills Discharge Recommendations Plan/Recommendations: Continue POC Treatment Plan/Plan of Care Treatment,Training & Education: Yes Patient would benefit from OT for education, treatment and training to promote independence in ADL's, mobility, safety and/or upper extremity function for ADL's. Plan of Care: ADL Retraining, Caregiver Training, Functional Mobility, Group Exercise/Act as Ind, UE Funct Exercise/Act Treatment Duration: Jun 26, 2019 Frequency: At least 5 of 7 days/Wk (IRF) Estimated Hrs Per Day: 1.5 hours per day Agreement: Yes Rehab Potential: Fair Time/GCodes Start Time: 08:00 Stop Time: 09:00 Total Time Billed (hr/min): 60 Billed Treatment Time 1, ADL 2 (30mins), EX 2 (30mins) JG IGLESIAS OT Jun 10, 2019 08:47 POS
[2019-06-10] MEDS: SENNA W/DOCUSATE (SENOKOT S) TABLET PO SCH ×2 (09:00→21:20)
[2019-06-10] MEDS: POLYETHYLENE GLYCOL 17 GM (MIRALAX) PACK PO SCH ×2 (09:00→21:19)
[2019-06-10] MEDS: DOCUSATE SODIUM 100 MG (COLACE) CAP PO SCH ×2 (09:00→21:19)
[2019-06-10 09:10] VITALS: BP 153/71
[2019-06-10] MEDS: PANTOPRAZOLE 40 MG (PROTONIX) TAB PO SCH (09:10)
[2019-06-10] MEDS: meTOprolol TARTRATE 25 MG (LOPRESSOR) TABLET PO SCH ×2 (09:10→20:47)
[2019-06-10] MEDS: DILTIAZEM 240 MG (CARDIZEM CD) CAP PO SCH (09:10)
[2019-06-10] MEDS: APIXABAN 5 MG (ELIQUIS) TABLET PO SCH ×2 (09:10→20:47)
--- NOTE | 2019-06-10 09:28 | PM&R Progress Note ---
Subjective HPI/CC On Admission Date Seen by Provider: Jun 10, 2019 Time Seen by Provider: 09:00 Subjective/Events-last exam Pt doing very well On a Prednisone taper dose Had some anxiety from COPD given Xanax and now shes improved Bowels are moving okay Talking about advanced directives because she does not want to be intubated again Will recheck to see her progress next Saturday Checked meds and labs Reviewed therapy notes Conferred with shipping and receiving assistant of Systems General: Fatigue Pulmonary: Dyspnea Objective Exam Vital Signs Vital Signs Date Time Temp Pulse Resp B/P (MAP) Pulse Ox O2 Delivery O2 Flow Rate FiO2 06/10/19 17:43 37.2 64 18 102/60 (74) 90 Nasal Cannula 3.00 Capillary Refill : General Appearance: No Apparent Distress, WD/WN, Chronically ill HEENT: PERRL/EOMI, Normal ENT Inspection, Pharynx Normal Neck: Full Range of Motion, Normal Inspection, Non Tender, Supple Respiratory: No Accessory Muscle Use, No Respiratory Distress, Decreased Breath Sounds Cardiovascular: Regular Rate, Rhythm, No Edema, No Murmur Gastrointestinal: Normal Bowel Sounds, No Organomegaly, No Pulsatile Mass, Non Tender, Soft Back: Normal Inspection, No CVA Tenderness, No Vertebral Tenderness Extremity: Normal Capillary Refill, Normal Inspection, Normal Range of Motion (severe weakness 3/5 all extremities), Non Tender, No Calf Tenderness, No Pedal Edema Neurologic/Psychiatric: Alert, Oriented x3, No Motor/Sensory Deficits, Normal Mood/Affect, leadership recruiter II-XII Norm as Tested Skin: Normal Color, Warm/Dry Lymphatic: No Adenopathy Results/Procedures Lab Patient resulted labs reviewed. FIM Transfers Therapy Code Descriptions/Definitions Functional [place] Measure: 0=Not Assessed/NA 4=Minimal Assistance 1=Total Assistance 5=Supervision or Setup 2=Maximal Assistance 6=Modified [place] 3=Moderate Assistance 7=Complete IndependenceSCALE: Activities may be completed with or without assistive devices. 1-Zhchfivokp-ejnywua completes the activity by him/herself with no assistance from a helper. 5-Set-up or Clean-up Assistance-helper sets up or cleans up; patient completes activity. [place] assists only prior to or following the activity. 4-Supervision or Touching Assistance-helper provides verbal cues and/or touching/steadying and/or contact guard assistance as patient completes activity. Assistance may be provided throughout the activity or intermittently. 3-Partial/Moderate Assistance-helper does LESS THAN HALF the effort. [place] lifts, holds or supports trunk or limbs, but provides less than half the effort. 2-Substantial/Maximal Assistance-helper does MORE THAN HALF the effort. [place] lifts or holds trunk or limbs and provides more than half the effort. 1-Xlburztqc-bciqxe does ALL the effort. Patient does none of the effort to complete the activity. Or, the assistance of 2 or more helpers is required for the patient to complete the activity. If activity was not attempted, code reason: 7-Patient Refused. 9-Not Applicable-not attempted and the patient did not perform the activity before the current illness, exacerbation or injury. 10-Not Attempted due to Environmental Limitations-(lack of equipment, weather restraints, etc.). 88-Not Attempted due to Medical Conditions or Safety Concerns. Roll Left to Right (QC): 6 Sit to Lying (QC): 3 Sit to Stand (QC): 4 (SBA) Chair/Fin-ik-Kqrwe Xfer(QC): 4 (CG) Car Transfer (QC): 4 Gait Training Does the Patient Walk?: Yes Distance: 160'x2, 40'x2 Walk 10 feet (QC): 4 (CGA) Walk 50 ft with 2 Turns(QC): 4 (CGA) Walk 150 ft (QC): 4 (CGA) Walking 10ft/uneven surface-QC: 4 Gait Assistive Device: FWW Wheelchair Training Does the Pt Use a Wheelchair?: Yes Distance: 50' Wheel 50 ft with 2 turns (QC): 6 Wheel 150 ft (QC): 88 Type of Wheelchair: Manual Stair Training 1 Step (curb) (QC): 88 4 Steps (QC): 88 12 Steps (QC): 88 Balance Picking up an Object (QC): 88 ADL-Treatment Eating (QC): 5 (Per pt report, pt required set up assist for opening containers this AM) Oral Hygiene (QC): 5 (set up assist at EOB) Bathing Location: L Arm, R Arm, L Upper Leg, R Upper Leg, Chest, Abdomen, Perineal Area Shower/Bathe Self (QC): 3 (Pt required assistance washing BLE lower legs and feet, and buttocks) Upper Body Dressing (QC): 5 (Set up assistance) Lower Body Dressing (QC): 4 (Pt able to don BLE into pants, and manage pants up with CGA during stand.) On/Off Footwear (QC): 2 (Pt able to doff socks, but required assistance donning BLE socks.) Toileting Hygiene (QC): 4 (SBA during clothing management and hygiene) Toilet Transfer (QC): 4 (CGA) Assessment/Plan Assessment and Plan Assess & Plan/Chief Complaint Assessment: Acute on chronic respiratory failure s/p extubation Severe debility Constipation s/p resolution today Metabolic alkalosis compensating for respiratory acidosis 44 Urinary incontinence Anemia Plan: IRF protocol Monitor closely BM regimen Incontinence care biPAP Monitor for pain DNI? (1) Myopathy (2) Acute respiratory failure with hypoxia and hypercapnia Status: Acute (3) Paroxysmal A-fib Status: Chronic (4) COPD with acute exacerbation Status: Acute (5) Pleural effusion Status: Acute (6) Respiratory acidosis Status: Acute (7) CO2 narcosis Status: Acute (8) Anemia EB STALLWORTH DO Jun 10, 2019 09:28 POS
--- NOTE | 2019-06-10 12:05 | Physical Therapy Daily Note ---
PT Daily Note-Current Subjective Patient reports she is doing well this morning. Reports no pain at beginning or end of treatment but some R hip pain during exercises and ambulation. Pain Numeric Pain Scale: 5-Moderate Pain Location: Right Location Body Site: Hip Pain Description: Ache Mental Status Patient Orientation: Normal For Age Attachments: Oxygen (2L) Transfers SCALE: Activities may be completed with or without assistive devices. 2-Nhkhhsngsh-nbanaba completes the activity by him/herself with no assistance fr om a helper. 5-Set-up or Clean-up Assistance-helper sets up or cleans up; patient completes activity. [place] assists only prior to or following the activity. 4-Supervision or Touching Assistance-helper provides verbal cues and/or touching/steadying and/or contact guard assistance as patient completes activity. Assistance may be provided throughout the activity or intermittently. 3-Partial/Moderate Assistance-helper does LESS THAN HALF the effort. [place] lifts, holds or supports trunk or limbs, but provides less than half the effort. 2-Substantial/Maximal Assistance-helper does MORE THAN HALF the effort. [place] lifts or holds trunk or limbs and provides more than half the effort. 5-Dlwihofxw-lerkxs does ALL the effort. Patient does none of the effort to complete the activity. Or, the assistance of 2 or more helpers is required for the patient to complete the activity. If activity was not attempted, code reason: 7-Patient Refused. 9-Not Applicable-not attempted and the patient did not perform the activity before the current illness, exacerbation or injury. 10-Not Attempted due to Environmental Limitations-(lack of equipment, weather restraints, etc.). 88-Not Attempted due to Medical Conditions or Safety Concerns. Roll Left & Right (QC): 4 Sit to Lying (QC): 4 Lying to Sitting/Side of Bed(Q: 4 Sit to Stand (QC): 4 SBA Gait Training Does the Patient Walk?: Yes Distance: 150', 100', 50' Walk 10 feet (QC): 4 Walk 50 ft with 2 Turns(QC): 4 Walk 150 ft (QC): 4 Gait Assistive Device: FWW CGA; slightly antalgic gait with lateral lean d/t R hip pain Exercises Supine Ex: Ankle pumps, Quad Set, Glut sets, Heel Slides, Short Arc Quads, Straight leg raise, Hip abd/add Supine Reps: 15 Seated Therapy Exercises: Ankle pumps, Sit to stand (x5 in a row), Long arc quads, Hip flexion, Hip abd/add Seated Reps: 15 NuStep Minutes: 10 NuStep Workload: 4 Assessment Current Status: Good Progress Patient demonstrated lateral lean and slightly antalgic gait during ambulation attributed to R hip pain. After ambulation, reported some SOB on 2L O2 and sats at 89%. She was unable to complete repetitions of some supine and seated exercises on the R d/t increased hip pain. Patient was able to complete NuStep at level 4 without aggravation of hip pain or LE weakness, allowing patient to continue LE strengthening. PT Short Term Goals Short Term Goals Time Frame: Jun 15, 2019 Roll Left & Right: 6 Sit to lyin Lying to sitting on side of be: 6 Sit to stand: 4 Chair/thh-xp-lyzym transfer: 4 Walk 10 feet: 4 Walk 50 feet with two turns: 4 PT Half-Way Goals Sexual Abuse Counsellor Goals PT Sexual Abuse Counsellor Goals Time Frame: Jun 29, 2019 Roll Left & Right (QC): 6 Sit to Lying (QC): 4 (SBA) Lying-Sitting on Side/Bed(QC): 6 Sit to Stand (QC): 4 (SBA) Chair/Hxn-rt-Fggdv Xfer(QC): 4 (SBA) Toilet Transfer (QC): 4 (SBA) Car Transfer (QC): 4 (SBA) Does the Patient Walk: Yes Walk 10 feet (QC): 4 (SBA) Walk 50ft with 2 Turns (QC): 4 (SBA) Walk 150 ft (QC): 4 (SBA) Walking 10ft on Uneven Surface: 4 (SBA) 1 Step (curb) (QC): 4 (CGA) 4 Steps (QC): 4 (CGA) 12 Steps (QC): 88 Picking up an Object (QC): 88 Does the Pt use WC or Scooter?: No Type: N/A Type: N/A PT Plan Treatment/Plan Treatment Plan: Continue Plan of Care Treatment Plan: Bed Mobility, Concurrent Therapy, Education, Functional Activity Brianne, Functional Strength, Group Therapy, Gait, Safety, Therapeutic Exercise, Transfers Treatment Duration: Jun 29, 2019 Frequency: At least 5 of 7 days/Wk (IRF) Estimated Hrs Per Day: 1.5 hours per day Patient and/or Family Agrees t: Yes Safety Risks/Education Patient Education: Gait Training, Safety Issues Teaching Recipient: Patient Teaching Methods: Discussion Response to Teaching: Verbalize Understanding Time/GCodes Time In: 1100 Time Out: 1200 Total Billed Treatment Time: 60 Total Billed Treatment 1 visit EX x2 30min FA 15min GT 15min SUSAN SULLIVAN PTA Jun 10, 2019 12:05 POS
--- NOTE | 2019-06-10 14:38 | Therapy Group Daily Note ---
Therapy Daily Group Note Patient Education Topic Other List Below (Benefits of exercise as you age) Exercises LE Seated Exercise, UE Exercise Session Ratio (pt:therapist): 4:1 Goal of Session: Other (list) (Understanding and demonstrating benefits of variety of physical activity as you age) Goal Met for this Session: Yes Pt Benefit of Group: Contributions to Others, Increased Functional Strength, Socialization Other/Notes Patient participated in group PT/OT session. Patient ambulated to/from session with assistant nurse manager. Patient was very vocal in sharing, socializing, and answering questions about physical activity. Shared thoughts about personal obstacles and motivators currently to exercise, prior level and type of physical activity, and additional ideas about how to incorporate physical activity into current situation. Participated in all exercise demonstrations within personal limits to complete activities. To room after group, mack at hand and needs met Start Time: 13:00 Stop Time: 14:15 Total Billed Treatment Time: 75 Total Billed Treatment 1 GRP 75min SUSAN SULLIVAN [employer]IVERS LICENSE EXAMINER Jun 10, 2019 14:38 POS
--- NOTE | 2019-06-10 15:08 | Progress Note - Cardiology ---
Cardiology SOAP Progress Note Subjective: No cp or palp or syncope Gen weakness, slowly improving No shortness of breath at rest No swelling Objective: I&O/Vital Signs 06/10/19 06/10/19 06/10/19 06/10/19 05:25 07:29 08:00 09:00 Temp 36.8 36.8 Pulse 72 72 Resp 16 B/P (MAP) 99/59 (72) Pulse Ox 97 99 94 O2 Delivery Nasal Cannula Nasal Cannula Nasal Cannula O2 Flow Rate 3.00 6.00 3.00 06/10/19 06/10/19 09:10 10:43 Pulse 85 B/P (MAP) 153/71 (98) Pulse Ox 95 O2 Delivery Nasal Cannula O2 Flow Rate 2.00 06/10/19 00:00 Intake Total 440 ml Balance 440 ml Constitutional: AAO x 3 Respiratory: No accessory muscle use, No respiratory distress; chest expansion is symmetric, chest is bilaterally symmetric, lungs clear to auscultation Cardiovascular: regular rate-rhythm; No JVD; S1 and S2, systolic murmur (2/6 ) Gastrointestional: No tender; soft, round, audible bowel sounds Extremities: no lower extremity edema bilateral Neurologic/Psychiatric: grossly intact Skin: No rash on exposed areas, No ulcerations on exposed areas A/P: Assessment: PAF with RVR, currently NSR Ac resp failure due to ac exac of severe COPD due to pneumonia, now resolved Echo of 06/05/19: LVEF 55-60%, mild LA enlargement, grade 1 diastolic dysfunction, RVSP 18 mmHg 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
[2019-06-10] MEDS: ACETAMINOPHEN 325 MG TABLET PO PRN (15:26)
[2019-06-10 17:43] VITALS: BP 102/60
[2019-06-11] MEDS: RT-ALBUTEROL/IPRATROPIUM 3 ML (DUONEB) VIAL INH SCH ×6 (01:55→22:45)
[2019-06-11 05:55] VITALS: BP 105/63
[2019-06-11] MEDS: predniSONE 10 MG TAB PO SCH (06:20)
[2019-06-11] MEDS: ACETAMINOPHEN 325 MG TABLET PO PRN ×2 (06:20→13:08)
--- NOTE | 2019-06-11 07:13 | Pulmonary Progress Note ---
Subjective Time Seen by a Provider: 07:23 Subjective/Events-last exam Pt is doing better. Sepsis Event Evaluation Height, Weight, BMI Height: '" Weight: lbs. oz. kg; 31.96 BMI Method: Exam Exam Vital Signs Date Time Temp Pulse Resp B/P (MAP) Pulse Ox O2 Delivery O2 Flow Rate FiO2 06/11/19 05:55 37.0 68 16 105/63 (77) 91 Nasal Cannula 3.00 06/11/19 02:00 64 23 98 45.00 06/11/19 01:55 93 Nasal Cannula 2.00 06/10/19 21:40 95 Nasal Cannula 2.00 06/10/19 20:40 Nasal Cannula 3.00 06/10/19 17:43 37.2 64 18 102/60 (74) 90 Nasal Cannula 3.00 06/10/19 10:43 95 Nasal Cannula 2.00 06/10/19 09:10 85 153/71 (98) 06/10/19 09:00 Nasal Cannula 3.00 06/10/19 08:00 36.8 72 94 06/10/19 07:29 99 Nasal Cannula 6.00 I & O 06/11/19 07:00 Intake Total 1010 ml Balance 1010 ml Height & Weight Height: '" Weight: lbs. oz. kg; 31.96 BMI Method: General Appearance: No Apparent Distress, WD/WN HEENT: Normal ENT Inspection Neck: Full Range of Motion, Normal Inspection Respiratory: Chest Non Tender, Lungs Clear, Normal Breath Sounds, No Accessory Muscle Use, No Respiratory Distress Cardiovascular: Regular Rate, Rhythm, No Edema, No Gallop, No JVD, No Murmur, Normal Peripheral Pulses Gastrointestinal: non tender, soft Extremity: Normal Capillary Refill, Normal Inspection, Normal Range of Motion (severe weakness 3/5 all extremities), Non Tender, No Calf Tenderness, No Pedal Edema Neurologic/Psychiatric: Alert, Oriented x3, No Motor/Sensory Deficits, Normal 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
--- NOTE | 2019-06-11 08:15 | Progress Note ---
Subjective Time Seen by a Provider: 08:14 Subjective/Events-last exam Patient states she's continuing to improve. Patient not having any chest pain. Patient breathing better. Debility improving. Having problems with nose with oxygen. No help with water Objective Exam Vital Signs Date Time Temp Pulse Resp B/P (MAP) Pulse Ox O2 Delivery O2 Flow Rate FiO2 06/11/19 05:55 37.0 68 16 105/63 (77) 91 Nasal Cannula 3.00 06/11/19 02:00 64 23 98 45.00 06/11/19 01:55 93 Nasal Cannula 2.00 06/10/19 21:40 95 Nasal Cannula 2.00 06/10/19 20:40 Nasal Cannula 3.00 06/10/19 17:43 37.2 64 18 102/60 (74) 90 Nasal Cannula 3.00 06/10/19 10:43 95 Nasal Cannula 2.00 06/10/19 09:10 85 153/71 (98) 06/10/19 09:00 Nasal Cannula 3.00 I & O 06/11/19 07:00 Intake Total 1010 ml Balance 1010 ml Capillary Refill : General Appearance: No Apparent Distress, WD/WN HEENT: Normal ENT Inspection Neck: Full Range of Motion, Normal Inspection Respiratory: No Accessory Muscle Use, No Respiratory Distress, Decreased Breath Sounds Cardiovascular: Regular Rate, Rhythm, No Murmur Gastrointestinal: non tender, soft Assessment/Plan Assessment/Plan Assess & Plan/Chief Complaint COPD. Myopathy. Patient and feeling that patient is doing better. Patient positive. . 06/09/19. COPD with acute exacerbation. Myopathy. Debility. Paroxymal atrial fibrillation. . 06/10/19 COPD. Myopathy. Debility.. . 06/11/19. COPD. Debility. Myopathy. Atrial fibrillation history atrial fibrillation Clinical Quality Measures DVT/VTE Risk/Contraindication: Risk Factor Score Per Nursin RFS Level Per Nursing on Admit: 4+=Very High ADOLFO ORTIZ DO Jun 11, 2019 08:15 POS
[2019-06-11] MEDS: DILTIAZEM 240 MG (CARDIZEM CD) CAP PO SCH (08:21)
[2019-06-11] MEDS: SENNA W/DOCUSATE (SENOKOT S) TABLET PO SCH ×2 (08:21→21:37)
[2019-06-11] MEDS: POLYETHYLENE GLYCOL 17 GM (MIRALAX) PACK PO SCH ×2 (08:21→21:37)
[2019-06-11] MEDS: DOCUSATE SODIUM 100 MG (COLACE) CAP PO SCH ×2 (08:21→21:30)
[2019-06-11] MEDS: APIXABAN 5 MG (ELIQUIS) TABLET PO SCH ×2 (08:21→21:28)
[2019-06-11] MEDS: PANTOPRAZOLE 40 MG (PROTONIX) TAB PO SCH (08:21)
[2019-06-11] MEDS: meTOprolol TARTRATE 25 MG (LOPRESSOR) TABLET PO SCH ×2 (08:21→21:28)
[2019-06-11 08:22] VITALS: BP 133/72
[2019-06-11] MEDS: RT-ADVAIR HFA 115/21 MCG PER PUFF IH SCH ×2 (09:06→19:15)
--- NOTE | 2019-06-11 09:18 | Progress Note - Cardiology ---
Cardiology SOAP Progress Note Subjective: Sitting up in bed. C/O frequent cough of thick, clear phlegm. No c/o CP or palpitations. Objective: I&O/Vital Signs 06/11/19 06/11/19 06/12/19 06/12/19 20:00 22:45 02:28 02:35 Pulse 68 65 Resp 29 28 Pulse Ox 94 93 93 O2 Delivery Nasal Cannula Nasal Cannula O2 Flow Rate 2.00 45.00 2.00 45.00 06/12/19 06/12/19 06:07 07:15 Temp 37.0 Pulse 66 Resp 18 B/P (MAP) 101/67 (78) Pulse Ox 96 93 O2 Delivery Nasal Cannula Nasal Cannula O2 Flow Rate 3.00 2.00 06/12/19 00:00 Intake Total 680 ml Balance 680 ml Constitutional: AAO x 3 Respiratory: No accessory muscle use, No respiratory distress; chest expansion is symmetric, chest is bilaterally symmetric, lungs clear to auscultation Cardiovascular: regular rate-rhythm; No JVD; S1 and S2, systolic murmur (08/13 ) Gastrointestional: No tender; soft, round, audible bowel sounds Extremities: no lower extremity edema bilateral Neurologic/Psychiatric: grossly intact Skin: No rash on exposed areas, No ulcerations on exposed areas Results/Procedures: Labs Laboratory Tests 06/12/19 06:17: White Blood Count 4.4, Red Blood Count 3.12L, Hemoglobin 9.5L, Hematocrit 32L, Mean Corpuscular Volume 102H, Mean Corpuscular Hemoglobin 30, Mean Corpuscular Hemoglobin Concent 30L, Red Cell Distribution Width 13.9, Platelet Count 254, Mean Platelet Volume 9.9, Neutrophils (%) (Auto) 66, Lymphocytes (%) (Auto) 20, Monocytes (%) (Auto) 12, Eosinophils (%) (Auto) 2, Basophils (%) (Auto) 0, Neutrophils # (Auto) 2.9, Lymphocytes # (Auto) 0.9L, Monocytes # (Auto) 0.5, Eosinophils # (Auto) 0.1, Basophils # (Auto) 0.0, Creatinine 0.54L A/P: Assessment: PAF with RVR, currently NSR Ac resp failure due to ac exac of severe COPD due to pneumonia, now resolved Echo of 06/05/19: LVEF 55-60%, mild LA enlargement, grade 1 diastolic dysfunction, RVSP 18 mmHg 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
--- NOTE | 2019-06-11 09:36 | PM&R Progress Note ---
Subjective HPI/CC On Admission Date Seen by Provider: Jun 11, 2019 Time Seen by Provider: 08:15 Subjective/Events-last exam Pt having no issues. Really dramatically improved since admission. Using BiPAP at night and will go home on that. Denies any pain. Checked meds and labs Reviewed therapy notes Conferred with director print of Systems General: Fatigue Pulmonary: Dyspnea Objective Exam Vital Signs Vital Signs Date Time Temp Pulse Resp B/P (MAP) Pulse Ox O2 Delivery O2 Flow Rate FiO2 06/12/19 02:35 65 28 93 45.00 06/12/19 02:28 Nasal Cannula 06/11/19 16:36 37.1 137/73 (94) Capillary Refill : General Appearance: No Apparent Distress, WD/WN, Chronically ill, Obese HEENT: PERRL/EOMI, Normal ENT Inspection, Pharynx Normal Neck: Full Range of Motion, Normal Inspection, Non Tender, Supple Respiratory: Chest Non Tender, Lungs Clear, Normal Breath Sounds, No Accessory Muscle Use, No Respiratory Distress Cardiovascular: Regular Rate, Rhythm, No Edema, No Gallop, No JVD, No Murmur, Normal Peripheral Pulses Gastrointestinal: Normal Bowel Sounds, No Organomegaly, No Pulsatile Mass, Non Tender, Soft Back: Normal Inspection, No CVA Tenderness, No Vertebral Tenderness Extremity: Normal Capillary Refill, Normal Inspection, Normal Range of Motion (severe weakness 3/5 all extremities), Non Tender, No Calf Tenderness, No Pedal Edema Neurologic/Psychiatric: Alert, Oriented x3, No Motor/Sensory Deficits, 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 FIM Transfers Therapy Code Descriptions/Definitions Functional [place] Measure: 0=Not Assessed/NA 4=Minimal Assistance 1=Total Assistance 5=Supervision or Setup 2=Maximal Assistance 6=Modified [place] 3=Moderate Assistance 7=Complete IndependenceSCALE: Activities may be completed with or without assistive devices. 4-Rvjkmkegyb-kwzmtug completes the activity by him/herself with no assistance from a helper. 5-Set-up or Clean-up Assistance-helper sets up or cleans up; patient completes activity. [place] assists only prior to or following the activity. 4-Supervision or Touching Assistance-helper provides verbal cues and/or touching/steadying and/or contact guard assistance as patient completes activity. Assistance may be provided throughout the activity or intermittently. 3-Partial/Moderate Assistance-helper does LESS THAN HALF the effort. [place] lifts, holds or supports trunk or limbs, but provides less than half the effort. 2-Substantial/Maximal Assistance-helper does MORE THAN HALF the effort. [place] lifts or holds trunk or limbs and provides more than half the effort. 0-Vwkrjalkm-gnvlji does ALL the effort. Patient does none of the effort to complete the activity. Or, the assistance of 2 or more helpers is required for the patient to complete the activity. If activity was not attempted, code reason: 7-Patient Refused. 9-Not Applicable-not attempted and the patient did not perform the activity before the current illness, exacerbation or injury. 10-Not Attempted due to Environmental Limitations-(lack of equipment, weather restraints, etc.). 88-Not Attempted due to Medical Conditions or Safety Concerns. Roll Left to Right (QC): 4 Sit to Lying (QC): 4 Sit to Stand (QC): 4 Chair/Ggh-ir-Lgqry Xfer(QC): 4 (CG) Car Transfer (QC): 4 Gait Training Does the Patient Walk?: Yes Distance: 150', 100', 50' Walk 10 feet (QC): 4 Walk 50 ft with 2 Turns(QC): 4 Walk 150 ft (QC): 4 Walking 10ft/uneven surface-QC: 4 Gait Assistive Device: FWW Wheelchair Training Does the Pt Use a Wheelchair?: Yes Distance: 50' Wheel 50 ft with 2 turns (QC): 6 Wheel 150 ft (QC): 88 Type of Wheelchair: Manual Stair Training 1 Step (curb) (QC): 88 4 Steps (QC): 88 12 Steps (QC): 88 Balance Picking up an Object (QC): 88 ADL-Treatment Eating (QC): 5 (Per pt report, pt required set up assist for opening containers this AM) Oral Hygiene (QC): 5 (set up assist at EOB) Bathing Location: L Arm, R Arm, L Upper Leg, R Upper Leg, Chest, Abdomen, Perineal Area Shower/Bathe Self (QC): 3 (Pt required assistance washing BLE lower legs and feet, and buttocks) Upper Body Dressing (QC): 5 (Set up assistance) Lower Body Dressing (QC): 4 (Pt able to don BLE into pants, and manage pants up with CGA during stand.) On/Off Footwear (QC): 2 (Pt able to doff socks, but required assistance donning BLE socks.) Toileting Hygiene (QC): 4 (SBA during clothing management and hygiene) Toilet Transfer (QC): 4 (CGA) Assessment/Plan Assessment and Plan Assess & Plan/Chief Complaint Assessment: Acute on chronic respiratory failure s/p extubation Severe debility Constipation s/p resolution today Metabolic alkalosis compensating for respiratory acidosis 44 Urinary incontinence Anemia Plan: IRF protocol Monitor closely BM regimen Incontinence care biPAP Monitor for pain DNI? Still requiring aggressive medical management due to severity of her weakness and COPD (1) Myopathy (2) Acute respiratory failure with hypoxia and hypercapnia Status: Acute (3) Paroxysmal A-fib Status: Chronic (4) COPD with acute exacerbation Status: Acute (5) Pleural effusion Status: Acute (6) Respiratory acidosis Status: Acute (7) CO2 narcosis Status: Acute (8) Anemia EB STALLWORTH DO Jun 11, 2019 09:36 POS
--- NOTE | 2019-06-11 09:37 | Occupational Ther Daily Note ---
OT Current Status-Daily Note Subjective Pt laying in bed at start of session, agreeable to OT tx this AM. Pt did not report any pain during tx. Mental Status/Objective Patient Orientation: Person, Place, Time, Situation Attachments: IV, Oxygen (2L) ADL-Treatment Therapy Code Descriptions/Definitions Functional [place] Measure: 0=Not Assessed/NA 4=Minimal Assistance 1=Total Assistance 5=Supervision or Setup 2=Maximal Assistance 6=Modified [place] 3=Moderate Assistance 7=Complete IndependenceSCALE: Activities may be completed with or without assistive devices. 8-Hdqkimyyuj-uctgfsg completes the activity by him/herself with no assistance from a helper. 5-Set-up or Clean-up Assistance-helper sets up or cleans up; patient completes activity. [place] assists only prior to or following the activity. 4-Supervision or Touching Assistance-helper provides verbal cues and/or touching/steadying and/or contact guard assistance as patient completes activity. Assistance may be provided throughout the activity or intermittently. 3-Partial/Moderate Assistance-helper does LESS THAN HALF the effort. Bath lifts, holds or supports trunk or limbs, but provides less than half the effort. 2-Substantial/Maximal Assistance-helper does MORE THAN HALF the effort. Bath lifts or holds trunk or limbs and provides more than half the effort. 2-Tzzlwvmky-talmez does ALL the effort. Patient does none of the effort to complete the activity. Or, the assistance of 2 or more helpers is required for the patient to complete the activity. If activity was not attempted, code reason: 7-Patient Refused. 9-Not Applicable-not attempted and the patient did not perform the activity before the current illness, exacerbation or injury. 10-Not Attempted due to Environmental Limitations-(lack of equipment, weather restraints, etc.). 88-Not Attempted due to Medical Conditions or Safety Concerns. Eating (QC): 6 (Per pt report, she was able to open all containers for breakfast, including jelly container. Pt reported no difficulty.) Bathing Location: L Arm, R Arm, L Upper Leg, R Upper Leg, L Lower Leg (including foot), R Lower Leg (including foot), Chest, Abdomen, Buttocks, P erineal Area Shower/Bathe Self (QC): 4 (SPONGE BATH complete seated EOB. CGA during standing for cleansing. Pt able to wash all parts today, with education on using a long handled sponge for washing BLE feet. ) Upper Body Dressing (QC): 5 (set up assist) Lower Body Dressing (QC): 4 (SBA ) Toileting Hygiene (QC): 4 (SBA during clothing management and hygiene.) Toilet Transfer (QC): 4 (SBA, pt able to transfer to[facility]from [facility] [place] with FWW.) FOOTWEAR WC: 5 set up and min verbal cues in order for pt to use dressing stick to doff socks, and sock aid to don. Other Treatment Pt transferred supine to sit without assistance. She then completed a sponge bath and dressing seated EOB. Pt stated she needed to use the bathroom, she ambulated to the bathroom SBA using FWW.. Pt able to complete toileting. Pt then performed functional mobility to the therapy gym using FWW with SBA, OT assisted with management of O2 tank. Pt then completed arm bike, min resistance x15 mins without rest breaks in order to increase functional endurance with tasks and BUE strengthening. Pt then placed 1" pegs into foam pegboard, alternating R/L hand, with 1lb wrist cuff on each wrist in order to increase BUE strength and functional endurance. Pt then ambulated back to her room using FWW. Pt declined needing to use the restroom. Post OT session, pt seated upright in recliner, call light in reach and all needs met. Education OT Patient Education: Correct positioning, Energy conservation, Modified ADL techniques, Progress toward Goal/Update tx plan, Purpose of tx/functional activities, Transfer techniques, Use of adapted equipment Teaching Recipient: Patient Teaching Methods: Demonstration, Discussion Response to Teaching: Verbalize Understanding, Return Demonstration OT Short Term Goals Short Term Goals Time Frame: Jun 17, 2019 Toileting hygiene: 4 Shower/bathe self: 4 Upper body dressin Lower body dressin Putting on/taking off footwear: 3 OT [facility] Goals Bone Crusher Goals Time Frame: Jun 26, 2019 Eating (QC): 6 Oral Hygiene (QC): 6 Toileting Hygiene (QC): 6 Shower/Bathe Self (QC): 6 Upper Body Dressing (QC): 6 Lower Body Dressing (QC): 6 On/Off Footwear (QC): 6 Additional Goals: 1-Demonstrate ADL Tasks, 2-Verbalize Understanding, 3- ImproveStrength/Brianne 1=Demonstrate adherence to instructed precautions during ADL tasks. 2=Patient will verbalize/demonstrate understanding of assistive devices/modifications for ADL. 3=Patient will improve strength/tolerance for activity to enable patient to perform ADL's. OT Education/Plan Problem List/Assessment Assessment: Decreased Activ Tolerance, Decreased UE Strength, Impaired Funct Balance, Impaired I ADL's, Impaired Self-Care Skills Discharge Recommendations Plan/Recommendations: Continue POC Treatment Plan/Plan of Care Treatment,Training & Education: Yes Patient would benefit from OT for education, treatment and training to promote independence in ADL's, mobility, safety and/or upper extremity function for ADL's. Plan of Care: ADL Retraining, Caregiver Training, Functional Mobility, Group Exercise/Act as Ind, UE Funct Exercise/Act Treatment Duration: Jun 26, 2019 Frequency: At least 5 of 7 days/Wk (IRF) Estimated Hrs Per Day: 1.5 hours per day Agreement: Yes Rehab Potential: Fair Time/GCodes Start Time: 09:15 Stop Time: 10:45 Total Time Billed (hr/min): 90 Billed Treatment Time 1, ADL 3 (50mins), EX (15 mins), FA 2 (25 mins) JG IGLESIAS OT Jun 11, 2019 09:37 POS
--- NOTE | 2019-06-11 12:02 | Physical Therapy Daily Note ---
PT Daily Note-Current Subjective Patient is feeling okay today but tired and fatigued after OT this morning. Reports a good night of sleep and no SOB with 2L O2. Reports 6/10 pain in R hip with movement. Pain Numeric Pain Scale: 6 Location: Right Location Body Site: Hip Pain Description: Ache Mental Status Patient Orientation: Normal For Age Attachments: Oxygen (2L) Transfers SCALE: Activities may be completed with or without assistive devices. 4-Mekzkgsqmb-uikkqyy completes the activity by him/herself with no assistance from a helper. 5-Set-up or Clean-up Assistance-helper sets up or cleans up; patient completes activity. [place] assists only prior to or following the activity. 4-Supervision or Touching Assistance-helper provides verbal cues and/or touching/steadying and/or contact guard assistance as patient completes activity. Assistance may be provided throughout the activity or intermittently. 3-Partial/Moderate Assistance-helper does LESS THAN HALF the effort. [place] lifts, holds or supports trunk or limbs, but provides less than half the effort. 2-Substantial/Maximal Assistance-helper does MORE THAN HALF the effort. [place] lifts or holds trunk or limbs and provides more than half the effort. 9-Kmhmffzsr-txrpdg does ALL the effort. Patient does none of the effort to complete the activity. Or, the assistance of 2 or more helpers is required for the patient to complete the activity. If activity was not attempted, code reason: 7-Patient Refused. 9-Not Applicable-not attempted and the patient did not perform the activity before the current illness, exacerbation or injury. 10-Not Attempted due to Environmental Limitations-(lack of equipment, weather restraints, etc.). 88-Not Attempted due to Medical Conditions or Safety Concerns. Roll Left & Right (QC): 4 Sit to Lying (QC): 4 Lying to Sitting/Side of Bed(Q: 4 Sit to Stand (QC): 4 Toilet Transfer (QC): 4 SBA Gait Training Does the Patient Walk?: Yes Distance: 150'x2 Walk 10 feet (QC): 4 Walk 50 ft with 2 Turns(QC): 4 Walk 150 ft (QC): 4 Gait Assistive Device: FWW CGA; required frequent standing rest breaks every couple steps Stair Training Stair Training: Handrails/: uses walker #of Steps: 1 1 Step (curb) (QC): 4 Stairs: Pattern: Step to CGA for 1 step with walker around step Exercises Supine Ex: Ankle pumps, Quad Set, Glut sets, Heel Slides, Short Arc Quads, Straight leg raise, Hip abd/add Supine Reps: 15 Seated Therapy Exercises: Ankle pumps, Sit to stand (x5), Long arc quads, Hip flexion, Hip abd/add Seated Reps: 15 Standing: Heel/toe raises, 3 way Ex=Flex, Abd, Ext, Marching, Mini squats Standing Reps: 15 Assessment Patient was SBA for bed mobility and transfer, requiring some cues to complete sitting up from sidelying on mat. Completed all LE supine, seated, and standing exercises, demonstrating fair strength, but continued to be limited by R hip pain in ROM and number of repetitions completed. Completed 1 stair twice with FWW around stair with CGA without difficulty or cues required. Ambulated 150' x2 during session with FWW, requiring frequent standing breaks every couple steps. Completed toileting SBA twice during session without difficulty. Patient returned to recliner in room with needs met at conclusion of treatment. PT Short Term Goals Short Term Goals Time Frame: Jun 15, 2019 Roll Left & Right: 6 Sit to lyin Lying to sitting on side of be: 6 Sit to stand: 4 Chair/hwc-jp-cvbuq transfer: 4 Walk 10 feet: 4 Walk 50 feet with two turns: 4 PT Band Straightener Goals Band Straightener Goals PT Band Straightener Goals Time Frame: Jun 29, 2019 Roll Left & Right (QC): 6 Sit to Lying (QC): 4 (SBA) Lying-Sitting on Side/Bed(QC): 6 Sit to Stand (QC): 4 (SBA) Chair/Iiu-xk-Wfouc Xfer(QC): 4 (SBA) Toilet Transfer (QC): 4 (SBA) Car Transfer (QC): 4 (SBA) Does the Patient Walk: Yes Walk 10 feet (QC): 4 (SBA) Walk 50ft with 2 Turns (QC): 4 (SBA) Walk 150 ft (QC): 4 (SBA) Walking 10ft on Uneven Surface: 4 (SBA) 1 Step (curb) (QC): 4 (CGA) 4 Steps (QC): 4 (CGA) 12 Steps (QC): 88 Picking up an Object (QC): 88 Does the Pt use WC or Scooter?: No Type: N/A Type: N/A PT Plan Treatment/Plan Treatment Plan: Continue Plan of Care Treatment Plan: Bed Mobility, Concurrent Therapy, Education, Functional Activity Brianne, Functional Strength, Group Therapy, Gait, Safety, Therapeutic Exercise, Transfers Treatment Duration: Jun 29, 2019 Frequency: At least 5 of 7 days/Wk (IRF) Estimated Hrs Per Day: 1.5 hours per day Patient and/or Family Agrees t: Yes Time/GCodes Time In: 1100 Time Out: 1200 Total Billed Treatment Time: 60 Total Billed Treatment 1 visit EX x2 35min GT 10min FA 15min MORIS LAO PT Jun 11, 2019 12:02 POS
--- NOTE | 2019-06-11 12:21 | NUR ---
Weekly Team Conference Met with patient to discuss weekly team conference and the team's recommendation to recheck progress next Saturday. Patient verbalizes understanding and is in agreement with this plan. Patient reported she used home oxygen prior to this hospitalization. Patient reported she will need a BiPAP at discharge for home use. Discussed OT's recommendation of sock aid and dressing stick; however, patient is not sure will need these items at time of discharge. Patient reported this adaptive equipment might be "nice to have" and that she could order from [facility] if she decided she wanted the items. At time of admission, RN from the med/surg unit mentioned patient was interested in completing an Advanced Directive as she did not wanted to be intubated again. Discussed this with patient and she confirmed that she does not want to be intubated again. Patient is not sure if she completed an Advanced Directive. This worker informed patient that a consult to pastoral care would be made if needed so that patient could complete an Advanced Directive while on the rehab unit. Patient verbalized understanding.
--- NOTE | 2019-06-11 13:47 | Physical Therapy Daily Note ---
PT Daily Note-Current Subjective Patient reports feeling more awake after lunch and ready for therapy. Reports no pain during session. Pain Numeric Pain Scale: 0-No Pain Location: No Pain Reported Mental Status Patient Orientation: Normal For Age Attachments: Oxygen (2L) Transfers SCALE: Activities may be completed with or without assistive devices. 3-Tnlmnhegit-iorecuc completes the activity by him/herself with no assistance from a helper. 5-Set-up or Clean-up Assistance-helper sets up or cleans up; patient completes activity. [place] assists only prior to or following the activity. 4-Supervision or Touching Assistance-helper provides verbal cues and/or touching/steadying and/or contact guard assistance as patient completes activity. Assistance may be provided throughout the activity or intermittently. 3-Partial/Moderate Assistance-helper does LESS THAN HALF the effort. [place] lifts, holds or supports trunk or limbs, but provides less than half the effort. 2-Substantial/Maximal Assistance-helper does MORE THAN HALF the effort. [place] lifts or holds trunk or limbs and provides more than half the effort. 0-Sasluhkwc-tpxknm does ALL the effort. Patient does none of the effort to comp lete the activity. Or, the assistance of 2 or more helpers is required for the patient to complete the activity. If activity was not attempted, code reason: 7-Patient Refused. 9-Not Applicable-not attempted and the patient did not perform the activity before the current illness, exacerbation or injury. 10-Not Attempted due to Environmental Limitations-(lack of equipment, weather restraints, etc.). 88-Not Attempted due to Medical Conditions or Safety Concerns. Roll Left & Right (QC): 4 Sit to Lying (QC): 4 Sit to Stand (QC): 4 Toilet Transfer (QC): 4 Car Transfer (QC): 4 Gait Training Does the Patient Walk?: Yes Distance: 150' x2 Walk 10 feet (QC): 4 Walk 50 ft with 2 Turns(QC): 4 Walk 150 ft (QC): 4 Gait Assistive Device: FWW Required frequent standing rests Exercises NuStep Minutes: 12 NuStep Workload: 4 Assessment Patient completed car transfer SBA without instructions or cues needed. Performed 12 minutes on NuStep to progress LE strengthening and mobility. Patient ambulated 150' x2 with FWW during session with frequent standing rest breaks and completed toileting with CGA. Patient did not report SOB on 2L O2 but requested RT and nursing was notified. Patient supine in bed at conclusion of treatment with all needs met. PT Short Term Goals Short Term Goals Time Frame: Jun 15, 2019 Roll Left & Right: 6 Sit to lyin Lying to sitting on side of be: 6 Sit to stand: 4 Chair/veq-dv-pngqs transfer: 4 Walk 10 feet: 4 Walk 50 feet with two turns: 4 PT Clinique Counter Manager Goals Clinique Counter Manager Goals PT Nursing Home Goals Time Frame: Jun 29, 2019 Roll Left & Right (QC): 6 Sit to Lying (QC): 4 (SBA) Lying-Sitting on Side/Bed(QC): 6 Sit to Stand (QC): 4 (SBA) Chair/Jbh-eg-Yhhkk Xfer(QC): 4 (SBA) Toilet Transfer (QC): 4 (SBA) Car Transfer (QC): 4 (SBA) Does the Patient Walk: Yes Walk 10 feet (QC): 4 (SBA) Walk 50ft with 2 Turns (QC): 4 (SBA) Walk 150 ft (QC): 4 (SBA) Walking 10ft on Uneven Surface: 4 (SBA) 1 Step (curb) (QC): 4 (CGA) 4 Steps (QC): 4 (CGA) 12 Steps (QC): 88 Picking up an Object (QC): 88 Does the Pt use WC or Scooter?: No Type: N/A Type: N/A PT Plan Treatment/Plan Treatment Plan: Continue Plan of Care Treatment Plan: Bed Mobility, Concurrent Therapy, Education, Functional Activity Brianne, Functional Strength, Group Therapy, Gait, Safety, Therapeutic Exercise, Transfers Treatment Duration: Jun 29, 2019 Frequency: At least 5 of 7 days/Wk (IRF) Estimated Hrs Per Day: 1.5 hours per day Patient and/or Family Agrees t: Yes Time/GCodes Time In: 1300 Time Out: 1330 Total Billed Treatment Time: 30 Total Billed Treatment 1 visit FA 18min EX 12min MORIS LAO PT Jun 11, 2019 13:47 POS
[2019-06-11 16:36] VITALS: BP 137/73
--- NOTE | 2019-06-11 17:42 | Progress Note - Cardiology ---
Cardiology SOAP Progress Note Subjective: No cp or palp or syncope or shortness of breath Progressively gaining strength Objective: I&O/Vital Signs 06/11/19 06/11/19 06/11/19 06/11/19 05:55 08:22 09:00 09:07 Temp 37.0 Pulse 68 71 Resp 16 18 B/P (MAP) 105/63 (77) 133/72 (92) Pulse Ox 91 95 95 O2 Delivery Nasal Cannula Nasal Cannula Nasal Cannula Nasal Cannula O2 Flow Rate 3.00 2.00 2.00 2.00 06/11/19 06/11/19 14:10 16:36 Temp 37.1 Pulse 78 Resp 16 B/P (MAP) 137/73 (94) Pulse Ox 96 91 O2 Delivery Nasal Cannula Nasal Cannula O2 Flow Rate 2.00 3.00 06/11/19 00:00 Intake Total 860 ml Balance 860 ml Constitutional: AAO x 3 Respiratory: No accessory muscle use, No respiratory distress; chest expansion is symmetric, chest is bilaterally symmetric, lungs clear to auscultation Cardiovascular: regular rate-rhythm; No JVD; S1 and S2, systolic murmur (2/6 ) Gastrointestional: No tender; soft, round, audible bowel sounds Extremities: no lower extremity edema bilateral Neurologic/Psychiatric: grossly intact Skin: No rash on exposed areas, No ulcerations on exposed areas A/P: Assessment: PAF with RVR, currently NSR Ac resp failure due to ac exac of severe COPD due to pneumonia, now resolved Echo of 06/05/19: LVEF 55-60%, mild LA enlargement, grade 1 diastolic dysfunction, RVSP 18 mmHg 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
[2019-06-12] MEDS: RT-ALBUTEROL/IPRATROPIUM 3 ML (DUONEB) VIAL INH SCH ×5 (02:28→18:55)
[2019-06-12 06:07] VITALS: BP 101/67
[2019-06-12] MEDS: predniSONE 10 MG TAB PO SCH (06:20)
[2019-06-12 06:57] LABS: BASOPHILS % (AUTO) 0 % (0-10); EOSINOPHILS # (AUTO) 0.1 10^3/uL (0.0-0.3); EOSINOPHILS % (AUTO) 2 % (0-10); HEMATOCRIT 32 % (35-52); HEMOGLOBIN 9.5 G/DL (11.5-16.0); LYMPHOCYTES # (AUTO) 0.9 X 10^3 (1.0-4.0); LYMPHOCYTES % (AUTO) 20 % (12-44); MEAN CORPUSCULAR HEMOGLOBIN 30 PG (25-34); MEAN CORPUSCULAR HGB CONC 30 G/DL (32-36); MEAN CORPUSCULAR VOLUME 102 FL (80-99); MEAN PLATELET VOLUME 9.9 FL (7.4-10.4); MONOCYTES # (AUTO) 0.5 X 10^3 (0.0-1.0); MONOCYTES % (AUTO) 12 % (0-12); NEUTROPHILS # (AUTO) 2.9 X 10^3 (1.8-7.8); NEUTROPHILS % (AUTO) 66 % (42-75); PLATELET COUNT 254 10^3/uL (130-400); RED CELL DISTRIBUTION WIDTH 13.9 % (10.0-14.5); WHITE BLOOD COUNT 4.4 10^3/uL (4.3-11.0)
[2019-06-12] MEDS: RT-ADVAIR HFA 115/21 MCG PER PUFF IH SCH ×2 (07:15→20:16)
--- NOTE | 2019-06-12 07:24 | Pulmonary Progress Note ---
Subjective Time Seen by a Provider: 07:24 Subjective/Events-last exam Pt is doing much better. Sepsis Event Evaluation Height, Weight, BMI Height: '" Weight: lbs. oz. kg; 31.96 BMI Method: Exam Exam Vital Signs Date Time Temp Pulse Resp B/P (MAP) Pulse Ox O2 Delivery O2 Flow Rate FiO2 06/12/19 07:15 93 Nasal Cannula 2.00 06/12/19 06:07 37.0 66 18 101/67 (78) 96 Nasal Cannula 3.00 06/12/19 02:35 65 28 93 45.00 06/12/19 02:28 93 Nasal Cannula 2.00 06/11/19 22:45 68 29 94 45.00 06/11/19 20:00 Nasal Cannula 2.00 06/11/19 19:15 95 Nasal Cannula 2.00 06/11/19 16:36 37.1 78 16 137/73 (94) 91 Nasal Cannula 3.00 06/11/19 14:10 96 Nasal Cannula 2.00 06/11/19 09:07 95 Nasal Cannula 2.00 06/11/19 09:00 Nasal Cannula 2.00 06/11/19 08:22 71 18 133/72 (92) 95 Nasal Cannula 2.00 I & O 06/12/19 07:00 Intake Total 1180 ml Balance 1180 ml Height & Weight Height: '" Weight: lbs. oz. kg; 31.96 BMI Method: General Appearance: No Apparent Distress, WD/WN HEENT: Normal ENT Inspection Neck: Full Range of Motion, Normal Inspection Respiratory: Chest Non Tender, Lungs Clear, Normal Breath Sounds, No Accessory Muscle Use, No Respiratory Distress Cardiovascular: Regular Rate, Rhythm, No Edema, No Gallop, No JVD, No Murmur, Normal Peripheral Pulses Gastrointestinal: non tender, soft Extremity: Normal Capillary Refill, Normal Inspection, Normal Range of Motion (severe weakness 3/5 all extremities), Non Tender, No Calf Tenderness, No Pedal Edema Neurologic/Psychiatric: Alert, Oriented x3, No Motor/Sensory Deficits, Normal 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 -Keep Fi02 titrated down for Sp02 90-92% -CT of chest reviewed Right pleural effusion -Monitor -Daily lasix Severe oxygen dependent COPD uses 4liers at home COPDAE -SVNS -Oxygen Debility -PT/OT Hx of lobectomy elevated right diaphram Morbid obesity BYRON WINKLER DO Jun 12, 2019 07:24 POS
[2019-06-12 07:48] LABS: BAND NEUTROPHILS 0 %; BASOPHILS % (MANUAL) 1 %; EOSINOPHILS % (MANUAL) 1 %; LYMPHOCYTES % (MANUAL) 22 %; MONOCYTES % (MANUAL) 8 %; NEUTROPHILS % (MANUAL) 68 %
[2019-06-12 07:49] LABS: HYPOCHROMASIA MODERATE
--- NOTE | 2019-06-12 08:18 | Progress Note ---
Subjective Time Seen by a Provider: 08:16 Subjective/Events-last exam Patient feeling better. Patient continued to improve. Patient taken a shower this morning. Patient has no shortness of breath or chest pain Objective Exam Vital Signs Date Time Temp Pulse Resp B/P (MAP) Pulse Ox O2 Delivery O2 Flow Rate FiO2 06/12/19 07:15 93 Nasal Cannula 2.00 06/12/19 06:07 37.0 66 18 101/67 (78) 96 Nasal Cannula 3.00 06/12/19 02:35 65 28 93 45.00 06/12/19 02:28 93 Nasal Cannula 2.00 06/11/19 22:45 68 29 94 45.00 06/11/19 20:00 Nasal Cannula 2.00 06/11/19 19:15 95 Nasal Cannula 2.00 06/11/19 16:36 37.1 78 16 137/73 (94) 91 Nasal Cannula 3.00 06/11/19 14:10 96 Nasal Cannula 2.00 06/11/19 09:07 95 Nasal Cannula 2.00 06/11/19 09:00 Nasal Cannula 2.00 06/11/19 08:22 71 18 133/72 (92) 95 Nasal Cannula 2.00 I & O0 06/12/19 07:00 Intake Total 1180 ml Balance 1180 ml Capillary Refill : General Appearance: No Apparent Distress, WD/WN HEENT: Normal ENT Inspection Neck: Full Range of Motion, Normal Inspection Respiratory: No Accessory Muscle Use, No Respiratory Distress, Decreased Breath Sounds, Other (On oxygen) Cardiovascular: Regular Rate, Rhythm, No Murmur Gastrointestinal: soft Results Lab Laboratory Tests 06/12/19 06:17 Laboratory Tests 06/12/19 06:17: White Blood Count 4.4, Red Blood Count 3.12L, Hemoglobin 9.5L, Hematocrit 32L, Mean Corpuscular Volume 102H, Mean Corpuscular Hemoglobin 30, Mean Corpuscular Hemoglobin Concent 30L, Red Cell Distribution Width 13.9, Platelet Count 254, Mean Platelet Volume 9.9, Neutrophils (%) (Auto) 66, Lymphocytes (%) (Auto) 20, Monocytes (%) (Auto) 12, Eosinophils (%) (Auto) 2, Basophils (%) (Auto) 0, Neutrophils # (Auto) 2.9, Lymphocytes # (Auto) 0.9L, Monocytes # (Auto) 0.5, Eosinophils # (Auto) 0.1, Basophils # (Auto) 0.0, Neutrophils % (Manual) 68, Lymphocytes % (Manual) 22, Monocytes % (Manual) 8, Eosinophils % (Manual) 1, Basophils % (Manual) 1, Band Neutrophils 0, Hypochromasia MODERATE, Creatinine 0.54L Assessment/Plan Assessment/Plan Assess & Plan/Chief Complaint COPD. Myopathy. Patient and feeling that patient is doing better. Patient positive. . 06/09/19. COPD with acute exacerbation. Myopathy. Debility. Paroxymal atrial fibrillation. . 06/10/19 COPD. Myopathy. Debility.. . 06/11/19. COPD. Debility. Myopathy. Atrial fibrillation history atrial fibrillation. . 06/12/19 COPD. Debility. Myopathy. Atrial fibrillation history. Patient positive Clinical Quality Measures DVT/VTE Risk/Contraindication: Risk Factor Score Per Nursin RFS Level Per Nursing on Admit: 4+=Very High ADOLFO ORTIZ DO Jun 12, 2019 08:18 POS
[2019-06-12] MEDS: DILTIAZEM 240 MG (CARDIZEM CD) CAP PO SCH (08:48)
[2019-06-12] MEDS: meTOprolol TARTRATE 25 MG (LOPRESSOR) TABLET PO SCH ×2 (08:49→20:37)
[2019-06-12] MEDS: PANTOPRAZOLE 40 MG (PROTONIX) TAB PO SCH (08:49)
[2019-06-12] MEDS: DOCUSATE SODIUM 100 MG (COLACE) CAP PO SCH ×2 (08:49→20:36)
[2019-06-12] MEDS: APIXABAN 5 MG (ELIQUIS) TABLET PO SCH ×2 (08:49→20:37)
[2019-06-12] MEDS: POLYETHYLENE GLYCOL 17 GM (MIRALAX) PACK PO SCH ×2 (08:49→20:39)
[2019-06-12] MEDS: SENNA W/DOCUSATE (SENOKOT S) TABLET PO SCH ×2 (08:50→20:39)
--- NOTE | 2019-06-12 09:01 | Occupational Ther Daily Note ---
OT Current Status-Daily Note Subjective Pt laying in bed, agreeable to OT session with focus on ADLs. Pt stated she would like to take a shower this morning. Pain Numeric Pain Scale: 0-No Pain Mental Status/Objective Attachments: IV ADL-Treatment Therapy Code Descriptions/Definitions Functional [place] Measure: 0=Not Assessed/NA 4=Minimal Assistance 1=Total Assistance 5=Supervision or Setup 2=Maximal Assistance 6=Modified [place] 3=Moderate Assistance 7=Complete IndependenceSCALE: Activities may be completed with or without assistive devices. 6-Rounjrhozm-ecnrxvr completes the activity by him/herself with no assistance from a helper. 5-Set-up or Clean-up Assistance-helper sets up or cleans up; patient completes activity. [place] assists only prior to or following the activity. 4-Supervision or Touching Assistance-helper provides verbal cues and/or touching/steadying and/or contact guard assistance as patient completes activity. Assistance may be provided throughout the activity or intermittently. 3-Partial/Moderate Assistance-helper does LESS THAN HALF the effort. [place] lifts, holds or supports trunk or limbs, but provides less than half the effort. 2-Substantial/Maximal Assistance-helper does MORE THAN HALF the effort. [place] lifts or holds trunk or limbs and provides more than half the effort. 2-Ydnwnjblk-dosudx does ALL the effort. Patient does none of the effort to complete the activity. Or, the assistance of 2 or more helpers is required for the patient to complete the activity. If activity was not attempted, code reason: 7-Patient Refused. 9-Not Applicable-not attempted and the patient did not perform the activity before the current illness, exacerbation or injury. 10-Not Attempted due to Environmental Limitations-(lack of equipment, weather restraints, etc.). 88-Not Attempted due to Medical Conditions or Safety Concerns. Bathing Location: L Arm, R Arm, L Upper Leg, R Upper Leg, L Lower Leg (including foot), R Lower Leg (including foot), Chest, Abdomen, Buttocks, Perineal Area Shower/Bathe Self (QC): 4 (SBA during stand at for washing perineal area and buttocks.) Upper Body Dressing (QC): 5 (set up assistance, pt required assistance retrieving clothing from closet and carrying them to the bathroom) Lower Body Dressing (QC): 4 (SBA during stand at grab bar, 1 verbal cue during stand to take a step forward due to standing on oxygen line. ) Toileting Hygiene (QC): 7 Toilet Transfer (QC): 7 FOOTWEAR QC: 3 (Pt threaded sock onto sock aide without pulling it on all the way, she attempted to don sock but was unsuccessful. She was able to take the sock back off and required verbal cue to pull the sock all the way down on the sock aide. Pt then able to attempt to pull sock on but required assistance due to sock aide sticking to the bottom of her foot and she was unable to pull sock on. Pt attempted again with other foot but had the same problem of the sock aide sticking requiring assistance.) Other Treatment Pt laying in bed at start of session, transferred from supine to sit without assistance. Pt declined needing to use the restroom. Pt then stood from EOB with SBA and ambulated to the shower using FWW and SBA. Pt completed showering and dressing then she ambulated to the recliner. Nurse present to give pt meds. Pt able to brush hair after mirror and comb set up on tray table. Post OT session, pt seated upright, call light in reach and all needs met with nurse present. Education OT Patient Education: Correct positioning, Energy conservation, Modified ADL techniques, Progress toward Goal/Update tx plan, Purpose of tx/functional activities, Safety issues, Transfer techniques, Use of adapted equipment Teaching Recipient: Patient Teaching Methods: Demonstration, Discussion Response to Teaching: Verbalize Understanding, Return Demonstration OT Short Term Goals Short Term Goals Time Frame: Jun 17, 2019 Toileting hygiene: 4 Shower/bathe self: 4 Upper body dressin Lower body dressin Putting on/taking off footwear: 3 OT Longterm Goals Program Director/Music Director Goals Time Frame: Jun 26, 2019 Eating (QC): 6 Oral Hygiene (QC): 6 Toileting Hygiene (QC): 6 Shower/Bathe Self (QC): 6 Upper Body Dressing (QC): 6 Lower Body Dressing (QC): 6 On/Off Footwear (QC): 6 Additional Goals: 1-Demonstrate ADL Tasks, 2-Verbalize Understanding, 3- ImproveStrength/Brianne 1=Demonstrate adherence to instructed precautions during ADL tasks. 2=Patient will verbalize/demonstrate understanding of assistive devices/modifications for ADL. 3=Patient will improve strength/tolerance for activity to enable patient to perform ADL's. OT Education/Plan Problem List/Assessment Assessment: Decreased Activ Tolerance, Decreased UE Strength, Impaired I ADL's, Impaired Self-Care Skills Discharge Recommendations Plan/Recommendations: Continue POC Equpiment Recommendations-D/C: Extended Bath Bench (or shower chair), Sock Aide Treatment Plan/Plan of Care Treatment,Training & Education: Yes Patient would benefit from OT for education, treatment and training to promote independence in ADL's, mobility, safety and/or upper extremity function for ADL's. Plan of Care: ADL Retraining, Caregiver Training, Functional Mobility, Group Exercise/Act as Ind, UE Funct Exercise/Act Treatment Duration: Jun 26, 2019 Frequency: At least 5 of 7 days/Wk (IRF) Estimated Hrs Per Day: 1.5 hours per day Agreement: Yes Rehab Potential: Fair Time/GCodes Start Time: 07:50 Stop Time: 08:50 Total Time Billed (hr/min): 60 Billed Treatment Time 1, ADL 4 JG IGLESIAS OT Jun 12, 2019 09:01 POS
--- NOTE | 2019-06-12 09:40 | Progress Note - Cardiology ---
Cardiology SOAP Progress Note Subjective: Sitting up in a chair at the bedside. States she feels good this morning. No c/o CP, palpitations or dyspnea. Objective: I&O/Vital Signs 06/15/19 06/15/19 06/15/19 06/15/19 03:19 06:08 07:39 08:00 Temp 36.6 Pulse 57 Resp 20 B/P (MAP) 104/65 (78) Pulse Ox 96 95 93 O2 Delivery Nasal Cannula Nasal Cannula Nasal Cannula Nasal Cannula O2 Flow Rate 2.00 2.00 2.00 2.00 06/15/19 06/15/19 11:39 11:56 Temp 36.6 Pulse 76 Pulse Ox 94 94 O2 Delivery Nasal Cannula O2 Flow Rate 2.00 FiO2 28 06/15/19 00:00 Intake Total 575 ml Balance 575 ml Constitutional: AAO x 3 Respiratory: No accessory muscle use, No respiratory distress; chest expansion is symmetric, chest is bilaterally symmetric, lungs clear to auscultation Cardiovascular: regular rate-rhythm; No JVD; S1 and S2, systolic murmur (2/6 ) Gastrointestional: No tender; soft, round, audible bowel sounds Extremities: no lower extremity edema bilateral Neurologic/Psychiatric: grossly intact Skin: No rash on exposed areas, No ulcerations on exposed areas Results/Procedures: Labs Laboratory Tests 06/15/19 06:05: White Blood Count 3.2L, Red Blood Count 3.09L, Hemoglobin 9.2L, Hematocrit 32L, Mean Corpuscular Volume 103H, Mean Corpuscular Hemoglobin 30, Mean Corpuscular Hemoglobin Concent 29L, Red Cell Distribution Width 13.7, Platelet Count 204, Mean Platelet Volume 9.7, Neutrophils (%) (Auto) 58, Lymphocytes (%) (Auto) 24, Monocytes (%) (Auto) 15H, Eosinophils (%) (Auto) 2, Basophils (%) (Auto) 0, Neutrophils # (Auto) 1.9, Lymphocytes # (Auto) 0.8L, Monocytes # (Auto) 0.5, Eosinophils # (Auto) 0.1, Basophils # (Auto) 0.0, Sodium Level 143, Potassium Level 4.1, Chloride Level 92L, Carbon Dioxide Level 43H, Anion Gap 8, Blood Urea Nitrogen 14, Creatinine 0.55L, Estimat Glomerular Filtration Rate > 60, BUN/Creatinine Ratio 25, Glucose Level 91, Calcium Level 9.1, Corrected Calcium 9.7, Total Bilirubin 0.2, Aspartate Amino Transf (AST/SGOT) 16, Alanine Aminotransferase (ALT/SGPT) 30, Alkaline Phosphatase 94, Total Protein 5.3L, Albumin 3.3 A/P: Assessment: PAF with RVR, currently NSR Ac resp failure due to ac exac of severe COPD due to pneumonia, now resolved Echo of 06/05/19: LVEF 55-60%, mild LA enlargement, grade 1 diastolic dysfunction, RVSP 18 mmHg 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
--- NOTE | 2019-06-12 10:50 | Physical Therapy Daily Note ---
PT Daily Note-Current Subjective Pt agreeable to PT. Reports she feels she is progressing well. Mental Status Patient Orientation: Person, Place, Time, Situation Attachments: Oxygen (2l/min conitnuous; insitu during treatment and post) Transfers SCALE: Activities may be completed with or without assistive devices. 5-Acwoumgkck-shafkvz completes the activity by him/herself with no assistance from a helper. 5-Set-up or Clean-up Assistance-helper sets up or cleans up; patient completes activity. [place] assists only prior to or following the activity. 4-Supervision or Touching Assistance-helper provides verbal cues and/or touching/steadying and/or contact guard assistance as patient completes activity. Assistance may be provided throughout the activity or intermittently. 3-Partial/Moderate Assistance-helper does LESS THAN HALF the effort. [place] lifts, holds or supports trunk or limbs, but provides less than half the effort. 2-Substantial/Maximal Assistance-helper does MORE THAN HALF the effort. [place] l ifts or holds trunk or limbs and provides more than half the effort. 8-Owtlghhkw-ztvqxy does ALL the effort. Patient does none of the effort to complete the activity. Or, the assistance of 2 or more helpers is required for the patient to complete the activity. If activity was not attempted, code reason: 7-Patient Refused. 9-Not Applicable-not attempted and the patient did not perform the activity before the current illness, exacerbation or injury. 10-Not Attempted due to Environmental Limitations-(lack of equipment, weather restraints, etc.). 88-Not Attempted due to Medical Conditions or Safety Concerns. Sit to Lying (QC): 3 (min assist to get her left leg into bed. ) Sit to Stand (QC): 4 (SBA for safety) Chair/Ytm-gk-Veewd Xfer(QC): 4 (SBA for safety) Toilet Transfer (QC): 4 Gait Training Does the Patient Walk?: Yes Distance: 150 ft x 4 reps Walk 10 feet (QC): 4 Walk 50 ft with 2 Turns(QC): 4 Walk 150 ft (QC): 4 Gait Assistive Device: FWW Wide ANABEL and slightly antalgic. Steady Stair Training Stair Training: Handrails/: 2 handrails Stairs: Pattern: Step to up/down 2 steps with B handrails with CGA and skilled cues for sequencing; difficulty with lifting her body up each step Exercises NuStep Minutes: 15 (to promote LE strength and fucntional act tolerance. ) Assessment Current Status: Good Progress Pt tires with treatment and her sats decrease, but return quickly with rest breaks. Gait and transfers are safe, but sBA provided for safety. PT Short Term Goals Short Term Goals Time Frame: Jun 15, 2019 Roll Left & Right: 6 Sit to lyin (met) Lying to sitting on side of be: 6 Sit to stand: 4 (met) Chair/bmg-uo-wyrmg transfer: 4 (met) Walk 10 feet: 4 Walk 50 feet with two turns: 4 PT Intermediate Goals Intermediate Goals PT Lab Technologist Goals Time Frame: Jun 29, 2019 Roll Left & Right (QC): 6 Sit to Lying (QC): 4 (SBA) Lying-Sitting on Side/Bed(QC): 6 Sit to Stand (QC): 4 (SBA) Chair/Nyt-jy-Ovyej Xfer(QC): 4 (SBA) Toilet Transfer (QC): 4 (SBA) Car Transfer (QC): 4 (SBA) Does the Patient Walk: Yes Walk 10 feet (QC): 4 (SBA) Walk 50ft with 2 Turns (QC): 4 (SBA) Walk 150 ft (QC): 4 (SBA) Walking 10ft on Uneven Surface: 4 (SBA) 1 Step (curb) (QC): 4 (CGA) 4 Steps (QC): 4 (CGA) 12 Steps (QC): 88 Picking up an Object (QC): 88 Does the Pt use WC or Scooter?: No Type: N/A Type: N/A PT Plan Problem List Problem List: Activity Tolerance, Functional Strength, Safety, Balance, Gait, Transfer, Bed Mobility Treatment/Plan Treatment Plan: Continue Plan of Care Treatment Plan: Bed Mobility, Concurrent Therapy, Education, Functional Activity Brianne, Functional Strength, Group Therapy, Gait, Safety, Therapeutic Exercise, Transfers Treatment Duration: Jun 29, 2019 Frequency: At least 5 of 7 days/Wk (IRF) Estimated Hrs Per Day: 1.5 hours per day Patient and/or Family Agrees t: Yes Safety Risks/Education Patient Education: Safety Issues Teaching Recipient: Patient Teaching Methods: Discussion Response to Teaching: Verbalize Understanding Time/GCodes Time In: 914 Time Out: 1023 Total Billed Treatment Time: 69 Total Billed Treatment visit GT 30 FA 39 LYNN WRAY PT Jun 12, 2019 10:50 POS
--- NOTE | 2019-06-12 12:12 | Progress Note - Cardiology ---
Cardiology SOAP Progress Note Subjective: No cp or palp or syncope No shortness of breath at rest or with mild exertion Regaining strength, she says Objective: I&O/Vital Signs 06/12/19 06/12/19 06/12/19 06/12/19 02:28 02:35 06:07 07:15 Temp 37.0 Pulse 65 66 Resp 28 18 B/P (MAP) 101/67 (78) Pulse Ox 93 93 96 93 O2 Delivery Nasal Cannula Nasal Cannula Nasal Cannula O2 Flow Rate 2.00 45.00 3.00 2.00 06/12/19 11:07 Pulse Ox 93 O2 Delivery Nasal Cannula O2 Flow Rate 2.00 06/12/19 00:00 Intake Total 680 ml Balance 680 ml Constitutional: AAO x 3 Respiratory: No accessory muscle use, No respiratory distress; chest expansion is symmetric, chest is bilaterally symmetric, lungs clear to auscultation Cardiovascular: regular rate-rhythm; No JVD; S1 and S2, systolic murmur (08/13 ) Gastrointestional: No tender; soft, round, audible bowel sounds Extremities: no lower extremity edema bilateral Neurologic/Psychiatric: grossly intact Skin: No rash on exposed areas, No ulcerations on exposed areas Results/Procedures: Labs Laboratory Tests 06/12/19 06:17: White Blood Count 4.4, Red Blood Count 3.12L, Hemoglobin 9.5L, Hematocrit 32L, Mean Corpuscular Volume 102H, Mean Corpuscular Hemoglobin 30, Mean Corpuscular Hemoglobin Concent 30L, Red Cell Distribution Width 13.9, Platelet Count 254, Mean Platelet Volume 9.9, Neutrophils (%) (Auto) 66, Lymphocytes (%) (Auto) 20, Monocytes (%) (Auto) 12, Eosinophils (%) (Auto) 2, Basophils (%) (Auto) 0, Neutrophils # (Auto) 2.9, Lymphocytes # (Auto) 0.9L, Monocytes # (Auto) 0.5, Eosinophils # (Auto) 0.1, Basophils # (Auto) 0.0, Neutrophils % (Manual) 68, Lymphocytes % (Manual) 22, Monocytes % (Manual) 8, Eosinophils % (Manual) 1, Basophils % (Manual) 1, Band Neutrophils 0, Hypochromasia MODERATE, Creatinine 0.54L Laboratory Tests 06/12/19 06:17 A/P: Assessment: PAF with RVR, currently NSR Ac resp failure due to ac exac of severe COPD due to pneumonia, now resolved Echo of 06/05/19: LVEF 55-60%, mild LA enlargement, grade 1 diastolic dysfunction, RVSP 18 mmHg 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
--- NOTE | 2019-06-12 13:03 | PM&R Progress Note ---
Subjective HPI/CC On Admission Date Seen by Provider: Jun 12, 2019 Time Seen by Provider: 10:00 Subjective/Events-last exam Pt doing pretty well Oxygen maintained Appears to be moving around very well,much improved from before her acute illness Overall feels like she is progressing and gaining strength everyday Checked meds and labs Reviewed therapy notes Conferred with RN Patient still requires inpatient status with aggressive monitoring due to severity of COPD and could decompensate during her recovery Review of Systems General: Fatigue Pulmonary: Dyspnea Objective Exam Vital Signs Vital Signs Date Time Temp Pulse Resp B/P (MAP) Pulse Ox O2 Delivery O2 Flow Rate FiO2 06/13/19 09:08 96 Nasal Cannula 2.00 06/13/19 05:28 36.9 55 16 98/62 (74) Capillary Refill : General Appearance: No Apparent Distress, WD/WN, Chronically ill, Obese HEENT: PERRL/EOMI, Normal ENT Inspection, Pharynx Normal Neck: Full Range of Motion, Normal Inspection Respiratory: Chest Non Tender, No Accessory Muscle Use, No Respiratory Distress, Decreased Breath Sounds, Other (On oxygen) Cardiovascular: Regular Rate, Rhythm, No Edema, No Murmur Gastrointestinal: Normal Bowel Sounds, No Organomegaly, No Pulsatile Mass, Non Tender, Soft Back: Normal Inspection, No CVA Tenderness, No Vertebral Tenderness Extremity: Normal Capillary Refill, Normal Inspection, Normal Range of Motion (severe weakness 3/5 all extremities), Non Tender, No Calf Tenderness, No Pedal Edema Neurologic/Psychiatric: Alert, Oriented x3, No Motor/Sensory Deficits, Normal Mood/Affect, hose maker II-XII Norm as Tested Skin: Normal Color, Warm/Dry Lymphatic: No Adenopathy Results/Procedures Lab Patient resulted labs reviewed. FIM Transfers Therapy Code Descriptions/Definitions Functional [place] Measure: 0=Not Assessed/NA 4=Minimal Assistance 1=Total Assistance 5=Supervision or Setup 2=Maximal Assistance 6=Modified [place] 3=Moderate Assistance 7=Complete IndependenceSCALE: Activities may be completed with or without assistive devices. 4-Rscprughvg-dbucbnz completes the activity by him/herself with no assistance from a helper. 5-Set-up or Clean-up Assistance-helper sets up or cleans up; patient completes activity. [place] assists only prior to or following the activity. 4-Supervision or Touching Assistance-helper provides verbal cues and/or tiesha skip/steadying and/or contact guard assistance as patient completes activity. Assistance may be provided throughout the activity or intermittently. 3-Partial/Moderate Assistance-helper does LESS THAN HALF the effort. [place] lifts, holds or supports trunk or limbs, but provides less than half the effort. 2-Substantial/Maximal Assistance-helper does MORE THAN HALF the effort. [place] lifts or holds trunk or limbs and provides more than half the effort. 7-Nfmksrkkz-ypoxjq does ALL the effort. Patient does none of the effort to complete the activity. Or, the assistance of 2 or more helpers is required for the patient to complete the activity. If activity was not attempted, code reason: 7-Patient Refused. 9-Not Applicable-not attempted and the patient did not perform the activity before the current illness, exacerbation or injury. 10-Not Attempted due to Environmental Limitations-(lack of equipment, weather restraints, etc.). 88-Not Attempted due to Medical Conditions or Safety Concerns. Roll Left to Right (QC): 4 Sit to Lying (QC): 3 (min assist to get her left leg into bed. ) Sit to Stand (QC): 4 (SBA for safety) Chair/Xcm-qk-Ooztx Xfer(QC): 4 (SBA for safety) Car Transfer (QC): 4 Gait Training Does the Patient Walk?: Yes Distance: 150 ft x 4 reps Walk 10 feet (QC): 4 Walk 50 ft with 2 Turns(QC): 4 Walk 150 ft (QC): 4 Walking 10ft/uneven surface-QC: 4 Gait Assistive Device: FWW Wheelchair Training Does the Pt Use a Wheelchair?: Yes Distance: 50' Wheel 50 ft with 2 turns (QC): 6 Wheel 150 ft (QC): 88 Type of Wheelchair: Manual Stair Training Stair Training: Handrails/: 2 handrails #of Steps: 1 1 Step (curb) (QC): 4 4 Steps (QC): 88 12 Steps (QC): 88 Stairs: Pattern: Step to Balance Picking up an Object (QC): 88 ADL-Treatment Eating (QC): 6 (Per pt report, she was able to open all containers for breakfast, including jelly container. Pt reported no difficulty.) Oral Hygiene (QC): 5 (set up assist at EOB) Bathing Location: L Arm, R Arm, L Upper Leg, R Upper Leg, L Lower Leg (including foot), R Lower Leg (including foot), Chest, Abdomen, Buttocks, Perineal Area Shower/Bathe Self (QC): 4 (SBA during stand at GB for washing perineal area and buttocks.) Upper Body Dressing (QC): 5 (set up assistance, pt required assistance retrieving clothing from closet and carrying them to the bathroom) Lower Body Dressing (QC): 4 (SBA during stand at grab bar, 1 verbal cue during stand to take a step forward due to standing on oxygen line. ) On/Off Footwear (QC): 2 (Pt able to doff socks, but required assistance donning BLE socks.) Toileting Hygiene (QC): 7 Toilet Transfer (QC): 7 Assessment/Plan Assessment and Plan Assess & Plan/Chief Complaint Assessment: Acute on chronic respiratory failure s/p extubation Severe debility Constipation s/p resolution today Metabolic alkalosis compensating for respiratory acidosis 44 Urinary incontinence Anemia Plan: IRF protocol Monitor closely BM regimen Incontinence care biPAP Monitor for pain DNI? Still requiring aggressive medical management due to severity of her weakness and COPD (1) Myopathy (2) Acute respiratory failure with hypoxia and hypercapnia Status: Acute (3) Paroxysmal A-fib Status: Chronic (4) COPD with acute exacerbation Status: Acute (5) Pleural effusion Status: Acute (6) Respiratory acidosis Status: Acute (7) CO2 narcosis Status: Acute (8) Anemia EB STALLWORTH DO Jun 12, 2019 13:03 POS
--- NOTE | 2019-06-12 14:54 | Therapy Group Daily Note ---
Therapy Daily Group Note Patient Education Topic Other List Below (handwashing, ARU description/expectations) Exercises LE Seated Exercise, UE Exercise Session Ratio (pt:therapist): 4:1 Goal of Session: Education on ARU Expectations, UE/LE Strengthing, Other (list) (handwashing) Goal Met for this Session: Yes Pt Benefit of Group: Contributions to Others, Increased Functional Strength, Improved Cognition, Recognition of Peers, Socialization Other/Notes Pt ambulation using FWW to OT/PT group. Group consisted of introductions (name, place living, favorite [place] candasa), socialization, UE/LE seated exercise activity, memory activity, educational topics over handwashing and ARU description/expectations. Pt introduced self appropriately and actively listened to peers. Pt acknowledged understanding of educational topics by verbalizing own opinions and beginning discussions during group over topics. Pt then was able to grasp and hold onto roblero bag to throw to designated area with 40% or more accuracy. After therapy, pt lying in bed with call light/phone in reach. All needs met in room. Start Time: 13:00 Stop Time: 14:15 Total Billed Treatment Time: 75 Total Billed Treatment 1-GRP LYNN WILLIS Jun 12, 2019 14:54 POS
--- NOTE | 2019-06-12 15:59 | NUR ---
Pastoral Consult for DPOA. Pt requested the forms and said she may wish to complete them during her hospital stay. When I delivered the forms the pt was resting with eyes closed and her was not present. I left the DPOA paperwork and notified staff.
[2019-06-12 16:13] VITALS: BP 90/55
[2019-06-12 17:12] VITALS: BP 127/76
[2019-06-12] MEDS: ACETAMINOPHEN 325 MG TABLET PO PRN (17:13)
--- NOTE | 2019-06-12 19:23 | NUR ---
bedside report received from NIRANJAN MENDES, assume care of pt
[2019-06-12 20:32] VITALS: BP 117/70
--- NOTE | 2019-06-12 20:36 | NUR ---
pt refused miralax & Senokot but took Colace v/s [id number]%- 117/70
[2019-06-13] MEDS: RT-ALBUTEROL/IPRATROPIUM 3 ML (DUONEB) VIAL INH SCH ×7 (00:34→23:50)
[2019-06-13 05:28] VITALS: BP 98/62
[2019-06-13] MEDS: predniSONE 10 MG TAB PO SCH (06:54)
[2019-06-13] MEDS: ACETAMINOPHEN 325 MG TABLET PO PRN ×2 (06:54→15:59)
--- NOTE | 2019-06-13 06:54 | NUR ---
c/o pain level 4/10 on numeric scale, Tylenol 650mg given
--- NOTE | 2019-06-13 07:05 | NUR ---
bedside report given to DANE MENDES
--- NOTE | 2019-06-13 07:30 | NUR ---
rates pain level 2/10 on numeric scale
[2019-06-13] MEDS: SENNA W/DOCUSATE (SENOKOT S) TABLET PO SCH ×2 (08:22→20:52)
[2019-06-13] MEDS: APIXABAN 5 MG (ELIQUIS) TABLET PO SCH ×2 (08:22→20:50)
[2019-06-13] MEDS: PANTOPRAZOLE 40 MG (PROTONIX) TAB PO SCH (08:22)
[2019-06-13] MEDS: DILTIAZEM 240 MG (CARDIZEM CD) CAP PO SCH (08:22)
[2019-06-13] MEDS: DOCUSATE SODIUM 100 MG (COLACE) CAP PO SCH ×2 (08:23→20:50)
[2019-06-13] MEDS: meTOprolol TARTRATE 25 MG (LOPRESSOR) TABLET PO SCH ×2 (08:24→20:50)
[2019-06-13] MEDS: RT-ADVAIR HFA 115/21 MCG PER PUFF IH SCH ×3 (08:25→19:45)
[2019-06-13] MEDS: POLYETHYLENE GLYCOL 17 GM (MIRALAX) PACK PO SCH ×2 (08:29→20:52)
--- NOTE | 2019-06-13 09:49 | Physical Therapy Daily Note ---
PT Daily Note-Current Subjective Pt agreeable to PT session. Pain Numeric Pain Scale: 0-No Pain Appearance Pt in bed with in room and family upon arrival. Pt's granddaughter present with pt during tx session. Pt requesting and assisted to restroom at end of session, call light within reach Mental Status Patient Orientation: Person, Place, Time, Eyes Open, Situation Attachments: Saline Lock, Oxygen (2L) Transfers SCALE: Activities may be completed with or without assistive devices. 1-Hejytrohuj-zpnjrfd completes the activity by him/herself with no assistance from a helper. 5-Set-up or Clean-up Assistance-helper sets up or cleans up; patient completes activity. [place] assists only prior to or following the activity. 4-Supervision or Touching Assistance-helper provides verbal cues and/or touching/steadying and/or contact guard assistance as patient completes activity. Assistance may be provided throughout the activity or intermittently. 3-Partial/Moderate Assistance-helper does LESS THAN HALF the effort. [place] lifts, holds or supports trunk or limbs, but provides less than half the effort. 2-Substantial/Maximal Assistance-helper does MORE THAN HALF the effort. [place] lifts or holds trunk or limbs and provides more than half the effort. 0-Sjgsqaubz-buvunm does ALL the effort. Patient does none of the effort to complete the activity. Or, the assistance of 2 or more helpers is required for the patient to complete the activity. If activity was not attempted, code reason: 7-Patient Refused. 9-Not Applicable-not attempted and the patient did not perform the activity before the current illness, exacerbation or injury. 10-Not Attempted due to Environmental Limitations-(lack of equipment, weather restraints, etc.). 88-Not Attempted due to Medical Conditions or Safety Concerns. Lying to Sitting/Side of Bed(Q: 4 Sit to Stand (QC): 4 Gait Training Does the Patient Walk?: Yes Distance: 122 x2 Walk 10 feet (QC): 4 Walk 50 ft with 2 Turns(QC): 4 Gait Persons Needed: 1 Gait Assistive Device: FWW fair pace, steady, slight SOA and fatigue, R shoulder drop with R WB Exercises NuStep Minutes: 10 NuStep Workload: 5 (seat 6, arms 7) Treatments education, safety, gait, bed mobility, transfers, balance, strength, activity tolerance, functional mobility Assessment fatigues and SOA with activities PT Short Term Goals Short Term Goals Time Frame: Jun 15, 2019 Roll Left & Right: 6 Sit to lyin (met) Lying to sitting on side of be: 6 Sit to stand: 4 (met) Chair/qze-oe-fdvfm transfer: 4 (met) Walk 10 feet: 4 Walk 50 feet with two turns: 4 PT Senior Attorney Goals Residential Goals PT Senior Attorney Goals Time Frame: Jun 29, 2019 Roll Left & Right (QC): 6 Sit to Lying (QC): 4 (SBA) Lying-Sitting on Side/Bed(QC): 6 Sit to Stand (QC): 4 (SBA) Chair/Zvf-xh-Gkmpy Xfer(QC): 4 (SBA) Toilet Transfer (QC): 4 (SBA) Car Transfer (QC): 4 (SBA) Does the Patient Walk: Yes Walk 10 feet (QC): 4 (SBA) Walk 50ft with 2 Turns (QC): 4 (SBA) Walk 150 ft (QC): 4 (SBA) Walking 10ft on Uneven Surface: 4 (SBA) 1 Step (curb) (QC): 4 (CGA) 4 Steps (QC): 4 (CGA) 12 Steps (QC): 88 Picking up an Object (QC): 88 Does the Pt use WC or Scooter?: No Type: N/A Type: N/A PT Plan Treatment/Plan Treatment Plan: Continue Plan of Care Treatment Plan: Bed Mobility, Concurrent Therapy, Education, Functional Activity Brianne, Functional Strength, Group Therapy, Gait, Safety, Therapeutic Exercise, Transfers Treatment Duration: Jun 29, 2019 Frequency: At least 5 of 7 days/Wk (IRF) Estimated Hrs Per Day: 1.5 hours per day Patient and/or Family Agrees t: Yes Safety Risks/Education Patient Education: Gait Training, Transfer Techniques, Safety Issues Teaching Recipient: Patient Teaching Methods: Discussion Response to Teaching: Verbalize Understanding Time/GCodes Time In: 945 Time Out: 1012 Total Billed Treatment Time: 27 Total Billed Treatment 1 visit, GT x17 min, EX x10 min JANN OROZCO PTA Jun 13, 2019 09:49 POS
--- NOTE | 2019-06-13 12:15 | PM&R Progress Note ---
Subjective HPI/CC On Admission Date Seen by Provider: Jun 13, 2019 Time Seen by Provider: 10:00 Subjective/Events-last exam Assessment: Severe lung disease Patient doing very well Oxygen dependency is apparent when she takes her oxygen off and her saturation goes to 79% Last bowel movement was 06/13/2019 Denies any significant pain issues Maintained on BiPAP at night Check meds and labs Conferred with RN Reviewed therapy notes Review of Systems General: Fatigue Pulmonary: Dyspnea Objective Exam Vital Signs Vital Signs Date Time Temp Pulse Resp B/P (MAP) Pulse Ox O2 Delivery O2 Flow Rate FiO2 06/14/19 13:57 93 Nasal Cannula 2.00 06/14/19 05:50 36.6 57 18 101/56 (71) Capillary Refill : General Appearance: No Apparent Distress, WD/WN, Chronically ill, Obese HEENT: PERRL/EOMI, Normal ENT Inspection, Pharynx Normal Neck: Full Range of Motion, Normal Inspection Respiratory: Chest Non Tender, No Accessory Muscle Use, No Respiratory Distress, Decreased Breath Sounds, Other (On oxygen) Cardiovascular: Regular Rate, Rhythm, No Edema, No Murmur Gastrointestinal: Normal Bowel Sounds, No Organomegaly, No Pulsatile Mass, Non Tender, Soft Back: Normal Inspection, No CVA Tenderness, No Vertebral Tenderness Extremity: Normal Capillary Refill, Normal Inspection, Normal Range of Motion (severe weakness 3/5 all extremities), Non Tender, No Calf Tenderness, No Pedal Edema Neurologic/Psychiatric: Alert, Oriented x3, No Motor/Sensory Deficits, Normal Mood/Affect, line production cook II-XII Norm as Tested Skin: Normal Color, Warm/Dry Lymphatic: No Adenopathy Results/Procedures Lab Patient resulted labs reviewed. FIM Transfers Therapy Code Descriptions/Definitions Functional [place] Measure: 0=Not Assessed/NA 4=Minimal Assistance 1=Total Assistance 5=Supervision or Setup 2=Maximal Assistance 6=Modified [place] 3=Moderate Assistance 7=Complete IndependenceSCALE: Activities may be completed with or without assistive devices. 5-Qpjlpstdgi-jaeslzu completes the activity by him/herself with no assistance from a helper. 5-Set-up or Clean-up Assistance-helper sets up or cleans up; patient completes activity. [place] assists only prior to or following the activity. 4-Supervision or Touching Assistance-helper provides verbal cues and/or touching/steadying and/or contact guard assistance as patient completes activity. Assistance may be provided throughout the activity or intermittently. 3-Partial/Moderate Assistance-helper does LESS THAN HALF the effort. [place] lifts, holds or supports trunk or limbs, but provides less than half the effort. 2-Substantial/Maximal Assistance-helper does MORE THAN HALF the effort. [place] lifts or holds trunk or limbs and provides more than half the effort. 0-Zrmnedlgi-yvqmke does ALL the effort. Patient does none of the effort to complete the activity. Or, the assistance of 2 or more helpers is required for the patient to complete the activity. If activity was not attempted, code reason: 7-Patient Refused. 9-Not Applicable-not attempted and the patient did not perform the activity before the current illness, exacerbation or injury. 10-Not Attempted due to Environmental Limitations-(lack of equipment, weather restraints, etc.). 88-Not Attempted due to Medical Conditions or Safety Concerns. Roll Left to Right (QC): 4 Sit to Lying (QC): 3 (min assist to get her left leg into bed. ) Sit to Stand (QC): 4 Chair/Mgz-pj-Bvgrk Xfer(QC): 4 (SBA for safety) Car Transfer (QC): 4 Gait Training Does the Patient Walk?: Yes Distance: 122 x2 Walk 10 feet (QC): 4 Walk 50 ft with 2 Turns(QC): 4 Walking 10ft/uneven surface-QC: 4 Gait Persons Needed: 1 Gait Assistive Device: FWW Wheelchair Training Does the Pt Use a Wheelchair?: Yes Distance: 50' Wheel 50 ft with 2 turns (QC): 6 Wheel 150 ft (QC): 88 Type of Wheelchair: Manual Stair Training Stair Training: Handrails/: 2 handrails #of Steps: 1 1 Step (curb) (QC): 4 4 Steps (QC): 88 12 Steps (QC): 88 Stairs: Pattern: Step to Balance Picking up an Object (QC): 88 ADL-Treatment Eating (QC): 6 (Per pt report, she was able to open all containers for breakfast, including jelly container. Pt reported no difficulty.) Oral Hygiene (QC): 5 (set up assist at EOB) Bathing Location: L Arm, R Arm, L Upper Leg, R Upper Leg, L Lower Leg (including foot), R Lower Leg (including foot), Chest, Abdomen, Buttocks, Perineal Area Shower/Bathe Self (QC): 4 (SBA during stand at GB for washing perineal area and buttocks.) Upper Body Dressing (QC): 5 (set up assistance, pt required assistance retrieving clothing from closet and carrying them to the bathroom) Lower Body Dressing (QC): 4 (SBA during stand at grab bar, 1 verbal cue during stand to take a step forward due to standing on oxygen line. ) On/Off Footwear (QC): 2 (Pt able to doff socks, but required assistance donning BLE socks.) Toileting Hygiene (QC): 7 Toilet Transfer (QC): 7 Assessment/Plan Assessment and Plan Assess & Plan/Chief Complaint Assessment: Acute on chronic respiratory failure s/p extubation Severe debility Constipation s/p resolution today Metabolic alkalosis compensating for respiratory acidosis 44 Urinary incontinence Anemia Chronic respiratory failure Hypercapnia chronic BiPAP required at night Plan: IRF protocol Monitor closely BM regimen Incontinence care biPAP Monitor for pain DNI? Still requiring aggressive medical management due to severity of her weakness and COPD (1) Myopathy (2) Acute respiratory failure with hypoxia and hypercapnia Status: Acute (3) Paroxysmal A-fib Status: Chronic (4) COPD with acute exacerbation Status: Acute (5) Pleural effusion Status: Acute (6) Respiratory acidosis Status: Acute (7) CO2 narcosis Status: Acute (8) Anemia EB STALLWORTH DO Jun 13, 2019 12:15 POS
[2019-06-13 16:28] VITALS: BP 99/62
--- NOTE | 2019-06-13 19:05 | NUR ---
bedside report received from NATHANIEL MENDES, assume care of pt
[2019-06-13 20:45] VITALS: BP 111/65
--- NOTE | 2019-06-13 20:50 | NUR ---
pt took Colace but refused miralax & Senokot, v/s [phone]/65
[2019-06-13] MEDS: CATHETER FLUSH 10 ML SYR IV PRN (22:37)
[2019-06-14] MEDS: RT-ALBUTEROL/IPRATROPIUM 3 ML (DUONEB) VIAL INH SCH ×6 (03:21→22:51)
[2019-06-14 05:50] VITALS: BP 101/56
[2019-06-14] MEDS: CATHETER FLUSH 10 ML SYR IV PRN (06:28)
--- NOTE | 2019-06-14 07:06 | NUR ---
bedside report given to AYDE MENDES
[2019-06-14] MEDS: APIXABAN 5 MG (ELIQUIS) TABLET PO SCH ×2 (07:59→20:18)
[2019-06-14] MEDS: meTOprolol TARTRATE 25 MG (LOPRESSOR) TABLET PO SCH ×2 (07:59→20:23)
[2019-06-14] MEDS: DILTIAZEM 240 MG (CARDIZEM CD) CAP PO SCH (07:59)
[2019-06-14] MEDS: POLYETHYLENE GLYCOL 17 GM (MIRALAX) PACK PO SCH ×2 (08:00→20:27)
[2019-06-14] MEDS: PANTOPRAZOLE 40 MG (PROTONIX) TAB PO SCH (08:00)
[2019-06-14] MEDS: SENNA W/DOCUSATE (SENOKOT S) TABLET PO SCH ×2 (08:00→20:27)
[2019-06-14] MEDS: DOCUSATE SODIUM 100 MG (COLACE) CAP PO SCH ×2 (08:00→20:23)
[2019-06-14] MEDS: RT-ADVAIR HFA 115/21 MCG PER PUFF IH SCH ×2 (11:16→18:02)
--- NOTE | 2019-06-14 12:19 | PM&R Progress Note ---
Subjective HPI/CC On Admission Date Seen by Provider: Jun 14, 2019 Time Seen by Provider: 11:30 Subjective/Events-last exam Pt doing pretty well Oxygen maintained Appears to be moving around very well,much improved from before her acute illness Overall feels like she is progressing and gaining strength everyday Daughter and at the bedside BM+ Checked meds and labs Reviewed therapy notes Conferred with RN Patient still requires inpatient status with aggressive monitoring due to severity of COPD and could decompensate during her recovery Review of Systems General: Fatigue Pulmonary: Dyspnea Objective Exam Vital Signs Vital Signs Date Time Temp Pulse Resp B/P (MAP) Pulse Ox O2 Delivery O2 Flow Rate FiO2 06/14/19 20:25 Nasal Cannula 2.00 06/14/19 20:21 73 18 127/69 (88) 97 06/14/19 17:01 36.5 Capillary Refill : General Appearance: No Apparent Distress, WD/WN, Chronically ill, Obese HEENT: PERRL/EOMI, Normal ENT Inspection, Pharynx Normal Neck: Full Range of Motion, Normal Inspection Respiratory: Chest Non Tender, No Accessory Muscle Use, No Respiratory Distress, Decreased Breath Sounds, Other (On oxygen) Cardiovascular: Regular Rate, Rhythm, No Edema, No Murmur Gastrointestinal: Normal Bowel Sounds, No Organomegaly, No Pulsatile Mass, Non Tender, Soft Back: Normal Inspection, No CVA Tenderness, No Vertebral Tenderness Extremity: Normal Capillary Refill, Normal Inspection, Normal Range of Motion (severe weakness 3/5 all extremities), Non Tender, No Calf Tenderness, No Pedal Edema Neurologic/Psychiatric: Alert, Oriented x3, No Motor/Sensory Deficits, Normal Mood/Affect, embedded nurse II-XII Norm as Tested Skin: Normal Color, Warm/Dry Lymphatic: No Adenopathy Results/Procedures Lab Patient resulted labs reviewed. FIM Transfers Therapy Code Descriptions/Definitions Functional [place] Measure: 0=Not Assessed/NA 4=Minimal Assistance 1=Total Assistance 5=Supervision or Setup 2=Maximal Assistance 6=Modified [place] 3=Moderate Assistance 7=Complete IndependenceSCALE: Activities may be completed with or without assistive devices. 4-Qtxvvlinwv-gbnxasc completes the activity by him/herself with no assistance from a helper. 5-Set-up or Clean-up Assistance-helper sets up or cleans up; patient completes activity. [place] assists only prior to or following the activity. 4-Supervision or Touching Assistance-helper provides verbal cues and/or touching/steadying and/or contact guard assistance as patient completes activity. Assistance may be provided throughout the activity or intermittently. 3-Partial/Moderate Assistance-helper does LESS THAN HALF the effort. [place] lifts, holds or supports trunk or limbs, but provides less than half the effort. 2-Substantial/Maximal Assistance-helper does MORE THAN HALF the effort. [place] lifts or holds trunk or limbs and provides more than half the effort. 6-Ksjyysviz-lbwass does ALL the effort. Patient does none of the effort to complete the activity. Or, the assistance of 2 or more helpers is required for the patient to complete the activity. If activity was not attempted, code reason: 7-Patient Refused. 9-Not Applicable-not attempted and the patient did not perform the activity before the current illness, exacerbation or injury. 10-Not Attempted due to Environmental Limitations-(lack of equipment, weather restraints, etc.). 88-Not Attempted due to Medical Conditions or Safety Concerns. Roll Left to Right (QC): 4 Sit to Lying (QC): 3 (min assist to get her left leg into bed. ) Sit to Stand (QC): 4 Chair/Tpa-tw-Vkosz Xfer(QC): 4 (SBA for safety) Car Transfer (QC): 4 Gait Training Does the Patient Walk?: Yes Distance: 122 x2 Walk 10 feet (QC): 4 Walk 50 ft with 2 Turns(QC): 4 Walking 10ft/uneven surface-QC: 4 Gait Persons Needed: 1 Gait Assistive Device: FWW Wheelchair Training Does the Pt Use a Wheelchair?: Yes Distance: 50' Wheel 50 ft with 2 turns (QC): 6 Wheel 150 ft (QC): 88 Type of Wheelchair: Manual Stair Training Stair Training: Handrails/: 2 handrails #of Steps: 1 1 Step (curb) (QC): 4 4 Steps (QC): 88 12 Steps (QC): 88 Stairs: Pattern: Step to Balance Picking up an Object (QC): 88 ADL-Treatment Eating (QC): 6 (Per pt report, she was able to open all containers for breakfast, including jelly container. Pt reported no difficulty.) Oral Hygiene (QC): 5 (set up assist at EOB) Bathing Location: L Arm, R Arm, L Upper Leg, R Upper Leg, L Lower Leg (including foot), R Lower Leg (including foot), Chest, Abdomen, Buttocks, Perineal Area Shower/Bathe Self (QC): 4 (SBA during stand at GB for washing perineal area and buttocks.) Upper Body Dressing (QC): 5 (set up assistance, pt required assistance retrieving clothing from closet and carrying them to the bathroom) Lower Body Dressing (QC): 4 (SBA during stand at grab bar, 1 verbal cue during stand to take a step forward due to standing on oxygen line. ) On/Off Footwear (QC): 2 (Pt able to doff socks, but required assistance donning BLE socks.) Toileting Hygiene (QC): 7 Toilet Transfer (QC): 7 Assessment/Plan Assessment and Plan Assess & Plan/Chief Complaint Assessment: Acute on chronic respiratory failure s/p extubation Severe debility Constipation s/p resolution today Metabolic alkalosis compensating for respiratory acidosis 44 Urinary incontinence Anemia Plan: IRF protocol Monitor closely BM regimen Incontinence care biPAP Monitor for pain DNI? Still requiring aggressive medical management due to severity of her weakness and COPD (1) Myopathy (2) Acute respiratory failure with hypoxia and hypercapnia Status: Acute (3) Paroxysmal A-fib Status: Chronic (4) COPD with acute exacerbation Status: Acute (5) Pleural effusion Status: Acute (6) Respiratory acidosis Status: Acute (7) CO2 narcosis Status: Acute (8) Anemia EB STALLWORTH DO Jun 14, 2019 12:19 POS
[2019-06-14] MEDS: ACETAMINOPHEN 325 MG TABLET PO PRN (14:02)
[2019-06-14 17:01] VITALS: BP 128/77
--- NOTE | 2019-06-14 18:55 | NUR ---
bedside report given to AYDE MENDES, assume care of pt
[2019-06-14 20:21] VITALS: BP 127/69
--- NOTE | 2019-06-14 20:23 | NUR ---
pt refused miralax & Senokot but took Colace, v/s [phone]%-127/69
[2019-06-15] MEDS: RT-ALBUTEROL/IPRATROPIUM 3 ML (DUONEB) VIAL INH SCH ×6 (03:19→22:40)
[2019-06-15 06:08] VITALS: BP 104/65
[2019-06-15 06:51] LABS: BASOPHILS % (AUTO) 0 % (0-10); EOSINOPHILS # (AUTO) 0.1 10^3/uL (0.0-0.3); EOSINOPHILS % (AUTO) 2 % (0-10); HEMATOCRIT 32 % (35-52); HEMOGLOBIN 9.2 G/DL (11.5-16.0); LYMPHOCYTES # (AUTO) 0.8 X 10^3 (1.0-4.0); LYMPHOCYTES % (AUTO) 24 % (12-44); MEAN CORPUSCULAR HEMOGLOBIN 30 PG (25-34); MEAN CORPUSCULAR HGB CONC 29 G/DL (32-36); MEAN CORPUSCULAR VOLUME 103 FL (80-99); MEAN PLATELET VOLUME 9.7 FL (7.4-10.4); MONOCYTES # (AUTO) 0.5 X 10^3 (0.0-1.0); MONOCYTES % (AUTO) 15 % (0-12); NEUTROPHILS # (AUTO) 1.9 X 10^3 (1.8-7.8); NEUTROPHILS % (AUTO) 58 % (42-75); PLATELET COUNT 204 10^3/uL (130-400); RED CELL DISTRIBUTION WIDTH 13.7 % (10.0-14.5); WHITE BLOOD COUNT 3.2 10^3/uL (4.3-11.0)
[2019-06-15 07:09] LABS: ALANINE AMINOTRANSFERASE 30 U/L (0-55); ALBUMIN 3.3 GM/DL (3.2-4.5); ALKALINE PHOSPHATASE 94 U/L (40-136); BILIRUBIN,TOTAL 0.2 MG/DL (0.1-1.0); BUN/CREATININE RATIO 25; CALCIUM 9.1 MG/DL (8.5-10.1); CARBON DIOXIDE 43 MMOL/L (21-32); CHLORIDE 92 MMOL/L (98-107); CREATININE SERUM 0.55 MG/DL (0.60-1.30); GFR ESTIMATED > 60; GLUCOSE 91 MG/DL (70-105); POTASSIUM 4.1 MMOL/L (3.6-5.0); SODIUM 143 MMOL/L (135-145); TOTAL PROTEIN 5.3 GM/DL (6.4-8.2)
--- NOTE | 2019-06-15 07:12 | NUR ---
bedside report given to BUNNY MENDES
[2019-06-15] MEDS: RT-ADVAIR HFA 115/21 MCG PER PUFF IH SCH ×2 (07:41→19:00)
[2019-06-15] MEDS: POLYETHYLENE GLYCOL 17 GM (MIRALAX) PACK PO SCH ×2 (08:16→20:22)
[2019-06-15] MEDS: DOCUSATE SODIUM 100 MG (COLACE) CAP PO SCH ×2 (08:16→20:20)
[2019-06-15] MEDS: DILTIAZEM 240 MG (CARDIZEM CD) CAP PO SCH (08:16)
[2019-06-15] MEDS: PANTOPRAZOLE 40 MG (PROTONIX) TAB PO SCH (08:16)
[2019-06-15] MEDS: meTOprolol TARTRATE 25 MG (LOPRESSOR) TABLET PO SCH ×2 (08:16→20:20)
[2019-06-15] MEDS: APIXABAN 5 MG (ELIQUIS) TABLET PO SCH ×2 (08:16→20:20)
[2019-06-15] MEDS: SENNA W/DOCUSATE (SENOKOT S) TABLET PO SCH ×2 (08:16→20:35)
--- NOTE | 2019-06-15 08:22 | Progress Note ---
Subjective Time Seen by a Provider: 08:21 Subjective/Events-last exam feeling better and breathing better area Patient getting around better Objective Exam Vital Signs Date Time Temp Pulse Resp B/P (MAP) Pulse Ox O2 Delivery O2 Flow Rate FiO2 06/15/19 07:39 93 Nasal Cannula 2.00 06/15/19 06:08 36.6 57 20 104/65 (78) 95 Nasal Cannula 2.00 06/15/19 03:19 96 Nasal Cannula 2.00 06/14/19 22:51 66 20 94 45.00 06/14/19 20:25 Nasal Cannula 2.00 06/14/19 20:21 73 18 127/69 (88) 97 Nasal Cannula 2.00 06/14/19 18:01 98 Nasal Cannula 2.00 06/14/19 17:01 36.5 72 18 128/77 (94) 98 Nasal Cannula 2.00 06/14/19 13:57 93 Nasal Cannula 2.00 06/14/19 11:16 95 Nasal Cannula 2.00 06/14/19 08:38 Nasal Cannula 2.00 I & O 06/15/19 07:00 Intake Total 1035 ml Balance 1035 ml Capillary Refill : General Appearance: No Apparent Distress, WD/WN HEENT: Normal ENT Inspection Neck: Full Range of Motion, Normal Inspection Respiratory: Lungs Clear, No Accessory Muscle Use, No Respiratory Distress, Decreased Breath Sounds Cardiovascular: Regular Rate, Rhythm, No Murmur Gastrointestinal: non tender, soft Results Lab Laboratory Tests 06/15/19 06:05 Laboratory Tests 06/15/19 06:05: White Blood Count 3.2L, Red Blood Count 3.09L, Hemoglobin 9.2L, Hematocrit 32L, Mean Corpuscular Volume 103H, Mean Corpuscular Hemoglobin 30, Mean Corpuscular Hemoglobin Concent 29L, Red Cell Distribution Width 13.7, Platelet Count 204, Me an Platelet Volume 9.7, Neutrophils (%) (Auto) 58, Lymphocytes (%) (Auto) 24, Monocytes (%) (Auto) 15H, Eosinophils (%) (Auto) 2, Basophils (%) (Auto) 0, Neutrophils # (Auto) 1.9, Lymphocytes # (Auto) 0.8L, Monocytes # (Auto) 0.5, Eosinophils # (Auto) 0.1, Basophils # (Auto) 0.0, Sodium Level 143, Potassium Level 4.1, Chloride Level 92L, Carbon Dioxide Level 43H, Anion Gap 8, Blood Urea Nitrogen 14, Creatinine 0.55L, Estimat Glomerular Filtration Rate > 60, BUN/Creatinine Ratio 25, Glucose Level 91, Calcium Level 9.1, Corrected Calcium 9.7, Total Bilirubin 0.2, Aspartate Amino Transf (AST/SGOT) 16, Alanine Aminotransferase (ALT/SGPT) 30, Alkaline Phosphatase 94, Total Protein 5.3L, Albumin 3.3 Assessment/Plan Assessment/Plan Assess & Plan/Chief Complaint COPD. Myopathy. Patient and feeling that patient is doing better. Patient positive. . 06/09/19. COPD with acute exacerbation. Myopathy. Debility. Paroxymal atrial fibrillation. . 06/10/19 COPD. Myopathy. Debility.. . 06/11/19. COPD. Debility. Myopathy. Atrial fibrillation history atrial fibrillation. . 06/12/19 COPD. Debility. Myopathy. Atrial fibrillation history. Patient positive. . 06/15/19. COPD. Debility better. Myopathy. Atrial fib history Clinical Quality Measures DVT/VTE Risk/Contraindication: Risk Factor Score Per Nursin RFS Level Per Nursing on Admit: 4+=Very High ADOLFO ORTIZ DO Jun 15, 2019 08:22 POS
--- NOTE | 2019-06-15 09:50 | PM&R Progress Note ---
Subjective HPI/CC On Admission Date Seen by Provider: Jun 15, 2019 Time Seen by Provider: 08:30 Subjective/Events-last exam No new issues BM yesterday Dr. Pool says she has improved also Wore BiPAP last night Dr. Abdalla will arrange for BiPAP at night at home Checked meds and labs Reviewed therapy notes Conferred with RN Patient still requires inpatient status with aggressive monitoring due to severity of COPD and could decompensate during her recovery Review of Systems General: Fatigue Pulmonary: Dyspnea Objective Exam Vital Signs Vital Signs Date Time Temp Pulse Resp B/P (MAP) Pulse Ox O2 Delivery O2 Flow Rate FiO2 06/15/19 20:30 Nasal Cannula 2.00 06/15/19 18:59 96 06/15/19 16:00 37.2 73 16 112/67 (82) 06/15/19 11:56 28 Capillary Refill : General Appearance: No Apparent Distress, WD/WN HEENT: Normal ENT Inspection Neck: Full Range of Motion, Normal Inspection Respiratory: Lungs Clear, No Accessory Muscle Use, No Respiratory Distress, Decreased Breath Sounds Cardiovascular: Regular Rate, Rhythm, No Murmur Gastrointestinal: Normal Bowel Sounds, No Organomegaly, No Pulsatile Mass, Non Tender, Soft Back: Normal Inspection, No CVA Tenderness, No Vertebral Tenderness Extremity: Normal Capillary Refill, Normal Inspection, Normal Range of Motion (severe weakness 3/5 all extremities), Non Tender, No Calf Tenderness, No Pedal Edema Neurologic/Psychiatric: Alert, Oriented x3, No Motor/Sensory Deficits, Normal Mood/Affect, mat maker II-XII Norm as Tested Skin: Normal Color, Warm/Dry Lymphatic: No Adenopathy Results/Procedures Lab Laboratory Tests 06/15/19 06:05 Patient resulted labs reviewed. FIM Transfers Therapy Code Descriptions/Definitions Functional [place] Measure: 0=Not Assessed/NA 4=Minimal Assistance 1=Total Assistance 5=Supervision or Setup 2=Maximal Assistance 6=Modified [place] 3=Moderate Assistance 7=Complete IndependenceSCALE: Activities may be completed with or without assistive devices. 0-Yrhydoztvx-cbwscsr completes the activity by him/herself with no assistance from a helper. 5-Set-up or Clean-up Assistance-helper sets up or cleans up; patient completes activity. [place] assists only prior to or following the activity. 4-Supervision or Touching Assistance-helper provides verbal cues and/or touching /steadying and/or contact guard assistance as patient completes activity. Assistance may be provided throughout the activity or intermittently. 3-Partial/Moderate Assistance-helper does LESS THAN HALF the effort. [place] lifts, holds or supports trunk or limbs, but provides less than half the effort. 2-Substantial/Maximal Assistance-helper does MORE THAN HALF the effort. [place] lifts or holds trunk or limbs and provides more than half the effort. 8-Muyrnckqf-khvrkd does ALL the effort. Patient does none of the effort to complete the activity. Or, the assistance of 2 or more helpers is required for the patient to complete the activity. If activity was not attempted, code reason: 7-Patient Refused. 9-Not Applicable-not attempted and the patient did not perform the activity before the current illness, exacerbation or injury. 10-Not Attempted due to Environmental Limitations-(lack of equipment, weather restraints, etc.). 88-Not Attempted due to Medical Conditions or Safety Concerns. Roll Left to Right (QC): 4 Sit to Lying (QC): 3 (min assist to get her left leg into bed. ) Sit to Stand (QC): 4 Chair/[place] Xfer(QC): 4 (SBA for safety) Car Transfer (QC): 4 Gait Training Does the Patient Walk?: Yes Distance: 122 x2 Walk 10 feet (QC): 4 Walk 50 ft with 2 Turns(QC): 4 Walking 10ft/uneven surface-QC: 4 Gait Persons Needed: 1 Gait Assistive Device: FWW Wheelchair Training Does the Pt Use a Wheelchair?: Yes Distance: 50' Wheel 50 ft with 2 turns (QC): 6 Wheel 150 ft (QC): 88 Type of Wheelchair: Manual Stair Training Stair Training: Handrails/: 2 handrails #of Steps: 1 1 Step (curb) (QC): 4 4 Steps (QC): 88 12 Steps (QC): 88 Stairs: Pattern: Step to Balance Picking up an Object (QC): 88 ADL-Treatment Eating (QC): 6 (Per pt report, she was able to open all containers for breakfast, including jelly container. Pt reported no difficulty.) Oral Hygiene (QC): 5 (set up assist at EOB) Bathing Location: L Arm, R Arm, L Upper Leg, R Upper Leg, L Lower Leg (including foot), R Lower Leg (including foot), Chest, Abdomen, Buttocks, Perineal Area Shower/Bathe Self (QC): 4 (SBA during stand at GB for washing perineal area and buttocks.) Upper Body Dressing (QC): 5 (set up assistance, pt required assistance retrieving clothing from closet and carrying them to the bathroom) Lower Body Dressing (QC): 4 (SBA during stand at grab bar, 1 verbal cue during stand to take a step forward due to standing on oxygen line. ) On/Off Footwear (QC): 2 (Pt able to doff socks, but required assistance donning BLE socks.) Toileting Hygiene (QC): 7 Toilet Transfer (QC): 7 Assessment/Plan Assessment and Plan Assess & Plan/Chief Complaint Assessment: Acute on chronic respiratory failure s/p extubation Severe debility Constipation s/p resolution today Metabolic alkalosis compensating for respiratory acidosis 44 Urinary incontinence Anemia Chronic respiratory failure Hypercapnia chronic BiPAP required at night Plan: IRF protocol Monitor closely BM regimen Incontinence care biPAP Monitor for pain DNI? Still requiring aggressive medical management due to severity of her weakness and COPD (1) Myopathy (2) Acute respiratory failure with hypoxia and hypercapnia Status: Acute (3) Paroxysmal A-fib Status: Chronic (4) COPD with acute exacerbation Status: Acute (5) Pleural effusion Status: Acute (6) Respiratory acidosis Status: Acute (7) CO2 narcosis Status: Acute (8) Anemia EB STALLWORTH DO Jun 15, 2019 09:50 POS
--- NOTE | 2019-06-15 10:16 | Occupational Ther Daily Note ---
OT Current Status-Daily Note Subjective Pt laying in bed at start of session, agreeable to OT tx this AM. Pt declined showering today, stating she would prefer to complete this task tomorrow. Pain Numeric Pain Scale: 0-No Pain Mental Status/Objective Attachments: Oxygen (2L) ADL-Treatment Therapy Code Descriptions/Definitions Functional [place] Measure: 0=Not Assessed/NA 4=Minimal Assistance 1=Total Assistance 5=Supervision or Setup 2=Maximal Assistance 6=Modified [place] 3=Moderate Assistance 7=Complete IndependenceSCALE: Activities may be completed with or without assistive devices. 6-Weeemrcuiu-bxbsxpi completes the activity by him/herself with no assistance from a helper. 5-Set-up or Clean-up Assistance-helper sets up or cleans up; patient completes activity. [place] assists only prior to or following the activity. 4-Supervision or Touching Assistance-helper provides verbal cues and/or touchin g/steadying and/or contact guard assistance as patient completes activity. Assistance may be provided throughout the activity or intermittently. 3-Partial/Moderate Assistance-helper does LESS THAN HALF the effort. [place] lifts, holds or supports trunk or limbs, but provides less than half the effort. 2-Substantial/Maximal Assistance-helper does MORE THAN HALF the effort. [place] lifts or holds trunk or limbs and provides more than half the effort. 3-Lfvouotim-zfphtl does ALL the effort. Patient does none of the effort to complete the activity. Or, the assistance of 2 or more helpers is required for the patient to complete the activity. If activity was not attempted, code reason: 7-Patient Refused. 9-Not Applicable-not attempted and the patient did not perform the activity before the current illness, exacerbation or injury. 10-Not Attempted due to Environmental Limitations-(lack of equipment, weather restraints, etc.). 88-Not Attempted due to Medical Conditions or Safety Concerns. Upper Body Dressing (QC): 3 (Pt able to don pullover shirt, and then she put on a jacket. Pt required assistance threading LUE into jacket due to it getting caught on the IV in her arm. Pt able to complete all other parts of task.) Lower Body Dressing (QC): 4 (SBA for pants/underwear at FWW. ) Toileting Hygiene (QC): 4 (SBA for hygiene and clothing management ) Toilet Transfer (QC): 4 (SBA transfer on/off BSC over toilet) FOOTWEAR QC: 4 (SBA for footwear, pt able to don socks/shoes without AE, min verbal cues required to take a deep breath during task) Other Treatment Pt completed ADL session in room consisting of dressing and toileting. Pt then stood at sink to brush her hair. Pt ambulated to therapy gym using FWW, required 1 rest break in order to tighten the laces on her shoes and to catch her breath. Pt then completed x15 mins arm bike with min resistance in order to increase BUE strength and functional endurance with task. Pt then placed 1" pegs into foam pegboard, alternating hands in order to increase functional endurance. Pt then ambulated back to her room to the recliner using FWW. Once at the recliner, pt indicated she needed to go to the rest room again, pt then completed toileting before returning to the chair. Post OT session, pt seated upright in recliner, call light in reach and all needs met. Education OT Patient Education: Correct positioning, Energy conservation, Exercise program, Modified ADL techniques, Progress toward Goal/Update tx plan, Purpose of tx/functional activities, Transfer techniques Teaching Recipient: Patient Teaching Methods: Demonstration, Discussion Response to Teaching: Verbalize Understanding, Return Demonstration OT Short Term Goals Short Term Goals Time Frame: Jun 17, 2019 Toileting hygiene: 4 Shower/bathe self: 4 Upper body dressin Lower body dressin Putting on/taking off footwear: 3 OT Long-Term Goals Tutorial Laboratory Supervisor Goals Time Frame: Jun 26, 2019 Eating (QC): 6 Oral Hygiene (QC): 6 Toileting Hygiene (QC): 6 Shower/Bathe Self (QC): 6 Upper Body Dressing (QC): 6 Lower Body Dressing (QC): 6 On/Off Footwear (QC): 6 Additional Goals: 1-Demonstrate ADL Tasks, 2-Verbalize Understanding, 3- ImproveStrength/Brianne 1=Demonstrate adherence to instructed precautions during ADL tasks. 2=Patient will verbalize/demonstrate understanding of assistive devices/modifications for ADL. 3=Patient will improve strength/tolerance for activity to enable patient to perform ADL's. OT Education/Plan Problem List/Assessment Assessment: Decreased Activ Tolerance, Decreased UE Strength, Impaired I ADL's, Impaired Self-Care Skills Discharge Recommendations Plan/Recommendations: Follow-up Planned Treatment Plan/Plan of Care Treatment,Training & Education: Yes Patient would benefit from OT for education, treatment and training to promote independence in ADL's, mobility, safety and/or upper extremity function for ADL's. Plan of Care: ADL Retraining, Caregiver Training, Functional Mobility, Group Exercise/Act as Ind, UE Funct Exercise/Act Treatment Duration: Jun 26, 2019 Frequency: At least 5 of 7 days/Wk (IRF) Estimated Hrs Per Day: 1.5 hours per day Agreement: Yes Rehab Potential: Fair Time/GCodes Start Time: 09:40 Stop Time: 10:45 Total Time Billed (hr/min): 65 Billed Treatment Time 1, ADL 2 (35 mins), EX (15 mins), FA (15 mins) JG IGLESIAS OT Jun 15, 2019 10:16 POS
--- NOTE | 2019-06-15 11:25 | Progress Note ---
JANES NUNEZ,LICO STUDENT 06/15/19 1125: Progress Note Patient feeling better today. She denies any pain or shortness of breath at rest. She admits shortness of breath with exertion. Her appetite is good and she is having regular bowel movements on bowel regimen. Dr. Abdalla following and he ordered ABGs today. He will start the process for her to have BiPAP at home. OT and PT going well. She states that her goal is to be able to get up and go to the bathroom independently, and to perform other ADLs independently as well. Barriers to going home at this time include weakness as well as shortness of br eath with exertion - she is dependent on O2 4L at home and anticipating new BiPAP for home use. She feels she is getting stronger but she still requires frequent breaks with activity to catch her breath. She typically uses a FWW and cane at home. Her does all of the cooking and cleaning at home, but patient typically does her own laundry. IVANIA STALLWORTH DO 06/15/192044: Supervisory-Addendum Brief Verification & Attestation Participated in pt care: history, MDM, physical Personally performed: exam, history, MDM, supervision of care Care discussed with: Medical Student Procedures: n/a Results interpretation: Verified all documentation Verification and Attestation of Medical Student E/M Service A medical student performed and documented this service in my presence. I reviewed and verified all information documented by the medical student and made modifications to such information, when appropriate. I personally performed the physical exam and medical decision making. Ivania Stallworth, Jun 15, 2019,20:45 JANES NUNEZ,MED STUDENT Jun 15, 2019 11:25 IVANIA HAYES DO Jun 15, 2019 20:45 POS
[2019-06-15 11:56] VITALS: BP 104/65
--- NOTE | 2019-06-15 12:07 | Physical Therapy Daily Note ---
PT Daily Note-Current Subjective Pt. expresses gratitude to the team here on [facility] and states she is feeling so much better ans inquires as to whether she can be up ad finn and wants to DC tomorrow or Wed. Pt. states "its time for a breathing Rx" Pain Location: No Pain Reported Appearance some periods of SOB kasi with activity Mental Status Patient Orientation: Normal For Age Attachments: Oxygen (2L) Transfers SCALE: Activities may be completed with or without assistive devices. 4-Cyuaotjlzy-jlomium completes the activity by him/herself with no assistance from a helper. 5-Set-up or Clean-up Assistance-helper sets up or cleans up; patient completes activity. [place] assists only prior to or following the activity. 4-Supervision or Touching Assistance-helper provides verbal cues and/or touching/steadying and/or contact guard assistance as patient completes activity. Assistance may be provided throughout the activity or intermittently. 3-Partial/Moderate Assistance-helper does LESS THAN HALF the effort. [place] lifts, holds or supports trunk or limbs, but provides less than half the effort. 2-Substantial/Maximal Assistance-helper does MORE THAN HALF the effort. [place] lifts or holds trunk or limbs and provides more than half the effort. 9-Dzunhkgse-tmhpod does ALL the effort. Patient does none of the effort to complete the activity. Or, the assistance of 2 or more helpers is required for the patient to complete the activity. If activity was not attempted, code reason: 7-Patient Refused. 9-Not Applicable-not attempted and the patient did not perform the activity before the current illness, exacerbation or injury. 10-Not Attempted due to Environmental Limitations-(lack of equipment, weather restraints, etc.). 88-Not Attempted due to Medical Conditions or Safety Concerns. Roll Left & Right (QC): 6 Sit to Lying (QC): 6 Lying to Sitting/Side of Bed(Q: 6 Sit to Stand (QC): 6 Chair/[place]dt[place]tz[place] Xfer(QC): 6 Toilet Transfer (QC): 6 Car Transfer (QC): 6 Gait Training Does the Patient Walk?: Yes Walk 10 feet (QC): 6 Walk 50 ft with 2 Turns(QC): 6 Walk 150 ft (QC): 6 Walking 10ft/uneven surface-QC: 6 Gait Persons Needed: 0 Gait Assistive Device: FWW pt. ambulated in room many times to bthrm and back demonstrating she can manage extended O2 tubing safely. Pt. does have periods of SOB as well as times she needs to rest her right hip and stands in place leaning on FWW to rest then walks again Stair Training Stair Training: Handrails/: 2 handrails #of Steps: 4 1 Step (curb) (QC): 4 4 Steps (QC): 5 12 Steps (QC): 88 Stairs: Pattern: Reciprocal Balance Picking up an Object (QC): 6 Exercises Seated Therapy Exercises: Ankle pumps, Sit to stand, Long arc quads, Hip flexion, Hip abd/add Seated Reps: 12 Treatments emphasis on gait about room and into bthrm with extended tubing with good demonstration by pt. for safe management Assessment Current Status: Good Progress PT Short Term Goals Short Term Goals Time Frame: Jun 15, 2019 Roll Left & Right: 6 Sit to lyin (met) Lying to sitting on side of be: 6 Sit to stand: 4 (met) Chair/elj-sl-exyff transfer: 4 (met) Walk 10 feet: 4 Walk 50 feet with two turns: 4 PT [facility] Goals Rotary Saw Operator Goals PT [facility] Goals Time Frame: Jun 29, 2019 Roll Left & Right (QC): 6 Sit to Lying (QC): 4 (SBA) Lying-Sitting on Side/Bed(QC): 6 Sit to Stand (QC): 4 (SBA) Chair/Kve-hh-Fobwi Xfer(QC): 4 (SBA) Toilet Transfer (QC): 4 (SBA) Car Transfer (QC): 4 (SBA) Does the Patient Walk: Yes Walk 10 feet (QC): 4 (SBA) Walk 50ft with 2 Turns (QC): 4 (SBA) Walk 150 ft (QC): 4 (SBA) Walking 10ft on Uneven Surface: 4 (SBA) 1 Step (curb) (QC): 4 (CGA) 4 Steps (QC): 4 (CGA) 12 Steps (QC): 88 Picking up an Object (QC): 88 Does the Pt use WC or Scooter?: No Type: N/A Type: N/A PT Plan Treatment/Plan Treatment Plan: Continue Plan of Care Treatment Plan: Bed Mobility, Concurrent Therapy, Education, Functional Activity Brianne, Functional Strength, Group Therapy, Gait, Safety, Therapeutic Exercise, Transfers Treatment Duration: Jun 29, 2019 Frequency: At least 5 of 7 days/Wk (IRF) Estimated Hrs Per Day: 1.5 hours per day Patient and/or Family Agrees t: Yes Safety Risks/Education Patient Education: Gait Training, Transfer Techniques, Steps, Correct Posit ioning, Disease Process, Safety Issues Teaching Recipient: Patient Teaching Methods: Demonstration, Discussion Response to Teaching: Verbalize Understanding, Return Demonstration, Reinforcem ent Needed Time/GCodes Time In: 1100 Time Out: 1200 Total Billed Treatment Time: 60 Total Billed Treatment 1,GT30m,EX10m,FA20m SUSAN SULLIVAN AUDIT SPECIALIST Jun 15, 2019 12:07 POS
[2019-06-15] MEDS: ACETAMINOPHEN 325 MG TABLET PO PRN (13:33)
--- NOTE | 2019-06-15 13:37 | Occupational Ther Daily Note ---
OT Current Status-Daily Note Subjective Pt seated upright in recliner finishing with lunch at start of session. Pt agreeable to OT tx stating she would like to go back home tomorrow. Mental Status/Objective Attachments: Oxygen (2L) ADL-Treatment Therapy Code Descriptions/Definitions Functional [place] Measure: 0=Not Assessed/NA 4=Minimal Assistance 1=Total Assistance 5=Supervision or Setup 2=Maximal Assistance 6=Modified [place] 3=Moderate Assistance 7=Complete IndependenceSCALE: Activities may be completed with or without assistive devices. 1-Eefmzkqsxg-nsxskdn completes the activity by him/herself with no assistance from a helper. 5-Set-up or Clean-up Assistance-helper sets up or cleans up; patient completes activity. [place] assists only prior to or following the activity. 4-Supervision or Touching Assistance-helper provides verbal cues and/or touching/steadying and/or contact guard assistance as patient completes activity. Assistance may be provided throughout the activity or intermittently. 3-Partial/Moderate Assistance-helper does LESS THAN HALF the effort. [place] lifts, holds or supports trunk or limbs, but provides less than half the effort. 2-Substantial/Maximal Assistance-helper does MORE THAN HALF the effort. [place] lifts or holds trunk or limbs and provides more than half the effort. 7-Szpdolsfs-odgqeh does ALL the effort. Patient does none of the effort to complete the activity. Or, the assistance of 2 or more helpers is required for the patient to complete the activity. If activity was not attempted, code reason: 7-Patient Refused. 9-Not Applicable-not attempted and the patient did not perform the activity before the current illness, exacerbation or injury. 10-Not Attempted due to Environmental Limitations-(lack of equipment, weather restraints, etc.). 88-Not Attempted due to Medical Conditions or Safety Concerns. Eating (QC): 6 (Pt reports independence with feeding, she denies requiring assistance opening containers, cutting food and bringing food to mouth.) Oral Hygiene (QC): 6 (Pt able to complete oral hygiene standing at sink, no LOB. ) Bathing Location: L Arm, R Arm, L Upper Leg, R Upper Leg, L Lower Leg (including foot), R Lower Leg (including foot), Chest, Abdomen, Buttocks, Perineal Area Shower/Bathe Self (QC): 5 (Set up assistance. Pt attempted to take shower after set up, due to no hot water pt agreed to sponge bath with warm wet wipes. OT provided pt with wipes and pt was able to complete washing all parts. No LOB noted.) Upper Body Dressing (QC): 3 (Pt donned/doffed pullover shirt and jacket. Pt required min A with task due to long sleeved jacket catching on IV in left arm. Pt able to complete all other parts of task. Based on clinical reasoning, once IV is removed, pt would be able to complete upper body dressing without assist.) Lower Body Dressing (QC): 5 (Set up, pt able to don/doff pants and underpants. Pt required set up assistance of clean brief from OT. Pt completed task, standing at FWW during clothing management, no LOB) Toileting Hygiene (QC): 4 (Pt did not require assistance for hygiene and clothing management. 1 verbal cue during task due to oxygen line getting caught under pt's foot, pt was able to step over the tube once cued. ) Toilet Transfer (QC): 6 (Pt transferred to/from [facility] [place] using FWW.) Footwear QC: 6 (pt doffed/donned footwear without assistance from OT, no AE) Other Treatment Pt seated in recliner, ambulated to bathroom using FWW and completed toileting. Pt then transferred to the shower chair for a shower. Hot water was not working at this time so pt agreed to sponge bath. Pt completed sponge bath and dressing at shower chair, then ambulated to the sink using FWW. Pt completed oral hygiene and hair brushing standing at sink. She then returned to the recliner. Post OT session, pt seated in recliner, call light in reach and all needs met. Education OT Patient Education: Correct positioning, Energy conservation, Modified ADL techniques, Progress toward Goal/Update tx plan, Purpose of tx/functional activities, Safety issues, Transfer techniques Teaching Recipient: Patient Teaching Methods: Demonstration, Discussion Response to Teaching: Verbalize Understanding, Return Demonstration OT Short Term Goals Short Term Goals Time Frame: Jun 17, 2019 Toileting hygiene: 4 Shower/bathe self: 4 Upper body dressin Lower body dressin Putting on/taking off footwear: 3 OT Shelter Goals Timber Grader Goals Time Frame: Jun 26, 2019 Eating (QC): 6 (met) Oral Hygiene (QC): 6 (met) Toileting Hygiene (QC): 6 (not met) Shower/Bathe Self (QC): 6 (not met) Upper Body Dressing (QC): 6 (not met) Lower Body Dressing (QC): 6 (not met) On/Off Footwear (QC): 6 (met) Additional Goals: 1-Demonstrate ADL Tasks, 2-Verbalize Understanding, 3- ImproveStrength/Brianne 1=Demonstrate adherence to instructed precautions during ADL tasks. 2=Patient will verbalize/demonstrate understanding of assistive devices/modifications for ADL. 3=Patient will improve strength/tolerance for activity to enable patient to perform ADL's. OT Education/Plan Problem List/Assessment Assessment: Decreased Activ Tolerance, Decreased UE Strength, Impaired I ADL's, Impaired Self-Care Skills Discharge Recommendations Plan/Recommendations: Continue POC Treatment Plan/Plan of Care Treatment,Training & Education: Yes Patient would benefit from OT for education, treatment and training to promote independence in ADL's, mobility, safety and/or upper extremity function for ADL's. Plan of Care: ADL Retraining, Caregiver Training, Functional Mobility, Group Exercise/Act as Ind, UE Funct Exercise/Act Treatment Duration: Jun 26, 2019 Frequency: At least 5 of 7 days/Wk (IRF) Estimated Hrs Per Day: 1.5 hours per day Agreement: Yes Rehab Potential: Fair Time/GCodes Start Time: 12:57 Stop Time: 13:27 Total Time Billed (hr/min): 30 Billed Treatment Time 1, ADL 2 JG IGLESIAS OT Jun 15, 2019 13:37 POS
--- NOTE | 2019-06-15 14:00 | Physical Therapy Daily Note ---
PT Daily Note-Current Subjective Patient agrees to PT. No c/o. Pain Location: No Pain Reported Mental Status Patient Orientation: Normal For Age Attachments: Oxygen (2L NC) Transfers SCALE: Activities may be completed with or without assistive devices. 8-Yriivnrsny-mjpomue completes the activity by him/herself with no assistance from a helper. 5-Set-up or Clean-up Assistance-helper sets up or cleans up; patient completes activity. [place] assists only prior to or following the activity. 4-Supervision or Touching Assistance-helper provides verbal cues and/or touching/steadying and/or contact guard assistance as patient completes activity. Assistance may be provided throughout the activity or intermittently. 3-Partial/Moderate Assistance-helper does LESS THAN HALF the effort. [place] lifts, holds or supports trunk or limbs, but provides less than half the effort. 2-Substantial/Maximal Assistance-helper does MORE THAN HALF the effort. [place] lifts or holds trunk or limbs and provides more than half the effort. 9-Zsawivycz-czgjyt does ALL the effort. Patient does none of the effort to complete the activity. Or, the assistance of 2 or more helpers is required for the patient to complete the activity. If activity was not attempted, code reason: 7-Patient Refused. 9-Not Applicable-not attempted and the patient did not perform the activity before the current illness, exacerbation or injury. 10-Not Attempted due to Environmental Limitations-(lack of equipment, weather restraints, etc.). 88-Not Attempted due to Medical Conditions or Safety Concerns. Sit to Stand (QC): 6 Chair/Wle-sv-Qqziy Xfer(QC): 6 Car Transfer (QC): 6 Gait Training Does the Patient Walk?: Yes Distance: 200' x 2 Walk 10 feet (QC): 6 Walk 50 ft with 2 Turns(QC): 6 Walk 150 ft (QC): 6 Gait Assistive Device: FWW steady, functional gait sequence/no deviation Exercises NuStep Minutes: 12 NuStep Workload: 3 (to improve pulmonary function) Assessment Patient requires recovery periods due to SOA and fatigue. PT to increase activity as tolerated by patient. PT Short Term Goals Short Term Goals Time Frame: Jun 15, 2019 Roll Left & Right: 6 Sit to lyin (met) Lying to sitting on side of be: 6 Sit to stand: 4 (met) Chair/xxx-gp-xcezt transfer: 4 (met) Walk 10 feet: 4 Walk 50 feet with two turns: 4 PT Utility Locate Technician Goals Penitentiary Goals PT Penitentiary Goals Time Frame: Jun 29, 2019 Roll Left & Right (QC): 6 Sit to Lying (QC): 4 (SBA) Lying-Sitting on Side/Bed(QC): 6 Sit to Stand (QC): 4 (SBA) Chair/Eft-bb-Ewlua Xfer(QC): 4 (SBA) Toilet Transfer (QC): 4 (SBA) Car Transfer (QC): 4 (SBA) Does the Patient Walk: Yes Walk 10 feet (QC): 4 (SBA) Walk 50ft with 2 Turns (QC): 4 (SBA) Walk 150 ft (QC): 4 (SBA) Walking 10ft on Uneven Surface: 4 (SBA) 1 Step (curb) (QC): 4 (CGA) 4 Steps (QC): 4 (CGA) 12 Steps (QC): 88 Picking up an Object (QC): 88 Does the Pt use WC or Scooter?: No Type: N/A Type: N/A PT Plan Treatment/Plan Treatment Plan: Continue Plan of Care Treatment Plan: Bed Mobility, Concurrent Therapy, Education, Functional Activity Brianne, Functional Strength, Group Therapy, Gait, Safety, Therapeutic Exercise, Transfers Treatment Duration: Jun 29, 2019 Frequency: At least 5 of 7 days/Wk (IRF) Estimated Hrs Per Day: 1.5 hours per day Patient and/or Family Agrees t: Yes Time/GCodes Time In: 1329 Time Out: 1359 Total Billed Treatment Time: 30 Total Billed Treatment 1 visit EX 12 min FA 18 min MORIS LAO PT Jun 15, 2019 14:00 POS
--- NOTE | 2019-06-15 15:32 | NUR ---
Alarm Investigator follow up to witness Advanced Directive with the nurse. Pt's was present. The pt requested five copies, which I provided in addition to giving a copy to the nurse for the pt's chart. the pt said she feels much better since the last time we spoke. She continues to demonstrate dynamic trust in God and gratitude for others.
--- NOTE | 2019-06-15 15:51 | NUR ---
Discharge Planning Patient prompted and physician and therapy team agreed to discharge tomorrow. HHC: [facility]. Reviewed Medicare Compare with patient and her spouse, Jeronimo. Answered questions to their satisfaction. Referral completed as noted at their request. DME: Dr. Abdalla completed referral with [facility] for vent to mask because this DME was not available with patient established provider, [facility] [place]. Agency working in partnership with Dr. Abdalla, equipment will be delivered to patient room tomorrow for settings and education for use. Patient shows significant improvement overall, engages well, more upbeat, ambulates independently. Encouraged to continue all self care and Rx as ordered, instructed, recommended. Finalize tomorrow as needed. Spouse will transport.
[2019-06-15 16:00] VITALS: BP 112/67
--- NOTE | 2019-06-15 18:58 | NUR ---
bedside report received from BUNNY MENDES, assume care of pt
[2019-06-15 20:15] VITALS: BP 107/69
--- NOTE | 2019-06-15 20:20 | NUR ---
pt took colace but refused miralax & Senokot, v/s [phone]
[2019-06-15] MEDS ORDERED: FLUT12AE4 IH (21:11)
[2019-06-15] MEDS ORDERED: DILT240C92 PO (21:11)
[2019-06-15] MEDS ORDERED: APIX5TAB PO (21:11)
[2019-06-15] MEDS ORDERED: METO-333 PO (21:11)
[2019-06-15] MEDS ORDERED: PANT40TA3 PO (21:11)
--- NOTE | 2019-06-15 21:16 | D/C HH Face to Face Order ---
D/C Face to Face Orders Reconcile Patient Problems Problems Reviewed?: Yes Instructions for Patient Via [facility], Patient Instructions/FollowUp: DR Pool in 1 week Physician to follow Patient: Dr Pool Discharge Diet for Home: No Restrictions Patient Problems: Severe COPD AF Patient Data-Allergies,Ht & Wt Patient Allergies: Coded Allergies: codeine (Verified Allergy, Unknown, 12/04/05) Home Health Need/Face to Face Date of Face to Face: Jun 15, 2019 Clinical Findings: Generalized weakness and fatigue, Instability, Muscle weakness, Shortness of breath, Unsteady gait I have seen Pt plco-kc-ywez: Yes Discharged To: Home Diagnosis/Conditions: Severe COPD AF Patient is Homebound due to: CognItive deficits, Muscle weakness, Shortness of breath/distress Homebound Status Due to the above stated illness, injury or surgical procedure (medical condition or diagnosis) and associated clinical findings, the patient is homebound because of his/her inability to leave home except with aid of a supportive device and/or person AND leaving the home requires a considerable and taxing effort or is medically contraindicated. Pt req the following assistanc: Walker Home Health Nursing Orders Home Health Services Order: Nursing Services, Lead Pony Rider-Evaluate & Treat, Physical Therapy-Evaluate & Treat Certify Stmt I certify that this patient is under my care and that I, a nurse practitioner or a physician; a trust manager assistant working with me, had a face to face encounter that - meets the physician face to face encounter requirements with this patient as dated. EB STALLWORTH DO Jun 15, 2019 21:16 POS
[2019-06-16] MEDS: RT-ALBUTEROL/IPRATROPIUM 3 ML (DUONEB) VIAL INH SCH ×2 (01:53→06:41)
[2019-06-16 05:58] VITALS: BP 105/68
[2019-06-16] MEDS: RT-ADVAIR HFA 115/21 MCG PER PUFF IH SCH (06:42)
[2019-06-16] MEDS: ACETAMINOPHEN 325 MG TABLET PO PRN (07:04)
--- NOTE | 2019-06-16 07:04 | NUR ---
c/o headache, pain level 6/10 on numeric scale, Tylenol 650mg given
--- NOTE | 2019-06-16 07:10 | NUR ---
bedside report given to DONNIE MENDES
[2019-06-16 08:52] VITALS: BP 127/74
[2019-06-16] MEDS: APIXABAN 5 MG (ELIQUIS) TABLET PO SCH (08:54)
[2019-06-16] MEDS: DILTIAZEM 240 MG (CARDIZEM CD) CAP PO SCH (08:54)
[2019-06-16] MEDS: meTOprolol TARTRATE 25 MG (LOPRESSOR) TABLET PO SCH (08:54)
[2019-06-16] MEDS: PANTOPRAZOLE 40 MG (PROTONIX) TAB PO SCH (08:55)
[2019-06-16] MEDS: SENNA W/DOCUSATE (SENOKOT S) TABLET PO SCH (08:55)
[2019-06-16] MEDS: DOCUSATE SODIUM 100 MG (COLACE) CAP PO SCH (08:55)
[2019-06-16] MEDS: POLYETHYLENE GLYCOL 17 GM (MIRALAX) PACK PO SCH (08:55)
--- NOTE | 2019-06-16 08:57 | Progress Note ---
Subjective Time Seen by a Provider: 08:56 Subjective/Events-last exam Patient feeling better and breathing better. Patient getting stronger Objective Exam Vital Signs Date Time Temp Pulse Resp B/P (MAP) Pulse Ox O2 Delivery O2 Flow Rate FiO2 06/16/19 08:52 83 18 127/74 (91) 96 Nasal Cannula 2.00 06/16/19 06:42 94 Nasal Cannula 2.00 06/16/19 05:58 36.8 65 18 105/68 (80) 93 Nasal Cannula 2.00 06/16/19 01:53 93 Nasal Cannula 2.00 06/15/19 22:40 63 27 97 45.00 06/15/19 20:30 Nasal Cannula 2.00 06/15/19 20:15 77 18 107/69 (82) 97 Nasal Cannula 2.00 06/15/19 18:59 96 Nasal Cannula 2.00 06/15/19 16:00 37.2 73 16 112/67 (82) 95 Nasal Cannula 3.00 06/15/19 15:34 96 Nasal Cannula 2.00 06/15/19 11:56 36.6 76 94 28 06/15/19 11:39 94 Nasal Cannula 2.00 I & O 06/16/19 07:00 Intake Total 990 ml Output Total 250 ml Balance 740 ml Capillary Refill : General Appearance: No Apparent Distress HEENT: Normal ENT Inspection Neck: Full Range of Motion, Normal Inspection Respiratory: No Accessory Muscle Use, No Respiratory Distress, Decreased Breath Sounds, Other (On oxygen) Cardiovascular: Regular Rate, Rhythm Gastrointestinal: non tender, soft Assessment/Plan Assessment/Plan Assess & Plan/Chief Complaint COPD. Myopathy. Patient and feeling that patient is doing better. Patient positive. . 06/09/19. COPD with acute exacerbation. Myopathy. Debility. Paroxymal atrial fibrillation. . 06/10/19 COPD. Myopathy. Debility.. . 06/11/19. COPD. Debility. Myopathy. Atrial fibrillation history atrial fibrillation. . 06/12/19 COPD. Debility. Myopathy. Atrial fibrillation history. Patient positive. . 06/15/19. COPD. Debility better. Myopathy. Atrial fib history. . . COPD. Improved debility. Myopathy area Atrial fibrillation Clinical Quality Measures DVT/VTE Risk/Contraindication: Risk Factor Score Per Nursin RFS Level Per Nursing on Admit: 4+=Very High GELLENDER,ADOLFO A DO Jun 16, 2019 08:57 POS
--- NOTE | 2019-06-16 09:57 | Discharge Summary ---
Diagnosis/Chief Complaint Date of Admission Jun 07, 2019 at 14:30 Date of Discharge Discharge Date: Jun 16, 2019 Discharge Diagnosis Acute on chronic respiratory failure s/p extubation Severe debility Constipation s/p resolution today Metabolic alkalosis compensating for respiratory acidosis 44 Urinary incontinence Anemia Chronic respiratory failure Hypercapnia chronic BiPAP required at night Plan: IRF protocol Monitor closely BM regimen Incontinence care biPAP Monitor for pain DNI? Still requiring aggressive medical management due to severity of her weakness and COPD (1) Myopathy (2) Acute respiratory failure with hypoxia and hypercapnia Status: Acute (3) Paroxysmal A-fib Status: Chronic (4) COPD with acute exacerbation Status: Acute (5) Pleural effusion Status: Acute (6) Respiratory acidosis Status: Acute (7) CO2 narcosis Status: Acute (8) Anemia Discharge Summary Discharge Physical Examination Allergies: Coded Allergies: codeine (Verified Allergy, Unknown, 12/04/05) Vitals & I&Os Vital Signs Date Time Temp Pulse Resp B/P (MAP) Pulse Ox O2 Delivery O2 Flow Rate FiO2 06/16/19 11:07 36.8 83 18 127/74 96 Nasal Cannula 2.00 06/15/19 11:56 28 General Appearance: Alert, Oriented X3, Cooperative Respiratory: Clear to Auscultation Cardiovascular: Regular Rate Neuro: Normal Gait, Normal Speech, Strength at 5/5 X4 Ext Psych/Mental Status: Mental Status NL, Mood NL Hospital Course Was the Problem List Reviewed?: Yes Hospital course: Pt had an uneventful 10 day hospital course in inpatient rehab where she was admitted after acute on chronic respiratory failure and was intubated in the ICU. Dr. Pool continued to follow her for PCP management. Dr. Abdalla arranged the BiPAP to be delivered to her home, and she overall did very well, completed all pulmonary medication while in the inpatient rehab unit. She participated in all therapy and regained a lot of function where was actually doing better than prior level of functioning with the use of a walker. She was discharged with her on oxygen where she already had that set up and BiPAP at night and will have close follow-up with PCP and Dr. Abdalla. Labs (last 24 hrs) Laboratory Tests 06/08/19 06:55: White Blood Count 4.3, Red Blood Count 3.18L, Hemoglobin 9.5L, Hematocrit 33L, Mean Corpuscular Volume 102H, Mean Corpuscular Hemoglobin 30, Mean Corpuscular Hemoglobin Concent 29L, Red Cell Distribution Width 13.5, Platelet Count 280, Mean Platelet Volume 9.3, Neutrophils (%) (Auto) 65, Lymphocytes (%) (Auto) 18, Monocytes (%) (Auto) 13H, Eosinophils (%) (Auto) 4, Basophils (%) (Auto) 0, Neutrophils # (Auto) 2.8, Lymphocytes # (Auto) 0.8L, Monocytes # (Auto) 0.6, Eosinophils # (Auto) 0.2, Basophils # (Auto) 0.0, Sodium Level 142, Potassium Level 4.0, Chloride Level 94L, Carbon Dioxide Level 44H, Anion Gap 4L, Blood Urea Nitrogen 17, Creatinine 0.51L, Estimat Glomerular Filtration Rate > 60, BUN/Creatinine Ratio 33, Glucose Level 96, Calcium Level 8.7, Corrected Calcium 9.5, Total Bilirubin 0.3, Aspartate Amino Transf (AST/SGOT) 25, Alanine Aminotransferase (ALT/SGPT) 79H, Alkaline Phosphatase 103, Total Protein 5.2L, Albumin 3.0L 06/12/19 06:17: White Blood Count 4.4, Red Blood Count 3.12L, Hemoglobin 9.5L, Hematocrit 32L, Mean Corpuscular Volume 102H, Mean Corpuscular Hemoglobin 30, Mean Corpuscular Hemoglobin Concent 30L, Red Cell Distribution Width 13.9, Platelet Count 254, Mean Platelet Volume 9.9, Neutrophils (%) (Auto) 66, Lymphocytes (%) (Auto) 20, Monocytes (%) (Auto) 12, Eosinophils (%) (Auto) 2, Basophils (%) (Auto) 0, Neutrophils # (Auto) 2.9, Lymphocytes # (Auto) 0.9L, Monocytes # (Auto) 0.5, Eosinophils # (Auto) 0.1, Basophils # (Auto) 0.0, Creatinine 0.54L, Neutrophils % (Manual) 68, Lymphocytes % (Manual) 22, Monocytes % (Manual) 8, Eosinophils % (Manual) 1, Basophils % (Manual) 1, Band Neutrophils 0, Hypochromasia MODERATE 06/15/19 06:05: White Blood Count 3.2L, Red Blood Count 3.09L, Hemoglobin 9.2L, Hematocrit 32L, Mean Corpuscular Volume 103H, Mean Corpuscular Hemoglobin 30, Mean Corpuscular Hemoglobin Concent 29L, Red Cell Distribution Width 13.7, Platelet Count 204, Mean Platelet Volume 9.7, Neutrophils (%) (Auto) 58, Lymphocytes (%) (Auto) 24, Monocytes (%) (Auto) 15H, Eosinophils (%) (Auto) 2, Basophils (%) (Auto) 0, Neutrophils # (Auto) 1.9, Lymphocytes # (Auto) 0.8L, Monocytes # (Auto) 0.5, Eosinophils # (Auto) 0.1, Basophils # (Auto) 0.0, Sodium Level 143, Potassium Level 4.1, Chloride Level 92L, Carbon Dioxide Level 43H, Anion Gap 8, Blood Urea Nitrogen 14, Creatinine 0.55L, Estimat Glomerular Filtration Rate > 60, BUN/Creatinine Ratio 25, Glucose Level 91, Calcium Level 9.1, Corrected Calcium 9.7, Total Bilirubin 0.2, Aspartate Amino Transf (AST/SGOT) 16, Alanine Aminotransferase (ALT/SGPT) 30, Alkaline Phosphatase 94, Total Protein 5.3L, Albumin 3.3 Pending Labs Laboratory Tests 06/08/19 06:55: White Blood Count 4.3, Red Blood Count 3.18, Hemoglobin 9.5, Hematocrit 33, Mean Corpuscular Volume 102, Mean Corpuscular Hemoglobin 30, Mean Corpuscular Hemoglobin Concent 29, Red Cell Distribution Width 13.5, Platelet Count 280, Mean Platelet Volume 9.3, Neutrophils (%) (Auto) 65, Lymphocytes (%) (Auto) 18, Monocytes (%) (Auto) 13, Eosinophils (%) (Auto) 4, Basophils (%) (Auto) 0, Neutrophils # (Auto) 2.8, Lymphocytes # (Auto) 0.8, Monocytes # (Auto) 0.6, Eosinophils # (Auto) 0.2, Basophils # (Auto) 0.0, Sodium Level 142, Potassium Level 4.0, Chloride Level 94, Carbon Dioxide Level 44, Anion Gap 4, Blood Urea Nitrogen 17, Creatinine 0.51, Estimat Glomerular Filtration Rate > 60, BUN/Creatinine Ratio 33, Glucose Level 96, Calcium Level 8.7, Corrected Calcium 9.5, Total Bilirubin 0.3, Aspartate Amino Transf (AST/SGOT) 25, Alanine Aminotransferase (ALT/SGPT) 79, Alkaline Phosphatase 103, Total Protein 5.2, Albumin 3.0 06/12/19 06:17: White Blood Count 4.4, Red Blood Count 3.12, Hemoglobin 9.5, Hematocrit 32, Mean Corpuscular Volume 102, Mean Corpuscular Hemoglobin 30, Mean Corpuscular Hemoglobin Concent 30, Red Cell Distribution Width 13.9, Platelet Count 254, Mean Platelet Volume 9.9, Neutrophils (%) (Auto) 66, Lymphocytes (%) (Auto) 20, Monocytes (%) (Auto) 12, Eosinophils (%) (Auto) 2, Basophils (%) (Auto) 0, Neutrophils # (Auto) 2.9, Lymphocytes # (Auto) 0.9, Monocytes # (Auto) 0.5, Eosinophils # (Auto) 0.1, Basophils # (Auto) 0.0, Creatinine 0.54, Neutrophils % (Manual) 68, Lymphocytes % (Manual) 22, Monocytes % (Manual) 8, Eosinophils % (Manual) 1, Basophils % (Manual) 1, Band Neutrophils 0, Hypochromasia MODERATE 06/15/19 06:05: White Blood Count 3.2, Red Blood Count 3.09, Hemoglobin 9.2, Hematocrit 32, Mean Corpuscular Volume 103, Mean Corpuscular Hemoglobin 30, Mean Corpuscular Hemoglobin Concent 29, Red Cell Distribution Width 13.7, Platelet Count 204, Mean Platelet Volume 9.7, Neutrophils (%) (Auto) 58, Lymphocytes (%) (Auto) 24, Monocytes (%) (Auto) 15, Eosinophils (%) (Auto) 2, Basophils (%) (Auto) 0, Neutrophils # (Auto) 1.9, Lymphocytes # (Auto) 0.8, Monocytes # (Auto) 0.5, Eosinophils # (Auto) 0.1, Basophils # (Auto) 0.0, Sodium Level 143, Potassium Level 4.1, Chloride Level 92, Carbon Dioxide Level 43, Anion Gap 8, Blood Urea Nitrogen 14, Creatinine 0.55, Estimat Glomerular Filtration Rate > 60, BUN/Cr eatinine Ratio 25, Glucose Level 91, Calcium Level 9.1, Corrected Calcium 9.7, Total Bilirubin 0.2, Aspartate Amino Transf (AST/SGOT) 16, Alanine Aminotransferase (ALT/SGPT) 30, Alkaline Phosphatase 94, Total Protein 5.3, Albumin 3.3 Discharge Home Medications: Active Scripts Active Pantoprazole Sodium 40 Mg Tablet.dr 40 Mg PO DAILY Advair Hfa 115-21 Mcg Inhaler (Fluticasone/Salmeterol) 12 Gm Hfa.aer.ad 2 Puff IH BID@08,20 Diltiazem 24Hr Cd (Diltiazem HCl) 240 Mg Cap.er.24h 240 Mg PO DAILY Metoprolol Tartrate 25 Mg Tablet 12.5 Mg PO BID Eliquis (Apixaban) 5 Mg Tablet 5 Mg PO Q12HR Reported Tramadol HCl 50 Mg Tablet 50 Mg PO DAILY PRN Anoro Ellipta 62.5-25 Mcg INH (Umeclidinium Brm/Vilanterol Tr) 1 Each Blst.w.dev 1 Puff INH DAILY Ventolin Hfa (Albuterol Sulfate) 18 Gm Hfa.aer.ad 2 Puff INH Q4H PRN Albuterol Sulfate 2.5 Mg/3 Ml Vial.neb 2.5 Mg NEB QID Acetaminophen Extra Strength (Acetaminophen) 500 Mg Tablet 500-1,000 Mg PO Q6H PRN Instructions to patient/family Please see electronic discharge instructions given to patient. Diagnosis/Problems Diagnosis/Problems (1) Myopathy (2) Acute respiratory failure with hypoxia and hypercapnia Status: Acute (3) Paroxysmal A-fib Status: Chronic (4) COPD with acute exacerbation Status: Acute (5) Pleural effusion Status: Acute (6) Respiratory acidosis Status: Acute (7) CO2 narcosis Status: Acute (8) Anemia Clinical Quality Measures DVT/VTE Risk/Contraindication: Risk Factor Score Per Nursin RFS Level Per Nursing on Admit: 4+=Very High EB STALLWORTH DO Jun 16, 2019 09:57 POS
--- NOTE | 2019-06-16 10:05 | Therapy Team Discharge Summary ---
Therapy Discharge Summary Discharge Recommendations Date of Discharge Occupational Therapy OT has focused on increasing BUE strength, functional endurance, functional mobility, and safety with ADLs.Pt currently is independent with eating, oral hygiene, footwear (no AE), and toilet transfers (using FWW). Pt requires set up with shower and lower body dressing, and a verbal cue during toileting due to pt stepping on oxygen tubing during clothing management. Pt required min A with donning a jacket due to it catching on her IV but once IV is removed pt should not have any difficulty with upperbody dressing. AE recommendations include long handled dressing stick and a sock aide. OT recommends pt to discharge home with , and discontinuation of OT services at this time. 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 Goals PT [employer] Goals Time Frame: Jun 29, 2019 Roll Left to Right (QC): 6 Sit to Lying (QC): 4 (SBA) Lying-Sitting on Side/Bed(QC): 6 Sit to Stand (QC): 4 (SBA) Chair/Owi-yr-Iokzt Xfer(QC): 4 (SBA) Car Transfer (QC): 4 (SBA) Does the Patient Walk: Yes Walk 10 feet (QC): 4 (SBA) Walk 10ft-Uneven Surface(QC): 4 (SBA) Walk 50ft with 2 Turns (QC): 4 (SBA) Walk 150 ft (QC): 4 (SBA) Does the Pt use WC or Scooter?: No 1 Step (curb) (QC): 4 (CGA) 4 Steps (QC): 4 (CGA) 12 Steps (QC): 88 Picking up an Object (QC): 88 OT Half-Way Goals [employer] Goals Time Frame: Jun 26, 2019 Eating (FIM): 6 (met) Eating (QC): 6 (met) Oral Hygiene (QC): 6 (met) Shower/Bathe Self (QC): 6 (not met) Upper Body Dressing (QC): 6 (not met) Lower Body Dressing (QC): 6 (not met) On/Off Footwear (QC): 6 (met) Toileting(FIM): 6 (not met) Toileting Hygiene (QC): 6 (not met) Toilet/Commode Transfer (QC): 4 (SBA) Additional Goals: 1-Demonstrate ADL Tasks, 2-Verbalize Understanding, 3- ImproveStrength/Brianne 1=Demonstrate adherence to instructed precautions during ADL tasks. 2=Patient will verbalize/demonstrate understanding of assistive devices/modifications for ADL. 3=Patient will improve strength/tolerance for activity to enable patient to perform ADL's. JG IGLESIAS OT Jun 16, 2019 10:05 POS
--- NOTE | 2019-06-16 10:36 | Progress Note ---
JANES NUNEZ,MED STUDENT 06/16/19 1036: Progress Note Hospital course: Patient was admitted to inpatient rehab floor on 06/07/19 for COPD myopathy. Cardiology was consulted for history of paroxysmal atrial fibrillation. Pulmonology was consulted for history of acute respiratory failure with hypoxia and she was found to benefit from BiPAP at night. She participated actively in physical and occupational therapy throughout her hospital course with improvements in ability to tolerate and perform ADLs She is feeling much better today and is ready to be discharged home with home health and support from her . BiPAP will be delivered today with instructions from home use. IVANIA STALLWORTH DO 06/16/19 2113: Supervisory-Addendum Brief Verification & Attestation Participated in pt care: history, MDM, physical Personally performed: exam, history, MDM, supervision of care Care discussed with: Medical Student Procedures: n/a Results interpretation: Verified all documentation Verification and Attestation of Medical Student E/M Service A medical student performed and documented this service in my presence. I reviewed and verified all information documented by the medical student and made modifications to such information, when appropriate. I personally performed the physical exam and medical decision making. Ivania Stallworth, Jun 16, 2019,21:13 JANES NUNEZ,MED STUDENT Jun 16, 2019 10:36 IVANIA HAYES DO Jun 16, 2019 21:13 POS
[2019-06-16 11:07] VITALS: BP 127/74
--- NOTE | 2019-06-16 11:40 | Progress Note - Cardiology ---
Cardiology SOAP Progress Note Subjective: No cp or palp or syncope Gen weakness much improved No significant swelling Wishes to go home Objective: I&O/Vital Signs 06/16/19 06/16/19 06/16/19 06/16/19 01:53 05:58 06:42 08:52 Temp 36.8 Pulse 65 83 Resp 18 18 B/P (MAP) 105/68 (80) 127/74 (91) Pulse Ox 93 93 94 96 O2 Delivery Nasal Cannula Nasal Cannula Nasal Cannula Nasal Cannula O2 Flow Rate 2.00 2.00 2.00 2.00 06/16/19 06/16/19 09:06 11:07 Temp 36.8 Pulse 83 Resp 18 B/P (MAP) 127/74 Pulse Ox 96 O2 Delivery Nasal Cannula Nasal Cannula O2 Flow Rate 2.00 2.00 06/16/19 00:00 Intake Total 400 ml Output Total 250 ml Balance 150 ml Constitutional: AAO x 3 Respiratory: No accessory muscle use, No respiratory distress; chest expansion is symmetric, chest is bilaterally symmetric, lungs clear to auscultation Cardiovascular: regular rate-rhythm; No JVD; S1 and S2, systolic murmur (2/6 ) Gastrointestional: No tender; soft, round, audible bowel sounds Extremities: no lower extremity edema bilateral Neurologic/Psychiatric: grossly intact Skin: No rash on exposed areas, No ulcerations on exposed areas Results/Procedures: Labs Laboratory Tests 06/15/19 06:05 A/P: Assessment: PAF with RVR, currently NSR Ac resp failure due to ac exac of severe COPD due to pneumonia, now resolved Echo of 06/05/19: LVEF 55-60%, mild LA enlargement, grade 1 diastolic dysfunction, RVSP 18 mmHg 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
--- NOTE | 2019-06-16 12:54 | NUR ---
Discharge Tractor Technician checked with patient this a.m. to confirm of stability and readiness to discharge home with her spouse Jeronimo. DME: Finalized vent to mask with [facility], RT/Naye came to patient room this a.m. for set up and education. HHC: Confirmed/finalized with [facility] through RN/Admissions Dony Gallegos. She planned a first contact with patient while she was still in hospital room. Unit RN fully updated. All post hospital care plans complete unless situation changes unexpectedly.
--- NOTE | 2019-06-16 13:40 | Therapy Team Discharge Summary ---
Therapy Discharge Summary Discharge Recommendations Date of Discharge Jun 16, 2019 at 11:15 Physical Therapy Patient came to rehab with COPD myopathy. Upon evaluation patient performed bed mobility with SBA, supine to sit with SBA, sit to supine with mod assist, sit <- > stand with min assist, transfers with CGA, car transfer SBA, ambulated 20' with a rolling walker with CGA (including 10' over an uneven surface), and propelled a manual wheelchair 50' with SBA, no stairs at that time. Patient has been performing bed mobility and transfer training, balance and endurance training, functional strengthening, stair training, gait training, and education. Patient has made good progress and has met all of her assisted goals. Now, patient performs bed mobility and transfers with independence, car transfer with independence, ambulates 150' with a rolling walker with independence (including 50' with at least 2 turns of 90 degrees and 10' over an uneven surface), can go up and down 4 steps using 2 handrails with SBA, and can corn picker an object from the floor with independence. Patient has discharged from this facility and will be discharged from PT at this time. Occupational Therapy Decreased Activ Tolerance, Decreased UE Strength, Impaired I ADL's, Impaired Self-Care Skills PT Hr Associate Goals Jail Goals PT Jail Goals Time Frame: Jun 29, 2019 Roll Left to Right (QC): 6 Sit to Lying (QC): 4 (SBA) Lying-Sitting on Side/Bed(QC): 6 Sit to Stand (QC): 4 (SBA) Chair/Hud-wf-Lxbsi Xfer(QC): 4 (SBA) Car Transfer (QC): 4 (SBA) Does the Patient Walk: Yes Walk 10 feet (QC): 4 (SBA) Walk 10ft-Uneven Surface(QC): 4 (SBA) Walk 50ft with 2 Turns (QC): 4 (SBA) Walk 150 ft (QC): 4 (SBA) Does the Pt use WC or Scooter?: No 1 Step (curb) (QC): 4 (CGA) 4 Steps (QC): 4 (CGA) 12 Steps (QC): 88 Picking up an Object (QC): 88 OT Jail Goals Jail Goals Time Frame: Jun 26, 2019 Eating (FIM): 6 (met) Eating (QC): 6 (met) Oral Hygiene (QC): 6 (met) Shower/Bathe Self (QC): 6 (not met) Upper Body Dressing (QC): 6 (not met) Lower Body Dressing (QC): 6 (not met) On/Off Footwear (QC): 6 (met) Toileting(FIM): 6 (not met) Toileting Hygiene (QC): 6 (not met) Toilet/Commode Transfer (QC): 4 (SBA) Additional Goals: 1-Demonstrate ADL Tasks, 2-Verbalize Understanding, 3-ImproveStrength/Brianne 1=Demonstrate adherence to instructed precautions during ADL tasks. 2=Patient will verbalize/demonstrate understanding of assistive devices/modifications for ADL. 3=Patient will improve strength/tolerance for activity to enable patient to perform ADL's. ROSA HUSTON PT Jun 16, 2019 13:40 POS
== END 2019-06-16 11:15 | disposition home health service (06) | DRG 91 ==
PROVIDERS: ADMIT Internal Medicine; ATTEND Internal Medicine
DX: G72.89 Other specified myopathies (principal); J96.22 Acute and chronic respiratory failure with hypercapnia; J44.1 Chronic obstructive pulmonary disease with (acute) exacerbation; E87.4 Mixed disorder of acid-base balance; R32 Unspecified urinary incontinence; I48.0 Paroxysmal atrial fibrillation; E78.00 Pure hypercholesterolemia, unspecified; I10 Essential (primary) hypertension; F41.9 Anxiety disorder, unspecified; F32.9 Major depressive disorder, single episode, unspecified; K59.09 Other constipation; D64.9 Anemia, unspecified; J90 Pleural effusion, not elsewhere classified; Z87.891 Personal history of nicotine dependence; Z90.2 Acquired absence of lung [part of]
CPT/HCPCS: 36415; 80053; 82565; 85007; 85025; 85027; 94640; 94660; 94760

== ENCOUNTER → 2019-07-13 | Outpatient (CLI) | payer MEDICARE ==
[~2019-07-13] MED LIST changes: -ACETAMINOPHEN 500 MG TAB (TYLENOL) PO PRN; -ALPRAZolam 0.25 MG (XANAX) TAB PO PRN; +APIX5TAB PO; -BISACODYL 10 MG SUPP (DULCOLAX) PR PRN; -CALCIUM CARBONATE 500 MG (TUMS) TAB.CHEW PO PRN; +DILT240C97 PO; -DOCUSATE SODIUM 100 MG (COLACE) CAP PO PRN; -ENOXAPARIN 40 MG/0.4 ML (LOVENOX) SYR SC SCH; -FLEET ENEMA ADULT 1 EA BTL PR PRN; +FLUT12AE4 IH; -HYDROcodone/APAP 5 MG/325 MG (LORTAB) TAB PO PRN; -LACTULOSE SYRUP 10GM/15ML (ENULOSE) 30ML UDC PO PRN; -LOPERAMIDE 2 MG (IMODIUM) TABLET PO PRN; +METO-333 PO; -ONDANSETRON 4 MG (ZOFRAN) ORAL DISSOLVE TAB PO PRN; +PANT40TA3 PO; -diphenhydrAMINE 25 MG TAB (BENADRYL) PO PRN; -guaiFENesin/CODEINE (ROBITUSSIN AC) 10ML UDC PO PRN
--- NOTE | 2019-07-13 13:27 | NUR ---
Pt came for PFT; she was escorted in a chair by her family up stairs. When pt arrived; she was breathing rapid, stating she could not breath. When we entered room, I checked pt's sats via pulse oximeter, sats 65% on pt's pulsing concentrator of 2 l. I placed pt on 5l continuous flow via nc and tank. I instructed pt to take deep breaths in; she did so. Pt states she feels like she cannot breath well through nose; her and her states that her breathing is doing worse at home. Her stated he has a hard time maintaing her stats on 3l concentrated when she is walking to restroom. Pt stated that she did not want to perform PFT today do to breathing. I asked pt if I could contact ordering physician, Dr. Abdalla, she stated yes. I spoke with Dr. Abdalla and Tierney Armenta APRN about pt; they asked me to escorted her on down to office to be examined by physician. Pt was escorted by wheel chair with her to physicians office to be seen. I asked pt to reschedule test for a better time if physician would like her to have test done, she stated she would.
== END ==
LOC: RT 13:02
PROVIDERS: ATTEND Nurse Practitioner Family
DX: J43.9 Emphysema, unspecified (principal)

== ENCOUNTER 2019-07-30 12:51 | Inpatient (IN) | payer MEDICARE ==
[~2019-07-30] VITALS: Ht 162.5 cm; Wt 82.3 kg
[~2019-07-30 12:51] MED LIST changes: +DILT240C92 PO; -DILT240C97 PO
[2019-07-30] MEDS ORDERED: RT-ALBUTEROL/IPRATROPIUM 3 ML (DUONEB) VIAL INH ONE (13:45)
[2019-07-30 13:57] LABS: BASOPHILS % (AUTO) 0 % (0-10); EOSINOPHILS % (AUTO) 1 % (0-10); HEMATOCRIT 39 % (35-52); HEMOGLOBIN 10.8 G/DL (11.5-16.0); LYMPHOCYTES # (AUTO) 0.7 X 10^3 (1.0-4.0); LYMPHOCYTES % (AUTO) 14 % (12-44); MEAN CORPUSCULAR HEMOGLOBIN 29 PG (25-34); MEAN CORPUSCULAR HGB CONC 28 G/DL (32-36); MEAN CORPUSCULAR VOLUME 106 FL (80-99); MEAN PLATELET VOLUME 10.5 FL (7.4-10.4); MONOCYTES # (AUTO) 0.5 X 10^3 (0.0-1.0); MONOCYTES % (AUTO) 10 % (0-12); NEUTROPHILS # (AUTO) 3.7 X 10^3 (1.8-7.8); NEUTROPHILS % (AUTO) 75 % (42-75); PLATELET COUNT 134 10^3/uL (130-400); RED CELL DISTRIBUTION WIDTH 13.3 % (10.0-14.5)
[2019-07-30] MEDS ORDERED: RT-ALBUTEROL SULF 2.5 MG/3 ML PRE-MIX VIAL ONE (14:00)
[2019-07-30 14:02] LABS: ABG BASE EXCESS 28.6 MMOL/L (-2.5-2.5); ABG OXYGEN SATURATION 94 % (94-100); ABG PH 7.41 (7.37-7.43); ABG PO2 68 MMHG (79-93); ABG TCO2 58.5 MMOL/L (21.0-31.0)
[2019-07-30 14:04] LABS: ABG PCO2 90 MMHG (35-45); ALLENS TEST YES-POS; INSPIRED O2 2; PATIENT TEMP 36.7; VENTILATOR NO
[2019-07-30] MEDS ORDERED: RT-ALBUTEROL SULF 2.5 MG/3 ML PRE-MIX VIAL INH STA ×2 (14:04→14:16)
[2019-07-30 14:11] LABS: ALANINE AMINOTRANSFERASE 43 U/L (0-55); ALBUMIN 4.2 GM/DL (3.2-4.5); ALKALINE PHOSPHATASE 133 U/L (40-136); BILIRUBIN,TOTAL 0.3 MG/DL (0.1-1.0); BUN/CREATININE RATIO 19; CALCIUM 10.2 MG/DL (8.5-10.1); CHLORIDE 84 MMOL/L (98-107); CREATININE SERUM 0.57 MG/DL (0.60-1.30); GFR ESTIMATED > 60; GLUCOSE 108 MG/DL (70-105); MAGNESIUM 1.8 MG/DL (1.6-2.4); POTASSIUM 4.8 MMOL/L (3.6-5.0); SODIUM 145 MMOL/L (135-145)
[2019-07-30] MEDS ORDERED: methylPREDNISolone 125 MG (Solu-MEDROL) VIAL IV STA (14:16)
[2019-07-30 14:18] LABS: CARBON DIOXIDE 49 MMOL/L (21-32)
--- NOTE | 2019-07-30 14:44 | Diagnostic Imaging Report ---
INDICATION: Shortness of air. TECHNIQUE: Single view chest 2:16 PM. CORRELATION STUDY: 06/06/2019 FINDINGS: Right IJ central line has been removed. Multiple surgical clips projecting over the right hilum which is prominent. However, this appears to be somewhat less pronounced from prior study. Heart size remains enlarged. Vasculature is improved and near normal. Elevated right diaphragm. Some improvement in overall aeration through the right lung. Definitive consolidating infiltrate not demonstrated at follow-up, likely pleural thickening at the right costophrenic angle. IMPRESSION: 1. Generally improved appearance about the chest. Heart size remains enlarged. However, vasculature is without evidence for significant failure. 2. Abnormal soft tissue density and deformity of the right hilum with surgical clips present but overall appears somewhat less pronounced from prior. 3. Unchanged right lung volume loss, elevated right diaphragm. Dictated by: Dictated on workstation # [id number]
--- NOTE | 2019-07-30 15:07 | ED Respiratory ---
General Chief Complaint: Respiratory Problems Stated Complaint: SOA Nursing Triage Note: Pt to room #2 via [facility] ems cart from home with c/o SOA. 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 Upon arrival pt a&ox4 utilizing 3L O2 via NC. Pt reports intermittent cough since 07/28/19. Pt denies fever, chills, or productive cough. Initial O2 sat 97% via 3L O2. Spouse @ side. Source: patient, family Exam Limitations: no limitations History of Present Illness Date Seen by Provider: Jul 30, 2019 Time Seen by Provider: 14:30 Initial Comments Here with report of increasing shortness of air over the last 2-3 days and to a lesser extent over the last week. Does have history of significant COPD and right upper lobe lobectomy. Previous hospitalization in the last few months for COPD requiring BiPAP and then intubation. She apparently had pneumonia at that time. She is found to be hypercarbic. She is a bit more confused today. She reports that she is unable to stand without getting short of breath and has increased her home O2 from 2 L to 3 to half liters via nasal cannula. Denies nausea, vomiting, fever or chills. at bedside and agrees. Timing/Duration: week, getting worse Severity: moderate Prior Episodes/Possible Cause: occasional episodes Modifying Factors: Worse With Activity; Improves With Oxygen Associated Symptoms: No chest pain/soreness, No cough, No fever/chills, No nasal congestion; shortness of breath, wheezing Allergies and Home Medications Allergies Coded Allergies: codeine (Verified Allergy, Unknown, 12/04/05) Home Medications Acetaminophen 500 Mg Tablet, 500-1,000 MG PO Q6H PRN for PAIN-MILD (1-4), (Reported) Albuterol Sulfate 2.5 Mg/3 Ml Vial.neb, 2.5 MG NEB QID, (Reported) Albuterol Sulfate 18 Gm Hfa.aer.ad, 2 PUFF INH Q4H PRN for SHORTNESS OF BREATH, (Reported) Apixaban 5 Mg Tablet, 5 MG PO Q12HR Prescribed by: EB STALLWORTH on 06/15/192110 Diltiazem HCl 240 Mg Cap.er.24h, 240 MG PO DAILY Prescribed by: EB STALLWORTH on 06/15/192110 Fluticasone/Salmeterol 12 Gm Hfa.aer.ad, 2 PUFF IH BID@ Prescribed by: EB STALLWORTH on 06/15/192110 Metoprolol Tartrate 25 Mg Tablet, 12.5 MG PO BID Prescribed by: EB STALLWORTH on 06/15/192110 Pantoprazole Sodium 40 Mg Tablet.dr, 40 MG PO DAILY Prescribed by: EB STALLWORTH on 06/15/192110 Tramadol HCl 50 Mg Tablet, 50 MG PO DAILY PRN for PAIN-MODERATE (5-7), (Repo rted) Umeclidinium Brm/Vilanterol Tr 1 Each Blst.w.dev, 1 PUFF INH DAILY, (Reported) Patient Home Medication List Home Medication List Reviewed: Yes Review of Systems Review of Systems Constitutional: see HPI; No chills, No fever EENTM: no symptoms reported Respiratory: see HPI, dyspnea on exertion, short of breath, wheezing Cardiovascular: No chest pain, No edema Gastrointestinal: No abdominal pain, No nausea, No vomiting Genitourinary: no symptoms reported Musculoskeletal: no symptoms reported All Other Systems Reviewed Negative Unless Noted: Yes Past Curwznh-Reyevh-Lcrgaf Hx Past Med/Social Hx: Reviewed Nursing Past Med/Soc Hx Patient Social History Alcohol Use: Denies Use Recreational Drug Use: No Smoking Status: Former Smoker Type Used: Cigarettes Former Smoker, Quit: May 08, 2009 Recent Foreign Travel: No Contact w/Someone Who Travel: No Recent Infectious Disease Expo: No Recent Hopitalizations: Yes Immunizations Up To Date Date of Pneumonia Vaccine: May 29, 2019 Date of Influenza Vaccine: May 20, 2019 Seasonal Allergies Seasonal Allergies: Yes Past Medical History Surgeries: Yes (RT UPPER LOBECTOMY--FOR BENIGN MASS; "CYST REMOVED FROM ABDOMEN" ) Abdominal, Breast, Gallbladder, Hysterectomy, Lobectomy Respiratory: Yes (O2 DEPENDENT AT 3L/NC; INTUBATED IN 2010 & 2018) Asthma, Pneumonia, COPD Cardiac: Yes Atrial Fibrillation, High Cholesterol, Hypertension Neurological: No 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, 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 Genitourinary: No Gastrointestinal: No Chronic Constipation Musculoskeletal: Yes Arthritis Endocrine: Yes (OBESITY) Cancer: No Psychosocial: Yes Anxiety, Depression Integumentary: No Blood Disorders: No Family Medical History Reviewed Nursing Family Hx Cardiovascular disease 19 MOTHER FH: COPD (chronic obstructive pulmonary disease) 19 FATHER Cancer Physical Exam Vital Signs - First Documented 07/30/19 07/30/19 12:53 13:57 Temp 36.7 Pulse 72 Resp 20 B/P (MAP) 138/93 (108) Pulse Ox 97 O2 Delivery Nasal Cannula O2 Flow Rate 3.00 FiO2 96 Capillary Refill : Less Than 3 Seconds Height: '" Weight: lbs. oz. kg; 29.00 BMI Method: General Appearance: WD/WN, no apparent distress HEENT: PERRL/EOMI, pharynx normal Neck: full range of motion, supple Respiratory: decreased breath sounds, accessory muscle use, wheezing, other (relatively little air movement noted on auscultation) Cardiovascular: regular rate, rhythm, no murmur Gastrointestinal: non tender, soft Extremities: non-tender, normal inspection Neurologic/Psychiatric: alert, oriented x 3, other (follows commands. Does seem to be slowed in response and occasionally a bit confused.) Skin: normal color, warm/dry Procedures/Interventions Date of ETT Placement: May 29, 2019 Time of ETT Placement: 519 Progress/Results/Core Measures Suspected Sepsis Recent Fever Within 48 Hours: No Infection Criteria Present: Suspected New Infection New/Unexplained Altered Menta: No Sepsis Screen: No Definite Risk SIRS Temperature: Pulse: 77 Respiratory Rate: 21 Laboratory Tests 07/30/19 13:05: White Blood Count 5.0 Blood Pressure 138 /93 Mean: 108 Laboratory Tests 07/30/19 13:05: Creatinine 0.57L, Platelet Count 134, Total Bilirubin 0.3 Results/Orders Lab Results Laboratory Tests Test 07/30/19 13:05 07/30/19 13:50 Range/Units White Blood Count 5.0 4.3-11.0 10^3/uL Red Blood Count 3.70 L 4.35-5.85 10^6/uL Hemoglobin 10.8 L 11.5-16.0 G/DL Hematocrit 39 35-52 % Mean Corpuscular Volume 106 H 80-99 FL Mean Corpuscular Hemoglobin 29 25-34 PG Mean Corpuscular Hemoglobin Concent 28 L 32-36 G/DL Red Cell Distribution Width 13.3 10.0-14.5 % Platelet Count 134 130-400 10^3/uL Mean Platelet Volume 10.5 H 7.4-10.4 FL Neutrophils (%) (Auto) 75 42-75 % Lymphocytes (%) (Auto) 14 12-44 % Monocytes (%) (Auto) 10 0-12 % Eosinophils (%) (Auto) 1 0-10 % Basophils (%) (Auto) 0 0-10 % Neutrophils # (Auto) 3.7 1.8-7.8 X 10^3 Lymphocytes # (Auto) 0.7 L 1.0-4.0 X 10^3 Monocytes # (Auto) 0.5 0.0-1.0 X 10^3 Eosinophils # (Auto) 0.0 0.0-0.3 10^3/uL Basophils # (Auto) 0.0 0.0-0.1 10^3/uL Sodium Level 145 135-145 MMOL/L Potassium Level 4.8 3.6-5.0 MMOL/L Chloride Level 84 L 98-107 MMOL/L Carbon Dioxide Level 49 *H 21-32 MMOL/L Anion Gap 12 5-14 MMOL/L Blood Urea Nitrogen 11 7-18 MG/DL Creatinine 0.57 L 0.60-1.30 MG/DL Estimat Glomerular Filtration Rate > 60 BUN/Creatinine Ratio 19 Glucose Level 108 H 70-105 MG/DL Calcium Level 10.2 H 8.5-10.1 MG/DL Corrected Calcium 10.0 8.5-10.1 MG/DL Magnesium Level 1.8 1.6-2.4 MG/DL Total Bilirubin 0.3 0.1-1.0 MG/DL Aspartate Amino Transf (AST/SGOT) 33 5-34 U/L Alanine Aminotransferase (ALT/SGPT) 43 0-55 U/L Alkaline Phosphatase 133 40-136 U/L C-Reactive Protein High Sensitivity 0.07 0.00-0.50 MG/DL B-Type Natriuretic Peptide 40.4 <100.0 PG/ML Total Protein 7.0 6.4-8.2 GM/DL Albumin 4.2 3.2-4.5 GM/DL Blood Gas Puncture Site L RAD Blood Gas Patient Temperature 36.7 Arterial Blood pH 7.41 7.37-7.43 Arterial Blood Partial Pressure CO2 90 *H 35-45 MMHG Arterial Blood Partial Pressure O2 68 L 79-93 MMHG Arterial Blood HCO3 56 *H 23-27 MMOL/L Arterial Blood Total CO2 58.5 H 21.0-31.0 MMOL/L Arterial Blood Oxygen Saturation 94 94-100 % Arterial Blood Base Excess 28.6 H -2.5-2.5 MMOL/L Rik Test YES-POS Blood Gas Ventilator Setting NO Blood Gas Inspired Oxygen 2 My Orders Orders - HEMANTH ORTIZ MD Chest 1 View, Ap/Pa Only (07/30/19 13:39) O2 (07/30/19 13:39) Monitor-Rhythm Ecg Trace Only (07/30/19 13:39) BNP (07/30/19 13:39) Cbc With Automated Diff (07/30/19 13:39) Comprehensive Metabolic Panel (07/30/19 13:39) Hs C Reactive Protein (07/30/19 13:39) Magnesium (07/30/19 13:39) Albuterol/Ipra Inhalation Soln (Duoneb I (07/30/19 13:45) Svn Small Volume Nebulizer (07/30/19 13:39) Arterial Blood Gas (07/30/19 13:53) Albuterol Pre-Mix Nebs (Rt) (Proventil (07/30/19 14:04) Svn Small Volume Nebulizer (07/30/19 14:04) Albuterol Pre-Mix Nebs (Rt) (Proventil (07/30/19 14:00) Albuterol Pre-Mix Nebs (Rt) (Proventil (07/30/19 14:16) Methylprednisolone Sod Succ (Solu-Medrol (07/30/19 14:16) Svn Small Volume Nebulizer (07/30/19 14:16) Medications Given in ED Current Medications Medications Dose Ordered Sig/Ottoniel Route Start Time Stop Time Status Last Admin Dose Admin Albuterol Sulfate 2.5 mg STK-MED ONCE .ROUTE 07/30/19 14:00 07/30/19 14:05 DC 07/30/19 14:06 2.5 MG Albuterol/ Ipratropium 3 ml ONCE ONCE INH 07/30/19 13:45 07/30/19 13:46 DC 07/30/19 13:57 3 ML Vital Signs/I&O 07/30/19 07/30/19 07/30/19 07/30/19 12:53 12:53 13:57 14:15 Temp 36.7 Pulse 72 77 Resp 20 21 B/P (MAP) 138/93 (108) Pulse Ox 97 97 96 O2 Delivery Nasal Cannula Nasal Cannula Nasal Cannula O2 Flow Rate 3.00 3.00 2.00 FiO2 96 Capillary Refill : Less Than 3 Seconds Blood Pressure Mean: 108 Progress Note : Progress Note Seen and evaluated. IV, labs, ABG and chest x-ray ordered. Duo neb ordered. Albu terol neb ordered as patient did have a few increased wheezes and slightly better aeration. ABG results noted and she is noted to be severely hypercarbic but compensated. That being said I do believe BiPAP would help her overall and CO2 of 90 is too high. 1409: Discussed the case with Dr. Abdalla. We discussed BiPAP settings ABG results. We will continue BiPAP and minimize oxygen and an effort to improve hypercarbia. Patient will need steroids and continued nebulizer treatments. Patient will need more intensive therapy and requires hospitalization. 1455: I did discuss the case with Dr. Ortiz and he accepts patient for admission with Dr. Abdalla on consult. Discussed with family who agree with plan. Patient doing better on BiPAP at 10/5 with FiO2 of 28%. Solu- Medrol 125 mg IV was given. Admit, inpatient status. Diagnostic Imaging Diagonstic Imaging: Xray Plain Films/CT/US/NM/MRI: chest Comments [facility]. [place], [place] NAME: SHIVAM MORRIS [facility] REC#: [id number] PT STATUS: REG ER : 1945 PHYSICIAN: HEMANTH ORTIZ MD ADMIT DATE: 07/30/19/ER Draft Date of Exam:07/30/19 CHEST 1 VIEW, AP/PA ONLY INDICATION: Shortness of air. TECHNIQUE: Single view chest 2:16 PM. CORRELATION STUDY: 06/06/2019 FINDINGS: Right IJ central line has been removed. Multiple surgical clips projecting over the right hilum which is prominent. However, this appears to be somewhat less pronounced from prior study. Heart size remains enlarged. Vasculature is improved and near normal. Elevated right diaphragm. Some improvement in overall aeration through the right lung. Definitive consolidating infiltrate not demonstrated at follow-up, likely pleural thickening at the right costophrenic angle. IMPRESSION: 1. Generally improved appearance about the chest. Heart size remains enlarged. However, vasculature is without evidence for significant failure. 2. Abnormal soft tissue density and deformity of the right hilum with surgical clips present but overall appears somewhat less pronounced from prior. 3. Unchanged right lung volume loss, elevated right diaphragm. Dictated on workstation # [id number] Dict: 07/30/19 1429 Trans: 07/30/19 1443 [facility] [id number] Interpreted by: ANTOINETTE CURRY DO Electronically signed by: Departure Communication (Admissions) Time/Spoke to Admitting Phy: 14:55 Time/Spoke to Consulting Phy: 14:09 Impression Primary Impression: COPD with acute exacerbation Additional Impression: Hypercarbia Disposition: ADMITTED INPATIENT Condition: Stable Admissions Decision to Admit Reason: Admit from ER (General) Decision to Admit/Date: Jul 30, 2019 Time/Decision to Admit Time: 14:09 Departure-Patient Inst. Referrals: ADOLFO ORTIZ DO (PCP/Family) Primary Care Physician HEMANTH ORTIZ MD Jul 30, 2019 15:07
[2019-07-30 16:00] VITALS: BP 152/70
--- NOTE | 2019-07-30 16:00 | NUR ---
SHIVAM MORRIS admitted to room 426-1, with an admitting diagnosis of ACUTE COPD EXACERBATION, on 07/30/19 from ED via W/C, accompanied by AND ED STAFF. SHIVAM MORRIS introduced to surroundings, call light, bed controls, phone, TV, temperature control, lights, meal times, smoking policy, visitor policy, side rail policy, bathrooms and showers. Patient Rights given to patient in the handbook. SHIVAM MORRIS verbalizes understanding that [facility] is not responsible for the loss or damage to any personal effects or valuables that are kept in the patients possession during their hospitalization.
[2019-07-30] MEDS ORDERED: CATHETER FLUSH 10 ML SYR IV PRN (16:45)
[2019-07-30] MEDS ORDERED: ONDANSETRON 4 MG/2 ML (SDV) Z0FRAN IV PRN (16:45)
[2019-07-30] MEDS: NS IV 1000 ML 1,000 ML IV SCH (17:10)
[2019-07-30] MEDS ORDERED: RT-ALBUTEROL/IPRATROPIUM 3 ML (DUONEB) VIAL INH PRN (18:15)
[2019-07-30] MEDS: RT-ALBUTEROL/IPRATROPIUM 3 ML (DUONEB) VIAL INH SCH ×2 (19:08→23:12)
--- NOTE | 2019-07-30 19:25 | History & Physical ---
History of Present Illness History of Present Illness Reason for visit/HPI short of the air. Patient, came to hospital by ambulance. Patient has a history of COPD Patient previously in the hospital a few months ago for COPD with pneumonia Date of Admission Jul 30, 2019 at 14:57 Time Seen by a Provider: 19:22 I consulted on this patient on 07/30/19 19:21 Attending Physician Dion Pool DO Admitting Physician Dion Pool DO Consult Allergies and Home Medications Allergies Coded Allergies: codeine (Verified Allergy, Unknown, 12/04/05) Home Medications Acetaminophen 500 Mg Tablet, 500-1,000 MG PO Q6H PRN for PAIN-MILD (1-4), (Reported) Albuterol Sulfate 2.5 Mg/3 Ml Vial.neb, 2.5 MG NEB QID, (Reported) Albuterol Sulfate 18 Gm Hfa.aer.ad, 2 PUFF INH Q4H PRN for SHORTNESS OF BREATH, (Reported) Apixaban 5 Mg Tablet, 5 MG PO Q12HR Prescribed by: EB STALLWORTH on 06/15/192110 Diltiazem HCl 240 Mg Cap.er.24h, 240 MG PO DAILY Prescribed by: EB STALLWORTH on 06/15/192110 Fluticasone/Salmeterol 12 Gm Hfa.aer.ad, 2 PUFF IH BID@ Prescribed by: BE STALLWORTH on 06/15/192110 Metoprolol Tartrate 25 Mg Tablet, 12.5 MG PO BID Prescribed by: EB STALLWORTH on 06/15/192110 Pantoprazole Sodium 40 Mg Tablet.dr, 40 MG PO DAILY Prescribed by: EB STALLWORTH on 06/15/192110 Tramadol HCl 50 Mg Tablet, 50 MG PO DAILY PRN for PAIN-MODERATE (5-7), (Reported) Umeclidinium Brm/Vilanterol Tr 1 Each Blst.w.dev, 1 PUFF INH DAILY, (Reported) Patient Home Medication List Home Medication List Reviewed: Yes Past Adhcvfm-Zfnhbx-Fuzcdx Hx Past Med/Social Hx: Reviewed Nursing Past Med/Soc Hx Patient Social History Marrital Status: Alcohol Use: Denies Use Recreational Drug Use: No Smoking Status: Former Smoker Former Smoker, Quit: May 08, 2009 Type Used: Cigarettes Recent Foreign Travel: No Contact w/other who traveled: No Recent Hopitalizations: Yes Recent Infectious Disease Expo: No Immunizations Up To Date Date of Pneumonia Vaccine: May 29, 2019 Date of Influenza Vaccine: May 20, 2019 Seasonal Allergies Seasonal Allergies: Yes Past Medical History Surgeries: Abdominal, Breast, Gallbladder, Hysterectomy, Lobectomy Respiratory: COPD Cardiac: Atrial Fibrillation, High Cholesterol, Hypertension Reproductive: No Hysterectomy, Menopausal incontinence Gastrointestinal: Chronic Constipation Musculoskeletal: Arthritis Psychosocial: Anxiety, Depression History of Blood Disorders: No Family History Reviewed Nursing Family Hx Cardiovascular disease 19 MOTHER FH: COPD (chronic obstructive pulmonary disease) 19 FATHER Cancer Review of Systems Constitutional: weakness EENTM: no symptoms reported Respiratory: dyspnea on exertion, short of breath, wheezing Gastrointestinal: no symptoms reported Genitourinary: no symptoms reported : No Physical Exam Vital Signs Vital Signs - First Documented 07/30/19 07/30/19 12:53 13:57 Temp 36.7 Pulse 72 Resp 20 B/P (MAP) 138/93 (108) Pulse Ox 97 O2 Delivery Nasal Cannula O2 Flow Rate 3.00 FiO2 96 Capillary Refill : Less Than 3 Seconds Height, Weight, BMI Height: '" Weight: lbs. oz. kg; 30.71 BMI Method: General Appearance: No Apparent Distress, WD/WN Eyes: Bilateral Eye Normal Inspection HEENT: Normal ENT Inspection Neck: Full Range of Motion, Normal Inspection Respiratory: No Accessory Muscle Use, No Respiratory Distress, Decreased Breath Sounds Cardiovascular: Regular Rate, Rhythm, No Murmur Gastrointestinal: Non Tender, Soft Assessment/Plan Assessment and Plan COPD with acute exacerbation. Hypercapnia. Confusion. Atrial fibrillation Admission Diagnosis Admission Status: Inpatient Order (span 2 midnights) Reason for Inpatient Admission: Short of breath. COPD with acute exacerbation. History of atrial fibrillation or Hypercapnia Clinical Quality Measures DVT/VTE Risk/Contraindication: Risk Factor Score Per Nursin RFS Level Per Nursing on Admit: 4+=Very High DION POOL DO Jul 30, 2019 19:25
[2019-07-30] MEDS ORDERED: RT-ALBUTEROL SULF 2.5 MG/3 ML PRE-MIX VIAL INH PRN (19:30)
[2019-07-30] MEDS: methylPREDNISolone 40 MG/ML (Solu-MEDROL) VIAL IV SCH (19:50)
[2019-07-30] MEDS: APIXABAN 5 MG (ELIQUIS) TABLET PO SCH (19:59)
[2019-07-30] MEDS: meTOprolol TARTRATE 25 MG (LOPRESSOR) TABLET PO SCH (20:00)
[2019-07-30] MEDS ORDERED: RT-ALBUTEROL SULF 2.5 MG/3 ML PRE-MIX VIAL INH SCH (20:00)
[2019-07-30 20:10] VITALS: BP 130/69
[2019-07-31 00:24] VITALS: BP 143/78
[2019-07-31] MEDS: RT-ADVAIR HFA 115/21 MCG PER PUFF IH SCH ×2 (01:32→07:55)
[2019-07-31] MEDS: methylPREDNISolone 40 MG/ML (Solu-MEDROL) VIAL IV SCH ×4 (01:38→21:03)
[2019-07-31 04:00] VITALS: BP 143/78
[2019-07-31 05:10] LABS: BASOPHILS % (AUTO) 0 % (0-10); EOSINOPHILS % (AUTO) 0 % (0-10); HEMATOCRIT 34 % (35-52); HEMOGLOBIN 9.7 G/DL (11.5-16.0); LYMPHOCYTES # (AUTO) 0.3 X 10^3 (1.0-4.0); LYMPHOCYTES % (AUTO) 8 % (12-44); MEAN CORPUSCULAR HEMOGLOBIN 29 PG (25-34); MEAN CORPUSCULAR HGB CONC 29 G/DL (32-36); MEAN CORPUSCULAR VOLUME 101 FL (80-99); MEAN PLATELET VOLUME 10.4 FL (7.4-10.4); MONOCYTES # (AUTO) 0.1 X 10^3 (0.0-1.0); MONOCYTES % (AUTO) 1 % (0-12); NEUTROPHILS # (AUTO) 3.2 X 10^3 (1.8-7.8); NEUTROPHILS % (AUTO) 91 % (42-75); PLATELET COUNT 137 10^3/uL (130-400); RED CELL DISTRIBUTION WIDTH 13.1 % (10.0-14.5); WHITE BLOOD COUNT 3.6 10^3/uL (4.3-11.0)
[2019-07-31 05:32] LABS: ALANINE AMINOTRANSFERASE 36 U/L (0-55); ALBUMIN 3.6 GM/DL (3.2-4.5); ALKALINE PHOSPHATASE 115 U/L (40-136); BILIRUBIN,TOTAL 0.2 MG/DL (0.1-1.0); BUN/CREATININE RATIO 26; CALCIUM 9.8 MG/DL (8.5-10.1); CARBON DIOXIDE 44 MMOL/L (21-32); CHLORIDE 86 MMOL/L (98-107); CREATININE SERUM 0.57 MG/DL (0.60-1.30); GFR ESTIMATED > 60; GLUCOSE 160 MG/DL (70-105); POTASSIUM 3.9 MMOL/L (3.6-5.0); SODIUM 142 MMOL/L (135-145)
--- NOTE | 2019-07-31 05:41 | Pulmonary Consultation ---
History of Present Illness History of Present Illness Date Seen by Provider: Jul 31, 2019 Time Seen by Provider: 05:38 Date of Admission Allergies and Home Medications Allergies Coded Allergies: codeine (Verified Allergy, Unknown, 12/04/05) Home Medications Acetaminophen 500 Mg Tablet, 500-1,000 MG PO Q6H PRN for PAIN-MILD (1-4), (Reported) Albuterol Sulfate 2.5 Mg/3 Ml Vial.neb, 2.5 MG NEB QID, (Reported) Albuterol Sulfate 18 Gm Hfa.aer.ad, 2 PUFF INH Q4H PRN for SHORTNESS OF BREATH, (Reported) Apixaban 5 Mg Tablet, 5 MG PO Q12HR Prescribed by: EB STALLWORTH on 06/15/192110 Diltiazem HCl 240 Mg Cap.er.24h, 240 MG PO DAILY Prescribed by: EB STALLWORTH on 06/15/192110 Fluticasone/Salmeterol 12 Gm Hfa.aer.ad, 2 PUFF IH BID@08,20 Prescribed by: EB STALLWORTH on 06/15/192110 Metoprolol Tartrate 25 Mg Tablet, 12.5 MG PO BID Prescribed by: EB STALLWORTH on 06/15/192110 Pantoprazole Sodium 40 Mg Tablet.dr, 40 MG PO DAILY Prescribed by: EB STALLWORTH on 06/15/192110 Tramadol HCl 50 Mg Tablet, 50 MG PO DAILY PRN for PAIN-MODERATE (5-7), (Reported) Umeclidinium Brm/Vilanterol Tr 1 Each Blst.w.dev, 1 PUFF INH DAILY, (Reported) Past Vepywsh-Gxehfa-Tcdhuy Hx Past Med/Social Hx: Reviewed Nursing Past Med/Soc Hx Patient Social History Alcohol Use: Denies Use Recreational Drug Use: No Smoking Status: Former Smoker Type Used: Cigarettes Former Smoker, Quit: May 08, 2009 Recent Foreign Travel: No Contact w/Someone Who Travel: No Recent Infectious Disease Expo: No Recent Hopitalizations: Yes Immunizations Up To Date Date of Pneumonia Vaccine: May 29, 2019 Date of Influenza Vaccine: May 20, 2019 Seasonal Allergies Seasonal Allergies: Yes Past Medical History Surgeries: Yes (RT UPPER LOBECTOMY--FOR BENIGN MASS; "CYST REMOVED FROM ABDOMEN" ) Abdominal, Breast, Gallbladder, Hysterectomy, Lobectomy Respiratory: Yes (O2 DEPENDENT AT 3L/NC; INTUBATED IN 2011 & 2019) Asthma, Pneumonia, COPD Cardiac: Yes Atrial Fibrillation, High Cholesterol, Hypertension Neurological: No 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 oz. kg; 30.71 BMI Method: Exam Exam Vital Signs Date Time Temp Pulse Resp B/P (MAP) Pulse Ox O2 Delivery O2 Flow Rate FiO2 07/31/19 04:00 36.4 68 20 143/78 (99) 93 NIV Bilevel 35.00 07/31/19 03:06 70 28 93 07/31/19 00:24 36.4 68 20 143/78 (99) 93 NIV Bilevel 35.00 07/30/19 23:13 75 21 91 07/30/19 20:10 36.2 87 33 130/69 (89) 94 Nasal Cannula 35.00 07/30/19 19:50 NIV Bilevel 07/30/19 19:08 77 21 94 07/30/19 17:44 92 NIV Bilevel 07/30/19 16:00 36.7 85 20 152/70 92 NIV Bilevel 35.00 07/30/19 16:00 36.7 85 20 152/70 (97) 92 NIV Bilevel 2.00 2.00 07/30/19 15:52 36.7 85 16 111/71 (108) 95 NIV Bilevel 07/30/19 14:15 77 21 96 07/30/19 13:57 Nasal Cannula 2.00 96 07/30/19 12:53 36.7 72 20 138/93 (108) 97 Nasal Cannula 3.00 07/30/19 12:53 97 Nasal Cannula 3.00 I & O 07/31/19 07:00 Intake Total 100 ml Output Total 300 ml Balance -200 ml Height & Weight Height: '" Weight: lbs. oz. kg; 30.71 BMI Method: General Appearance: No Apparent Distress, WD/WN HEENT: Normal ENT Inspection Neck: Full Range of Motion, Normal Inspection Respiratory: No Accessory Muscle Use, No Respiratory Distress, Decreased Breath Sounds Cardiovascular: Regular Rate, Rhythm, No Murmur Capillary Refill: Less Than 3 Seconds Gastrointestinal: non tender, soft Results Lab Laboratory Tests 07/30/19 13:05 07/31/19 04:45 Assessment/Plan Assessment/Plan COPD with acute exacerbation. -Solumedrol -BiPAP QHS and PRN -I believe pt has home vent to mask Severe oxygen dependent COPD uses 4liers at home metabolic encephalopathy Atrial fibrillation Hx of lobectomy elevated right diaphram Morbid obesity BYRON WINKLER DO Jul 31, 2019 05:40
[2019-07-31] MEDS: RT-ALBUTEROL/IPRATROPIUM 3 ML (DUONEB) VIAL INH SCH ×5 (07:52→22:06)
[2019-07-31 08:00] VITALS: BP 162/67
--- NOTE | 2019-07-31 08:03 | Progress Note ---
Subjective Time Seen by a Provider: 07:57 Subjective/Events-last exam Patient doing better today. Patient on oxygen. Patient able to eat. Patient able to walk a little. Patient in the right direction Objective Exam Vital Signs Date Time Temp Pulse Resp B/P (MAP) Pulse Ox O2 Delivery O2 Flow Rate FiO2 07/31/19 04:00 36.4 68 20 143/78 (99) 93 NIV Bilevel 35.00 07/31/19 03:06 70 28 93 07/31/19 00:24 36.4 68 20 143/78 (99) 93 NIV Bilevel 35.00 07/30/19 23:13 75 21 91 07/30/19 20:10 36.2 87 33 130/69 (89) 94 Nasal Cannula 35.00 07/30/19 19:50 NIV Bilevel 07/30/19 19:08 77 21 94 07/30/19 17:44 92 NIV Bilevel 07/30/19 16:00 36.7 85 20 152/70 92 NIV Bilevel 35.00 07/30/19 16:00 36.7 85 20 152/70 (97) 92 NIV Bilevel 2.00 2.00 07/30/19 15:52 36.7 85 16 111/71 (108) 95 NIV Bilevel 07/30/19 14:15 77 21 96 07/30/19 13:57 Nasal Cannula 2.00 96 07/30/19 12:53 36.7 72 20 138/93 (108) 97 Nasal Cannula 3.00 07/30/19 12:53 97 Nasal Cannula 3.00 I & O 07/31/19 07:00 Intake Total 150 ml Output Total 700 ml Balance -550 ml Capillary Refill : Less Than 3 Seconds General Appearance: No Apparent Distress, WD/WN HEENT: Normal ENT Inspection Neck: Full Range of Motion Respiratory: No Accessory Muscle Use, No Respiratory Distress, Decreased Breath Sounds, Other (Coughing) Cardiovascular: Regular Rate, Rhythm, No Murmur Gastrointestinal: non tender, soft Results Lab Laboratory Tests 07/30/19 13:05 07/31/19 04:45 Laboratory Tests 07/30/19 13:05: White Blood Count 5.0, Red Blood Count 3.70L, Hemoglobin 10.8L, Hematocrit 39, Mean Corpuscular Volume 106H, Mean Corpuscular Hemoglobin 29, Mean Corpuscular Hemoglobin Concent 28L, Red Cell Distribution Width 13.3, Platelet Count 134, Mean Platelet Volume 10.5H, Neutrophils (%) (Auto) 75, Lymphocytes (%) (Auto) 14, Monocytes (%) (Auto) 10, Eosinophils (%) (Auto) 1, Basophils (%) (Auto) 0, Neutrophils # (Auto) 3.7, Lymphocytes # (Auto) 0.7L, Monocytes # (Auto) 0.5, Eosinophils # (Auto) 0.0, Basophils # (Auto) 0.0, Sodium Level 145, Potassium Level 4.8, Chloride Level 84L, Carbon Dioxide Level 49*H, Anion Gap 12, Blood Urea Nitrogen 11, Creatinine 0.57L, Estimat Glomerular Filtration Rate > 60, BUN/Creatinine Ratio 19, Glucose Level 108H, Calcium Level 10.2H, Corrected Calcium 10.0, Magnesium Level 1.8, Total Bilirubin 0.3, Aspartate Amino Transf (AST/SGOT) 33, Alanine Aminotransferase (ALT/SGPT) 43, Alkaline Phosphatase 133, C-Reactive Protein High Sensitivity 0.07, B-Type Natriuretic Peptide 40.4, Total Protein 7.0, Albumin 4.2 07/30/19 13:50: Blood Gas Puncture Site L RAD, Blood Gas Patient Temperature 36.7, Arterial Blood pH 7.41, Arterial Blood Partial Pressure CO2 90*H, Arterial Blood Partial Pressure O2 68L, Arterial Blood HCO3 56*H, Arterial Blood Total CO2 58.5H, Arterial Blood Oxygen Saturation 94, Arterial Blood Base Excess 28.6H, Rik Test YES-POS, Blood Gas Ventilator Setting NO, Blood Gas Inspired Oxygen 2 07/31/19 04:45: White Blood Count 3.6L, Red Blood Count 3.35L, Hemoglobin 9.7L, Hematocrit 34L, Mean Corpuscular Volume 101H, Mean Corpuscular Hemoglobin 29, Mean Corpuscular Hemoglobin Concent 29L, Red Cell Distribution Width 13.1, Platelet Count 137, Mean Platelet Volume 10.4, Neutrophils (%) (Auto) 91H, Lymphocytes (%) (Auto) 8L , Monocytes (%) (Auto) 1, Eosinophils (%) (Auto) 0, Basophils (%) (Auto) 0, Neutrophils # (Auto) 3.2, Lymphocytes # (Auto) 0.3L, Monocytes # (Auto) 0.1, Eosinophils # (Auto) 0.0, Basophils # (Auto) 0.0, Sodium Level 142, Potassium Level 3.9, Chloride Level 86L, Carbon Dioxide Level 44H, Anion Gap 12, Blood Urea Nitrogen 15, Creatinine 0.57L, Estimat Glomerular Filtration Rate > 60, BUN/Creatinine Ratio 26, Glucose Level 160H, Calcium Level 9.8, Corrected Calcium 10.1, Total Bilirubin 0.2, Aspartate Amino Transf (AST/SGOT) 25, Alanine Aminotransferase (ALT/SGPT) 36, Alkaline Phosphatase 115, Total Protein 6.0L, Albumin 3.6 Assessment/Plan Assessment/Plan Assess & Plan/Chief Complaint Short of breath. COPD with acute exacerbation. Atrial fib history. Feeling oxygen dependent Clinical Quality Measures Admission Status Admission Dx COPD with acute exacerbation. Hypercapnia. Confusion. Atrial fibrillation DVT/VTE Risk/Contraindication: Risk Factor Score Per Nursin RFS Level Per Nursing on Admit: 4+=Very High Contraindications-Pharm: Other *list below* ADOLFO ORTIZ DO Jul 31, 2019 08:03
[2019-07-31] MEDS: DILTIAZEM 240 MG (CARDIZEM CD) CAP PO SCH (08:31)
[2019-07-31] MEDS: PANTOPRAZOLE 40 MG (PROTONIX) TAB PO SCH (08:31)
[2019-07-31] MEDS: meTOprolol TARTRATE 25 MG (LOPRESSOR) TABLET PO SCH ×2 (08:31→21:03)
[2019-07-31] MEDS: APIXABAN 5 MG (ELIQUIS) TABLET PO SCH ×2 (08:32→21:03)
[2019-07-31] MEDS ORDERED: NON-FORMULARY MEDICATION 1 EA EA (Umeclidinium Brm/Vilanterol Tr (Anoro Ellipta 62.5-25 Mc INH SCH (09:00)
[2019-07-31] MEDS ORDERED: SALINE NASAL SPRAY (OCEAN) 45 ML BTL PRN (11:00)
[2019-07-31 12:00] VITALS: BP 185/95
[2019-07-31] MEDS ORDERED: METO-333 PO (12:59)
[2019-07-31] MEDS ORDERED: PANT40TA2 PO (12:59)
[2019-07-31] MEDS ORDERED: DILT240C91 PO (12:59)
[2019-07-31] MEDS ORDERED: APIX5TAB PO (12:59)
[2019-07-31] MEDS ORDERED: FLUT16SP22 NS (12:59)
[2019-07-31] MEDS ORDERED: MULT-1029 PO (12:59)
[2019-07-31] MEDS ORDERED: UMEC62.5 INH (12:59)
--- NOTE | 2019-07-31 13:02 | NUR ---
SPOKE WITH THE PATIENT AND HER ABOUT MEDICATIONS. THEY HAD A LIST WITH THEM AND I COMPARED IT WITH THE EXT MED HX. IN ADDITION TO WHAT IS ON THEIR LIST SHE USES A FLONASE NASAL SPRAY DAILY, SHE STATES THIS IS A FAIRLY NEW MEDICATIONS. SHE FILLED LIPITOR 10MG #90 05-05-19 BUT STATES THIS HAS BEEN DISCONTINUED, SHE NO LONGER TAKES IT. OTC MEDS INCLUDE: CENTRUM SILVER DAILY TYLENOL PRN MED REC WAS REVIEWED AND CONTINUED PRIOR TO MED REC TECH AVAILABILITY, THERE WERE SOME ERRORS IN WHAT WAS REVIEWED DESPITE THE PATIENTS LIST AND EXT MED HX. I HAVE CORRECTED THEM AND PASSED THEM ON TO THE PHARMACIST FOR CLARIFICATION. CHANGES INCLUDE: ADVAIR AND TRAMADOL WAS CONTINUED- PATIENT NO LONGER TAKES. ANORO WAS CONTINUED, PATIENT TAKES INCRUSE INSTEAD. CENTRUM SILVER WAS NOT ON THE MED REC BUT WAS ON THE LIST. I ADDED FLONASE WELL BUT THIS WAS NOT ON HER LIST, IT WAS SHOWN ON THE EXT MED HX HOWEVER.
[2019-07-31 16:00] VITALS: BP 126/74
--- NOTE | 2019-07-31 16:15 | NUR ---
ASSUMED CARE OF PT AT THIS TIME.
[2019-07-31] MEDS: NS IV 1000 ML 1,000 ML IV SCH (16:21)
[2019-07-31] MEDS: ACETAMINOPHEN 500 MG TAB (TYLENOL) PO PRN (16:22)
[2019-07-31 20:00] VITALS: BP 122/70
[2019-08-01 00:25] VITALS: BP 143/82
[2019-08-01] MEDS: RT-ALBUTEROL/IPRATROPIUM 3 ML (DUONEB) VIAL INH SCH ×3 (02:15→10:48)
[2019-08-01] MEDS: methylPREDNISolone 40 MG/ML (Solu-MEDROL) VIAL IV SCH (02:52)
[2019-08-01] MEDS: ACETAMINOPHEN 500 MG TAB (TYLENOL) PO PRN (02:53)
[2019-08-01 04:15] VITALS: BP 138/84
[2019-08-01 05:50] LABS: MEAN PLATELET VOLUME 10.4 FL (7.4-10.4); RED CELL DISTRIBUTION WIDTH 13.7 % (10.0-14.5); WHITE BLOOD COUNT 7.1 10^3/uL (4.3-11.0)
[2019-08-01 06:04] LABS: ALANINE AMINOTRANSFERASE 33 U/L (0-55); ALBUMIN 3.7 GM/DL (3.2-4.5); ALKALINE PHOSPHATASE 113 U/L (40-136); BILIRUBIN,TOTAL 0.2 MG/DL (0.1-1.0); BUN/CREATININE RATIO 29; CALCIUM 9.9 MG/DL (8.5-10.1); CARBON DIOXIDE 45 MMOL/L (21-32); CHLORIDE 90 MMOL/L (98-107); CREATININE SERUM 0.58 MG/DL (0.60-1.30); GFR ESTIMATED > 60; GLUCOSE 144 MG/DL (70-105); POTASSIUM 4.2 MMOL/L (3.6-5.0); SODIUM 143 MMOL/L (135-145); TOTAL PROTEIN 6.1 GM/DL (6.4-8.2)
--- NOTE | 2019-08-01 06:57 | Pulmonary Progress Note ---
Subjective Time Seen by a Provider: 06:56 Subjective/Events-last exam Pt wants to go home. Sepsis Event Evaluation Height, Weight, BMI Height: '" Weight: lbs. oz. kg; 30.71 BMI Method: Exam Exam Vital Signs Date Time Temp Pulse Resp B/P (MAP) Pulse Ox O2 Delivery O2 Flow Rate FiO2 08/01/19 04:15 36.6 64 20 138/84 (102) 96 Nasal Cannula 3.00 08/01/19 02:15 69 23 95 40.00 08/01/19 00:25 36.4 67 21 143/82 (102) 97 NIV Bilevel 07/31/19 22:06 70 28 94 40.00 07/31/19 20:00 Nasal Cannula 3.00 07/31/19 20:00 37.1 78 20 122/70 (87) 93 Nasal Cannula 2.00 07/31/19 18:27 90 Nasal Cannula 3.00 07/31/19 16:00 37.1 78 18 126/74 (91) 97 Nasal Cannula 2.00 07/31/19 15:54 94 Nasal Cannula 3.00 07/31/19 12:00 36.4 81 22 185/95 (125) 95 Nasal Cannula 2.00 07/31/19 11:52 94 Nasal Cannula 2.00 07/31/19 08:00 36.5 92 18 162/67 (98) 95 Nasal Cannula 2.00 07/31/19 08:00 NIV Bilevel 07/31/19 07:52 92 Nasal Cannula 2.00 I & O 08/01/19 07:00 Intake Total 1760 ml Balance 1760 ml Height & Weight Height: '" Weight: lbs. oz. kg; 30.71 BMI Method: General Appearance: No Apparent Distress, WD/WN HEENT: Normal ENT Inspection Neck: Full Range of Motion Respiratory: No Accessory Muscle Use, No Respiratory Distress, Decreased Breath Sounds, Other (Coughing) Cardiovascular: Regular Rate, Rhythm, No Murmur Capillary Refill: Less Than 3 Seconds Gastrointestinal: non tender, soft Results Lab Laboratory Tests 07/30/19 13:05 07/31/19 04:45 08/01/19 05:15 Assessment/Plan Assessment/Plan COPD with acute exacerbation. -Solumedrol -- change to solumedrol -BiPAP QHS and PRN -I believe pt has home vent to mask-- Pt has home machine Severe oxygen dependent COPD uses 4liers at home metabolic encephalopathy Atrial fibrillation Hx of lobectomy elevated right diaphram Morbid obesity pt is ok for discharge from pulmonary standpoint. BYRON WINKLER DO Aug 01, 2019 06:57
[2019-08-01] MEDS ORDERED: MULTIVIT W/MINERALS TAB (THERAGRAN M) PO SCH (07:00)
[2019-08-01 07:27] VITALS: BP 147/77
[2019-08-01] MEDS ORDERED: UMECLIDINIUM BROMIDE (INCRUSE ELLIPTA) 7'S IH SCH (08:00)
[2019-08-01] MEDS ORDERED: predniSONE 10 MG TAB PO SCH (09:00)
[2019-08-01] MEDS: meTOprolol TARTRATE 25 MG (LOPRESSOR) TABLET PO SCH (09:11)
[2019-08-01] MEDS: DILTIAZEM 240 MG (CARDIZEM CD) CAP PO SCH (09:12)
[2019-08-01] MEDS: APIXABAN 5 MG (ELIQUIS) TABLET PO SCH (09:12)
[2019-08-01] MEDS: PANTOPRAZOLE 40 MG (PROTONIX) TAB PO SCH (09:12)
[2019-08-01] MEDS ORDERED: PRED10TA22 PO (10:22)
[2019-08-01] MEDS ORDERED: FLUTICASONE NASAL SPRAY (FLONASE) 16 GM BTL NS SCH (12:00)
--- NOTE | 2019-08-01 12:00 | NUR ---
DISCHARGE INSTRUCTIONS GIVEN, VERBALIZED UNDERSTANDING, AT BEDSIDE, DENIES PAIN OR SOB, IV DC, SITE WITHOUT REDNESS.
[2019-08-01 12:17] VITALS: BP 111/74
--- NOTE | 2019-08-01 12:28 | Discharge Summary ---
Discharge Summary Hospital Course Was the Problem List Reviewed?: Yes Hospital Course Date of Admission: Jul 30, 2019 at 14:57 Admission Diagnosis : acute on chronic respiratory failure with hypoxia and hypercapnia Family Physician/Provider: Dion Ortiz DO Date of Discharge: 08/01/19 Discharge Diagnosis: acute on chronic respiratory failure with hypoxemia and hypercapnia, COPD exacerbation Hospital Course: Tiffany Bond is a 74-year-old female who was admitted with acute on chronic respiratory failure with hypoxemia and hypercapnia. She was treated for a COPD exacerbation with steroids and will complete a course of prednisone as an outpatient. She required BiPAP for which she had been nonadherent at home. She will continue to wear her BiPAP at night at home and was educated regarding the need for this. Pulmonology was consulted and assisted in her care. She should follow-up with pulmonology, Dr. Abdalla, as scheduled. She should follow-up with Dr. Ortiz in about one week. Labs and Pending Lab Test: Laboratory Tests 08/01/19 05:15: White Blood Count 7.1, Red Blood Count 3.40L, Hemoglobin 10.0L, Hematocrit 34L, Mean Corpuscular Volume 99, Mean Corpuscular Hemoglobin 29, Mean Corpuscular Hemoglobin Concent 30L, Red Cell Distribution Width 13.7, Platelet Count 164, Mean Platelet Volume 10.4, Sodium Level 143, Potassium Level 4.2, Chloride Level 90L, Carbon Dioxide Level 45H, Anion Gap 8, Blood Urea Nitrogen 17, Creatinine 0.58L, Estimat Glomerular Filtration Rate > 60, BUN/Creatinine Ratio 29, Glucose Level 144H, Calcium Level 9.9, Corrected Calcium 10.1, Total Bilirubin 0.2, Aspartate Amino Transf (AST/SGOT) 25, Alanine Aminotransferase (ALT/SGPT) 33, Alkaline Phosphatase 113, Total Protein 6.1L, Albumin 3.7 Home Meds Active Prednisone 10 Mg Tab.ds.pk 10 Mg PO DAILY Take 6 tabs(60mg)daily,decrease by 1 tab(10MG)daily. Reported Centrum Silver Tablet (Multivit-Min/FA/Lycopene/Lut) 1 Each Tablet 1 Tab PO DAILY Metoprolol Tartrate 25 Mg Tablet 12.5 Mg PO BID TAKES 1/2 (25MG) TABLET Eliquis (Apixaban) 5 Mg Tablet 5 Mg PO BID Diltiazem 24Hr ER (Diltiazem HCl) 240 Mg Cap.er.24h 240 Mg PO DAILY Protonix (Pantoprazole Sodium) 40 Mg Tablet.dr 40 Mg PO DAILY Fluticasone Propionate 16 Gm [place].susp 1 [place] NS 1200 Incruse Ellipta (Umeclidinium [place]) 62.5 Mcg Blst.w.dev 1 Puff INH DAILY Ventolin Hfa (Albuterol Sulfate) 18 Gm Hfa.aer.ad 2 Puff INH Q4H PRN Albuterol Sulfate 2.5 Mg/3 Ml Vial.neb 2.5 Mg NEB Q4H PRN Acetaminophen Extra Strength (Acetaminophen) 500 Mg Tablet 500-1,000 Mg PO Q6H PRN Assessment/Pt Instructions take medications as prescribed. Complete your course of steroids. Wear BiPAP at night. Follow-up with Dr. Ortiz in about a week. Follow up with Dr. Abdalla as scheduled. Discharge Planning: <30 minutes discharge planning Discharge Instructions Discharge Diet: No Restrictions Activity as Tolerated: Yes Discharge Physical Examination Vital Signs Vital Signs Date Time Temp Pulse Resp B/P (MAP) Pulse Ox O2 Delivery O2 Flow Rate FiO2 08/01/19 10:49 95 Nasal Cannula 3.00 08/01/19 07:27 37.6 69 20 147/77 (100) 07/30/19 13:57 96 General Appearance: No Apparent Distress, Chronically ill HEENT: PERRL/EOMI, Pharynx Normal Respiratory: No Respiratory Distress, Wheezing Cardiovascular: Regular Rate, Rhythm, No Edema, No Murmur Gastrointestinal: Normal Bowel Sounds, Non Tender, Soft Extremity: Normal Inspection, Non Tender, No Pedal Edema Skin: Normal Color, Warm/Dry Neurologic/Psychiatric: Alert, Oriented x3, No Motor/Sensory Deficits, Normal Mood/Affect Allergies: Coded Allergies: codeine (Verified Allergy, Unknown, 12/04/05) Copy Copies To 1: DION ORTIZ DO Discharge Summary Date of Admission Jul 30, 2019 at 14:57 Date of Discharge Discharge Date: Aug 01, 2019 Discharge Time: 12:26 Admission Diagnosis acute on chronic respiratory failure with hypoxia and hypercapnia, COPD exacerbation Consults/Procedures Consulations pulmonology Discharge Diagnosis acute on chronic respiratory failure with hypoxia and hypercapnia, COPD exacerbation (1) Acute on chronic respiratory failure with hypoxia and hypercapnia Status: Acute (2) COPD with acute exacerbation Status: Acute Clinical Quality Measures DVT/VTE Risk/Contraindication: Risk Factor Score Per Nursin RFS Level Per Nursing on Admit: 4+=Very High Contraindications-Pharm: Other *list below* AMAURY LAURENT MD Aug 01, 2019 12:26
[2019-08-01 13:15] VITALS: BP 111/74
--- NOTE | 2019-08-01 13:15 | NUR ---
DISMISSED PER W/C WITH PORTABLE O2 ON 3 LITERS, VOICES NO COMPLAINTS
== END 2019-08-01 13:15 | disposition home or self-care (01) | DRG 189 ==
LOC: EDUNIT# 12:51 → ER 12:52 → 4TH 14:57
PROVIDERS: ADMIT Family Medicine; ATTEND Family Medicine
DX: J96.22 Acute and chronic respiratory failure with hypercapnia (principal); J96.21 Acute and chronic respiratory failure with hypoxia; J44.1 Chronic obstructive pulmonary disease with (acute) exacerbation; G93.41 Metabolic encephalopathy; I48.91 Unspecified atrial fibrillation; E66.01 Morbid (severe) obesity due to excess calories; Z66 Do not resuscitate; J30.2 Other seasonal allergic rhinitis; E78.00 Pure hypercholesterolemia, unspecified; I10 Essential (primary) hypertension; K59.09 Other constipation; M19.91 Primary osteoarthritis, unspecified site; F41.9 Anxiety disorder, unspecified; F32.9 Major depressive disorder, single episode, unspecified; Z99.81 Dependence on supplemental oxygen; Z90.2 Acquired absence of lung [part of]; Z87.891 Personal history of nicotine dependence; Z87.01 Personal history of pneumonia (recurrent); Z90.710 Acquired absence of both cervix and uterus; Z68.31 Body mass index [BMI] 31.0-31.9, adult
CPT/HCPCS: 36415; 71045; 80053; 82805; 83735; 83880; 85025; 85027; 86141; 93041; 94640; 94660; 94760